=== PATIENT | male | born 1965 | race Caucasian/White ===

== ENCOUNTER 2021-01-27 09:39 | Inpatient (IN) | payer MEDICARE, MEDICAID, SELFPAY ==
[2021-01-27] VITALS (13 sets, daily range): BP systolic 103–152; BP diastolic 65–87; PULSE 92–145; RESP 15–28; TEMP 36.3–37.1; O2SAT 87–97; BMI 24.9
--- NOTE | ~2021-01-27 | CT_ITS ---
EXAMINATION: CT ABDOMEN AND PELVIS WITH CONTRAST CLINICAL INFORMATION: Rule out abdominal malignancy. History of left leg DVT and PE COMPARISON: None TECHNIQUE: Multidetector volumetric images were obtained from the superior aspect of the liver through the pubic symphysis following administration 85 mL of Omnipaque 350 intravenous contrast. Sagittal and coronal reformatted images were obtained on the technologist's workstation. Oral contrast: Yes This CT examination was performed using dose optimization techniques as appropriate, variously including the following: *Automated exposure control *Adjustment of mA and/or kV according to patient size (this includes techniques or standardized protocols for targeted exams where dose is matched to indication/reason for exam; i.e. extremities or head) *Use of iterative reconstruction technique DLP: 305 mGy-cm FINDINGS: LUNG BASES: There is severe bronchiectasis and some bronchial wall thickening and mucus plugging seen at the lung bases.. LIVER, GALLBLADDER, AND BILIARY TREE: The liver is enlarged, right lobe measuring 23 cm in length. The liver is normal in shape and attenuation. No focal hepatic lesion or biliary ductal dilatation is present. There is a gallstone in the gallbladder. PANCREAS: Unremarkable. SPLEEN: Unremarkable. ADRENAL GLANDS: Unremarkable. KIDNEYS AND URETERS: There is a small 2 mm stone in the lower pole of the left kidney. Kidneys are otherwise unremarkable. BLADDER: Unremarkable. GASTROINTESTINAL TRACT: There is stool throughout the colon suggestive of constipation. Small and large bowel is otherwise unremarkable. The small and large bowel are unremarkable. The appendix is is not seen. ABDOMINAL WALL: There is a right inguinal hernia containing fat. LYMPH NODES: Normal. VASCULAR: Unremarkable. PELVIC VISCERA: Unremarkable. OSSEOUS STRUCTURES: Unremarkable. CT/CT abdomen pelvis w con IMPRESSION: Constipation. Enlarged liver. Small left renal stone. Gallstone.
--- NOTE | ~2021-01-27 | XR_ITS ---
EXAMINATION: XR CHEST CLINICAL INFORMATION: Shortness of breath. COMPARISON: None TECHNIQUE: Frontal view of the chest was obtained. FINDINGS: The lungs are expanded there diffuse patchy airspace opacities seen scattered throughout both mid and lower lungs and minimal in both upper lobes suggestive of infiltrates likely related to Covid disease. Heart size and pulmonary vascularity is normal. No gross bony abnormality seen. XR/XR chest 1V IMPRESSION: Diffuse bilateral airspace opacities suspicious of interstitial infiltrates likely Covid disease.
--- NOTE | ~2021-01-27 | CT_ITS ---
EXAMINATION: CT ANGIOGRAM OF THE CHEST WITH AND WITHOUT CONTRAST (CT PULMONARY ANGIOGRAM FOR PE) CLINICAL INFORMATION: Reason for Exam hypoxia, elevated d-dimer COMPARISON: Previous chest x-ray from earlier the same day TECHNIQUE: Prior to contrast administration, noncontrast localization images were obtained. Subsequently, multidetector volumetric imaging was performed from the thoracic inlet to below the diaphragms following the administration of 66 mL Omnipaque 350 intravenous contrast. No contrast reaction reported Sagittal, coronal, and MIP oblique sagittal reformatted images were obtained on the CT workstation, uploaded to PACS, and reviewed. This CT examination was performed using dose optimization techniques as appropriate, variously including the following: *Automated exposure control *Adjustment of mA and/or kV according to patient size (this includes techniques or standardized protocols for targeted exams where dose is matched to indication/reason for exam; i.e. extremities or head) *Use of iterative reconstruction technique Total exam dose-length product 277 mGy-cm FINDINGS: QUALITY OF STUDY/CONTRAST BOLUS: Satisfactory. PULMONARY ARTERIES: There are large segmental and subsegmental right upper, right middle and right lower lobe pulmonary emboli. No left-sided pulmonary emboli are seen. THORACIC AORTA: No aneurysm or dissection. LUNG: There is extensive cylindrical bronchiectasis. This is seen throughout the lungs. There are areas of bronchial wall thickening and bronchial soft tissue opacification or mucus plugging. There is a 4 mm peripheral or subpleural right lower lobe nodule axial image 51 series 5. It is uncertain whether this is related to airways disease given peripheral location. There are other scattered small pulmonary nodules probably related to airways disease. There are emphysematous changes. PLEURA: No pleural effusion or pneumothorax. MEDIASTINUM: Normal heart size. No pericardial effusion. There is shotty mediastinal and bilateral hilar lymphadenopathy. Largest lymph node is a 1 cm left hilar lymph node.. No evidence of septal bowing or right heart strain. CHEST WALL/AXILLA: No axillary or internal mammary lymphadenopathy. OSSEOUS STRUCTURES: No acute or suspicious osseous abnormality. UPPER ABDOMEN: There is a gallstone in the gallbladder. The liver may be enlarged.. No reflux of contrast into the hepatic veins to suggest elevated right heart pressures. CT/CT angio chest PE protocol IMPRESSION: Segmental and subsegmental right upper, right middle and right lower lobe pulmonary emboli. Severe bronchiectasis and areas of bronchial wall thickening and mucus plugging. VTE: positive Findings were communicated to Dr. Michele by telephone on 01/28/2020 1:40 PM.
--- NOTE | ~2021-01-27 | US_ITS ---
EXAMINATION: US VENOUS ULTRASOUND WITH DOPPLER LOWER EXTREMITY, BILATERAL CLINICAL INFORMATION: Pulmonary embolism. COMPARISON: None TECHNIQUE: Ultrasound of the deep veins is performed from the hip to the calf with compression sonography and color and pulse Doppler assessment. Spectral analysis with color-flow imaging is performed. FINDINGS: RIGHT: There is normal venous compression and respiratory variation and augmented flow. The visualized common femoral vein, superficial femoral vein, profunda femoral vein, popliteal vein, and the trifurcation region shows no evidence of deep venous thrombosis. There is no significant popliteal fossa cyst. LEFT: There is deep vein thrombosis of the left leg. There is occlusive thrombus in the superficial femoral vein from the proximal through the distal thigh and into the popliteal vein. Vascular flow demonstrated in the posterior tibial vein of the calf. Peroneal vein not well seen. No popliteal cysts US/US venous duplex LE BI IMPRESSION: 1. Right leg: No deep vein thrombosis. 2. Left leg: Occlusive thrombus involving the femoral vein in the thigh through the popliteal vein. This critical result was discussed with Dr. Israel Plasencia on 01/28/2021, 10:10 PM and it was ascertained that the content and urgency of the report was understood at the time of direct communication.
--- NOTE | 2021-01-27 09:51 | ED.SOB ---
HPI - SOB/Dyspnea General Chief Complaint: Dyspnea Stated Complaint: DIFF BREATHING Time Seen by Provider: 01/27/21 09:51 Source: patient Mode of arrival: EMS Limitations: no limitations History of Present Illness HPI Narrative: Patient with pulmonary fibrosis and COPD with increasing shortness of breath. Recent admission to [facility] for similar, patient on 3L at home with O2 sats at 91%.. Today needs NRB 02 to keep him in low 90s MD elicited complaint: shortness of breath and cough Pertinent past history: COPD and HIV Onset (ago): day(s) Timing: constant Severity: severe Known history of: COPD Related Data Home Medications Medication Instructions Recorded Confirmed abacavir 2 tab PO DAILY 01/27/21 01/27/21 albuterol sulfate [Ventolin HFA] 2 puff PO Q4H PRN 01/27/21 01/27/21 dapsone 1 tab PO DAILY 01/27/21 01/27/21 darunavir ethanolate [Prezista] 1 tab PO BID 01/27/21 01/27/21 dolutegravir [Tivicay] 1 tab PO BID 01/27/21 01/27/21 emtricitabine-tenofovir alafen 1 tab PO DAILY 01/27/21 [Descovy] furosemide 20 mg PO DAILY 01/27/21 01/27/21 insulin aspart (niacinamide) 8 - 12 unit SUBCUT TIDAC 01/27/21 01/27/21 [Fiasp FlexTouch U-100 Insulin] insulin glargine [Lantus U-100 14 unit SUBCUT BID 01/27/21 01/27/21 Insulin] ipratropium-albuterol 3 ml INHALATION QID 01/27/21 01/27/21 omeprazole 20 mg PO DAILY 01/27/21 01/27/21 prednisone 10 tab PO DAILY 01/27/21 01/27/21 ritonavir 1 tab PO BID 01/27/21 01/27/21 trazodone 50 mg PO BEDTIME 01/27/21 01/27/21 umeclidinium-vilanterol [Anoro 1 puff INHALATION DAILY 01/27/21 01/27/21 Ellipta] Allergies Allergy/AdvReac Type Severity Reaction Status Date / Time Penicillins Allergy Severe HIves Verified 01/27/21 09:55 swelling SOB Review of Systems Constitutional: Constitutional: Reports no additional constitutional complaints Eyes: Eyes: Reports no additional eye complaints ENT: Denies dizziness Cardiovascular: Cardiovascular: Reports no additional cardiovascular complaints Respiratory: Respiratory: Reports as per HPI Gastrointestinal: Gastrointestinal: Reports no additional gastrointestinal complaints Musculoskeletal: Musculoskeletal: Reports no additional musculoskeletal complaints Integumentary/Breasts: Skin/Breast: Denies rash Neurologic: Reports system reviewed and no additional complaints, except as documented, Denies dizziness and Denies Sensory deficit (Neuro) Psychiatric: Psychiatric: Denies anxiety [facility] Past Medical History Medical History AIDS COPD (chronic obstructive pulmonary disease) Diabetes mellitus type 1 HIV disease HTN (hypertension) Pulmonary fibrosis Social History Social History Alcohol intake: never Smoking Status: Former smoker Use of substances other than those prescribed or required for medical reasons: No Advance Directives: No Advance Directives Information Provided: No Physical Exam Vital Signs: Vital Signs: Last Vital Signs Temp 98.2 F 01/27/21 11:16 Pulse 109 H 01/27/21 14:39 Resp 15 01/27/21 14:39 BP 123/81 01/27/21 14:39 Pulse Ox 96 01/27/21 14:39 Oxygen Flow Rate 7 01/27/21 09:45 Body Mass Index 24.9 Const: Other: chronically ill appearing, short of breath Orientation/consciousness: oriented to person and patient oriented x3 Limitations: no limitations HENMT: Head: Yes normal to inspection Ears: external ears normal General nose exam: Normal external nose present Mouth: Normal oral and palatal mucosa present and oropharynx normal Throat: Yes posterior oropharynx normal Eyes: General: appearance normal, both eyes and all related structures Neck: Other: supple Neck: Yes normal visual inspection Chest: Chest palpation & inspection: normal inspection of the chest Resp: Other: diffuse wheezing Cardio: Jugular venous distension: no JVD Rate: regular rate Rhythm: regular rhythm Heart sounds: S1 normal heart sound present and S2 normal heart sound present GI: Inspection: Yes normal to inspection Palpation (GI): Soft to palpation, nontender and No hepatosplenomegaly present Auscultation: normal bowel sounds : General: Yes no CVA tenderness Back/Spine/Pelvis: Back: no CVA tenderness Skin: General skin exam: no rashes or lesions noted Neuro: General: oriented to person and patient oriented x3 Cranial nerves: Yes CN's II-XII intact bilaterally Motor exam (neuro): 5/5 motor strength present throughout Sensory Exam: No Sensory deficit (Neuro) Extrem: Other: 3+ edema Psych: Appearance: grossly normal Course Course Course Narrative: Patient resting more comfortably, still requiring increased 02, will admit Reevaluation(s) Reevaluation #1: This patient is not septic, he is in COPD exacerbation secondary to pulmonary fibrosis Time: 12:56 MDM - SOB/Dyspnea Lab Data Result diagrams: 01/27/21 10:24 01/27/21 10:24 Labs: Lab Results 01/27/21 01/27/21 01/27/21 Range/Units 10:24 10:24 10:24 WBC 12.6 H (4.8-10.8) X10*3/uL RBC 4.17 L (4.60-5.80) X10*6/uL Hgb 11.3 L (14.0-18.0) g/dl Hct 36.5 L (42-52) % MCV 87.5 (80-98) fL MCH 27.1 (27.0-33.0) pg MCHC 31.0 (31.0-36.0) g/dl RDW 16.0 (11.0-16.0) % Plt Count 175 (160-400) X10*3/uL MPV 8.5 L (9.4-12.4) fL Immature Gran % (Auto) Cancelled Neut % (Auto) Cancelled Lymph % (Auto) Cancelled [place] % (Auto) Cancelled Eos % (Auto) Cancelled Baso % (Auto) Cancelled Lymph # (Auto) Cancelled [place] # (Auto) Cancelled Eos # (Auto) Cancelled Baso # (Auto) Cancelled Abs Immat Gran (auto) Cancelled Absolute Neuts (auto) Cancelled Absolute Nucleated RBC 0.000 (0.0-0.012) X10*3/uL Nucleated RBC % (auto) 0.0 (0.0-0.2) /100WBC Neutrophils % (Manual) 82 H (45-73) % Band Neutrophils % 1 L (3-5) % Lymphocytes % (Manual) 7 L (20-40) % Atypical Lymphs % (Man) 4 (0-6) % Monocytes % (Manual) 6 (2-11) % Abs Neuts (Manual) 10.5 H (2.2-7.9) X10*3/uL Lymphocytes # (Manual) 0.9 (0.6-4.8) X10*3/uL Atyp Lymphs # (Manual) 0.5 x10*3/uL Monocytes # (Manual) 0.8 (0.0-1.2) X10*3/uL Platelet Estimate NORMAL (NORMAL) Plt Morphology Comment NORMAL RBC Morphology NORMAL D-Dimer NG/ML O2 Saturation % ABG pH at Pt Temp (7.35-7.45) ABG pH (Temp Correct) (7.35-7.45) ABG pCO2 at Pt Temp (32-45) mmHg ABG pCO2 (Temp Corrct (32-45) mmHg ABG pO2 at Pt Temp (83-108) mmHg ABG pO2 (Temp Correct (83-108) ABG HCO3 (22-26) mmol/L ABG Base Excess (Actual) mmol/L Sodium 136 (135-145) mmol/L Potassium 3.9 (3.3-5.1) mmol/L Chloride 95 L (96-108) mmol/L Carbon Dioxide 31 H (22-29) mmol/L Anion Gap 14 (12-20) BUN 13 (9-16) mg/dL Creatinine 0.91 (0.5-1.4) mg/dL Estim Creat Clear Calc 97.6 Estimated GFR > 60 POC Glucose (60-115) mg/dL Random Glucose 353 H* (60-115) mg/dL Calcium 8.8 (8.4-10.2) mg/dL B-Natriuretic Peptide (<100) pg/mL Procalcitonin 0.12 ng/mL Coronavirus (PCR) (Negative) Influenza Type A (PCR) (Negative) Influenza Type B (PCR) (Negative) RSV RNA Qual (PCR) (Negative) 01/27/21 01/27/21 01/27/21 Range/Units 10:27 11:30 13:02 WBC (4.8-10.8) X10*3/uL RBC (4.60-5.80) X10*6/uL Hgb (14.0-18.0) g/dl Hct (42-52) % MCV (80-98) fL MCH (27.0-33.0) pg MCHC (31.0-36.0) g/dl RDW (11.0-16.0) % Plt Count (160-400) X10*3/uL MPV (9.4-12.4) fL Immature Gran % (Auto) Neut % (Auto) Lymph % (Auto) [place] % (Auto) Eos % (Auto) Baso % (Auto) Lymph # (Auto) [place] # (Auto) Eos # (Auto) Baso # (Auto) Abs Immat Gran (auto) Absolute Neuts (auto) Absolute Nucleated RBC (0.0-0.012) X10*3/uL Nucleated RBC % (auto) (0.0-0.2) /100WBC Neutrophils % (Manual) (45-73) % Band Neutrophils % (3-5) % Lymphocytes % (Manual) (20-40) % Atypical Lymphs % (Man) (0-6) % Monocytes % (Manual) (2-11) % Abs Neuts (Manual) (2.2-7.9) X10*3/uL Lymphocytes # (Manual) (0.6-4.8) X10*3/uL Atyp Lymphs # (Manual) x10*3/uL Monocytes # (Manual) (0.0-1.2) X10*3/uL Platelet Estimate (NORMAL) Plt Morphology Comment RBC Morphology D-Dimer NG/ML O2 Saturation 85.0 % ABG pH at Pt Temp 7.51 H (7.35-7.45) ABG pH (Temp Correct) 7.52 H (7.35-7.45) ABG pCO2 at Pt Temp 42 (32-45) mmHg ABG pCO2 (Temp Corrct 41 (32-45) mmHg ABG pO2 at Pt Temp 56 L (83-108) mmHg ABG pO2 (Temp Correct 55 L (83-108) ABG HCO3 34 H (22-26) mmol/L ABG Base Excess (Actual) 10.3 mmol/L Sodium (135-145) mmol/L Potassium (3.3-5.1) mmol/L Chloride (96-108) mmol/L Carbon Dioxide (22-29) mmol/L Anion Gap (12-20) BUN (9-16) mg/dL Creatinine (0.5-1.4) mg/dL Estim Creat Clear Calc Estimated GFR POC Glucose 279 H (60-115) mg/dL Random Glucose (60-115) mg/dL Calcium (8.4-10.2) mg/dL B-Natriuretic Peptide < 10 (<100) pg/mL Procalcitonin ng/mL Coronavirus (PCR) (Negative) Influenza Type A (PCR) (Negative) Influenza Type B (PCR) (Negative) RSV RNA Qual (PCR) (Negative) 01/27/21 01/27/21 Range/Units 13:25 13:54 WBC (4.8-10.8) X10*3/uL RBC (4.60-5.80) X10*6/uL Hgb (14.0-18.0) g/dl Hct (42-52) % MCV (80-98) fL MCH (27.0-33.0) pg MCHC (31.0-36.0) g/dl RDW (11.0-16.0) % Plt Count (160-400) X10*3/uL MPV (9.4-12.4) fL Immature Gran % (Auto) Neut % (Auto) Lymph % (Auto) [place] % (Auto) Eos % (Auto) Baso % (Auto) Lymph # (Auto) [place] # (Auto) Eos # (Auto) Baso # (Auto) Abs Immat Gran (auto) Absolute Neuts (auto) Absolute Nucleated RBC (0.0-0.012) X10*3/uL Nucleated RBC % (auto) (0.0-0.2) /100WBC Neutrophils % (Manual) (45-73) % Band Neutrophils % (3-5) % Lymphocytes % (Manual) (20-40) % Atypical Lymphs % (Man) (0-6) % Monocytes % (Manual) (2-11) % Abs Neuts (Manual) (2.2-7.9) X10*3/uL Lymphocytes # (Manual) (0.6-4.8) X10*3/uL Atyp Lymphs # (Manual) x10*3/uL Monocytes # (Manual) (0.0-1.2) X10*3/uL Platelet Estimate (NORMAL) Plt Morphology Comment RBC Morphology D-Dimer 7860 NG/ML O2 Saturation % ABG pH at Pt Temp (7.35-7.45) ABG pH (Temp Correct) (7.35-7.45) ABG pCO2 at Pt Temp (32-45) mmHg ABG pCO2 (Temp Corrct (32-45) mmHg ABG pO2 at Pt Temp (83-108) mmHg ABG pO2 (Temp Correct (83-108) ABG HCO3 (22-26) mmol/L ABG Base Excess (Actual) mmol/L Sodium (135-145) mmol/L Potassium (3.3-5.1) mmol/L Chloride (96-108) mmol/L Carbon Dioxide (22-29) mmol/L Anion Gap (12-20) BUN (9-16) mg/dL Creatinine (0.5-1.4) mg/dL Estim Creat Clear Calc Estimated GFR POC Glucose (60-115) mg/dL Random Glucose (60-115) mg/dL Calcium (8.4-10.2) mg/dL B-Natriuretic Peptide (<100) pg/mL Procalcitonin ng/mL Coronavirus (PCR) NEGATIVE (Negative) Influenza Type A (PCR) NEGATIVE (Negative) Influenza Type B (PCR) NEGATIVE (Negative) RSV RNA Qual (PCR) NEGATIVE (Negative) Imaging Data Chest x-ray: Radiologist's impression: chronic interstitial changes vs COVID Discharge Plan Discharge Clinical Impression: Acute exacerbation of chronic obstructive airways disease Patient Disposition: Admitted As Inpatient
[2021-01-27] MEDS: Furosemide 40 MG/4 ML VIAL IVPUSH (10:03)
[2021-01-27] MEDS: methylPREDNISolone Sod Succ 125 MG/2 ML VIAL IVPUSH (10:03)
[2021-01-27] MEDS: Albuterol Sulfate (0.083%) 2.5 MG/3 ML VIAL.NEB 10 MG INHALE (10:06)
[2021-01-27] MEDS: Ipratropium Bromide 0.5 MG/2.5 ML SOLUTION INHALE ×2 (10:06→19:46)
[2021-01-27 10:34] LABS: Hematocrit 36.5 % (42-52); Hemoglobin 11.3 g/dl (14.0-18.0); Mean Corpuscular Hemoglobin 27.1 pg (27.0-33.0); Mean Corpuscular Volume 87.5 fL (80-98); Mean Platelet Volume 8.5 fL (9.4-12.4); Platelet Count 175 X10*3/uL (160-400); Red Blood Count 4.17 X10*6/uL (4.60-5.80); White Blood Count 12.6 X10*3/uL (4.8-10.8)
[2021-01-27 11:05] LABS: Atypical Lymph Absolute Manual 0.5 x10*3/uL; Atypical Lymphs Percent Manual 4 % (0-6); Band Neutrophils Percent 1 % (3-5); Lymphocytes Absolute Manual 0.9 X10*3/uL (0.6-4.8); Lymphocytes Percent Manual 7 % (20-40); Monocytes Absolute Manual 0.8 X10*3/uL (0.0-1.2); Monocytes Percent Manual 6 % (2-11); Neutrophils Absolute Manual 10.5 X10*3/uL (2.2-7.9); Neutrophils Percent Manual 82 % (45-73)
[2021-01-27 11:06] LABS: Platelet Estimate NORMAL (NORMAL); Platelet Morphology Comment NORMAL; RBC Morphology NORMAL
[2021-01-27 11:14] LABS: Anion Gap 14 (12-20); Blood Urea Nitrogen 13 mg/dL (9-16); Calcium 8.8 mg/dL (8.4-10.2); Carbon Dioxide 31 mmol/L (22-29); Chloride 95 mmol/L (96-108); Creatinine Clr Calc Pharmacy 97.6; Estimated Glomerular Filt Rate > 60; Glucose Random 353 mg/dL (60-115); Potassium 3.9 mmol/L (3.3-5.1); Sodium 136 mmol/L (135-145)
[2021-01-27] MEDS: Insulin Regular, Human 100 UNIT/ML 3 ML VIAL SUBCUT (11:30)
[2021-01-27] MEDS: 0.9 % Sodium Chloride 1,000 ML 999 ML IVCONT (11:31)
[2021-01-27 11:37] LABS: ABG Refer to POC result
[2021-01-27 11:38] LABS: ABG Base Excess 10.3 mmol/L; ABG HCO3 34 mmol/L (22-26); ABG pCO2 42 mmHg (32-45); ABG pCO2 TC 41 mmHg (32-45); ABG pH 7.51 (7.35-7.45); ABG pH TC 7.52 (7.35-7.45); ABG pO2 56 mmHg (83-108); ABG pO2 TC 55 (83-108)
[2021-01-27 13:06] LABS: Glucose, Whole Blood 279 mg/dL (60-115)
[2021-01-27 13:40] LABS: B Type Natriuretic Peptide < 10 pg/mL (<100)
--- NOTE | 2021-01-27 13:47 | P.HPHOSP_ITS ---
History of Present Illness Date of Service: 01/27/21 Chief Complaint: shortness of breath, non-productive cough This is a 55-year-old male with a past medical history of diabetes, chronic respiratory failure with hypoxia on 3 L, COPD/pulmonary fibrosis, HIV - reports last CD4 count greater than 200 and viral load undetectable in September 2020 who presents to the hospital with complaints of progressive shortness of breath over the last 5 days. He reports that he was admitted at [facility] and was discharged from there on 01/20/2021 after being treated for respiratory symptoms. He reports that initially he was treated with IV antibiotics as well and once infection was ruled out this was discontinued. He reports that he was discharged on a prednisone taper over 1 month. He reports that for the initial several days after discharge he felt improved but not at baseline, however his symptoms restarted 2-3 days after discharge. He reports progressive shortness of breath initially with exertion but at this point even with minimal movement in his bed. He reports a nonproductive cough. He denies any fevers or chills. He denies any sick contacts. He reports getting his [employer] COVID-19 vaccine with a 2nd dose at the end of November. He also reports that he was treated for COVID-19 back in August 2020. He reports that his symptoms became so severe that he had to call EMS today. Reportedly when paramedics presented to the patient's home, his saturations were in the mid 80s on his usual 3 L. On ED arrival, he was non-rebreather with saturations at about 90%. He was treated with multiple rounds of bronchodilators, systemic steroids, the dose of IV Lasix, fluid bolus with 2 L. an ABG was performed which showed saturation of 85%, with PO2 @ 56%. Review of Systems Review of Systems: General - denies fevers or chills, denies weakness or fatigue HEENT -denies blurred vision, denies headache, denies sore throat Cardiovascular - denies chest pain or palpitations, bilateral LE edema, improved Respiratory - +sob, initially with exertion, now at rest; +cough, non-productive Gastrointestinal - denies abdominal pain, nausea, vomiting, diarrhea - denies flank pain, denies dysuria, denies frequency or urgency Musculoskeletal - denies back pain, denies hip pain, denies knee pain, denies shoulder pain Neurological - denies any focal weakness or numbness Skin, denies any bruising or redness Psychiatric - denies any suicidal ideation, hallucinations, homicidal ideation Endocrinology - denies intolerance to hot / cold temperatures [facility] Medical History AIDS COPD (chronic obstructive pulmonary disease) Diabetes mellitus type 1 HIV disease HTN (hypertension) Pulmonary fibrosis Social History Alcohol intake: never Smoking Status: Former smoker Use of substances other than those prescribed or required for medical reasons: No Advance Directives: No Advance Directives Information Provided: No Meds Allergies Allergy/AdvReac Type Severity Reaction Status Date / Time Penicillins Allergy Severe HIves Verified 01/27/21 09:55 swelling SOB Active Medications: Current Medications Generic Name Dose Route Start Last Admin Trade Name Freq PRN Reason Stop Dose Admin Pharmacy Consult 1 each 01/27/21 12:55 Consult Rx Perform Med Rec MISCELLANE ONCE PRN Consult order Home Medications Medication Instructions Recorded Confirmed Last Taken Type abacavir 2 tab PO DAILY 01/27/21 Unknown History albuterol sulfate [Ventolin HFA] 2 puff PO Q4H PRN 01/27/21 01/27/21 01/27/21 History dapsone 1 tab PO DAILY 01/27/21 Unknown History darunavir ethanolate [Prezista] 1 tab PO BID 01/27/21 Unknown History dolutegravir [Tivicay] 1 tab PO BID 01/27/21 Unknown History emtricitabine-tenofovir alafen 1 tab PO DAILY 01/27/21 Unknown History [Descovy] furosemide 20 mg PO DAILY 01/27/21 01/27/21 01/27/21 History insulin aspart (niacinamide) 8 - 12 unit SUBCUT TIDAC 01/27/21 01/27/21 Unknown History [Fiasp FlexTouch U-100 Insulin] insulin glargine [Lantus U-100 14 unit SUBCUT BID 01/27/21 01/27/21 01/27/21 History Insulin] ipratropium-albuterol 3 ml INHALATION QID 01/27/21 01/27/21 01/27/21 History omeprazole 20 mg PO DAILY 01/27/21 01/27/21 01/27/21 History prednisone 10 tab PO DAILY 01/27/21 01/27/21 01/26/21 History ritonavir 1 tab PO BID 01/27/21 Unknown History trazodone 50 mg PO BEDTIME 01/27/21 01/27/21 01/26/21 History umeclidinium-vilanterol [Anoro 1 puff INHALATION DAILY 01/27/21 01/27/21 01/27/21 History Ellipta] Physical Exam Vital Signs and Narrative: Vital Signs: Last Vital Signs Temp 98.2 F 01/27/21 11:16 Pulse 110 H 01/27/21 13:29 Resp 16 01/27/21 13:29 BP 119/68 01/27/21 13:29 Pulse Ox 96 01/27/21 13:29 Oxygen Flow Rate 7 01/27/21 09:45 Body Mass Index 24.9 Const: Other: Constitutional - Awake and Alert HEENT - PERRLA, EOMI Cardiovascular - S1S2, RRR, minimal pedal edema Respiratory - Diminished sounds, tachypnea and accessory muscle use with minimal exertion, comfortable Gastrointestinal - NT / ND; +BS; No rebound or guarding - No CVA tenderness Extremities - no calf tenderness bilaterally, no swelling Musculoskeletal - Normal inspection, normal ROM Skin - Warm/Dry Neurological - Alert & oriented x3, No focal deficit Psychological - Appropriate affect Results Labs CBC and Chem 7: 01/27/21 10:24 01/27/21 10:24 Labs: Laboratory Results - last 24 hr 01/27/21 01/27/21 01/27/21 10:24 10:24 10:27 MCV 87.5 MCH 27.1 MCHC 31.0 RDW 16.0 Plt Count 175 MPV 8.5 L Immature Gran % (Auto) Cancelled Neut % (Auto) Cancelled Lymph % (Auto) Cancelled [place] % (Auto) Cancelled Eos % (Auto) Cancelled Baso % (Auto) Cancelled Lymph # (Auto) Cancelled [place] # (Auto) Cancelled Eos # (Auto) Cancelled Baso # (Auto) Cancelled Abs Immat Gran (auto) Cancelled Absolute Neuts (auto) Cancelled Absolute Nucleated RBC 0.000 Nucleated RBC % (auto) 0.0 Neutrophils % (Manual) 82 H Band Neutrophils % 1 L Lymphocytes % (Manual) 7 L Atypical Lymphs % (Man) 4 Monocytes % (Manual) 6 Abs Neuts (Manual) 10.5 H Lymphocytes # (Manual) 0.9 Atyp Lymphs # (Manual) 0.5 Monocytes # (Manual) 0.8 Platelet Estimate NORMAL Plt Morphology Comment NORMAL RBC Morphology NORMAL O2 Saturation ABG pH at Pt Temp ABG pH (Temp Correct) ABG pCO2 at Pt Temp ABG pCO2 (Temp Corrct ABG pO2 at Pt Temp ABG pO2 (Temp Correct ABG HCO3 ABG Base Excess (Actual) Anion Gap 14 Estim Creat Clear Calc 97.6 Estimated GFR > 60 POC Glucose Random Glucose 353 H* Calcium 8.8 B-Natriuretic Peptide < 10 01/27/21 01/27/21 11:30 13:02 MCV MCH MCHC RDW Plt Count MPV Immature Gran % (Auto) Neut % (Auto) Lymph % (Auto) [place] % (Auto) Eos % (Auto) Baso % (Auto) Lymph # (Auto) [place] # (Auto) Eos # (Auto) Baso # (Auto) Abs Immat Gran (auto) Absolute Neuts (auto) Absolute Nucleated RBC Nucleated RBC % (auto) Neutrophils % (Manual) Band Neutrophils % Lymphocytes % (Manual) Atypical Lymphs % (Man) Monocytes % (Manual) Abs Neuts (Manual) Lymphocytes # (Manual) Atyp Lymphs # (Manual) Monocytes # (Manual) Platelet Estimate Plt Morphology Comment RBC Morphology O2 Saturation 85.0 ABG pH at Pt Temp 7.51 H ABG pH (Temp Correct) 7.52 H ABG pCO2 at Pt Temp 42 ABG pCO2 (Temp Corrct 41 ABG pO2 at Pt Temp 56 L ABG pO2 (Temp Correct 55 L ABG HCO3 34 H ABG Base Excess (Actual) 10.3 Anion Gap Estim Creat Clear Calc Estimated GFR POC Glucose 279 H Random Glucose Calcium B-Natriuretic Peptide Imaging Radiologist's Impressions: Impressions Chest X-Ray 01/27/21 09:55 IMPRESSION: Diffuse bilateral airspace opacities suspicious of interstitial infiltrates likely Covid disease. Assessment and Plan (1) Acute exacerbation of chronic obstructive airways disease: Status: Acute (2) Chronic respiratory failure with hypoxia: Status: Acute This is a 55-year-old male with a past medical history of chronic respiratory failure on home oxygen at 3 L, COPD and pulmonary fibrosis, bronchiectasis, HIV on HAART with last CD4 count greater than 200 who presents to the hospital with a 5 day history of progressive shortness of breath and a nonproductive cough. He reports being recently treated at [facility] for a COPD flare up. He was discharged from there 1 week ago with a prednisone taper and initially improved but now returns with recurrence of his symptoms. 1. Acute on chronic respiratory failure with hypoxia Blood gas done on 4 L shows O2 saturation of 85, subsequently placed on Ventimask with saturations in the 90s. Multifactorial BNP wnl; check d-dimer -- if elevated, will get CTA; check procalcitonin See details below 2. COPD/pulmonary fibrosis exacerbation IV solu-medrol 60mg q8h scheduled and prn bronchodilators -- will use xopenex over albuterol in light of his tachycardia if not improved, will involve pulmonary 3. HIV continue his HAART once meds reconciled 4. DM uncontrolled, presented with glucose > 350 diabetic diet sliding scale (continue baseline meds once med rec completed) continue baseline meds once med rec completed Full Code DVT pptx, Lovenox Reports his would be HCP
[2021-01-27 14:10] LABS: Influenza A PCR NEGATIVE (Negative); Influenza B PCR NEGATIVE (Negative); Resp Syncy Virus RNA Qual PCR NEGATIVE (Negative); SARS COV2 PCR INHOUSE NEGATIVE (Negative)
[2021-01-27 14:38] LABS: D Dimer 7860 NG/ML
[2021-01-27 14:47] LABS: Procalcitonin 0.12 ng/mL
[2021-01-27] MEDS: iohexoL 350 MG/ML 100 ML INFUS..BTL IV (16:04)
[2021-01-27] MEDS: Doxycycline Hyclate 100 MG in 0.9 % Sodium Chloride 250 ML 166.67 MG IV (16:08)
[2021-01-27 17:40] LABS: Partial Thromboplastin Time 29.8 SEC (24.1-38.0)
[2021-01-27 18:19] LABS: Glucose, Whole Blood 322 mg/dL (60-115)
[2021-01-27] MEDS: Insulin Lispro 100 UNIT/ML 3 ML VIAL SUBCUT ×2 (18:19→22:01)
--- NOTE | 2021-01-27 18:34 | PC.NURSE ---
pt to floor from ER. He states he had sudden shortness of breath today. He was given snack and then meal, became short of breath while eating, speaking in on e word sentences. Pt denies chest pain. He has some swelling to left lower leg, no redness and states he is prone to lower extremity edema. He denies leg pain. Pt on monitor, sinus tachycardia rate 122-130. Will continue to monitor
[2021-01-27] MEDS: ondansetron HCL 4 MG/2 ML VIAL IVPUSH (19:43)
[2021-01-27 20:13] LABS: Glucose, Whole Blood 275 mg/dL (60-115)
[2021-01-27] MEDS: 0.9 % Sodium Chloride Flush 3 ML SYRINGE IVFLUSH ×2 (20:16→21:50)
[2021-01-27] MEDS: cefEPime HCl 2 GM in 0.9 % Sodium Chloride 50 ML IV (20:17)
[2021-01-27] MEDS: Enoxaparin Sodium 80 MG/0.8 ML SYRINGE SUBCUT (20:19)
[2021-01-27] MEDS: methylPREDNISolone Sod Succ 125 MG/2 ML VIAL 60 MG IVPUSH (20:19)
[2021-01-27] MEDS: Dolutegravir Sodium 50 MG TABLET PO (21:48)
[2021-01-27] MEDS: DARUNAVIR ETHANOLATE 600 MG PO (21:48)
[2021-01-27] MEDS: traZODone HCL 50 MG TABLET PO (21:48)
[2021-01-27] MEDS: guaiFENesin LA 600 MG TAB.ER.12H 1200 MG PO (21:48)
[2021-01-27] MEDS: RITONAVIR 100 MG PO (21:49)
[2021-01-27] MEDS: Insulin Glargine,Hum.rec.anlog 100 UNIT/ML 10 ML VIAL 14 UNIT SUBCUT (22:01)
[2021-01-28] VITALS (10 sets, daily range): BP systolic 104–131; BP diastolic 60–78; PULSE 88–106; RESP 18–21; TEMP 36.1–37.1; O2SAT 90–96
[2021-01-28] MEDS: methylPREDNISolone Sod Succ 125 MG/2 ML VIAL 60 MG IVPUSH ×2 (02:14→11:26)
[2021-01-28] MEDS: cefEPime HCl 2 GM in 0.9 % Sodium Chloride 50 ML IV ×2 (02:15→11:26)
[2021-01-28] MEDS: Doxycycline Hyclate 100 MG in 0.9 % Sodium Chloride 250 ML 166.67 MG IV ×2 (04:56→15:48)
[2021-01-28] MEDS: Omeprazole 20 MG CAPSULE.DR PO (04:57)
[2021-01-28 06:48] LABS: Basophils Percent Auto 0.1 % (0-2); Hemoglobin 10.9 g/dl (14.0-18.0); Imm Gran Abs Auto 0.07 X10*3/uL (0.00-0.03); Imm Gran Pct Auto 0.6 % (0.0-0.4)
[2021-01-28 06:50] LABS: Lymphocytes Absolute Auto 0.7 X10*3/uL (1.2-4.9); Lymphocytes Percent Auto 6.6 % (20-40); Mean Corpuscular HGB Conc 31.1 g/dl (31.0-36.0); Mean Corpuscular Hemoglobin 26.9 pg (27.0-33.0); Mean Corpuscular Volume 86.4 fL (80-98); Mean Platelet Volume 8.7 fL (9.4-12.4); Monocytes Absolute Auto 0.3 X10*3/uL (0.1-1.2); Monocytes Percent Auto 2.7 % (2-11); Neutrophils Absolute Auto 10.2 X10*3/uL (2.0-8.3); Platelet Count 205 X10*3/uL (160-400); Red Blood Count 4.05 X10*6/uL (4.60-5.80); Red Cell Distribution Width 16.2 % (11.0-16.0); White Blood Count 11.3 X10*3/uL (4.8-10.8)
[2021-01-28 07:03] LABS: Anion Gap 12 (12-20); Blood Urea Nitrogen 18 mg/dL (9-16); Calcium 9.3 mg/dL (8.4-10.2); Carbon Dioxide 35 mmol/L (22-29); Chloride 95 mmol/L (96-108); Creatinine Clr Calc Pharmacy 112.5; Estimated Glomerular Filt Rate > 60; Glucose Random 264 mg/dL (60-115); Potassium 4.3 mmol/L (3.3-5.1); Sodium 138 mmol/L (135-145)
[2021-01-28] MEDS: Ipratropium Bromide 0.5 MG/2.5 ML SOLUTION INHALE ×4 (07:39→20:04)
[2021-01-28 07:43] LABS: Glucose, Whole Blood 272 mg/dL (60-115)
--- NOTE | 2021-01-28 08:59 | PM.CNPUL ---
History of Present Illness History of Present Illness Consult date: 01/28/21 Requesting physician: Zackery Michele Reason for consult: dyspnea, pulmonary embolism and abnormal CXR/CT Chief complaint: Shortness of breath Narrative: This gentleman is 55 years old male, recently treated at [facility] for acute exacerbation of COPD, discharged home on 01/20 on prednisone taper and usual meds. Was doing fairly well except that since 2 days ago he is having increasing shortness of breath. His O2 sats were going down on his usual O2 of 2-3 L/minute. Denies chest pain, fever or chills. He has been relatively sedentary and inactive for the last several weeks. His D-dimer was high a so CTA scan performed. Which shows multiple segmental and subsegmental pulmonary emboli. In addition he has changes of emphysema, bronchiectasis, and chronic bronchial thickening, with question of mucus plugs. Past medical history is significant as follows: COPD for many years . As noted above recently treated for an acute exacerbation. He is on oxygen, DuoNeb updrafts, Anoro Ellipta , a and intermittent courses of prednisone and antibiotics. HIV, treated for the last 12 years with antiviral regimen, has been under control, he reports that his last CD4 was above 200, and viral load not detectable. He had COVID to infection in August 2020 , from him which he recovered well and got his to shorts of COVID vaccine in . He denies the history of pulmonary embolism or DVT before. Review of Systems Review of Systems: Yes all other systems are reviewed and are negative ENT: Reports system reviewed and no additional complaints, except as documented Cardiovascular: Cardiovascular: Denies chest pain, Denies irregular heart rhythm and Reports dyspnea on exertion Respiratory: Respiratory: Reports as per HPI and Reports dyspnea on exertion Gastrointestinal: Gastrointestinal: Reports no additional gastrointestinal complaints Musculoskeletal: Musculoskeletal: Reports no additional musculoskeletal complaints Neurologic: Reports system reviewed and no additional complaints, except as documented Psychiatric: Psychiatric: Reports no additional psychiatric complaints [facility] Past Medical History Medical History (Updated 01/28/21 @ 09:20 by Dre Cruz MD) AIDS COPD (chronic obstructive pulmonary disease) Diabetes mellitus type 1 HIV disease HTN (hypertension) Pulmonary embolism Pulmonary fibrosis Social History Social History Household Members: Spouse and Children Housing: House Do you presently have visiting nurse or other home services: No Alcohol intake: never Smoking Status: Former smoker Smoked in Last 30 Days: No Use of substances other than those prescribed or required for medical reasons: No Currently Displaying Signs/Symptoms of Drug Intoxication Withdrawal: No Have you been hit, kicked, punched, or otherwise hurt by someone within the past year? If so, by whom?: No Do you feel safe in your current relationship?: Yes Is there a partner from a previous relationship who is making you feel unsafe now?: No Are you made to feel afraid or neglected: No Advance Directives: No Advance Directives Information Provided: No Do you have thoughts of harming others: None Do you have a plan to hurt others: No Plan Recently lost weight without trying: No Nutrition Risks: No Nutritional Risk Poor oral hygiene: No service: Yes Current occupational status: disabled Meds Allergies Allergy/AdvReac Type Severity Reaction Status Date / Time Penicillins Allergy Severe HIves Verified 01/27/21 09:55 swelling SOB Sulfa (Sulfonamide Allergy Severe Hives Verified 01/27/21 17:34 Antibiotics) Active Medications: Current Medications Generic Name Dose Route Start Last Admin Trade Name Freq PRN Reason Stop Dose Admin Abacavir Sulfate 600 mg 01/28/21 09:00 Abacavir Sulfate 300 Mg Tablet PO DAILY NELI Acetaminophen 650 mg 01/27/21 17:31 Acetaminophen 325 Mg Tablet PO Q6H PRN Pain, Mild (Pain Scale 1-3) Darunavir 600 mg 01/27/21 21:00 01/27/21 21:48 Darunavir Ethanolate 600 Mg Tablet PO 600 mg BID NELI Administration Dolutegravir Sodium 50 mg 01/27/21 21:00 01/27/21 21:48 Dolutegravir Sodium 50 Mg Tablet PO 50 mg BID NELI Administration Enoxaparin Sodium 80 mg 01/27/21 20:00 01/27/21 20:19 Enoxaparin Sodium 80 Mg/0.8 Ml Syringe SUBCUT 80 mg Q12H NELI Administration Furosemide 20 mg 01/28/21 09:00 Furosemide 20 Mg Tablet PO DAILY NELI Protocol Guaifenesin 1,200 mg 01/27/21 21:00 01/27/21 21:48 Guaifenesin [place] 600 Mg Tab.Er.12h PO 1,200 mg BID NELI Administration Doxycycline Hyclate 100 mg/ 250 mls @ 166.67 mls/hr 01/27/21 16:00 01/28/21 06:48 Sodium Chloride IV Infused Q12H NELI Infusion Cefepime HCl 2 gm/ Sodium 50 mls @ 100 mls/hr 01/27/21 18:00 01/28/21 02:52 Chloride IV Infused Q8H NELI Infusion Insulin Glargine 14 unit 01/27/21 21:00 01/27/21 22:01 Insulin Glargine,Hum.Rec.Anlog 100 Unit/Ml 10 Ml Vial SUBCUT 14 unit BID NELI Administration Insulin Human Lispro 0 unit 01/27/21 16:30 01/27/21 22:01 Insulin Lispro 100 Unit/Ml 3 Ml Vial SUBCUT 6 unit QIDACHS [facility] Administration Protocol Ipratropium [place] 0.5 mg 01/27/21 17:31 01/28/21 07:46 Ipratropium [place] 0.5 Mg/2.5 Ml Solution INHALE Not Given RQ4H WHILE AWAKE [facility] Levalbuterol HCl 1.25 mg 01/27/21 17:31 01/28/21 07:46 Levalbuterol Hcl 1.25 Mg/0.5 Ml Vial.Neb INHALE Not Given RQ4H WHILE AWAKE [facility] Levalbuterol HCl 1.25 mg 01/27/21 17:31 Levalbuterol Hcl 1.25 Mg/0.5 Ml Vial.Neb INHALE Q3H PRN Shortness of Breath Methylprednisolone Sodium Succinate 60 mg 01/27/21 18:00 01/28/21 02:14 Methylprednisolone Sod Succ 125 Mg/2 Ml Vial IVPUSH 60 mg Q8H NELI Administration Non-Formulary Medication 1 tab 01/28/21 09:00 Dapsone PO DAILY NELI Omeprazole 20 mg 01/28/21 06:30 01/28/21 04:57 Omeprazole 20 Mg Capsule.Dr PO 20 mg DAILY@0630 [facility] Administration Ondansetron HCl 4 mg 01/27/21 17:31 01/27/21 19:43 Ondansetron Hcl 4 Mg/2 Ml Vial IVPUSH 4 mg Q8H PRN Administration Nausea and Vomiting Pharmacy Consult 1 each 01/27/21 12:55 Consult Rx Perform Med Rec MISCELLANE ONCE PRN Consult order Ritonavir 100 mg 01/27/21 21:00 01/27/21 21:49 Ritonavir 100 Mg Tablet PO 100 mg BID NELI Administration Sodium Chloride 3 ml 01/27/21 17:31 01/27/21 21:50 0.9 % Sodium Chloride Flush 3 Ml Syringe IVFLUSH 3 ml QSHIFT NELI Administration Trazodone HCl 50 mg 01/27/21 21:00 01/27/21 21:48 Trazodone Hcl 50 Mg Tablet PO 50 mg BEDTIME NELI Administration Home Medications Medication Instructions Recorded Confirmed Last Taken Type abacavir 2 tab PO DAILY 01/27/21 01/27/21 01/26/21 History albuterol sulfate [Ventolin HFA] 2 puff PO Q4H PRN 01/27/21 01/27/21 01/27/21 History dapsone 1 tab PO DAILY 01/27/21 01/27/21 01/26/21 History darunavir ethanolate [Prezista] 1 tab PO BID 01/27/21 01/27/21 01/26/21 History dolutegravir [Tivicay] 1 tab PO BID 01/27/21 01/27/21 01/26/21 History emtricitabine-tenofovir alafen 1 tab PO DAILY 01/27/21 Unknown History [Descovy] furosemide 20 mg PO DAILY 01/27/21 01/27/21 01/27/21 History insulin aspart (niacinamide) 8 - 12 unit SUBCUT TIDAC 01/27/21 01/27/21 Unknown History [Fiasp FlexTouch U-100 Insulin] insulin glargine [Lantus U-100 14 unit SUBCUT BID 01/27/21 01/27/21 01/27/21 History Insulin] ipratropium-albuterol 3 ml INHALATION QID 01/27/21 01/27/21 01/27/21 History omeprazole 20 mg PO DAILY 01/27/21 01/27/21 01/27/21 History prednisone 10 tab PO DAILY 01/27/21 01/27/21 01/26/21 History ritonavir 1 tab PO BID 01/27/21 01/27/21 01/26/21 History trazodone 50 mg PO BEDTIME 01/27/21 01/27/21 01/26/21 History umeclidinium-vilanterol [Anoro 1 puff INHALATION DAILY 01/27/21 01/27/21 01/27/21 History Ellipta] Physical Exam Vital Signs: Vital Signs: Last Vital Signs Temp 97.8 F 01/28/21 03:41 Pulse 93 01/28/21 07:40 Resp 18 01/28/21 03:41 BP 104/65 01/28/21 03:41 Pulse Ox 94 01/28/21 03:41 Oxygen Flow Rate 7 01/27/21 09:45 Body Mass Index 24.9 Const: Other: Short of breath but only mild and claims that this is at his baseline. General: comfortable, no acute distress, alert and awake Orientation/consciousness: patient oriented x3 HENMT: Head: Yes normal to inspection General nose exam: No nasal polyps present and No nasal discharge present Face and sinus: Yes sinuses nontender Mouth: oropharynx normal Throat: Yes posterior oropharynx normal Eyes: General: appearance normal, both eyes and all related structures Neck: Neck: Yes normal visual inspection, Yes no lymphadenopathy, Yes trachea midline and Yes no JVD Thyroid: Thyroid normal Chest: Chest palpation & inspection: normal inspection of the chest, normal palpation of entire chest wall and no tenderness Resp: Effort & Inspection: prolonged expiratory phase Auscultation: crackles (a few fine creps over bases ), no wheezes and diminished lung sounds Cardio: Palpation: normal PMI Rate: regular rate Rhythm: regular rhythm Heart sounds: no gallops and no murmurs Peripheral pulses: Peripheral pulses 2+ throughout GI: Palpation (GI): Soft to palpation, Tenderness to palpation present (GI), No hepatosplenomegaly present and Palpable mass present Auscultation: normal bowel sounds Back/Spine/Pelvis: Thoracic/Lumbar Spine: thoracic and lumbar spine normal to inspection Skin: General skin exam: no rashes or lesions noted Neuro: General: patient oriented x3 and no focal motor deficits Cranial nerves: Yes CN's II-XII intact bilaterally Extrem: General: Yes normal to inspection, Yes no clubbing, cyanosis or edema, Yes no calf tenderness and No venous stasis dermatitis Psych: Speech and movement: Normal speech and movement present Results Laboratory Findings CBC and BMP: 01/28/21 05:47 01/28/21 05:47 ABG, PT/INR, D-dimer: PT/INR, D-dimer PT 12.0 SEC (10.8-13.0) 01/27/21 13:54 INR 1.0 (0.9-1.1) 01/27/21 13:54 D-Dimer 7860 NG/ML 01/27/21 13:54 Abnormal lab findings: Abnormal Labs 01/27/21 01/27/21 01/27/21 10:24 10:24 11:30 WBC 12.6 H RBC 4.17 L Hgb 11.3 L Hct 36.5 L MCH RDW MPV 8.5 L Immature Gran % (Auto) Neut % (Auto) Lymph % (Auto) Lymph # (Auto) Abs Immat Gran (auto) Absolute Neuts (auto) Neutrophils % (Manual) 82 H Band Neutrophils % 1 L Lymphocytes % (Manual) 7 L Abs Neuts (Manual) 10.5 H ABG pH at Pt Temp 7.51 H ABG pH (Temp Correct) 7.52 H ABG pO2 at Pt Temp 56 L ABG pO2 (Temp Correct 55 L ABG HCO3 34 H Chloride 95 L Carbon Dioxide 31 H BUN POC Glucose Random Glucose 353 H* 01/27/21 01/27/21 01/27/21 13:02 18:16 20:10 WBC RBC Hgb Hct MCH RDW MPV Immature Gran % (Auto) Neut % (Auto) Lymph % (Auto) Lymph # (Auto) Abs Immat Gran (auto) Absolute Neuts (auto) Neutrophils % (Manual) Band Neutrophils % Lymphocytes % (Manual) Abs Neuts (Manual) ABG pH at Pt Temp ABG pH (Temp Correct) ABG pO2 at Pt Temp ABG pO2 (Temp Correct ABG HCO3 Chloride Carbon Dioxide BUN POC Glucose 279 H 322 H 275 H Random Glucose 01/28/21 01/28/21 01/28/21 05:47 05:47 07:17 WBC 11.3 H RBC 4.05 L Hgb 10.9 L Hct 35.0 L MCH 26.9 L RDW 16.2 H MPV 8.7 L Immature Gran % (Auto) 0.6 H Neut % (Auto) 90.0 H Lymph % (Auto) 6.6 L Lymph # (Auto) 0.7 L Abs Immat Gran (auto) 0.07 H Absolute Neuts (auto) 10.2 H Neutrophils % (Manual) Band Neutrophils % Lymphocytes % (Manual) Abs Neuts (Manual) ABG pH at Pt Temp ABG pH (Temp Correct) ABG pO2 at Pt Temp ABG pO2 (Temp Correct ABG HCO3 Chloride 95 L Carbon Dioxide 35 H BUN 18 H POC Glucose 272 H Random Glucose 264 H Assessment and Plan (1) Pulmonary embolism: Problem details: I think his the acute on chronic respiratory failure with increased hypoxemia is secondary to pulmonary embolism. Recommend: Anticoagulation with the Lovenox and also may be started on direct anticoagulants are warfarin. Venous Doppler ultrasound of lower extremities, to rule out DVT. Status: Acute (2) Chronic respiratory failure with hypoxia: Problem details: Continue O2 2-3 L/minute to maintain O2 sat above 90%. As noted above, increased hypoxemia is probably due to pulmonary embolism, and not due to acute respiratory infection. Status: Acute (3) Acute exacerbation of chronic obstructive airways disease: Problem details: I think he has been treated for acute exacerbation of COPD. At this point he seems to be at baseline. A blood cultures are negative I would recommend to DC antibiotics. He does have changes of chronic bronchiectases on the CT scan, but this is chronic. He should be treated with the prednisone taper over the next few weeks. DuoNeb updrafts Q 6 hours while awake. May resume his long-acting bronchodilators at the time of his discharge. There is no need of 0 bronchoscopic examination or bronchial toileting at this time. For outpatient to follow-up this gentleman is being followed very closely by grocery checker at [facility]. Status: Acute Procedures Date of Service Date of Service: 01/28/21
[2021-01-28] MEDS: RITONAVIR 100 MG PO (09:02)
[2021-01-28] MEDS: guaiFENesin LA 600 MG TAB.ER.12H 1200 MG PO (09:02)
[2021-01-28] MEDS: Insulin Lispro 100 UNIT/ML 3 ML VIAL SUBCUT ×4 (09:02→22:20)
[2021-01-28] MEDS: Furosemide 20 MG TABLET PO (09:02)
[2021-01-28] MEDS: Dolutegravir Sodium 50 MG TABLET PO (09:02)
[2021-01-28] MEDS: DARUNAVIR ETHANOLATE 600 MG PO (09:02)
[2021-01-28] MEDS: Enoxaparin Sodium 80 MG/0.8 ML SYRINGE SUBCUT ×2 (09:03→20:06)
[2021-01-28] MEDS: Insulin Glargine,Hum.rec.anlog 100 UNIT/ML 10 ML VIAL 14 UNIT SUBCUT (09:03)
[2021-01-28] MEDS: 0.9 % Sodium Chloride Flush 3 ML SYRINGE IVFLUSH ×2 (09:04→22:25)
--- NOTE | 2021-01-28 09:20 | P.EN_ITS ---
Event Note Date of Service: 01/28/21 Event Note: I saw and examined this patient for pulmonary consultation this mo rning. Recent course of events, lab, imaging is reviewed. A: Acute pulmonary embolism, this is the main cause of his increased respiratory failure/hypoxemia. COPD/Chronic Bronchiectasis with recent acute state exacerbation, is improved and are relatively at baseline. Past history of HIV, in active, under control. P: Maybe do venous Doppler ultrasound if not already done. Continue anticoagulation and may be converted to oral regimen. Prednisone taper 40 mg a day and reduce by 10 mg every week. DuoNeb updrafts Q 6 hours while awake, and p.r.n.. On his discharge home he may resume his long-acting bronchodilators. O2 2-3 L/minute to keep O2 sat above 90%. This is the no need of bronchoscopic exam or bronchial toileting at this time.
--- NOTE | 2021-01-28 09:42 | MHC.CM.PN ---
CM met with patient at the bedside who reports he amb with a walker, has home O2 with [facility] and lives with and 2 grown sons. Patient states his Jayne is his HCP [phone], requested copy. Discussed discharge plan, home with new referral to [facility]. Referral made via [employer]. Son will provide transportation home. IMM addressed. CM will continue to follow patient for discharge needs.
[2021-01-28 10:00] LABS: Estimated Average Glucose 235 mg/dL; Hemoglobin A1c % 9.8 %
[2021-01-28 11:20] LABS: Glucose, Whole Blood 220 mg/dL (60-115)
[2021-01-28] MEDS: Emtricitabine/Tenofov Alafenam TABLET 1 TAB PO (11:27)
--- NOTE | 2021-01-28 16:29 | HO.PM.IMPN ---
Subjective Subjective Date of Service: 01/28/21 Interval History: c/o ongoing shortness of breath. also coughing up green sputum. no personal or FHx of VTE no fever Physical Exam Vital Signs: Vital Signs: Last Vital Signs Temp 97 F 01/28/21 15:39 Pulse 105 H 01/28/21 15:39 Resp 18 01/28/21 15:39 BP 131/76 01/28/21 15:39 Pulse Ox 95 01/28/21 15:39 Oxygen Flow Rate 7 01/27/21 09:45 Body Mass Index 24.9 Gen: in no acute distress HEENT: sclera anicteric, moist mucus membranes Neck: supple Lungs: diminished breath sounds throughout Heart: regular rate and rhythm, no murmurs Abd: soft, non-tender, non-distended Ext: no edema Skin: warm/well-perfused Neuro: alert and oriented x3, no focal findings Psych: appropriate affect Objective Data Current Medications Generic Name Dose Route Start Last Admin Trade Name Freq PRN Reason Stop Dose Admin Abacavir Sulfate 600 mg 01/28/21 09:00 01/28/21 09:02 Abacavir Sulfate 300 Mg Tablet PO 600 mg DAILY NELI Administration Acetaminophen 650 mg 01/27/21 17:31 Acetaminophen 325 Mg Tablet PO Q6H PRN Pain, Mild (Pain Scale 1-3) Darunavir 600 mg 01/27/21 21:00 01/28/21 09:02 Darunavir Ethanolate 600 Mg Tablet PO 600 mg BID NELI Administration Dolutegravir Sodium 50 mg 01/27/21 21:00 01/28/21 09:02 Dolutegravir Sodium 50 Mg Tablet PO 50 mg BID NELI Administration Enoxaparin Sodium 80 mg 01/27/21 20:00 01/28/21 09:03 Enoxaparin Sodium 80 Mg/0.8 Ml Syringe SUBCUT 80 mg Q12H NELI Administration Furosemide 20 mg 01/28/21 09:00 01/28/21 09:02 Furosemide 20 Mg Tablet PO 20 mg DAILY NELI Administration Protocol Guaifenesin 1,200 mg 01/27/21 21:00 01/28/21 09:02 Guaifenesin [place] 600 Mg Tab.Er.12h PO 1,200 mg BID NELI Administration Doxycycline Hyclate 100 mg/ 250 mls @ 166.67 mls/hr 01/27/21 16:00 01/28/21 15:48 Sodium Chloride IV 166.67 mls/hr Q12H NELI Administration Cefepime HCl 2 gm/ Sodium 50 mls @ 100 mls/hr 01/27/21 18:00 01/28/21 11:57 Chloride IV Infused Q8H NELI Infusion Insulin Glargine 18 unit 01/28/21 21:00 Insulin Glargine,Hum.Rec.Anlog 100 Unit/Ml 10 Ml Vial SUBCUT BID NELI Insulin Human Lispro 0 unit 01/27/21 16:30 01/28/21 12:05 Insulin Lispro 100 Unit/Ml 3 Ml Vial SUBCUT 4 unit QIDACHS [facility] Administration Protocol Ipratropium [place] 0.5 mg 01/27/21 17:31 01/28/21 15:26 Ipratropium [place] 0.5 Mg/2.5 Ml Solution INHALE 0.5 mg RQ4H WHILE AWAKE NELI Administration Levalbuterol HCl 1.25 mg 01/27/21 17:31 01/28/21 15:26 Levalbuterol Hcl 1.25 Mg/0.5 Ml Vial.Neb INHALE 1.25 mg RQ4H WHILE AWAKE NELI Administration Levalbuterol HCl 1.25 mg 01/27/21 17:31 Levalbuterol Hcl 1.25 Mg/0.5 Ml Vial.Neb INHALE Q3H PRN Shortness of Breath Methadone HCl 60 mg 01/28/21 12:30 01/28/21 13:04 Methadone Hcl 1 Mg/0.1 Ml Oral.Conc PO 60 mg DAILY NELI Administration Methylprednisolone Sodium Succinate 60 mg 01/27/21 18:00 01/28/21 11:26 Methylprednisolone Sod Succ 125 Mg/2 Ml Vial IVPUSH 60 mg Q8H NELI Administration Non-Formulary Medication 1 tab 01/28/21 09:00 01/28/21 09:10 Dapsone PO 1 tab DAILY NELI Administration Omeprazole 20 mg 01/28/21 06:30 01/28/21 04:57 Omeprazole 20 Mg Capsule.Dr PO 20 mg DAILY@0630 NELI Administration Ondansetron HCl 4 mg 01/27/21 17:31 01/27/21 19:43 Ondansetron Hcl 4 Mg/2 Ml Vial IVPUSH 4 mg Q8H PRN Administration Nausea and Vomiting Pharmacy Consult 1 each 01/27/21 12:55 Consult Rx Perform Med Rec MISCELLANE ONCE PRN Consult order Ritonavir 100 mg 01/27/21 21:00 01/28/21 09:02 Ritonavir 100 Mg Tablet PO 100 mg BID NELI Administration Sodium Chloride 3 ml 01/27/21 17:31 01/28/21 15:49 0.9 % Sodium Chloride Flush 3 Ml Syringe IVFLUSH Not Given QSHIFT NELI Tiotropium [place] 1 puff 01/29/21 08:00 Tiotropium [place] 18 Mcg Cap.W.Dev INHALE RDAILY NELI Trazodone HCl 50 mg 01/27/21 21:00 01/27/21 21:48 Trazodone Hcl 50 Mg Tablet PO 50 mg BEDTIME NELI Administration Labs CBC & Chem 7: 01/28/21 05:47 01/28/21 05:47 Labs: Laboratory Results - last 24 hr 01/27/21 01/27/21 01/27/21 13:54 18:16 20:10 WBC RBC Hgb Hct MCV MCH MCHC RDW Plt Count MPV Immature Gran % (Auto) Neut % (Auto) Lymph % (Auto) [place] % (Auto) Eos % (Auto) Baso % (Auto) Lymph # (Auto) [place] # (Auto) Eos # (Auto) Baso # (Auto) Abs Immat Gran (auto) Absolute Neuts (auto) Absolute Nucleated RBC Nucleated RBC % (auto) PT 12.0 INR 1.0 APTT 29.8 Sodium Potassium Chloride Carbon Dioxide Anion Gap BUN Creatinine Estim Creat Clear Calc Estimated GFR POC Glucose 322 H 275 H Random Glucose Estimat Average Glucose Hemoglobin A1c % Calcium 01/28/21 01/28/21 01/28/21 05:47 05:47 05:47 WBC 11.3 H RBC 4.05 L Hgb 10.9 L Hct 35.0 L MCV 86.4 MCH 26.9 L MCHC 31.1 RDW 16.2 H Plt Count 205 MPV 8.7 L Immature Gran % (Auto) 0.6 H Neut % (Auto) 90.0 H Lymph % (Auto) 6.6 L [place] % (Auto) 2.7 Eos % (Auto) 0.0 Baso % (Auto) 0.1 Lymph # (Auto) 0.7 L [place] # (Auto) 0.3 Eos # (Auto) 0.0 Baso # (Auto) 0.0 Abs Immat Gran (auto) 0.07 H Absolute Neuts (auto) 10.2 H Absolute Nucleated RBC 0.000 Nucleated RBC % (auto) 0.0 PT INR APTT Sodium 138 Potassium 4.3 Chloride 95 L Carbon Dioxide 35 H Anion Gap 12 BUN 18 H Creatinine 0.79 Estim Creat Clear Calc 112.5 Estimated GFR > 60 POC Glucose Random Glucose 264 H Estimat Average Glucose 235 Hemoglobin A1c % 9.8 Calcium 9.3 01/28/21 01/28/21 07:17 11:02 WBC RBC Hgb Hct MCV MCH MCHC RDW Plt Count MPV Immature Gran % (Auto) Neut % (Auto) Lymph % (Auto) [place] % (Auto) Eos % (Auto) Baso % (Auto) Lymph # (Auto) [place] # (Auto) Eos # (Auto) Baso # (Auto) Abs Immat Gran (auto) Absolute Neuts (auto) Absolute Nucleated RBC Nucleated RBC % (auto) PT INR APTT Sodium Potassium Chloride Carbon Dioxide Anion Gap BUN Creatinine Estim Creat Clear Calc Estimated GFR POC Glucose 272 H 220 H Random Glucose Estimat Average Glucose Hemoglobin A1c % Calcium Microbiology Microbiology Results: Microbiology 01/27/21 10:30 Blood - Venous Blood Culture - Preliminary No growth after 24 hours. 01/27/21 10:24 Blood - Venous Blood Culture - Preliminary No growth after 24 hours. Assessment and Plan (1) Pulmonary embolism: Status: Acute (2) Acute exacerbation of chronic obstructive airways disease: Status: Acute (3) Chronic respiratory failure with hypoxia: Status: Acute Assessment and Plan: hospital d#2 55yo M with chronic hypoxic respiratory failure on home O2 3L, COPD, pulmonary fibrosis, bronchiectasis, HIV on fully suppressive ARV, recent admission to [facility] for COPD exacerbation 1 wk ago, currently on prednisone taper presenting with progressive dyspnea and found to have multiple segmental and subsegmental right upper, right middle and right lower lobe pulmonary emboli. # acute PE - therapeutic LMWH. check limited TTE for R-sided heart strain # acute/chronic hypoxic respiratory failure - on 5L via NC currently # COPD exacerbation - already treated at [facility], taper methylprednisolone [watch for boosting by ritonavir in ARV regimen] - will d/c cefepime and continue doxycyline for now. send sputum culture, recheck PCT though doubt new infection - bronchodilators scheduled/prn # HIV - pt states last CD4 >200 [though was well below <200 prior to that] and viral load has been <20 for years. pt's current ARV regimen [pharmacist confirmed with pt's ID clinic] is a second-line regimen of DTG + DRV/r + ABC due to hx resistant virus [but he is no longer on FTC/TAF]. he remains on dapsone for PCP prophylaxis [due to SMX/TMP allergy] and can discuss discontinuation with his ID doctor # DM2, A1c 9.8 - increase Lantus/Humalog, check A1c # opioid use disorder - continue methadone, dose confirmed by pharmacist
[2021-01-28 16:57] LABS: Glucose, Whole Blood 338 mg/dL (60-115)
[2021-01-28] MEDS: methylPREDNISolone Sod Succ 40 MG/ML VIAL IVPUSH (17:27)
[2021-01-28 20:04] LABS: Glucose, Whole Blood 303 mg/dL (60-115)
[2021-01-28] MEDS: ondansetron HCL 4 MG/2 ML VIAL IVPUSH (20:06)
[2021-01-28] MEDS: Insulin Glargine,Hum.rec.anlog 100 UNIT/ML 10 ML VIAL 18 UNIT SUBCUT (22:19)
[2021-01-28] MEDS: Prochlorperazine Edisylate 10 MG/2 ML VIAL 5 MG IVPUSH (22:19)
[2021-01-29] VITALS (10 sets, daily range): BP systolic 114–137; BP diastolic 65–87; PULSE 78–100; RESP 17–20; TEMP 36.2–37; O2SAT 91–110
[2021-01-29] MEDS: Omeprazole 20 MG CAPSULE.DR PO (06:00)
[2021-01-29 06:47] LABS: Hematocrit 33.2 % (42-52); Hemoglobin 10.3 g/dl (14.0-18.0); Mean Corpuscular Hemoglobin 26.8 pg (27.0-33.0); Mean Corpuscular Volume 86.5 fL (80-98); Mean Platelet Volume 8.8 fL (9.4-12.4); Platelet Count 212 X10*3/uL (160-400); Red Blood Count 3.84 X10*6/uL (4.60-5.80); White Blood Count 13.4 X10*3/uL (4.8-10.8)
--- NOTE | 2021-01-29 07:00 | CA_ITS ---
Transthoracic Echocardiogram Patient (Last, First, Middle): Norm Santana, Gender: Male Date of : 1965 Age: 55 Procedure Date: 01/29/2021 Procedure Type: Transthoracic Echocardiogram [place] [facility] [place] Height: 180.34 cm Weight: 80.74 kg BSA: 2.01 m2 Heart Rate: bpm BP: 133 / 87 mmHg New Grad Rn: PHAN Otoole MD: Arlene Baeza MD Aerodynamics Engineer: Kayode Moreno MD Symptoms: check for R-sided heart strain Study Quality: Technically Difficult ECG Rhythm: Sinus Conclusions: - 1. Normal LV systolic function 2. Limited evaluation right ventricle but appears to be of normal size and systolic function Findings Left Ventricle Normal left ventricular size, thickness, and systolic function. The visually estimated ejection fraction is between 55-60%. Diastolic function is indeterminate on the basis of available data. Right Ventricle Right ventricle is not well visualized on apical views. On limited parasternal and subcostal view, right ventricular appears to be of normal size. Right ventricular systolic function appears to be normal by TAPSE. Tricuspid Valve Normal right atrial pressure. Venous The inferior vena cava is normal in size and collapses greater than 50% with inspiration. Pericardium/Pleural There is no evidence of pericardial effusion. Prior Study Comparison No prior study available for comparison. Measurements Tricuspid Valve TR Pk Caleb: 1.59 TR Pk Grad: 10.00 RA Press: 3.00 RVSP: 13.00 Updated in Other Vendor System with Status of Final Kayode Moreno MD electronically signed on 01/29/2021 12:14:02 PM with status of Final
[2021-01-29 07:12] LABS: Procalcitonin 0.45 ng/mL
[2021-01-29] MEDS: Ipratropium Bromide 0.5 MG/2.5 ML SOLUTION INHALE ×4 (07:30→19:59)
[2021-01-29 07:32] LABS: Glucose, Whole Blood 284 mg/dL (60-115)
[2021-01-29] MEDS: 0.9 % Sodium Chloride Flush 3 ML SYRINGE IVFLUSH ×3 (07:48→20:29)
[2021-01-29] MEDS: Insulin Lispro 100 UNIT/ML 3 ML VIAL SUBCUT ×4 (07:48→20:27)
[2021-01-29] MEDS: Enoxaparin Sodium 80 MG/0.8 ML SYRINGE SUBCUT ×2 (07:49→20:26)
[2021-01-29] MEDS: guaiFENesin LA 600 MG TAB.ER.12H 1200 MG PO ×2 (07:50→20:24)
[2021-01-29] MEDS: Dolutegravir Sodium 50 MG TABLET PO ×2 (07:50→20:25)
[2021-01-29] MEDS: Furosemide 20 MG TABLET PO (07:50)
[2021-01-29] MEDS: DARUNAVIR ETHANOLATE 600 MG PO ×2 (07:51→20:24)
[2021-01-29] MEDS: RITONAVIR 100 MG PO ×2 (07:51→20:24)
[2021-01-29] MEDS: Insulin Glargine,Hum.rec.anlog 100 UNIT/ML 10 ML VIAL 18 UNIT SUBCUT (08:00)
--- NOTE | 2021-01-29 09:51 | P.PNPL_ITS ---
Subjective Subjective Date of Service: 01/29/21 Principal diagnosis: PULM . EMBOLISM /COPD Interval history: THIS GENTLEMAN IS FEELING BETTER, HE IS AFEBRILE, DENIES ANY CHEST PAIN, DENIES RESPIRATORY DISTRESS. STILL REQUIRING FIO2 5 L/MINUTE. Objective Data Labs CBC & Chem 7: 01/29/21 05:28 01/28/21 05:47 Labs: Laboratory Results - last 24 hr 01/28/21 01/28/21 01/28/21 05:47 11:02 16:54 WBC RBC Hgb Hct MCV MCH MCHC RDW Plt Count MPV Absolute Nucleated RBC Nucleated RBC % (auto) POC Glucose 220 H 338 H Estimat Average Glucose 235 Hemoglobin A1c % 9.8 Procalcitonin 01/28/21 01/29/21 01/29/21 19:57 05:28 05:28 WBC 13.4 H RBC 3.84 L Hgb 10.3 L Hct 33.2 L MCV 86.5 MCH 26.8 L MCHC 31.0 RDW 16.0 Plt Count 212 MPV 8.8 L Absolute Nucleated RBC 0.000 Nucleated RBC % (auto) 0.0 POC Glucose 303 H Estimat Average Glucose Hemoglobin A1c % Procalcitonin 0.45 01/29/21 07:10 WBC RBC Hgb Hct MCV MCH MCHC RDW Plt Count MPV Absolute Nucleated RBC Nucleated RBC % (auto) POC Glucose 284 H Estimat Average Glucose Hemoglobin A1c % Procalcitonin Microbiology Microbiology Results: Microbiology 01/28/21 20:03 Sputum - Expectorated Gram Stain - Final 01/27/21 10:30 Blood - Venous Blood Culture - Preliminary No growth after 24 hours. 01/27/21 10:24 Blood - Venous Blood Culture - Preliminary No growth after 24 hours. Review of Systems Review of Systems Yes all other systems are reviewed and are negative Reports system reviewed and no additional complaints, except as documented Cardiovascular: Denies chest pain and Reports dyspnea (MODERATE USUAL ) Respiratory: Reports dyspnea (MODERATE USUAL ) Reports Abnormal speech present Physical Exam Vital Signs: Vital Signs: Last Vital Signs Temp 97.5 F 01/29/21 08:00 Pulse 93 01/29/21 08:00 Resp 17 01/29/21 08:00 BP 114/76 01/29/21 08:00 Pulse Ox 91 L 01/29/21 08:00 Oxygen Flow Rate 7 01/27/21 09:45 Body Mass Index 24.9 Const: General: comfortable (SLIGHTLY SOB . USUAL ), no acute distress, a lert and awake Orientation/consciousness: patient oriented x3 HENMT: Head: Yes normal to inspection General nose exam: No nasal polyps present and No nasal discharge present Face and sinus: Yes sinuses nontender Mouth: oropharynx normal Throat: Yes posterior oropharynx normal Eyes: General: appearance normal, both eyes and all related structures Neck: Neck: Yes normal visual inspection, Yes no lymphadenopathy, Yes trachea midline and Yes no JVD Thyroid: Thyroid normal Chest: Chest palpation & inspection: normal inspection of the chest, normal palpation of entire chest wall and no tenderness Resp: Auscultation: crackles (A FEW BASILAR ), wheezes (BILATERAL EXPIRATORY ) and diminished lung sounds Cardio: Palpation: normal PMI Rate: regular rate Rhythm: regular rhythm Heart sounds: no gallops and no murmurs GI: Palpation (GI): Soft to palpation, nontender, No hepatosplenomegaly present and no masses Auscultation: normal bowel sounds Back/Spine/Pelvis: Thoracic/Lumbar Spine: thoracic and lumbar spine normal to inspection Skin: General skin exam: no rashes or lesions noted Neuro: General: patient oriented x3 and no focal motor deficits Cranial nerves: Yes CN's II-XII intact bilaterally Speech: Abnormal speech present Extrem: General: Yes normal to inspection, Yes no clubbing, cyanosis or edema, Yes no calf tenderness and Yes venous stasis dermatitis Psych: Appearance: grossly normal Mental Status: mental status grossly normal Speech and movement: Normal speech and movement present Procedures Date of Service Date of Service: 01/29/21 Assessment and Plan Assessment and plan (1) Pulmonary embolism: Problem details: BILATERAL, SEGMENTAL AND SUBSEGMENTAL. PATIENT ON ANTICOAGULATION, CLINICALLY STABLE. OXYGEN REQUIREMENT IS STILL LITTLE HIGH. CONTINUE ACTIVE ANTICOAGULATION, CONSIDER STARTING HIM ON ORAL ANTICOAGULATION. Status: Acute (2) DVT (deep venous thrombosis): Problem details: DO DEEP VENOUS THROMBOSIS IN LEFT FEMORAL VEIN WAS DETECTED WHICH IS PROBABLY THE SOURCE FOR PULMONARY EMBOLISM. Status: Acute (3) Acute exacerbation of chronic obstructive airways disease: Problem details: PATIENT HAS ALREADY BEEN TREATED FOR ACUTE EXACERBATION OF COPD. MAY SWITCH IV SOLU-MEDROL TO PREDNISONE 40 MG A DAY P.O., AND WEAN SLOWLY OVER THE NEXT FEW WEEKS. Status: Acute (4) Chronic respiratory failure with hypoxia: Problem details: PATIENT HAS CHRONIC HYPOXEMIC RESPIRATORY FAILURE, SECONDARY TO ADVANCED COPD. HE IS ON HOME OXYGEN USUALLY ABOUT 3 L/MINUTE. CURRENTLY REQUIRING 5 L/MINUTE. THIS MAY BE WEANED DOWN SLOWLY, BUT HE MAY REQUIRE 3-4 L/MINUTE FOR NEXT FEW WEEKS. Status: Acute Time Spent With Patient Time: Total time spent is greater than 50% in coordination of care (as documented) at patient's floor/unit and/or counseling patient: Time with patient: 15 - 24 minutes
[2021-01-29 11:41] LABS: Glucose, Whole Blood 212 mg/dL (60-115)
--- NOTE | 2021-01-29 14:30 | HO.PM.IMPN ---
Subjective Subjective Date of Service: 01/29/21 Interval History: dyspnea improved LLE swollen sputum improved no fever Physical Exam Vital Signs: Vital Signs: Last Vital Signs Temp 98.6 F 01/29/21 12:00 Pulse 98 01/29/21 12:29 Resp 20 01/29/21 12:00 BP 128/67 01/29/21 12:00 Pulse Ox 92 01/29/21 12:00 Oxygen Flow Rate 7 01/27/21 09:45 Body Mass Index 24.9 Gen: in no acute distress HEENT: sclera anicteric, moist mucus membranes Neck: supple Lungs: diminished breath sounds throughout Heart: regular rate and rhythm, no murmurs Abd: soft, non-tender, non-distended Ext: no edema Skin: warm/well-perfused Neuro: alert and oriented x3, no focal findings Psych: appropriate affect Objective Data Current Medications Generic Name Dose Route Start Last Admin Trade Name Freq PRN Reason Stop Dose Admin Abacavir Sulfate 600 mg 01/28/21 09:00 01/29/21 07:51 Abacavir Sulfate 300 Mg Tablet PO 600 mg DAILY NELI Administration Acetaminophen 650 mg 01/27/21 17:31 Acetaminophen 325 Mg Tablet PO Q6H PRN Pain, Mild (Pain Scale 1-3) Darunavir 600 mg 01/27/21 21:00 01/29/21 07:51 Darunavir Ethanolate 600 Mg Tablet PO 600 mg BID NELI Administration Dolutegravir Sodium 50 mg 01/27/21 21:00 01/29/21 07:50 Dolutegravir Sodium 50 Mg Tablet PO 50 mg BID NELI Administration Doxycycline Hyclate 100 mg 01/28/21 18:00 01/29/21 06:00 Doxycycline Hyclate 100 Mg Tablet PO 100 mg Q12H NELI Administration Enoxaparin Sodium 80 mg 01/27/21 20:00 01/29/21 07:49 Enoxaparin Sodium 80 Mg/0.8 Ml Syringe SUBCUT 80 mg Q12H NELI Administration Furosemide 20 mg 01/28/21 09:00 01/29/21 07:50 Furosemide 20 Mg Tablet PO 20 mg DAILY NELI Administration Protocol Guaifenesin 1,200 mg 01/27/21 21:00 01/29/21 07:50 Guaifenesin [place] 600 Mg Tab.Er.12h PO 1,200 mg BID NELI Administration Insulin Glargine 20 unit 01/29/21 09:00 01/29/21 09:20 Insulin Glargine,Hum.Rec.Anlog 100 Unit/Ml 10 Ml Vial SUBCUT Not Given BID [facility] Insulin Human Lispro 0 unit 01/27/21 16:30 01/29/21 11:56 Insulin Lispro 100 Unit/Ml 3 Ml Vial SUBCUT 6 unit QIDACHS NELI Administration Protocol Ipratropium [place] 0.5 mg 01/27/21 17:31 01/29/21 12:29 Ipratropium [place] 0.5 Mg/2.5 Ml Solution INHALE 0.5 mg RQ4H WHILE AWAKE NELI Administration Levalbuterol HCl 1.25 mg 01/27/21 17:31 01/29/21 12:29 Levalbuterol Hcl 1.25 Mg/0.5 Ml Vial.Neb INHALE 1.25 mg RQ4H WHILE AWAKE NELI Administration Levalbuterol HCl 1.25 mg 01/27/21 17:31 Levalbuterol Hcl 1.25 Mg/0.5 Ml Vial.Neb INHALE Q3H PRN Shortness of Breath Methadone HCl 60 mg 01/28/21 12:30 01/29/21 07:50 Methadone Hcl 1 Mg/0.1 Ml Oral.Conc PO 60 mg DAILY NELI Administration Methylprednisolone Sodium Succinate 40 mg 01/28/21 16:45 01/28/21 17:27 Methylprednisolone Sod Succ 40 Mg/Ml Vial IVPUSH 40 mg Q24H NELI Administration Non-Formulary Medication 1 tab 01/28/21 09:00 01/29/21 07:56 Dapsone PO 1 tab DAILY NELI Administration Omeprazole 20 mg 01/28/21 06:30 01/29/21 06:00 Omeprazole 20 Mg Capsule. PO 20 mg DAILY@0630 [facility] Administration Ondansetron HCl 4 mg 01/27/21 17:31 01/28/21 20:06 Ondansetron Hcl 4 Mg/2 Ml Vial IVPUSH 4 mg Q8H PRN Administration Nausea and Vomiting Pharmacy Consult 1 each 01/27/21 12:55 Consult Rx Perform Med Rec MISCELLANE ONCE PRN Consult order Ritonavir 100 mg 01/27/21 21:00 01/29/21 07:51 Ritonavir 100 Mg Tablet PO 100 mg BID NELI Administration Sodium Chloride 3 ml 01/27/21 17:31 01/29/21 07:48 0.9 % Sodium Chloride Flush 3 Ml Syringe IVFLUSH 3 ml QSHIFT NELI Administration Tiotropium [place] 1 puff 01/29/21 08:00 01/29/21 07:31 Tiotropium [place] 18 Mcg Cap.W.Dev INHALE 1 puff RDAILY NELI Administration Trazodone HCl 50 mg 01/27/21 21:00 01/28/21 22:23 Trazodone Hcl 50 Mg Tablet PO Not Given BEDTIME [facility] Labs CBC & Chem 7: 01/29/21 05:28 01/28/21 05:47 Labs: Laboratory Results - last 24 hr 01/28/21 01/28/21 01/29/21 16:54 19:57 05:28 WBC 13.4 H RBC 3.84 L Hgb 10.3 L Hct 33.2 L MCV 86.5 MCH 26.8 L MCHC 31.0 RDW 16.0 Plt Count 212 MPV 8.8 L Absolute Nucleated RBC 0.000 Nucleated RBC % (auto) 0.0 POC Glucose 338 H 303 H Procalcitonin 01/29/21 01/29/21 01/29/21 05:28 07:10 11:16 WBC RBC Hgb Hct MCV MCH MCHC RDW Plt Count MPV Absolute Nucleated RBC Nucleated RBC % (auto) POC Glucose 284 H 212 H Procalcitonin 0.45 TTE 01/29/21 1. Normal LV systolic function 2. Limited evaluation right ventricle but appears to be of normal size and systolic function Microbiology Microbiology Results: Microbiology 01/27/21 10:30 Blood - Venous Blood Culture - Preliminary No growth after 48 hours. 01/27/21 10:24 Blood - Venous Blood Culture - Preliminary No growth after 48 hours. 01/28/21 20:03 Sputum - Expectorated Gram Stain - Final Assessment and Plan (1) Pulmonary embolism: Problem details: B Status: Acute (2) Acute exacerbation of chronic obstructive airways disease: Status: Acute (3) Chronic respiratory failure with hypoxia: Status: Acute Assessment and Plan: hospital d#3 55yo M with chronic hypoxic respiratory failure on home O2 3L, COPD, pulmonary fibrosis, bronchiectasis, HIV on fully suppressive ARV, recent admission to [facility] for COPD exacerbation 1 wk ago, currently on prednisone taper presenting with progressive dyspnea and found to have multiple segmental and subsegmental right upper, right middle and right lower lobe pulmonary emboli. # acute PE/LLE DVT - therapeutic LMWH, will consider changing to DOAC # acute/chronic hypoxic respiratory failure - on 5L via [place] currently, wean as tolerated # COPD exacerbation - already treated at [facility], change steroid to prednisone and taper [watch for boosting by ritonavir in ARV regimen] - will d/c cefepime and continue doxycyline for now. sent sputum culture, recheck PCT though doubt new infection - bronchodilators scheduled/prn # HIV - pt states last CD4 >200 [though was well below <200 prior to that] and viral load has been <20 for years. pt's current ARV regimen [pharmacist confirmed with pt's ID clinic] is a second-line regimen of DTG + DRV/r + ABC due to hx resistant virus [but he is no longer on FTC/TAF]. he remains on dapsone for PCP prophylaxis [due to SMX/TMP allergy] and can discuss discontinuation with his ID doctor # DM2, A1c 9.8 - increased Lantus/Humalog, check A1c # opioid use disorder - continue methadone, dose confirmed by pharmacist
[2021-01-29 16:14] LABS: Glucose, Whole Blood 254 mg/dL (60-115)
[2021-01-29] MEDS: methylPREDNISolone Sod Succ 40 MG/ML VIAL IVPUSH (16:33)
[2021-01-29 20:21] LABS: Glucose, Whole Blood 271 mg/dL (60-115)
[2021-01-29] MEDS: traZODone HCL 50 MG TABLET PO (20:25)
[2021-01-29] MEDS: Insulin Glargine,Hum.rec.anlog 100 UNIT/ML 10 ML VIAL 20 UNIT SUBCUT (20:26)
[2021-01-30] VITALS (8 sets, daily range): BP systolic 99–133; BP diastolic 65–77; PULSE 84–103; RESP 16–20; TEMP 36.2–37.1; O2SAT 93–99
[2021-01-30] MEDS: Omeprazole 20 MG CAPSULE.DR PO (05:37)
[2021-01-30 06:18] LABS: Hematocrit 32.9 % (42-52); Hemoglobin 10.3 g/dl (14.0-18.0); Mean Corpuscular HGB Conc 31.3 g/dl (31.0-36.0); Mean Corpuscular Hemoglobin 27.1 pg (27.0-33.0); Mean Corpuscular Volume 86.6 fL (80-98); Mean Platelet Volume 8.5 fL (9.4-12.4); Platelet Count 166 X10*3/uL (160-400); Red Cell Distribution Width 15.8 % (11.0-16.0); White Blood Count 10.2 X10*3/uL (4.8-10.8)
[2021-01-30 06:59] LABS: Procalcitonin 0.21 ng/mL
[2021-01-30] MEDS: Ipratropium Bromide 0.5 MG/2.5 ML SOLUTION INHALE ×3 (07:23→20:34)
[2021-01-30 07:40] LABS: Glucose, Whole Blood 192 mg/dL (60-115)
[2021-01-30] MEDS: Insulin Glargine,Hum.rec.anlog 100 UNIT/ML 10 ML VIAL 20 UNIT SUBCUT ×2 (07:56→21:32)
[2021-01-30] MEDS: Insulin Lispro 100 UNIT/ML 3 ML VIAL SUBCUT ×3 (07:56→21:32)
[2021-01-30] MEDS: Dolutegravir Sodium 50 MG TABLET PO ×2 (07:59→21:32)
[2021-01-30] MEDS: RITONAVIR 100 MG PO ×2 (07:59→21:32)
[2021-01-30] MEDS: guaiFENesin LA 600 MG TAB.ER.12H 1200 MG PO ×2 (07:59→21:32)
[2021-01-30] MEDS: Furosemide 20 MG TABLET PO (07:59)
[2021-01-30] MEDS: Enoxaparin Sodium 80 MG/0.8 ML SYRINGE SUBCUT (08:42)
[2021-01-30] MEDS: 0.9 % Sodium Chloride Flush 3 ML SYRINGE IVFLUSH ×2 (08:44→16:45)
[2021-01-30 11:41] LABS: Glucose, Whole Blood 194 mg/dL (60-115)
[2021-01-30] MEDS: DARUNAVIR ETHANOLATE 600 MG PO ×2 (12:02→21:32)
--- NOTE | 2021-01-30 15:17 | HO.PM.IMPN ---
Subjective Subjective Date of Service: 01/30/21 Interval History: dyspnea improved no fever cough improved Physical Exam Vital Signs: Vital Signs: Last Vital Signs Temp 98.7 F 01/30/21 11:44 Pulse 103 H 01/30/21 11:44 Resp 20 01/30/21 11:44 BP 116/70 01/30/21 11:44 Pulse Ox 93 01/30/21 11:44 Oxygen Flow Rate 7 01/27/21 09:45 Body Mass Index 24.9 Gen: in no acute distress HEENT: sclera anicteric, moist mucus membranes Neck: supple Lungs: diminished breath sounds throughout, crackles + rhonchi at bases Heart: regular rate and rhythm, no murmurs Abd: soft, non-tender, non-distended Ext: no edema Skin: warm/well-perfused Neuro: alert and oriented x3, no focal findings Psych: appropriate affect Objective Data Current Medications Generic Name Dose Route Start Last Admin Trade Name Freq PRN Reason Stop Dose Admin Abacavir Sulfate 600 mg 01/28/21 09:00 01/30/21 07:58 Abacavir Sulfate 300 Mg Tablet PO 600 mg DAILY NELI Administration Acetaminophen 650 mg 01/27/21 17:31 Acetaminophen 325 Mg Tablet PO Q6H PRN Pain, Mild (Pain Scale 1-3) Apixaban 5 mg 01/30/21 21:00 Apixaban 5 Mg Tablet PO BID NELI Darunavir 600 mg 01/27/21 21:00 01/30/21 12:02 Darunavir Ethanolate 600 Mg Tablet PO 600 mg BID NELI Administration Dolutegravir Sodium 50 mg 01/27/21 21:00 01/30/21 07:59 Dolutegravir Sodium 50 Mg Tablet PO 50 mg BID NELI Administration Doxycycline Hyclate 100 mg 01/28/21 18:00 01/30/21 05:37 Doxycycline Hyclate 100 Mg Tablet PO 100 mg Q12H NELI Administration Furosemide 20 mg 01/28/21 09:00 01/30/21 07:59 Furosemide 20 Mg Tablet PO 20 mg DAILY NELI Administration Protocol Guaifenesin 1,200 mg 01/27/21 21:00 01/30/21 07:59 Guaifenesin [place] 600 Mg Tab.Er.12h PO 1,200 mg BID NELI Administration Insulin Glargine 20 unit 01/29/21 09:00 01/30/21 07:56 Insulin Glargine,Hum.Rec.Anlog 100 Unit/Ml 10 Ml Vial SUBCUT 20 unit BID NELI Administration Insulin Human Lispro 0 unit 01/27/21 16:30 01/30/21 12:02 Insulin Lispro 100 Unit/Ml 3 Ml Vial SUBCUT 4 unit QIDACHS NELI Administration Protocol Ipratropium [place] 0.5 mg 01/27/21 17:31 01/30/21 11:00 Ipratropium [place] 0.5 Mg/2.5 Ml Solution INHALE 0.5 mg RQ4H WHILE AWAKE NELI Administration Levalbuterol HCl 1.25 mg 01/27/21 17:31 01/30/21 11:01 Levalbuterol Hcl 1.25 Mg/0.5 Ml Vial.Neb INHALE 1.25 mg RQ4H WHILE AWAKE NELI Administration Levalbuterol HCl 1.25 mg 01/27/21 17:31 Levalbuterol Hcl 1.25 Mg/0.5 Ml Vial.Neb INHALE Q3H PRN Shortness of Breath Methadone HCl 60 mg 01/28/21 12:30 01/30/21 07:58 Methadone Hcl 1 Mg/0.1 Ml Oral.Conc PO 60 mg DAILY NELI Administration Non-Formulary Medication 1 tab 01/28/21 09:00 01/30/21 08:44 Dapsone PO 1 tab DAILY NELI Administration Omeprazole 20 mg 01/28/21 06:30 01/30/21 05:37 Omeprazole 20 Mg Capsule.Dr PO 20 mg DAILY@0630 NELI Administration Ondansetron HCl 4 mg 01/27/21 17:31 01/28/21 20:06 Ondansetron Hcl 4 Mg/2 Ml Vial IVPUSH 4 mg Q8H PRN Administration Nausea and Vomiting Pharmacy Consult 1 each 01/27/21 12:55 Consult Rx Perform Med Rec MISCELLANE ONCE PRN Consult order Prednisone 40 mg 01/31/21 09:00 Prednisone 20 Mg Tablet PO DAILY [facility] Ritonavir 100 mg 01/27/21 21:00 01/30/21 07:59 Ritonavir 100 Mg Tablet PO 100 mg BID NELI Administration Sodium Chloride 3 ml 01/27/21 17:31 01/30/21 08:44 0.9 % Sodium Chloride Flush 3 Ml Syringe IVFLUSH 3 ml QSHIFT NELI Administration Tiotropium [place] 1 puff 01/29/21 08:00 01/30/21 07:32 Tiotropium [place] 18 Mcg Cap.W.Dev INHALE 1 puff RDAILY NELI Administration Trazodone HCl 50 mg 01/27/21 21:00 01/29/21 20:25 Trazodone Hcl 50 Mg Tablet PO 50 mg BEDTIME NELI Administration Labs CBC & Chem 7: 01/30/21 05:35 01/28/21 05:47 Labs: Laboratory Results - last 24 hr 01/29/21 01/29/21 01/30/21 16:10 20:17 05:35 WBC 10.2 RBC 3.80 L Hgb 10.3 L Hct 32.9 L MCV 86.6 MCH 27.1 MCHC 31.3 RDW 15.8 Plt Count 166 MPV 8.5 L Absolute Nucleated RBC 0.000 Nucleated RBC % (auto) 0.0 POC Glucose 254 H 271 H Procalcitonin 01/30/21 01/30/21 01/30/21 05:35 07:26 11:26 WBC RBC Hgb Hct MCV MCH MCHC RDW Plt Count MPV Absolute Nucleated RBC Nucleated RBC % (auto) POC Glucose 192 H 194 H Procalcitonin 0.21 Microbiology Microbiology Results: Microbiology 01/28/21 20:03 Sputum - Expectorated Gram Stain - Final 01/28/21 20:03 Sputum - Expectorated Sputum Culture - Preliminary Gram negative tierney 01/27/21 10:30 Blood - Venous Blood Culture - Preliminary No growth after 48 hours. 01/27/21 10:24 Blood - Venous Blood Culture - Preliminary No growth after 48 hours. Assessment and Plan (1) Pulmonary embolism: Status: Acute (2) Acute exacerbation of chronic obstructive airways disease: Status: Acute (3) Chronic respiratory failure with hypoxia: Status: Acute Assessment and Plan: hospital d#4 55yo M with chronic hypoxic respiratory failure on home O2 3L, COPD, pulmonary fibrosis, bronchiectasis, HIV on fully suppressive ARV, recent admission to [facility] for COPD exacerbation 1 wk ago, currently on prednisone taper presenting with progressive dyspnea and found to have multiple segmental and subsegmental right upper, right middle and right lower lobe pulmonary emboli. # acute PE/LLE DVT - therapeutic LMWH -> apixaban. will give half the usual dosing due to boosting by ritonavir, so 5 mg bid x7d then 2.5 mg bid # acute/chronic hypoxic respiratory failure - continue supplemental O2, wean as tolerated # COPD exacerbation - already treated at [facility], change steroid to prednisone and taper [watch for boosting by ritonavir in ARV regimen] - d/c'ed cefepime and continue doxycyline for now. Sputum growing GNRs though likely colonization rather than true infection; will consult ID - bronchodilators scheduled/prn # HIV - pt states last CD4 >200 [though was well below <200 prior to that] and viral load has been <20 for years. pt's current ARV regimen [pharmacist confirmed with pt's ID clinic] is a second-line regimen of DTG + DRV/r + ABC due to hx resistant virus [but he is no longer on FTC/TAF]. he remains on dapsone for PCP prophylaxis [due to SMX/TMP allergy] and can discuss discontinuation with his ID doctor # DM2, A1c 9.8 - Lantus/Humalog, check A1c # opioid use disorder - continue methadone, dose confirmed by pharmacist
--- NOTE | 2021-01-30 15:32 | W.PM.IDCN ---
History of Present Illness Data of Consult Service Date: 01/30/21 Requesting physician: Arlene Baeza Primary Care Provider: Jeremy Romano MD HPI Reason for consult: shortness of breath He presents here with shortness of breath and no significant cough. He has h/o pulmonary fibrosis and Pseudomonas in sputum sample in past He takes 3 liter oxygen chronically at home. He also has chronic bronchiectasis He was treated for COPD at [facility] last week and discharged on Prednisone taper. He has negative culture sputum at that time. Here CTA shows RUL,RML and RLL PE He has had HIV diagnosed in [address] Jenniffer Chao at [facility] ID division. He reports resistant virus and changed to regimen he is on 7 years ago He reports last CD4 count this spring at 212 and undetectable He previously had CD4 counts in 900s before pulmonary fibrosis diagnosis. He also reports grandfather's of colon cancer and hereditary polyps seen in siblings He had two colonoscopies for screening,last one however 12 years ago,negative He denies PJP or OIs Review of Systems Review of Systems: Yes all other systems are reviewed and are negative [facility] Past Medical History Medical History (Updated 01/30/21 @ 15:48 by Dinah Wolff MD) AIDS COPD (chronic obstructive pulmonary disease) Diabetes mellitus type 1 DVT (deep venous thrombosis) HIV (human immunodeficiency virus infection) HIV disease HTN (hypertension) Pseudomonas aeruginosa colonization Pulmonary embolism Pulmonary fibrosis Thrush Family History Pertinent family history: colon ca,hereditary Social History Social History Household Members: Spouse and Children Housing: House Do you presently have visiting nurse or other home services: No Alcohol intake: never Smoking Status: Former smoker service: Yes Current occupational status: disabled Meds Allergies Allergy/AdvReac Type Severity Reaction Status Date / Time Penicillins Allergy Severe HIves Verified 01/27/21 09:55 swelling SOB Sulfa (Sulfonamide Allergy Severe Hives Verified 01/27/21 17:34 Antibiotics) Active Medications: Current Medications Generic Name Dose Route Start Last Admin Trade Name Freq PRN Reason Stop Dose Admin Abacavir Sulfate 600 mg 01/28/21 09:00 01/30/21 07:58 Abacavir Sulfate 300 Mg Tablet PO 600 mg DAILY NELI Administration Acetaminophen 650 mg 01/27/21 17:31 Acetaminophen 325 Mg Tablet PO Q6H PRN Pain, Mild (Pain Scale 1-3) Apixaban 5 mg 01/30/21 21:00 Apixaban 5 Mg Tablet PO BID NELI Darunavir 600 mg 01/27/21 21:00 01/30/21 12:02 Darunavir Ethanolate 600 Mg Tablet PO 600 mg BID NELI Administration Dolutegravir Sodium 50 mg 01/27/21 21:00 01/30/21 07:59 Dolutegravir Sodium 50 Mg Tablet PO 50 mg BID NELI Administration Doxycycline Hyclate 100 mg 01/28/21 18:00 01/30/21 05:37 Doxycycline Hyclate 100 Mg Tablet PO 100 mg Q12H NELI Administration Furosemide 20 mg 01/28/21 09:00 01/30/21 07:59 Furosemide 20 Mg Tablet PO 20 mg DAILY NELI Administration Protocol Guaifenesin 1,200 mg 01/27/21 21:00 01/30/21 07:59 Guaifenesin [place] 600 Mg Tab.Er.12h PO 1,200 mg BID NELI Administration Insulin Glargine 20 unit 01/29/21 09:00 01/30/21 07:56 Insulin Glargine,Hum.Rec.Anlog 100 Unit/Ml 10 Ml Vial SUBCUT 20 unit BID NELI Administration Insulin Human Lispro 0 unit 01/27/21 16:30 01/30/21 12:02 Insulin Lispro 100 Unit/Ml 3 Ml Vial SUBCUT 4 unit QIDACHS [facility] Administration Protocol Ipratropium [place] 0.5 mg 01/27/21 17:31 01/30/21 15:27 Ipratropium [place] 0.5 Mg/2.5 Ml Solution INHALE Not Given RQ4H WHILE AWAKE [facility] Levalbuterol HCl 1.25 mg 01/27/21 17:31 01/30/21 15:27 Levalbuterol Hcl 1.25 Mg/0.5 Ml Vial.Neb INHALE Not Given RQ4H WHILE AWAKE [facility] Levalbuterol HCl 1.25 mg 01/27/21 17:31 Levalbuterol Hcl 1.25 Mg/0.5 Ml Vial.Neb INHALE Q3H PRN Shortness of Breath Methadone HCl 60 mg 01/28/21 12:30 01/30/21 07:58 Methadone Hcl 1 Mg/0.1 Ml Oral.Conc PO 60 mg DAILY NELI Administration Non-Formulary Medication 1 tab 01/28/21 09:00 01/30/21 08:44 Dapsone PO 1 tab DAILY NELI Administration Omeprazole 20 mg 01/28/21 06:30 01/30/21 05:37 Omeprazole 20 Mg Capsule.Dr PO 20 mg DAILY@0630 NELI Administration Ondansetron HCl 4 mg 01/27/21 17:31 01/28/21 20:06 Ondansetron Hcl 4 Mg/2 Ml Vial IVPUSH 4 mg Q8H PRN Administration Nausea and Vomiting Pharmacy Consult 1 each 01/27/21 12:55 Consult Rx Perform Med Rec MISCELLANE ONCE PRN Consult order Prednisone 40 mg 01/31/21 09:00 Prednisone 20 Mg Tablet PO DAILY [facility] Ritonavir 100 mg 01/27/21 21:00 01/30/21 07:59 Ritonavir 100 Mg Tablet PO 100 mg BID NELI Administration Sodium Chloride 3 ml 01/27/21 17:31 01/30/21 08:44 0.9 % Sodium Chloride Flush 3 Ml Syringe IVFLUSH 3 ml QSHIFT [facility] Administration Tiotropium [place] 1 puff 01/29/21 08:00 01/30/21 07:32 Tiotropium [place] 18 Mcg Cap.W.Dev INHALE 1 puff RDAILY [facility] Administration Trazodone HCl 50 mg 01/27/21 21:00 01/29/21 20:25 Trazodone Hcl 50 Mg Tablet PO 50 mg BEDTIME NELI Administration Home Medications Medication Instructions Recorded Confirmed Last Taken Type abacavir 2 tab PO DAILY 01/27/21 01/27/21 01/26/21 History albuterol sulfate [Ventolin HFA] 2 puff PO Q4H PRN 01/27/21 01/27/21 01/27/21 History dapsone 1 tab PO DAILY 01/27/21 01/27/21 01/26/21 History darunavir ethanolate [Prezista] 1 tab PO BID 01/27/21 01/27/21 01/26/21 History dolutegravir [Tivicay] 1 tab PO BID 01/27/21 01/27/21 01/26/21 History emtricitabine-tenofovir alafen 1 tab PO DAILY 01/27/21 Unknown History [Descovy] furosemide 20 mg PO DAILY 01/27/21 01/27/21 01/27/21 History insulin aspart (niacinamide) 8 - 12 unit SUBCUT TIDAC 01/27/21 01/27/21 Unknown History [Fiasp FlexTouch U-100 Insulin] insulin glargine [Lantus U-100 14 unit SUBCUT BID 01/27/21 01/27/21 01/27/21 History Insulin] ipratropium-albuterol 3 ml INHALATION QID 01/27/21 01/27/21 01/27/21 History omeprazole 20 mg PO DAILY 01/27/21 01/27/21 01/27/21 History prednisone 10 tab PO DAILY 01/27/21 01/27/21 01/26/21 History ritonavir 1 tab PO BID 01/27/21 01/27/21 01/26/21 History trazodone 50 mg PO BEDTIME 01/27/21 01/27/21 01/26/21 History umeclidinium-vilanterol [Anoro 1 puff INHALATION DAILY 01/27/21 01/27/21 01/27/21 History Ellipta] methadone [Methadone Intensol] 60 mg PO DAILY 01/28/21 01/28/21 01/27/21 History Physical Exam Vital Signs: Vital Signs: Last Vital Signs Temp 98.7 F 01/30/21 11:44 Pulse 103 H 01/30/21 11:44 Resp 20 01/30/21 11:44 BP 116/70 01/30/21 11:44 Pulse Ox 93 01/30/21 11:44 Oxygen Flow Rate 7 01/27/21 09:45 Body Mass Index 24.9 Const: General: cooperative Orientation/consciousness: patient oriented x3 HENMT: Head: Yes normal to inspection Teeth and gingiva: other (thrush) Eyes: General: appearance normal, both eyes and all related structures Resp: Effort & Inspection: normal respiratory effort Cardio: Rate: regular rate Rhythm: regular rhythm GI: Palpation (GI): Soft to palpation and nontender : General: Yes no CVA tenderness Back/Spine/Pelvis: Back: no CVA tenderness Skin: General skin exam: no rashes or lesions noted Neuro: General: patient oriented x3 Extrem: General: Yes normal to inspection Results Labs CBC & Chem 7: 01/30/21 05:35 01/28/21 05:47 Labs: Short CBC 01/30/21 Range/Units 05:35 WBC 10.2 (4.8-10.8) X10*3/uL Hgb 10.3 L (14.0-18.0) g/dl Hct 32.9 L (42-52) % Plt Count 166 (160-400) X10*3/uL Microbiology Microbiology Results: Microbiology 01/28/21 20:03 Sputum - Expectorated Gram Stain - Final 01/28/21 20:03 Sputum - Expectorated Sputum Culture - Preliminary Gram negative [place]ney 01/27/21 10:30 Blood - Venous Blood Culture - Preliminary No growth after 48 hours. 01/27/21 10:24 Blood - Venous Blood Culture - Preliminary No growth after 48 hours. Assessment and Plan (1) HIV (human immunodeficiency virus infection): Status: Acute Stable on HAART regimen Continue current regimen (2) Pseudomonas aeruginosa colonization: Status: Acute There appears to be no active pseudomonal infection,colonized Would not treat with antibiotics (3) Pulmonary embolism: Status: Acute I would be concerned about pulmonary embolism as indicator for malignancy especially with family history of colon cancer Would check abdominal and pelvic CT evaluate for malignancy abdomen (4) Thrush: Status: Acute This is possibly due to antibiotic reaction Would give po Diflucan 100 mg daily for 10 days
[2021-01-30 16:22] LABS: Glucose, Whole Blood 106 mg/dL (60-115)
[2021-01-30 21:15] LABS: Glucose, Whole Blood 200 mg/dL (60-115)
[2021-01-30] MEDS: traZODone HCL 50 MG TABLET PO (21:32)
[2021-01-30] MEDS: Apixaban 5 MG TABLET PO (21:32)
[2021-01-31] VITALS (11 sets, daily range): BP systolic 98–133; BP diastolic 54–77; PULSE 91–135; RESP 16–20; TEMP 36.6–37.2; O2SAT 91–98
[2021-01-31] MEDS: 0.9 % Sodium Chloride Flush 3 ML SYRINGE IVFLUSH ×4 (02:50→21:17)
[2021-01-31] MEDS: Omeprazole 20 MG CAPSULE.DR PO (06:02)
[2021-01-31] MEDS: Ipratropium Bromide 0.5 MG/2.5 ML SOLUTION INHALE ×4 (07:21→20:11)
[2021-01-31 07:32] LABS: Glucose, Whole Blood 57 mg/dL (60-115)
[2021-01-31 07:56] LABS: Glucose, Whole Blood 68 mg/dL (60-115)
[2021-01-31] MEDS: Apixaban 5 MG TABLET PO ×2 (11:00→21:16)
[2021-01-31] MEDS: Fluconazole 100 MG TABLET PO (11:00)
[2021-01-31] MEDS: predniSONE 20 MG TABLET PO (11:00)
[2021-01-31] MEDS: Furosemide 20 MG TABLET PO (11:00)
[2021-01-31] MEDS: DARUNAVIR ETHANOLATE 600 MG PO ×2 (11:01→21:16)
[2021-01-31] MEDS: RITONAVIR 100 MG PO ×2 (11:01→21:16)
[2021-01-31] MEDS: Dolutegravir Sodium 50 MG TABLET PO ×2 (11:01→21:16)
[2021-01-31] MEDS: guaiFENesin LA 600 MG TAB.ER.12H 1200 MG PO ×2 (11:01→21:16)
[2021-01-31] MEDS: Insulin Glargine,Hum.rec.anlog 100 UNIT/ML 10 ML VIAL 14 UNIT SUBCUT ×2 (11:09→21:17)
[2021-01-31] MEDS: Acetaminophen 325 MG TABLET 650 MG PO (11:12)
[2021-01-31 11:18] LABS: Glucose, Whole Blood 121 mg/dL (60-115)
--- NOTE | 2021-01-31 14:24 | P.PNIM_ITS ---
Subjective Subjective Date of Service: 01/31/21 Interval History: Symptomatic hypoglycemia this morning; still feels tired Breathing is about the same Physical Exam Vital Signs: Vital Signs: Last Vital Signs Temp 99.0 F 01/31/21 11:39 Pulse 107 H 01/31/21 13:14 Resp 20 01/31/21 11:39 BP 130/77 01/31/21 11:39 Pulse Ox 91 L 01/31/21 11:39 Oxygen Flow Rate 7 01/27/21 09:45 Body Mass Index 24.9 Gen: in no acute distress at rest on 5L via NC HEENT: sclera anicteric, moist mucus membranes Neck: supple Lungs: diminished breath sounds throughout Heart: regular rate and rhythm, no murmurs Abd: soft, non-tender, non-distended Ext: no edema Skin: warm/well-perfused Neuro: alert and oriented x3, no focal findings Psych: appropriate affect Objective Data Current Medications Generic Name Dose Route Start Last Admin Trade Name Freq PRN Reason Stop Dose Admin Abacavir Sulfate 600 mg 01/28/21 09:00 01/31/21 11:00 Abacavir Sulfate 300 Mg Tablet PO 600 mg DAILY NELI Administration Acetaminophen 650 mg 01/27/21 17:31 01/31/21 11:12 Acetaminophen 325 Mg Tablet PO 650 mg Q6H PRN Administration Pain, Mild (Pain Scale 1-3) Apixaban 5 mg 01/30/21 21:00 01/31/21 11:00 Apixaban 5 Mg Tablet PO 5 mg BID NELI Administration Darunavir 600 mg 01/27/21 21:00 01/31/21 11:01 Darunavir Ethanolate 600 Mg Tablet PO 600 mg BID NELI Administration Dolutegravir Sodium 50 mg 01/27/21 21:00 01/31/21 11:01 Dolutegravir Sodium 50 Mg Tablet PO 50 mg BID NELI Administration Doxycycline Hyclate 100 mg 01/28/21 18:00 01/31/21 06:02 Doxycycline Hyclate 100 Mg Tablet PO 100 mg Q12H NELI Administration Fluconazole 100 mg 01/31/21 09:00 01/31/21 11:00 Fluconazole 100 Mg Tablet PO 100 mg DAILY NELI Administration Furosemide 20 mg 01/28/21 09:00 01/31/21 11:00 Furosemide 20 Mg Tablet PO 20 mg DAILY NELI Administration Protocol Guaifenesin 1,200 mg 01/27/21 21:00 01/31/21 11:01 Guaifenesin [place] 600 Mg Tab.Er.12h PO 1,200 mg BID NELI Administration Insulin Glargine 14 unit 01/31/21 09:00 01/31/21 11:09 Insulin Glargine,Hum.Rec.Anlog 100 Unit/Ml 10 Ml Vial SUBCUT 14 unit BID NELI Administration Insulin Human Lispro 0 unit 01/27/21 16:30 01/31/21 12:20 Insulin Lispro 100 Unit/Ml 3 Ml Vial SUBCUT Not Given QIDACHS [facility] Protocol Ipratropium [place] 0.5 mg 01/27/21 17:31 01/31/21 11:12 Ipratropium [place] 0.5 Mg/2.5 Ml Solution INHALE 0.5 mg RQ4H WHILE AWAKE NELI Administration Levalbuterol HCl 1.25 mg 01/27/21 17:31 01/31/21 11:12 Levalbuterol Hcl 1.25 Mg/0.5 Ml Vial.Neb INHALE 1.25 mg RQ4H WHILE AWAKE NELI Administration Levalbuterol HCl 1.25 mg 01/27/21 17:31 Levalbuterol Hcl 1.25 Mg/0.5 Ml Vial.Neb INHALE Q3H PRN Shortness of Breath Methadone HCl 60 mg 01/28/21 12:30 01/31/21 11:02 Methadone Hcl 1 Mg/0.1 Ml Oral.Conc PO 60 mg DAILY NELI Administration Non-Formulary Medication 1 tab 01/28/21 09:00 01/31/21 11:11 Dapsone PO 1 tab DAILY NELI Administration Omeprazole 20 mg 01/28/21 06:30 01/31/21 06:02 Omeprazole 20 Mg Capsule. PO 20 mg DAILY@0630 NELI Administration Ondansetron HCl 4 mg 01/27/21 17:31 01/28/21 20:06 Ondansetron Hcl 4 Mg/2 Ml Vial IVPUSH 4 mg Q8H PRN Administration Nausea and Vomiting Pharmacy Consult 1 each 01/27/21 12:55 Consult Rx Perform Med Rec MISCELLANE ONCE PRN Consult order Polyethylene Glycol 17 gm 01/30/21 18:36 Polyethylene Glycol 3350 17 Gm Powd.Pack PO DAILY PRN constipation Prednisone 20 mg 01/31/21 09:00 01/31/21 11:00 Prednisone 20 Mg Tablet PO 20 mg DAILY NELI Administration Ritonavir 100 mg 01/27/21 21:00 01/31/21 11:01 Ritonavir 100 Mg Tablet PO 100 mg BID NELI Administration Sodium Chloride 3 ml 01/27/21 17:31 01/31/21 11:01 0.9 % Sodium Chloride Flush 3 Ml Syringe IVFLUSH 3 ml QSHIFT NELI Administration Tiotropium [place] 1 puff 01/29/21 08:00 01/31/21 07:21 Tiotropium [place] 18 Mcg Cap.W.Dev INHALE 1 puff RDAILY NELI Administration Trazodone HCl 50 mg 01/27/21 21:00 01/30/21 21:32 Trazodone Hcl 50 Mg Tablet PO 50 mg BEDTIME NELI Administration Labs CBC & Chem 7: 01/30/21 05:35 01/28/21 05:47 Labs: Laboratory Results - last 24 hr 01/30/21 01/30/21 01/31/21 16:16 21:08 07:20 POC Glucose 106 200 H 57 L* 01/31/21 01/31/21 07:52 11:05 POC Glucose 68 121 H Microbiology Microbiology Results: Microbiology 01/28/21 20:03 Sputum - Expectorated Gram Stain - Final 01/28/21 20:03 Sputum - Expectorated Sputum Culture - Preliminary Pseudomonas aeruginosa 01/27/21 10:30 Blood - Venous Blood Culture - Preliminary No growth after 48 hours. 01/27/21 10:24 Blood - Venous Blood Culture - Preliminary No growth after 48 hours. Assessment and Plan (1) Pulmonary embolism: Status: Acute (2) Acute exacerbation of chronic obstructive airways disease: Status: Acute (3) Chronic respiratory failure with hypoxia: Status: Acute Assessment and Plan: hospital d#5 55yo M with chronic hypoxic respiratory failure on home O2 3L, COPD, pulmonary fibrosis, bronchiectasis, HIV on fully suppressive ARV, recent admission to [facility] for COPD exacerbation 1 wk ago, currently on prednisone taper presenting with progressive dyspnea and found to have multiple segmental and subsegmental right upper, right middle and right lower lobe pulmonary emboli. # acute PE/LLE DVT - changed from therapeutic LMWH to apixaban on 01/30. Due to boosting by return of year, giving half the usual dose, thus 5 mg bid x7d then 2.5 mg bid # acute/chronic hypoxic respiratory failure - continue supplemental O2, wean as tolerated- usually on 3L at home # COPD exacerbation - already treated at [facility], change steroid to prednisone and taper [watch for boosting by ritonavir in ARV regimen] - d/c'ed cefepime and continue doxycyline for now. Sputum growing Pseudomonas surgeon also though likely colonization rather than true infection per ID - bronchodilators scheduled/prn # HIV - pt states last CD4 >200 [though was well below <200 prior to that] and viral load has been <20 for years. pt's current ARV regimen [pharmacist confirmed with pt's ID clinic] is a second-line regimen of DTG + DRV/r + ABC due to hx resistant virus [but he is no longer on FTC/TAF]. he remains on dapsone for PCP prophylaxis [due to SMX/TMP allergy] and can discuss discontinuation with his ID doctor # thrush - suspect due to steroid use. Fluconazole day 2 of 10 # DM2, A1c 9.8, with hypoglycemia - decrease Lantus/Humalog # opioid use disorder - continue methadone, dose confirmed by pharmacist
[2021-01-31 16:24] LABS: Glucose, Whole Blood 271 mg/dL (60-115)
[2021-01-31] MEDS: Insulin Lispro 100 UNIT/ML 3 ML VIAL SUBCUT ×2 (16:55→21:16)
[2021-01-31 20:26] LABS: Glucose, Whole Blood 293 mg/dL (60-115)
[2021-01-31] MEDS: traZODone HCL 50 MG TABLET PO (21:16)
[2021-02-01] VITALS (9 sets, daily range): BP systolic 108–121; BP diastolic 68–84; PULSE 93–112; RESP 18; TEMP 36.4–37.2; O2SAT 90–95
[2021-02-01] MEDS: Omeprazole 20 MG CAPSULE.DR PO (06:07)
[2021-02-01 07:16] LABS: Glucose, Whole Blood 188 mg/dL (60-115)
[2021-02-01] MEDS: Ipratropium Bromide 0.5 MG/2.5 ML SOLUTION INHALE ×3 (07:58→20:06)
[2021-02-01] MEDS: predniSONE 20 MG TABLET PO (08:13)
[2021-02-01] MEDS: RITONAVIR 100 MG PO ×2 (08:13→20:55)
[2021-02-01] MEDS: Insulin Lispro 100 UNIT/ML 3 ML VIAL SUBCUT ×4 (08:16→20:55)
[2021-02-01] MEDS: Apixaban 5 MG TABLET PO ×2 (08:16→20:55)
[2021-02-01] MEDS: 0.9 % Sodium Chloride Flush 3 ML SYRINGE IVFLUSH ×3 (08:16→20:56)
[2021-02-01] MEDS: Dolutegravir Sodium 50 MG TABLET PO ×2 (08:17→20:56)
[2021-02-01] MEDS: DARUNAVIR ETHANOLATE 600 MG PO ×2 (08:17→20:55)
[2021-02-01] MEDS: Fluconazole 100 MG TABLET PO (08:18)
[2021-02-01] MEDS: guaiFENesin LA 600 MG TAB.ER.12H 1200 MG PO ×2 (08:18→20:56)
[2021-02-01] MEDS: Insulin Glargine,Hum.rec.anlog 100 UNIT/ML 10 ML VIAL 14 UNIT SUBCUT ×2 (08:18→20:54)
[2021-02-01] MEDS: Furosemide 20 MG TABLET PO (08:18)
[2021-02-01] MEDS: polyethylene glycoL 3350 17 GM POWD.PACK PO (08:23)
[2021-02-01 11:05] LABS: Glucose, Whole Blood 222 mg/dL (60-115)
--- NOTE | 2021-02-01 14:10 | HO.PM.IMPN ---
Subjective Subjective Date of Service: 02/01/21 Interval History: still dyspneic, not moving around much no furhter hypoglycemia Physical Exam Vital Signs: Vital Signs: Last Vital Signs Temp 98.0 F 02/01/21 11:17 Pulse 111 H 02/01/21 11:50 Resp 18 02/01/21 11:17 BP 121/68 02/01/21 11:17 Pulse Ox 93 02/01/21 11:17 Oxygen Flow Rate 7 01/27/21 09:45 Body Mass Index 24.9 Gen: mild dyspnea at rest on 4L via NC HEENT: sclera anicteric, moist mucus membranes Neck: supple Lungs: diminished breath sounds throughout Heart: regular rate and rhythm, no murmurs Abd: soft, non-tender, non-distended Ext: no edema Skin: warm/well-perfused Neuro: alert and oriented x3, no focal findings Psych: appropriate affect Objective Data Current Medications Generic Name Dose Route Start Last Admin Trade Name Freq PRN Reason Stop Dose Admin Abacavir Sulfate 600 mg 01/28/21 09:00 02/01/21 08:16 Abacavir Sulfate 300 Mg Tablet PO 600 mg DAILY NELI Administration Acetaminophen 650 mg 01/27/21 17:31 01/31/21 11:12 Acetaminophen 325 Mg Tablet PO 650 mg Q6H PRN Administration Pain, Mild (Pain Scale 1-3) Apixaban 5 mg 01/30/21 21:00 02/01/21 08:16 Apixaban 5 Mg Tablet PO 5 mg BID NELI Administration Darunavir 600 mg 01/27/21 21:00 02/01/21 08:17 Darunavir Ethanolate 600 Mg Tablet PO 600 mg BID NELI Administration Dolutegravir Sodium 50 mg 01/27/21 21:00 02/01/21 08:17 Dolutegravir Sodium 50 Mg Tablet PO 50 mg BID NLEI Administration Doxycycline Hyclate 100 mg 01/28/21 18:00 02/01/21 06:07 Doxycycline Hyclate 100 Mg Tablet PO 100 mg Q12H NELI Administration Fluconazole 100 mg 01/31/21 09:00 02/01/21 08:18 Fluconazole 100 Mg Tablet PO 100 mg DAILY NELI Administration Furosemide 20 mg 01/28/21 09:00 02/01/21 08:18 Furosemide 20 Mg Tablet PO 20 mg DAILY NELI Administration Protocol Guaifenesin 1,200 mg 01/27/21 21:00 02/01/21 08:18 Guaifenesin La 600 Mg Tab.Er.12h PO 1,200 mg BID NELI Administration Insulin Glargine 14 unit 01/31/21 09:00 02/01/21 08:18 Insulin Glargine,Hum.Rec.Anlog 100 Unit/Ml 10 Ml Vial SUBCUT 14 unit BID NELI Administration Insulin Human Lispro 0 unit 01/27/21 16:30 02/01/21 11:15 Insulin Lispro 100 Unit/Ml 3 Ml Vial SUBCUT 4 unit QIDACHS NELI Administration Protocol Ipratropium [place] 0.5 mg 01/27/21 17:31 02/01/21 11:49 Ipratropium [place] 0.5 Mg/2.5 Ml Solution INHALE 0.5 mg RQ4H WHILE AWAKE NELI Administration Levalbuterol HCl 1.25 mg 01/27/21 17:31 02/01/21 11:49 Levalbuterol Hcl 1.25 Mg/0.5 Ml Vial.Neb INHALE 1.25 mg RQ4H WHILE AWAKE NELI Administration Levalbuterol HCl 1.25 mg 01/27/21 17:31 Levalbuterol Hcl 1.25 Mg/0.5 Ml Vial.Neb INHALE Q3H PRN Shortness of Breath Methadone HCl 60 mg 01/28/21 12:30 02/01/21 08:19 Methadone Hcl 1 Mg/0.1 Ml Oral.Conc PO 60 mg DAILY NELI Administration Non-Formulary Medication 1 tab 01/28/21 09:00 02/01/21 08:17 Dapsone PO 1 tab DAILY NELI Administration Omeprazole 20 mg 01/28/21 06:30 02/01/21 06:07 Omeprazole 20 Mg Capsule. PO 20 mg DAILY@0630 NELI Administration Ondansetron HCl 4 mg 01/27/21 17:31 01/28/21 20:06 Ondansetron Hcl 4 Mg/2 Ml Vial IVPUSH 4 mg Q8H PRN Administration Nausea and Vomiting Pharmacy Consult 1 each 01/27/21 12:55 Consult Rx Perform Med Rec MISCELLANE ONCE PRN Consult order Polyethylene Glycol 17 gm 01/30/21 18:36 02/01/21 08:23 Polyethylene Glycol 3350 17 Gm Powd.Pack PO 17 gm DAILY PRN Administration constipation Prednisone 20 mg 01/31/21 09:00 02/01/21 08:13 Prednisone 20 Mg Tablet PO 20 mg DAILY NELI Administration Ritonavir 100 mg 01/27/21 21:00 02/01/21 08:13 Ritonavir 100 Mg Tablet PO 100 mg BID NELI Administration Sodium Chloride 3 ml 01/27/21 17:31 02/01/21 08:16 0.9 % Sodium Chloride Flush 3 Ml Syringe IVFLUSH 3 ml QSHIFT NELI Administration Tiotropium [place] 1 puff 01/29/21 08:00 02/01/21 07:58 Tiotropium [place] 18 Mcg Cap.W.Dev INHALE 1 puff RDAILY NELI Administration Trazodone HCl 50 mg 01/27/21 21:00 01/31/21 21:16 Trazodone Hcl 50 Mg Tablet PO 50 mg BEDTIME NELI Administration Labs CBC & Chem 7: 01/30/21 05:35 01/28/21 05:47 Labs: Laboratory Results - last 24 hr 01/31/21 01/31/21 02/01/21 16:21 20:22 07:12 POC Glucose 271 H 293 H 188 H 02/01/21 11:02 POC Glucose 222 H Microbiology Microbiology Results: Microbiology 01/27/21 10:30 Blood - Venous Blood Culture - Final No growth after 5 days. 01/27/21 10:24 Blood - Venous Blood Culture - Final No growth after 5 days. 01/28/21 20:03 Sputum - Expectorated Gram Stain - Final 01/28/21 20:03 Sputum - Expectorated Sputum Culture - Preliminary Pseudomonas aeruginosa Assessment and Plan (1) Pulmonary embolism: Status: Acute (2) Acute exacerbation of chronic obstructive airways disease: Status: Acute (3) Chronic respiratory failure with hypoxia: Status: Acute Assessment and Plan: hospital d#6 55yo M with chronic hypoxic respiratory failure on home O2 3L, COPD, pulmonary fibrosis, bronchiectasis, HIV on fully suppressive ARV, recent admission to [facility] for COPD exacerbation 1 wk ago and discharged on prednisone taper presenting with progressive dyspnea and found to have multiple segmental and subsegmental right upper, right middle and right lower lobe pulmonary emboli associated with LLE DVT # acute PE/LLE DVT - changed from therapeutic LMWH to apixaban on 01/30. Due to boosting by Norvir [ritonavir], we are giving half the usual dose of apixaban; thus 5 mg bid x7d and then 2.5 mg bid starting on 02/06 # acute/chronic hypoxic respiratory failure - continue supplemental O2, wean as tolerated- usually on 3L at home. # COPD exacerbation - already treated at [facility], taper prednisone over the next few days [watch for boosting by ritonavir in ARV regimen] - d/c'ed cefepime and continue doxycyline for now. Sputum growing Pseudomonas aeruginosa, though likely colonization rather than true infection per ID - bronchodilators scheduled/prn # HIV - pt states last CD4 >200 [though was well below <200 prior to that] and viral load has been <20 for years. pt's current ARV regimen [pharmacist confirmed with pt's ID clinic] is a second-line regimen of Tivicay [dolutegravir] plus Ziagen [abacavir] plus Prezista [darunavir] boosted by Norvir [ritonavir] due to hx resistant virus [but he is no longer on Descovy per his ID clinic]. he remains on dapsone for PCP prophylaxis [due to SMX/TMP allergy] and can discuss discontinuation of this with his ID doctor, Jenniffer Chao at [facility] # thrush - suspect due to steroid use. Fluconazole day 11/19 # DM2, A1c 9.8 - Lantus/Humalog; hypoglycemia resolved with reduced dose of insulins # opioid use disorder - continue methadone, dose confirmed by pharmacist # dispo - anticipate home with [facility]NA once O2 requirement decreases- baseline 3L
[2021-02-01 16:17] LABS: Glucose, Whole Blood 298 mg/dL (60-115)
[2021-02-01 20:02] LABS: Glucose, Whole Blood 212 mg/dL (60-115)
[2021-02-01] MEDS: Docusate Sodium 100 MG CAPSULE PO (20:55)
[2021-02-01] MEDS: traZODone HCL 50 MG TABLET PO (20:55)
[2021-02-01] MEDS: Sennosides 8.6 MG TABLET 17.2 MG PO (20:56)
[2021-02-02] VITALS: BP 110/59; PULSE 90; RESP 18; TEMP 36.8; O2SAT 98
[2021-02-02 04:00] VITALS: BP 115/66; PULSE 88; RESP 16; TEMP 36.6; O2SAT 97
[2021-02-02] MEDS: Omeprazole 20 MG CAPSULE.DR PO (05:44)
[2021-02-02 07:20] VITALS: BP 134/81; PULSE 92; RESP 20; TEMP 36.4; O2SAT 96
[2021-02-02 07:37] LABS: Glucose, Whole Blood 173 mg/dL (60-115)
[2021-02-02] MEDS: guaiFENesin LA 600 MG TAB.ER.12H 1200 MG PO (08:04)
[2021-02-02] MEDS: Dolutegravir Sodium 50 MG TABLET PO (08:04)
[2021-02-02] MEDS: Apixaban 5 MG TABLET PO (08:04)
[2021-02-02] MEDS: RITONAVIR 100 MG PO (08:04)
[2021-02-02] MEDS: Furosemide 20 MG TABLET PO (08:04)
[2021-02-02] MEDS: Docusate Sodium 100 MG CAPSULE PO (08:04)
[2021-02-02] MEDS: Insulin Lispro 100 UNIT/ML 3 ML VIAL SUBCUT ×2 (08:05→11:51)
[2021-02-02] MEDS: predniSONE 20 MG TABLET PO (08:05)
[2021-02-02] MEDS: Insulin Glargine,Hum.rec.anlog 100 UNIT/ML 10 ML VIAL 14 UNIT SUBCUT (08:05)
[2021-02-02] MEDS: 0.9 % Sodium Chloride Flush 3 ML SYRINGE IVFLUSH (08:05)
[2021-02-02] MEDS: DARUNAVIR ETHANOLATE 600 MG PO (08:09)
[2021-02-02] MEDS: Fluconazole 100 MG TABLET PO (08:10)
[2021-02-02] MEDS: Ipratropium Bromide 0.5 MG/2.5 ML SOLUTION INHALE (08:11)
[2021-02-02 08:14] VITALS: PULSE 114; O2SAT 89
[2021-02-02 09:58] VITALS: O2SAT 93
--- NOTE | 2021-02-02 11:17 | PM.DS ---
DS: Providers Provider Date of Service: 02/02/21 Date of admission: 01/27/21 15:11 Primary care physician: Jeremy Romano MD Consults: 01/27/21 17:31 Consult to Pulmonology Routine Consulting Provider: Dre Cruz Reason for consultation: bronchiatasis with mucous plugging, ? need for bronch 01/30/21 09:13 Consult to Infectious Diseases Routine Consulting Provider: Dinah Wolff Reason for consultation: GNR in sputum, bronchiectasis ?treat or colonizer DS: Diagnosis Discharge Diagnosis (1) Pulmonary embolism: Status: Acute Problem details: B (2) Acute exacerbation of chronic obstructive airways disease: Status: Acute (3) Chronic respiratory failure with hypoxia: Status: Acute DS: Medications Discharge Medications Home Medications: Home Medications Medication Instructions Recorded Confirmed Anoro Ellipta 1 puff INHALATION DAILY 01/27/21 01/27/21 Descovy 1 tab PO DAILY 01/27/21 Fiasp FlexTouch U-100 Insulin 8 - 12 unit SUBCUT TIDAC 01/27/21 01/27/21 Lantus U-100 Insulin 14 unit SUBCUT BID 01/27/21 01/27/21 Prezista 1 tab PO BID 01/27/21 01/27/21 Tivicay 1 tab PO BID 01/27/21 01/27/21 abacavir 2 tab PO DAILY 01/27/21 01/27/21 albuterol sulfate [Ventolin HFA] 2 puff PO Q4H PRN 01/27/21 01/27/21 dapsone 1 tab PO DAILY 01/27/21 01/27/21 furosemide 20 mg PO DAILY 01/27/21 01/27/21 ipratropium-albuterol 3 ml INHALATION QID 01/27/21 01/27/21 omeprazole 20 mg PO DAILY 01/27/21 01/27/21 prednisone 10 tab PO DAILY 01/27/21 01/27/21 ritonavir 1 tab PO BID 01/27/21 01/27/21 trazodone 50 mg PO BEDTIME 01/27/21 01/27/21 methadone [Methadone Intensol] 60 mg PO DAILY 01/28/21 01/28/21 Previous Rx's Medication Instructions Recorded apixaban [Eliquis] 5 mg PO BID #60 tab 02/02/21 fluconazole 100 mg PO DAILY #7 tab 02/02/21 prednisone 20 mg PO DAILY #5 tab 02/02/21 DS: Summary Hospital Course Hospital Course: Patient was admitted for acute on chronic hypoxic respiratory failure secondary to COPD exacerbation and pulmonary embolism. He was treated with steroids, antibiotics, bronchodilators, low molecular weight heparin eventually transition to low-dose apixaban due to interaction with ritonavir. Patient was able to be weaned to his chronic 3 L O2. He will continue with apixaban 5 mg b.i.d. until 02/06/2021 and then decrease to 2.5 b.i.d., he will get 5 more days of 20 mg of p.o. prednisone. Patient was also noted to have thrush, he will get 7 more days of Diflucan. He is now feeling much better will be discharged home. Time Spent with Patient Time attestation: Total time spent providing and/or coordinating discharge services: Discharge coordination time: Greater than 30 minutes Quality: Stroke Does the patient have a stroke diagnosis?: No Physical Exam Vital Signs: Vital Signs: Last Vital Signs Temp 97.5 F 02/02/21 07:20 Pulse 114 H 02/02/21 08:14 Resp 20 02/02/21 07:20 BP 134/81 02/02/21 07:20 Pulse Ox 93 02/02/21 09:58 Oxygen Flow Rate 7 01/27/21 09:45 Body Mass Index 24.9 General: AO X 3, no acute distress Resp: CTA bilateral CVS: S1,S2,RRR GI: soft, non tender, non distended Neuro: motor grossly intact Psych: appropriate affect DS: Data Data Completed and Pending Labs on day of discharge: Laboratory Results - last 24 hr 02/01/21 02/01/21 02/02/21 16:07 19:57 07:22 POC Glucose 298 H 212 H 173 H Preliminary micro results at discharge 01/28/21 20:03 Sputum Culture - Preliminary Sputum - Expectorated Pseudomonas aeruginosa Discharge Plan Discharge Patient Disposition: Home Health Service Discharge Diagnosis: DVT/PE/copd Referrals: Jeremy Romano MD [Primary Care Provider] - 1 Week Discharge Medications: New fluconazole 100 mg Tablet 100 mg PO DAILY Qty: 7 RF: 0 Eliquis 5 mg Tablet 5 mg PO BID Qty: 60 RF: 0 prednisone 20 mg tablet 20 mg PO DAILY Qty: 5 RF: 0 Continued ipratropium-albuterol 0.5 mg-3 mg(2.5 mg base)/3 mL solution for nebulization 3 ml inhalation QID RF: 0 Lantus U-100 Insulin 100 unit/mL solution 14 unit subcut BID RF: 0 trazodone 50 mg tablet 50 mg PO BEDTIME RF: 0 dapsone 100 mg tablet 1 tab PO DAILY RF: 0 omeprazole 20 mg capsule,delayed release(DR/EC) 20 mg PO DAILY RF: 0 furosemide 20 mg tablet 20 mg PO DAILY RF: 0 albuterol sulfate [Ventolin HFA] 90 mcg/actuation HFA aerosol inhaler 2 puff PO Q4H PRN (Reason: wheezing) RF: 0 Prezista 600 mg tablet 1 tab PO BID RF: 0 Tivicay 50 mg tablet 1 tab PO BID RF: 0 Anoro Ellipta 62.5-25 mcg/actuation blister with device 1 puff inhalation DAILY RF: 0 Descovy 200-25 mg tablet 1 tab PO DAILY RF: 0 Fiasp FlexTouch U-100 Insulin 100 unit/mL (3 mL) insulin pen 8 - 12 unit subcut TIDAC RF: 0 abacavir 300 mg tablet 2 tab PO DAILY RF: 0 ritonavir 100 mg tablet 1 tab PO BID RF: 0 prednisone 10 mg tablet 10 tab PO DAILY RF: 0 methadone [Methadone Intensol] 10 mg/mL Concentrate 60 mg PO DAILY RF: 0 Discharge Orders: Discharge Order (Routine); Ordered 02/02/21 Ordered By: Bob Canales Activity on Discharge: As tolerated Stand Alone Forms: Patient Portal Discharge page Care Plan Goals: treat pe Health Concerns: pe Plan of Treatment: eliquis as prescribed Assessment: see above
[2021-02-02 11:35] LABS: Glucose, Whole Blood 171 mg/dL (60-115)
[2021-02-02 11:47] VITALS: BP 129/70; PULSE 78; RESP 20; TEMP 37.1; O2SAT 98
--- NOTE | 2021-02-02 14:50 | MHC.CM.PN ---
Male 55 DX SOB Discharged to home today [facility], family transport.
--- NOTE | 2021-02-10 10:43 | HE.PHANOTE ---
Medication found after discharge returned via [employer] / open bottle of Dapsone 100 mg tablets
== END 2021-02-02 14:11 | disposition home health service (06) | DRG 175 ==
LOC: HO.ED 12:45 → HO.IMC 16:08
PROVIDERS: Family Medicine; Admitting Provider Family Medicine; Emergency Provider Emergency Medicine; PCP Internal Medicine; Visit Provider Internal Medicine
DX: I26.99 Other pulmonary embolism without acute cor pulmonale (principal); J96.21 Acute and chronic respiratory failure with hypoxia; J44.1 Chronic obstructive pulmonary disease with (acute) exacerbation; F11.20 Opioid dependence, uncomplicated; I82.4Z2 Acute embolism and thrombosis of unspecified deep veins of left distal lower extremity; B37.0 Candidal stomatitis; J84.10 Pulmonary fibrosis, unspecified; Z21 Asymptomatic human immunodeficiency virus [HIV] infection status; T36.95XA Adverse effect of unspecified systemic antibiotic, initial encounter; Y92.239 Unspecified place in hospital as the place of occurrence of the external cause; E11.65 Type 2 diabetes mellitus with hyperglycemia; Z99.81 Dependence on supplemental oxygen; Z87.891 Personal history of nicotine dependence; Z20.822 Contact with and (suspected) exposure to COVID-19; Z79.4 Long term (current) use of insulin; Z79.01 Long term (current) use of anticoagulants; Z79.52 Long term (current) use of systemic steroids; Z79.899 Other long term (current) drug therapy
CPT/HCPCS: 0241U; 36415; 71045; 71275; 74177; 80048; 82947; 83036; 83880; 84145; 85007; 85025; 85027; 85379; 85610; 85730; 87040; 87070; 87077; 87205; 93308; 93970; 94640; 94644; 96372; 96374; 96375; 99285; J0692; J1650; J1940; J2405; J2920; J2930; Q9967

== ENCOUNTER 2021-02-13 16:37 | Emergency (ER) | payer MEDICARE, MEDICAID, SELFPAY ==
--- NOTE | ~2021-02-13 | US_ITS ---
EXAMINATION: US VENOUS ULTRASOUND WITH DOPPLER LOWER EXTREMITY, LEFT CLINICAL INFORMATION: Swelling COMPARISON: Venous Doppler ultrasound left lower extremity 01/28/2021 TECHNIQUE: Ultrasound of the deep veins is performed from the hip to the calf with compression sonography and color and pulse Doppler assessment. Spectral analysis with color-flow imaging is performed. FINDINGS: There is deep vein thrombosis of the left lower extremity. There is partial thrombus present in the femoral vein from proximal femoral vein through the popliteal vein. Small volume of flow is seen through this segment with color Doppler. In the calf vascular flow demonstrated in a normal-appearing posterior tibial vein. The peroneal vein is not visualized. On the prior ultrasound exam of 01/28/2021 the thrombus in the left lower extremity was occlusive. US/US venous duplex LE LT IMPRESSION: Redemonstration of the deep vein thrombosis of the left lower extremity from groin to popliteal vein. The thrombus was entirely occlusive on the prior ultrasound study of 01/28/2021. Thrombus now is partial occlusive with a small volume of vascular flow demonstrated on today's study via color Doppler.
[2021-02-13 16:55] VITALS: BP 93/70; PULSE 98; RESP 16; TEMP 36.9; O2SAT 96; BMI 25.2
[2021-02-13 17:26] LABS: Basophils Percent Auto 0.1 % (0-2); Eosinophils Percent Auto 0.3 % (0-4); Hematocrit 33.1 % (42-52); Hemoglobin 10.2 g/dl (14.0-18.0); Imm Gran Abs Auto 0.04 X10*3/uL (0.00-0.03); Imm Gran Pct Auto 0.6 % (0.0-0.4); Lymphocytes Absolute Auto 0.6 X10*3/uL (1.2-4.9); Lymphocytes Percent Auto 8.2 % (20-40); MANUAL DIFF FLAG SCAN; Mean Corpuscular HGB Conc 30.8 g/dl (31.0-36.0); Mean Corpuscular Hemoglobin 27.4 pg (27.0-33.0); Mean Platelet Volume 8.1 fL (9.4-12.4); Monocytes Absolute Auto 0.6 X10*3/uL (0.1-1.2); Monocytes Percent Auto 8.3 % (2-11); Neutrophils Absolute Auto 5.6 X10*3/uL (2.0-8.3); Neutrophils Percent Auto 82.5 % (45-73); Platelet Count 209 X10*3/uL (160-400); Red Blood Count 3.72 X10*6/uL (4.60-5.80); Red Cell Distribution Width 14.7 % (11.0-16.0); SCAN SMEAR FLAG 1; White Blood Count 6.7 X10*3/uL (4.8-10.8)
[2021-02-13 17:38] LABS: Prothrombin Time 12.1 SEC (10.8-13.0)
[2021-02-13 17:45] LABS: Anion Gap 16 (12-20); Carbon Dioxide 32 mmol/L (22-29); Chloride 91 mmol/L (96-108); Potassium 3.9 mmol/L (3.3-5.1); Sodium 135 mmol/L (135-145)
[2021-02-13 17:55] LABS: SLIDE REVIEW VERIFIED
[2021-02-13 19:27] VITALS: BP 120/71; PULSE 85; RESP 18; TEMP 36.8; O2SAT 97
--- NOTE | 2021-02-13 19:34 | ED.LOWEXIN ---
HPI - Extremity Injury (Lower) General Chief Complaint: Extremity Injury, Lower Stated Complaint: Rule out dvt Time Seen by Provider: 02/13/21 19:34 Source: patient, family and RN notes reviewed Mode of arrival: ambulatory Limitations: no limitations History of Present Illness HPI Narrative: 55-year-old male with past medical history of diabetes, chronic respiratory failure with hypoxia on 3 L of home O2, COPD-pulmonary fibrosis, HIV who presents to the ER with left lower extremity swelling. Patient was admitted 01/27/21 for PE and left lower extremity DVT. Patient was sent home on Eliquis. Today he reports that his left lower extremity edema increased. Patient is on home O2. Denies any other symptoms. It denies any SOB, CP, PND, palpitation, presyncope, syncope. Related Data Home Medications Medication Instructions Recorded Confirmed Anoro Ellipta 1 puff INHALATION DAILY 01/27/21 01/27/21 Descovy 1 tab PO DAILY 01/27/21 Fiasp FlexTouch U-100 Insulin 8 - 12 unit SUBCUT TIDAC 01/27/21 01/27/21 Lantus U-100 Insulin 14 unit SUBCUT BID 01/27/21 01/27/21 Prezista 1 tab PO BID 01/27/21 01/27/21 Tivicay 1 tab PO BID 01/27/21 01/27/21 abacavir 2 tab PO DAILY 01/27/21 01/27/21 albuterol sulfate [Ventolin HFA] 2 puff PO Q4H PRN 01/27/21 01/27/21 dapsone 1 tab PO DAILY 01/27/21 01/27/21 furosemide 20 mg PO DAILY 01/27/21 01/27/21 ipratropium-albuterol 3 ml INHALATION QID 01/27/21 01/27/21 omeprazole 20 mg PO DAILY 01/27/21 01/27/21 prednisone 10 tab PO DAILY 01/27/21 01/27/21 ritonavir 1 tab PO BID 01/27/21 01/27/21 trazodone 50 mg PO BEDTIME 01/27/21 01/27/21 methadone [Methadone Intensol] 60 mg PO DAILY 01/28/21 01/28/21 Previous Rx's Medication Instructions Recorded apixaban [Eliquis] 5 mg PO BID #60 tab 02/02/21 fluconazole 100 mg PO DAILY #7 tab 02/02/21 prednisone 20 mg PO DAILY #5 tab 02/02/21 Allergies Allergy/AdvReac Type Severity Reaction Status Date / Time Penicillins Allergy Severe HIves Verified 02/13/21 17:02 swelling SOB Sulfa (Sulfonamide Allergy Severe Hives Verified 02/13/21 17:02 Antibiotics) Review of Systems Review of Systems: Constitutional : No Weight loss, No Fever, No Chills, No Night Sweats, No Fatigue, No Malaise ENT/Mouth : No Hearing loss, No Ear Pain, No Nasal Congestion, No Sinus Pain, No Hoarseness, No sore throat, No Rhinorrhea, No Swallowing Difficulty Eyes: No Eye Pain, No Swelling, No Redness, No Foreign Body, No Discharge, No Vision Changes Cardiovascular : No Chest Pain, No SOB, No Dyspnea on Exertion, No Orthopnea, No Edema, No Palpitations Respiratory : No Cough, No Sputum, No Wheezing, No Smoke Exposure, No Dyspnea Gastrointestinal : No Nausea, No Vomiting, No Diarrhea, No Constipation, No abdominal Pain, No Hematochezia, No Melena Genitourinary : no irregular bleeding, No Dysuria, No Urinary Frequency, No Hematuria, No Urinary Incontinence, No Urgency, No Flank Pain, No Urinary Flow Changes, No Hesitancy Musculoskeletal : No joint pain, No Myalgias, Lower extremity swelling Joint Swelling Skin : No Skin Lesions, No rash Neuro : No Weakness, No Numbness, No Paresthesias, No Loss of Consciousness, No Dizziness, No Headache Psych : No Anxiety/Panic, No Depression, No SI/HI/AH/VH, No Social Issues, Heme/Lymph: No Bruising, No Bleeding,No Lymphadenopathy Endocrine : No Polyuria, No Polydipsia, No Temperature Intolerance Yes all other systems are reviewed and are negative [facility] Past Medical History Medical History (Updated 02/13/21 @ 22:42 [facility] AIDS COPD (chronic obstructive pulmonary disease) Diabetes mellitus type 1 DVT (deep venous thrombosis) HIV (human immunodeficiency virus infection) HIV disease HTN (hypertension) Pseudomonas aeruginosa colonization Pulmonary embolism Pulmonary fibrosis Thrush Social History Social History Household Members: Spouse and Children Housing: House Do you presently have visiting nurse or other home services: No Alcohol intake: never Advance Directives: No Advance Directives Information Provided: No service: Yes Current occupational status: disabled Physical Exam Vital Signs: Vital Signs: Last Vital Signs Temp 98.0 F 02/13/21 21:45 Pulse 94 02/13/21 21:45 Resp 18 02/13/21 21:45 BP 109/65 02/13/21 21:45 Pulse Ox 98 02/13/21 21:45 Oxygen Flow Rate 3 02/13/21 16:55 Body Mass Index 25.2 Const: General: healthy appearing, no acute distress and well developed Nutritional Appearance: well nourished Orientation/consciousness: patient oriented x3 Neck: Neck: Yes normal visual inspection, Yes full ROM and Yes trachea midline Thyroid: Thyroid normal Resp: Auscultation: clear to auscultation bilaterally Cardio: Rate: regular rate Rhythm: regular rhythm GI: Inspection: Yes normal to inspection and No distended Palpation (GI): No hepatosplenomegaly present Auscultation: normal bowel sounds Skin: General skin exam: elasticity normal, turgor normal and dry skin Neuro: General: patient oriented x3 Extrem: Other: Lower extremity swelling positive for pedal pulses Course Course Course Narrative: 55-year-old male with past medical history of diabetes, CRF with hypoxia on 3 L of O2, COPD-pulmonary fibrosis, HIV. Today he is common with left lower extremity edema. Patient was previously diagnosed with DVT and PE hospitalized on a and sent home on Eliquis. Today he reports that his left lower extremity increased in swelling. Denies any discomfort. Denies any SOB, CP, PND. I will check ultrasound Doppler of his left lower extremity. Patient is comfortable at this time. at the bedside. Patient is diabetic he can have dinner. Reevaluation(s) Reevaluation #1: Venous Doppler results: IMPRESSION: Redemonstration of the deep vein thrombosis of the left lower extremity from groin to popliteal vein. The thrombus was entirely occlusive on the prior ultrasound study of 01/28/2021. Thrombus now is partial occlusive with a small volume of vascular flow demonstrated on today's study via color Doppler. Will send patient home, he can continue Eliquis. Patient was instructed to elevate his legs to promote better venous return MDM - Extremity Injury (Lower) Lab Data Result diagrams: 02/13/21 17:20 02/13/21 17:20 Labs: Lab Results 02/13/21 02/13/21 02/13/21 Range/Units 17:20 17:20 17:20 WBC 6.7 (4.8-10.8) X10*3/uL RBC 3.72 L (4.60-5.80) X10*6/uL Hgb 10.2 L (14.0-18.0) g/dl Hct 33.1 L (42-52) % MCV 89.0 (80-98) fL MCH 27.4 (27.0-33.0) pg MCHC 30.8 L (31.0-36.0) g/dl RDW 14.7 (11.0-16.0) % Plt Count 209 D (160-400) X10*3/uL MPV 8.1 L (9.4-12.4) fL Immature Gran % (Auto) 0.6 H (0.0-0.4) % Neut % (Auto) 82.5 H (45-73) % Lymph % (Auto) 8.2 L (20-40) % Isabella % (Auto) 8.3 (2-11) % Eos % (Auto) 0.3 (0-4) % Baso % (Auto) 0.1 (0-2) % Lymph # (Auto) 0.6 L (1.2-4.9) X10*3/uL Isabella # (Auto) 0.6 (0.1-1.2) X10*3/uL Eos # (Auto) 0.0 (0.0-0.4) X10*3/uL Baso # (Auto) 0.0 (0.0-0.2) X10*3/uL Abs Immat Gran (auto) 0.04 H (0.00-0.03) X10*3/uL Absolute Neuts (auto) 5.6 (2.0-8.3) X10*3/uL Absolute Nucleated RBC 0.000 (0.0-0.012) X10*3/uL Nucleated RBC % (auto) 0.0 (0.0-0.2) /100WBC Smear Tech's Comments VERIFIED PT 12.1 (10.8-13.0) SEC INR 1.0 (0.9-1.1) Sodium 135 (135-145) mmol/L Potassium 3.9 (3.3-5.1) mmol/L Chloride 91 L (96-108) mmol/L Carbon Dioxide 32 H (22-29) mmol/L Anion Gap 16 (12-20) Imaging Data Venous US: Radiologist's impression: FINDINGS: There is deep vein thrombosis of the left lower extremity. There is partial thrombus present in the femoral vein from proximal femoral vein through the popliteal vein. Small volume of flow is seen through this segment with color Doppler. In the calf vascular flow demonstrated in a normal-appearing posterior tibial vein. The peroneal vein is not visualized. On the prior ultrasound exam of 01/28/2021 the thrombus in the left lower extremity was occlusive. US/US venous duplex LE IMPRESSION: Redemonstration of the deep vein thrombosis of the left lower extremity from groin to popliteal vein. The thrombus was entirely occlusive on the prior ultrasound study of 01/28/2021. Thrombus now is partial occlusive with a small volume of vascular flow demonstrated on today's study via color Doppler. Discharge Plan Discharge Clinical Impression: DVT (deep venous thrombosis) Qualifiers: DVT location: lower extremity Affected thrombotic vein of extremity: popliteal Chronicity: unspecified Laterality: left Qualified Code(s): I82.432 - Acute embolism and thrombosis of left popliteal vein Patient Disposition: Home, Self-Care Instructions: Deep Vein Thrombosis (ED) Additional Instructions: You were seen here today for increased left lower extremity edema. You were diagnosed few weeks ago with DVT. Your ultrasound today showed that your DVT has improved. Please continue taking your Eliquis as well as keeping your foot up. Take your Lasix as prescribed. Follow-up with your PCP in 2-3 days. He may return to emergency department if your symptoms will get worse or if you experience any additional concerning symptoms. Prescriptions: No Action ipratropium-albuterol 0.5 mg-3 mg(2.5 mg base)/3 mL solution for nebulization 3 ml inhalation QID RF: 0 Lantus U-100 Insulin 100 unit/mL solution 14 unit subcut BID RF: 0 trazodone 50 mg tablet 50 mg PO BEDTIME RF: 0 dapsone 100 mg tablet 1 tab PO DAILY RF: 0 omeprazole 20 mg capsule,delayed release(DR/EC) 20 mg PO DAILY RF: 0 furosemide 20 mg tablet 20 mg PO DAILY RF: 0 albuterol sulfate [Ventolin HFA] 90 mcg/actuation HFA aerosol inhaler 2 puff PO Q4H PRN (Reason: wheezing) RF: 0 Prezista 600 mg tablet 1 tab PO BID RF: 0 Tivicay 50 mg tablet 1 tab PO BID RF: 0 Anoro Ellipta 62.5-25 mcg/actuation blister with device 1 puff inhalation DAILY RF: 0 Descovy 200-25 mg tablet 1 tab PO DAILY RF: 0 Fiasp FlexTouch U-100 Insulin 100 unit/mL (3 mL) insulin pen 8 - 12 unit subcut TIDAC RF: 0 abacavir 300 mg tablet 2 tab PO DAILY RF: 0 ritonavir 100 mg tablet 1 tab PO BID RF: 0 prednisone 10 mg tablet 10 tab PO DAILY RF: 0 methadone [Methadone Intensol] 10 mg/mL Concentrate 60 mg PO DAILY RF: 0 fluconazole 100 mg Tablet 100 mg PO DAILY Qty: 7 RF: 0 Eliquis 5 mg Tablet 5 mg PO BID Qty: 60 RF: 0 prednisone 20 mg tablet 20 mg PO DAILY Qty: 5 RF: 0 Interventions: ED Discharge Assessment Last Done: 02/13/21 22:50 Discharge Date/Time: 02/13/21 22:52
[2021-02-13 20:58] VITALS: BP 110/68; PULSE 97; RESP 18; O2SAT 96
--- NOTE | 2021-02-13 20:59 | PC.NURSE ---
LS cta. unlabored resp. LLE pitting edema to mid magana. right is not swollen. denies pain. palpable pedal pulse left foot.
[2021-02-13 21:45] VITALS: BP 109/65; PULSE 94; RESP 18; TEMP 36.7; O2SAT 98
== END 2021-02-13 22:52 | disposition home or self-care (01) ==
PROVIDERS: Emergency Provider Student in an Organized Health Care Education/Training Program; PCP Internal Medicine
DX: I82.432 Acute embolism and thrombosis of left popliteal vein (principal); M79.662 Pain in left lower leg; R22.42 Localized swelling, mass and lump, left lower limb; B20 Human immunodeficiency virus [HIV] disease; E11.9 Type 2 diabetes mellitus without complications; J44.9 Chronic obstructive pulmonary disease, unspecified; J96.11 Chronic respiratory failure with hypoxia; Z99.81 Dependence on supplemental oxygen; Z86.711 Personal history of pulmonary embolism; Z86.718 Personal history of other venous thrombosis and embolism; Z79.01 Long term (current) use of anticoagulants; Z79.4 Long term (current) use of insulin; Z79.899 Other long term (current) drug therapy
CPT/HCPCS: 36415; 80051; 85025; 85610; 93971; 99284

== ENCOUNTER 2021-05-22 14:43 | Emergency (ER) | payer MEDICARE, MEDICAID, SELFPAY ==
--- NOTE | ~2021-05-22 | XR_ITS ---
EXAMINATION: XR CHEST CLINICAL INFORMATION: Shortness of breath COMPARISON: Previous chest x-ray and chest CTA January 2021 TECHNIQUE: Frontal view of the chest was obtained. FINDINGS: The cardiac and mediastinal contours are stable. There are scattered perihilar and left lower lobe areas of bronchial wall thickening, bronchiectasis and airspace disease suggestive of bronchopneumonia. There is no pleural effusion or pneumothorax. Bony structures are unremarkable. XR/XR chest 1V IMPRESSION: Bilateral bronchopneumonia.
[2021-05-22 15:09] VITALS: BP 113/63; PULSE 90; RESP 16; TEMP 36.9; O2SAT 98; BMI 26.0
--- NOTE | 2021-05-22 15:12 | ECG_ITS ---
Test Reason : SHORTNESS OF BREATH Blood Pressure : / mmHG Vent. Rate : 072 BPM Atrial Rate : 072 BPM P-R Int : 194 ms QRS Dur : 092 ms QT Int : 426 ms P-R-T Axes : 072 055 057 degrees QTc Int : 466 ms Normal sinus rhythm Possible Left atrial enlargement Borderline ECG No previous ECGs available Referred By: Generic ED Physician Electronically Signed By:LUIS LAURENT
[2021-05-22 17:07] LABS: MANUAL DIFF FLAG NO
[2021-05-22 17:10] LABS: Basophils Percent Auto 0.2 % (0-2); Eosinophils Absolute Auto 0.1 X10*3/uL (0.0-0.4); Eosinophils Percent Auto 1.1 % (0-4); Hematocrit 34.6 % (42-52); Hemoglobin 10.5 g/dl (14.0-18.0); Imm Gran Abs Auto 0.05 X10*3/uL (0.00-0.03); Imm Gran Pct Auto 0.9 % (0.0-0.4); Lymphocytes Absolute Auto 0.8 X10*3/uL (1.2-4.9); Lymphocytes Percent Auto 15.3 % (20-40); Mean Corpuscular HGB Conc 30.3 g/dl (31.0-36.0); Mean Corpuscular Hemoglobin 23.5 pg (27.0-33.0); Mean Corpuscular Volume 77.6 fL (80-98); Mean Platelet Volume 8.4 fL (9.4-12.4); Monocytes Absolute Auto 0.6 X10*3/uL (0.1-1.2); Monocytes Percent Auto 10.8 % (2-11); Neutrophils Absolute Auto 3.8 X10*3/uL (2.0-8.3); Neutrophils Percent Auto 71.7 % (45-73); Platelet Count 176 X10*3/uL (160-400); Red Blood Count 4.46 X10*6/uL (4.60-5.80); Red Cell Distribution Width 14.8 % (11.0-16.0); White Blood Count 5.3 X10*3/uL (4.8-10.8)
[2021-05-22 17:34] LABS: Anion Gap 10 (12-20); Blood Urea Nitrogen 10 mg/dL (9-16); Calcium 9.1 mg/dL (8.4-10.2); Carbon Dioxide 33 mmol/L (22-29); Chloride 96 mmol/L (96-108); Creatinine Clr Calc Pharmacy 113.9; Estimated Glomerular Filt Rate > 60; Glucose Random 211 mg/dL (60-115); Potassium 4.4 mmol/L (3.3-5.1); Sodium 135 mmol/L (135-145)
[2021-05-22 17:36] LABS: COVID-19 Test Negative (Negative)
[2021-05-22 17:38] LABS: B Type Natriuretic Peptide < 10 pg/mL (<100); Troponin-I High Sensitivity < 3.5 ng/L (<3.5-35.0)
--- NOTE | 2021-05-22 19:18 | ED_ITS ---
HPI - SOB/Dyspnea General Chief Complaint: Dyspnea Stated Complaint: SOB, fever Time Seen by Provider: 05/22/21 19:17 Source: patient Mode of arrival: wheelchair Limitations: no limitations History of Present Illness HPI Narrative: 55-year-old male with a past medical history of pulmonary fibrosis, asthma, COPD, pulmonary embolism, and bronchiectasis who is on 3 L of oxygen aT HOME presents for fever, cough, and shortness of breath FOR THE LAST 2 DAYS. PATIENT HAS BEEN VACCINATED FOR COVID. PATIENT IS ON ELIQUIS FOR PE. PATIENT HAD A FEVER 2 DAYS AGO OF 101.2. PATIENT FEELS SHORT OF BREATH WITH WALKING. Related Data Home Medications Medication Instructions Recorded Confirmed abacavir 300 mg tablet 2 tab PO DAILY 01/27/21 01/27/21 albuterol sulfate 90 mcg/actuation 2 puff PO Q4H PRN 01/27/21 01/27/21 aerosol inhaler (Ventolin HFA) dapsone 100 mg tablet 1 tab PO DAILY 01/27/21 01/27/21 darunavir ethanolate 600 mg tablet 1 tab PO BID 01/27/21 01/27/21 (Prezista) dolutegravir 50 mg tablet (Tivicay) 1 tab PO BID 01/27/21 01/27/21 emtricitabine 200 mg-tenofovir 1 tab PO DAILY 01/27/21 alafenamide fumarate 25 mg tablet (Descovy) furosemide 20 mg tablet 20 mg PO DAILY 01/27/21 01/27/21 insulin aspart 8 - 12 unit SUBCUT TIDAC 01/27/21 01/27/21 (niacinamide)(U-100) 100 unit/mL(3 mL) subcutaneous pen (Fiasp FlexTouch U-100 Insulin) insulin glargine 100 unit/mL 14 unit SUBCUT BID 01/27/21 01/27/21 subcutaneous solution (Lantus U-100 Insulin) ipratropium 0.5 mg-albuterol 3 mg 3 ml INHALATION QID 01/27/21 01/27/21 (2.5 mg base)/3 mL nebulization soln omeprazole 20 mg capsule,delayed 20 mg PO DAILY 01/27/21 01/27/21 release prednisone 10 mg tablet 10 tab PO DAILY 01/27/21 01/27/21 ritonavir 100 mg tablet 1 tab PO BID 01/27/21 01/27/21 trazodone 50 mg tablet 50 mg PO BEDTIME 01/27/21 01/27/21 umeclidinium 62.5 mcg-vilanterol 1 puff INHALATION DAILY 01/27/21 01/27/21 25 mcg/actuation powdr for inhalation (Anoro Ellipta) methadone 10 mg/mL oral 60 mg PO DAILY 01/28/21 01/28/21 concentrate (Methadone Intensol) Previous Rx's Medication Instructions Recorded apixaban 5 mg tablet (Eliquis) 5 mg PO BID #60 tab 02/02/21 fluconazole 100 mg tablet 100 mg PO DAILY #7 tab 02/02/21 prednisone 20 mg tablet 20 mg PO DAILY #5 tab 02/02/21 doxycycline hyclate 100 mg capsule 100 mg PO BID 10 Days #20 cap 05/22/21 prednisone 50 mg tablet 50 mg PO DAILY 5 Days #5 tab 05/22/21 Allergies Allergy/AdvReac Type Severity Reaction Status Date / Time Penicillins Allergy Severe HIves Verified 02/13/21 17:02 swelling SOB Sulfa (Sulfonamide Allergy Severe Hives Verified 02/13/21 17:02 Antibiotics) Review of Systems Constitutional: Constitutional: Reports body ache(s), Reports chills, Reports fatigue, Reports fever(s), Denies headache(s), Reports malaise and Denies weakness Eyes: Eyes: Denies diplopia ENT: Denies vertigo, Denies dizziness, Denies otalgia, Denies headache(s), Denies mouth pain, Denies post nasal drip, Denies sinus pain, Denies sinus pressure, Denies sore throat and Denies throat swelling Cardiovascular: Cardiovascular: Denies chest pain, Denies syncope, Denies leg edema, Denies lightheadedness, Denies Loss of Consciousness, Denies palpitations, Reports dyspnea and Reports dyspnea on exertion Respiratory: Respiratory: Reports chest congestion, Reports cough, Denies hemoptysis, Denies pain on inspiration, Denies pain with cough, Reports dyspnea and Reports dyspnea on exertion Gastrointestinal: Gastrointestinal: Reports abdominal pain, Denies hematochezia, Denies constipation, Denies diarrhea and Denies vomiting Musculoskeletal: Musculoskeletal: Reports no additional musculoskeletal complaints Neurologic: Denies confusion, Denies vertigo, Denies dizziness, Denies syncope, Denies headache(s) and Denies weakness Psychiatric: Psychiatric: Denies anxiety, Denies confusion and Denies depression Endocrine: Endocrine: Reports fatigue and Denies palpitations Allergic/Immunologic: Allergic/Immunologic: Denies throat swelling PMFSH Past Medical History Medical History AIDS COPD (chronic obstructive pulmonary disease) Diabetes mellitus type 1 DVT (deep venous thrombosis) HIV (human immunodeficiency virus infection) HIV disease HTN (hypertension) Pseudomonas aeruginosa colonization Pulmonary embolism Pulmonary fibrosis Thrush Social History Social History Household Members: Spouse and Children Housing: House Do you presently have visiting nurse or other home services: No Alcohol intake: never Advance Directives: No Advance Directives Information Provided: No service: Yes Current occupational status: disabled Physical Exam Vital Signs: Vital Signs: Last Vital Signs Temp 98.4 F 05/22/21 15:09 Pulse 90 05/22/21 15:09 Resp 16 05/22/21 15:09 BP 113/63 05/22/21 15:09 Pulse Ox 98 05/22/21 15:09 Body Mass Index 26.0 Const: General: no acute distress, alert, awake and ill appearing chronically; No confusion Nutritional Appearance: cachectic Orientation/consciousness: patient oriented x3 and No confusion Limitations: no limitations HENMT: Head: Yes normal to inspection, Yes normocephalic and Yes atraumatic Ears: hearing grossly normal bilaterally, external ears normal, TM's normal bilaterally and EAC's normal General nose exam: Normal external nose present Face and sinus: Yes normal facial exam and Yes sinuses nontender Mouth: Normal oral and palatal mucosa present Throat: Yes posterior oropharynx normal Eyes: Conjunctivae: conjunctivae normal Pupils: Equal, round and reactive pupils present EOM: EOMs intact bilaterally Neck: Neck: Yes full ROM, Yes no lymphadenopathy and Yes supple Resp: Effort & Inspection: normal respiratory effort, able to speak in complete sentences and not tachypneic Auscultation: no crackles, no rales, rhonchi throughout and wheezes scattered wheezes Cardio: Rate: regular rate Rhythm: regular rhythm Heart sounds: S1 normal heart sound present and S2 normal heart sound present Skin: General skin exam: no rashes or lesions noted Neuro: General: patient oriented x3 and No confusion Cranial nerves: Yes Equal, round and reactive pupils present Extrem: General: Yes normal to inspection and Yes full ROM Psych: Appearance: grossly normal Affect: normal affect Attitude: cooperative Thought process: Normal thought process present Course Course Course Narrative: 55-YEAR-OLD MALE ON 3 L OF OXYGEN AT HOME PRESENTS FOR COUGH, DYSPNEA ON EXERTION, AND FEVER. CHEST X-RAY SHOWS Bilateral bronchopneumonia. Labs compared to patient's labs in February are within his baseline. Patient's l ungs are diminished and wheezy and rhonchorous. Patient has respiratory rate of 16, is satting 98% on 3 liters of oxygen, not tachycardic.. Patient has negative troponin negative COVID. Patient does have a history of pulmonary embolism but is on Eliquis, and with a diagnosis of pneumonia, I do not feel we need to CTA patient's chest at this time. Discussed this with patient, counseled patient if he felt more short of breath, had chest pain, he must return immediately to the emergency room and we will scan his chest. Counseled patient that I want him to be seen on Tuesday by his primary care provider, patient states he will be able to get in and be seen by his primary care provider on Tuesday. Started prednisone, doxycycline. We discussed admission, patient felt he would be able to go home, felt that this pneumonia is similar to other pneumonias he has had and is not as bad as when he needs to be hospitalized. Counseled patient if he gets worse at all, to please return to the emergency room and we will admit him. MDM - SOB/Dyspnea Lab Data Result diagrams: 05/22/21 16:44 05/22/21 16:44 Labs: Lab Results 05/22/21 05/22/21 05/22/21 Range/Units 16:44 16:44 16:44 WBC 5.3 (4.8-10.8) X10*3/uL RBC 4.46 L (4.60-5.80) X10*6/uL Hgb 10.5 L (14.0-18.0) g/dl Hct 34.6 L (42-52) % MCV 77.6 L (80-98) fL MCH 23.5 L (27.0-33.0) pg MCHC 30.3 L (31.0-36.0) g/dl RDW 14.8 (11.0-16.0) % Plt Count 176 (160-400) X10*3/uL MPV 8.4 L (9.4-12.4) fL Immature Gran % (Auto) 0.9 H (0.0-0.4) % Neut % (Auto) 71.7 (45-73) % Lymph % (Auto) 15.3 L (20-40) % [facility] % (Auto) 10.8 (2-11) % Eos % (Auto) 1.1 (0-4) % Baso % (Auto) 0.2 (0-2) % Lymph # (Auto) 0.8 L (1.2-4.9) X10*3/uL [facility] # (Auto) 0.6 (0.1-1.2) X10*3/uL Eos # (Auto) 0.1 (0.0-0.4) X10*3/uL Baso # (Auto) 0.0 (0.0-0.2) X10*3/uL Abs Immat Gran (auto) 0.05 H (0.00-0.03) X10*3/uL Absolute Neuts (auto) 3.8 (2.0-8.3) X10*3/uL Absolute Nucleated RBC 0.000 (0.0-0.012) X10*3/uL Nucleated RBC % (auto) 0.0 (0.0-0.2) /100WBC Sodium 135 (135-145) mmol/L Potassium 4.4 (3.3-5.1) mmol/L Chloride 96 (96-108) mmol/L Carbon Dioxide 33 H (22-29) mmol/L Anion Gap 10 L (12-20) BUN 10 (9-16) mg/dL Creatinine 0.78 (0.5-1.4) mg/dL Estim Creat Clear Calc 113.9 Estimated GFR > 60 Random Glucose 211 H (60-115) mg/dL Calcium 9.1 (8.4-10.2) mg/dL Troponin I High Sens < 3.5 (<3.5-35.0) ng/L B-Natriuretic Peptide < 10 (<100) pg/mL COVID-19 ([facility]) (Negative) COVID-19 Clin Com 05/22/21 Range/Units 16:44 WBC (4.8-10.8) X10*3/uL RBC (4.60-5.80) X10*6/uL Hgb (14.0-18.0) g/dl Hct (42-52) % MCV (80-98) fL MCH (27.0-33.0) pg MCHC (31.0-36.0) g/dl RDW (11.0-16.0) % Plt Count (160-400) X10*3/uL MPV (9.4-12.4) fL Immature Gran % (Auto) (0.0-0.4) % Neut % (Auto) (45-73) % Lymph % (Auto) (20-40) % [facility] % (Auto) (2-11) % Eos % (Auto) (0-4) % Baso % (Auto) (0-2) % Lymph # (Auto) (1.2-4.9) X10*3/uL [facility] # (Auto) (0.1-1.2) X10*3/uL Eos # (Auto) (0.0-0.4) X10*3/uL Baso # (Auto) (0.0-0.2) X10*3/uL Abs Immat Gran (auto) (0.00-0.03) X10*3/uL Absolute Neuts (auto) (2.0-8.3) X10*3/uL Absolute Nucleated RBC (0.0-0.012) X10*3/uL Nucleated RBC % (auto) (0.0-0.2) /100WBC Sodium (135-145) mmol/L Potassium (3.3-5.1) mmol/L Chloride (96-108) mmol/L Carbon Dioxide (22-29) mmol/L Anion Gap (12-20) BUN (9-16) mg/dL Creatinine (0.5-1.4) mg/dL Estim Creat Clear Calc Estimated GFR Random Glucose (60-115) mg/dL Calcium (8.4-10.2) mg/dL Troponin I High Sens (<3.5-35.0) ng/L B-Natriuretic Peptide (<100) pg/mL COVID-19 ([facility]) Negative (Negative) COVID-19 Clin Com See Note Discharge Plan Discharge Clinical Impression: Community acquired pneumonia Qualifiers: Laterality: unspecified laterality Qualified Code(s): J18.9 - Pneumonia, unspec ified organism Patient Disposition: Home, Self-Care Instructions: Bacterial Pneumonia (ED) Additional Instructions: Call your primary care provider on Tuesday. You have a bilateral pneumonia. I want you to be seen by your primary care provider on Tuesday. We have a reason for your shortness of breath. I do not think this is a pulmonary embolism. However, if you have worsening shortness of breath, chest pain, or you are feeling worse, please return. We did discuss hospitalizing you today, you must return if you feel like you get to that level of care I have ordered doxycycline and prednisone to your pharmacy, start both as soon as you get them. Continue to take your nebulizers every 4 hours for the next 3 days Alternate Tylenol and ibuprofen Prescriptions: New doxycycline hyclate 100 mg capsule 100 mg PO BID 10 Days Qty: 20 RF: 0 prednisone 50 mg tablet 50 mg PO DAILY 5 Days Qty: 5 RF: 0 No Action ipratropium-albuterol 0.5 mg-3 mg(2.5 mg base)/3 mL solution for nebulization 3 ml inhalation QID RF: 0 Lantus U-100 Insulin 100 unit/mL solution 14 unit subcut BID RF: 0 trazodone 50 mg tablet 50 mg PO BEDTIME RF: 0 dapsone 100 mg tablet 1 tab PO DAILY RF: 0 omeprazole 20 mg capsule,delayed release(DR/EC) 20 mg PO DAILY RF: 0 furosemide 20 mg tablet 20 mg PO DAILY RF: 0 albuterol sulfate [Ventolin HFA] 90 mcg/actuation HFA aerosol inhaler 2 puff PO Q4H PRN (Reason: wheezing) RF: 0 Prezista 600 mg tablet 1 tab PO BID RF: 0 Tivicay 50 mg tablet 1 tab PO BID RF: 0 Anoro Ellipta 62.5-25 mcg/actuation blister with device 1 puff inhalation DAILY RF: 0 Descovy 200-25 mg tablet 1 tab PO DAILY RF: 0 Fiasp FlexTouch U-100 Insulin 100 unit/mL (3 mL) insulin pen 8 - 12 unit subcut TIDAC RF: 0 abacavir 300 mg tablet 2 tab PO DAILY RF: 0 ritonavir 100 mg tablet 1 tab PO BID RF: 0 prednisone 10 mg tablet 10 tab PO DAILY RF: 0 methadone [Methadone Intensol] 10 mg/mL Concentrate 60 mg PO DAILY RF: 0 fluconazole 100 mg Tablet 100 mg PO DAILY Qty: 7 RF: 0 Eliquis 5 mg Tablet 5 mg PO BID Qty: 60 RF: 0 prednisone 20 mg tablet 20 mg PO DAILY Qty: 5 RF: 0 Interventions: ED Discharge Assessment Last Done: 05/22/21 19:43 Discharge Date/Time: 05/22/21 19:44
== END 2021-05-22 19:44 | disposition home or self-care (01) ==
PROVIDERS: Emergency Provider Emergency Medicine Emergency Medical Services; PCP Internal Medicine
DX: J18.9 Pneumonia, unspecified organism (principal); R06.02 Shortness of breath; R50.9 Fever, unspecified; Z20.822 Contact with and (suspected) exposure to COVID-19; Z79.899 Other long term (current) drug therapy
CPT/HCPCS: 36415; 71045; 80048; 83880; 84484; 85025; 87635; 93005; 99283

== ENCOUNTER 2021-10-03 20:01 | Inpatient (IN) | payer MEDICARE, MEDICAID, SELFPAY ==
--- NOTE | ~2021-10-03 | XR_ITS ---
EXAMINATION: XR CHEST CLINICAL INFORMATION: Evaluate for pneumonia. COMPARISON: Chest radiograph dated from 05/22/2021. TECHNIQUE: AP view of the chest was obtained. FINDINGS: Stable appearance of the cardiomediastinal silhouette. EKG wires overlie the chest. There is a background of chronic interstitial thickening and bronchiectasis with however increased reticular prominence and new ill-defined bilateral airspace opacities. No pleural effusions or pneumothorax. No acute osseous abnormalities. XR/XR chest 1V IMPRESSION: Increased interstitial thickening and multifocal airspace opacities concerning for a superimposed atypical infectious or inflammatory process. Recommend follow-up to ensure adequate resolution.
[2021-10-03 20:12] VITALS: BP 129/76; BP 143/62; PULSE 120; PULSE 81; RESP 16; TEMP 36.8; O2SAT 93; O2SAT 94; BMI 25.1
[2021-10-03 20:19] VITALS: PULSE 119; RESP 18; O2SAT 93
[2021-10-03] MEDS: Albuterol/Iprat 2.5/0.5MG 3 ML AMPUL.NEB INHALE (20:23)
--- NOTE | 2021-10-03 20:40 | PC.NURSE ---
pt changed into hospital attire, pt placed on bedside monitor. respiratory called pt given a respiratory treatment. Pt lined and a lab. Blood cultures collected sent. Medicated per Nov. Will continue to monitor. Notified Nurse Demi.
[2021-10-03 20:45] LABS: MANUAL DIFF FLAG NO
[2021-10-03 20:51] LABS: Basophils Percent Auto 0.2 % (0-2); Eosinophils Absolute Auto 0.1 X10*3/uL (0.0-0.4); Eosinophils Percent Auto 1.8 % (0-4); Hematocrit 31.8 % (42.0-52.0); Hemoglobin 9.8 g/dl (14.0-18.0); Imm Gran Abs Auto 0.04 X10*3/uL (0.00-0.03); Imm Gran Pct Auto 0.7 % (0.0-0.4); Lymphocytes Absolute Auto 0.7 X10*3/uL (1.2-4.9); Lymphocytes Percent Auto 11.7 % (20-40); Mean Corpuscular HGB Conc 30.8 g/dl (31.0-36.0); Mean Corpuscular Hemoglobin 24.1 pg (27.0-33.0); Mean Corpuscular Volume 78.1 fL (80.0-98.0); Mean Platelet Volume 8.2 fL (9.4-12.4); Monocytes Absolute Auto 0.5 X10*3/uL (0.1-1.2); Monocytes Percent Auto 8.8 % (2-11); Neutrophils Absolute Auto 4.3 x10*3/uL (2.0-8.3); Neutrophils Percent Auto 76.8 % (45-73); Platelet Count 175 X10*3/uL (160-400); Red Blood Count 4.07 X10*6/uL (4.60-5.80); Red Cell Distribution Width 15.5 % (11.0-16.0); White Blood Count 5.6 X10*3/uL (4.8-10.8)
[2021-10-03] MEDS: methylPREDNISolone Sod Succ 125 MG/2 ML VIAL IVPUSH (21:00)
[2021-10-03] MEDS: Magnesium Sulfate/H2O 2 GM/50 ML PIGGYBACK IV (21:00)
[2021-10-03 21:03] LABS: INTERNATIONAL NORM RATIO 1.1 (0.9-1.1); Prothrombin Time 12.5 SEC (9.9-13.0)
[2021-10-03 21:06] LABS: Partial Thromboplastin Time 35.7 SEC (24.1-38.0)
[2021-10-03 21:07] LABS: Alanine Aminotransferase 22 U/L (0-40); Albumin Level 3.4 g/dL (3.5-5.0); Alkaline Phosphatase 338 U/L (39-117); Anion Gap 13 (12-20); Aspartate Amino Transferase 21 U/L (5-37); Bilirubin Total 0.2 mg/dL (0.0-1.0); Blood Urea Nitrogen 12 mg/dL (9-16); Carbon Dioxide 31 mmol/L (22-29); Chloride 98 mmol/L (96-108); Creatinine Clr Calc Pharmacy 111.1; Estimated Glomerular Filt Rate > 60; Glucose Random 238 mg/dL (60-115); Potassium 3.9 mmol/L (3.3-5.1); Sodium 138 mmol/L (135-145); Total Protein 7.8 g/dL (6.5-8.0)
[2021-10-03 21:09] LABS: B Type Natriuretic Peptide 10 pg/mL (<100); Troponin-I High Sensitivity < 3.5 ng/L (<3.5-35.0)
[2021-10-03 21:10] LABS: Lactic Acid 2.4 mmol/L (0.5-2.0)
[2021-10-03 21:27] LABS: Influenza A PCR NEGATIVE (Negative); Influenza B PCR NEGATIVE (Negative); Resp Syncy Virus RNA Qual PCR NEGATIVE (Negative); SARS COV2 PCR INHOUSE NEGATIVE (Negative)
[2021-10-03 21:33] VITALS: BP 113/68; PULSE 117; RESP 18; O2SAT 94
--- NOTE | 2021-10-03 21:41 | ECG_ITS ---
Test Reason : Shortness of breath Blood Pressure : / mmHG Vent. Rate : 114 BPM Atrial Rate : 114 BPM P-R Int : 170 ms QRS Dur : 088 ms QT Int : 332 ms P-R-T Axes : 079 065 051 degrees QTc Int : 457 ms Sinus tachycardia Otherwise normal ECG When compared with ECG of 22-MAY-2021 16:34, Vent. rate has increased BY 42 BPM Referred By: Reggie Arellano Electronically Signed By:Mayank Pool
[2021-10-03 22:00] VITALS: BP 119/68; PULSE 94; RESP 18; O2SAT 97
--- NOTE | 2021-10-03 22:11 | ED_ITS ---
HPI - URI/Sore Throat General Chief Complaint: Upper Respiratory Symptoms Stated Complaint: SOB Time Seen by Provider: 10/03/21 20:13 Source: patient Mode of arrival: ambulatory Limitations: no limitations History of Present Illness HPI Narrative: 55-year-old male history of HIV, pulmonary fibrosis, PCP, PE, COPD, presents to ED for shortness of breath since yesterday. Patient states also having cough. Patient states no fever or chills. Patient states no swelling of lower extremity. Patient states petechiae on fingers but no rectal bleeding or petechiae other parts of the body. Patient denies any leg swelling, or coughing up blood. Related Data Home Medications Medication Instructions Recorded Confirmed abacavir 300 mg tablet 2 tab PO DAILY 01/27/21 10/03/21 albuterol sulfate 90 mcg/actuation 2 puff PO Q4H PRN 01/27/21 10/03/21 aerosol inhaler (Ventolin HFA) dapsone 100 mg tablet 1 tab PO DAILY 01/27/21 10/03/21 darunavir ethanolate 600 mg tablet 1 tab PO BID 01/27/21 10/03/21 (Prezista) dolutegravir 50 mg tablet (Tivicay) 1 tab PO BID 01/27/21 10/03/21 emtricitabine 200 mg-tenofovir 1 tab PO DAILY 01/27/21 10/03/21 alafenamide fumarate 25 mg tablet (Descovy) furosemide 20 mg tablet 20 mg PO DAILY 01/27/21 10/03/21 insulin aspart 10 - 24 unit SUBCUT TIDAC 01/27/21 10/03/21 (niacinamide)(U-100) 100 unit/mL(3 mL) subcutaneous pen (Fiasp FlexTouch U-100 Insulin) insulin glargine 100 unit/mL 40 unit SUBCUT BID 01/27/21 10/03/21 subcutaneous solution (Lantus U-100 Insulin) ipratropium 0.5 mg-albuterol 3 mg 3 ml INHALATION QID 01/27/21 10/03/21 (2.5 mg base)/3 mL nebulization soln omeprazole 20 mg capsule,delayed 20 mg PO DAILY 01/27/21 10/03/21 release ritonavir 100 mg tablet 1 tab PO BID 01/27/21 10/03/21 trazodone 50 mg tablet 50 mg PO BEDTIME 01/27/21 10/03/21 umeclidinium 62.5 mcg-vilanterol 1 puff INHALATION DAILY 01/27/21 10/03/21 25 mcg/actuation powdr for inhalation (Anoro Ellipta) methadone 10 mg/mL oral 60 mg PO DAILY 01/28/21 10/03/21 concentrate (Methadone Intensol) apixaban 5 mg tablet (Eliquis) 2.5 mg PO BID 10/03/21 10/03/21 ciprofloxacin HCl 750 mg tablet 1 tab PO BID 10/03/21 10/03/21 prednisone 5 mg tablet 10 mg PO DAILY 10/03/21 10/03/21 Allergies Allergy/AdvReac Type Severity Reaction Status Date / Time Penicillins Allergy Severe HIves Verified 02/13/21 17:02 swelling SOB Sulfa (Sulfonamide Allergy Severe Hives Verified 02/13/21 17:02 Antibiotics) Review of Systems Review of Systems: Couhing, SOB, and petechia Yes all other systems are r eviewed and are negative [facility] Past Medical History Medical History (Updated 10/04/21 @ 02:37 by MERI Black) AIDS COPD (chronic obstructive pulmonary disease) Diabetes mellitus type 1 DVT (deep venous thrombosis) HIV (human immunodeficiency virus infection) HIV disease HTN (hypertension) Pseudomonas aeruginosa colonization Pulmonary embolism Pulmonary fibrosis Thrush Social History Social History Household Members: Spouse and Children Housing: House Do you presently have visiting nurse or other home services: No Alcohol intake: never Patient Tobacco Use Status: Never used Tobacco Use of substances other than those prescribed or required for medical reasons: No Advance Directives: No service: Yes Current occupational status: disabled Physical Exam Vital Signs: Vital Signs: Last Vital Signs Temp 98.2 F 10/03/21 20:12 Pulse 94 10/04/21 01:36 Resp 18 10/04/21 01:36 BP 110/65 10/04/21 01:36 Pulse Ox 98 10/04/21 00:15 BMI result Body Mass Index 25.1 Const: General: in distress (use of abdominal muscles) mild Orientation/ consciousness: patient oriented x3 HENMT: Head: Yes normal to inspection, Yes No palpable skull fracture present, Yes normocephalic and Yes atraumatic Eyes: General: appearance normal, both eyes and all related structures Neck: Neck: Yes normal visual inspection, Yes full ROM, Yes no lymphadenopathy, Yes no meningeal signs, Yes trachea midline, Yes supple, No anterior neck swelling and No tender Chest: Chest palpation & inspection: normal inspection of the chest and normal palpation of entire chest wall Resp: Other: Use of chest and abdominal muscle Effort & Inspection: normal respiratory effort and able to speak in complete sentences Auscultation: wheezes Cardio: Jugular venous distension: no JVD Heart sounds: S1 normal heart sound present and S2 normal heart sound present GI: Inspection: Yes normal to inspection and No abdominal wall ecchymosis Palpation (GI): Soft to palpation, not firm, nontender, no guarding and not rigid : General: No CVA tenderness and Yes no CVA tenderness Back/Spine/Pelvis: Back: no CVA tenderness, No CVA tenderness and No back tenderness Skin: General skin exam: no rashes or lesions noted and elasticity normal Neuro: General: patient oriented x3, tone normal and no meningeal signs Cranial nerves: Yes CN's II-XII intact bilaterally Extrem: General: Yes normal to inspection and Yes full ROM Psych: Appearance: grossly normal, well kempt and not disheveled Course Course Course Narrative: EKG, labs, COPD cocktail including magnesium, albuterol, Solu- Medrol ordered. Labs will be ordered to check for PT P. Reevaluation(s) Reevaluation #1: X-ray shows superimposed pneumonia. COVID swab negative. Platelets are normal. Patient hemoglobin hematocrit is stable. Patient feels better. Lactic 2.4. Will order antibiotics. Presents for admission to hospitalist. Not able to give Bactrim due to allergic reaction to sulfa. EKG sinus tach. Negative STEMI Time: 21:49 Reevaluation #2: Patient accepted for admission for pneumonia. Initial rash on hands thought was petechiae, but differential is karpi sarcoma. Patient no longer in respiratory distress. Patient now speaking in full sentences and not using accessory muscles. Patient states he feels better. Time: 22:33 MDM - URI/Sore Throat MDM Narrative Medical decision making narrative: Pneumonia Lab Data Result diagrams: 10/03/21 20:35 10/03/21 20:35 Labs: Lab Results 10/03/21 10/03/21 10/03/21 Range/Units 20:35 20:35 20:35 WBC 5.6 (4.8-10.8) X10*3/uL RBC 4.07 L (4.60-5.80) X10*6/uL Hgb 9.8 L (14.0-18.0) g/dl Hct 31.8 L (42.0-52.0) % MCV 78.1 L (80.0-98.0) fL MCH 24.1 L (27.0-33.0) pg MCHC 30.8 L (31.0-36.0) g/dl RDW 15.5 (11.0-16.0) % Plt Count 175 (160-400) X10*3/uL MPV 8.2 L (9.4-12.4) fL Immature Gran % (Auto) 0.7 H (0.0-0.4) % Neut % (Auto) 76.8 H (45-73) % Lymph % (Auto) 11.7 L (20-40) % [place] % (Auto) 8.8 (2-11) % Eos % (Auto) 1.8 (0-4) % Baso % (Auto) 0.2 (0-2) % Lymph # (Auto) 0.7 L (1.2-4.9) X10*3/uL [place] # (Auto) 0.5 (0.1-1.2) X10*3/uL Eos # (Auto) 0.1 (0.0-0.4) X10*3/uL Baso # (Auto) 0.0 (0.0-0.2) X10*3/uL Abs Immat Gran (auto) 0.04 H (0.00-0.03) X10*3/uL Absolute Neuts (auto) 4.3 (2.0-8.3) x10*3/uL Absolute Nucleated RBC 0.000 (0.0-0.012) X10*3/uL Nucleated RBC % (auto) 0.0 (0.0-0.2) /100WBC PT 12.5 (9.9-13.0) SEC INR 1.1 (0.9-1.1) APTT 35.7 (24.1-38.0) SEC Sodium 138 (135-145) mmol/L Potassium 3.9 (3.3-5.1) mmol/L Chloride 98 (96-108) mmol/L Carbon Dioxide 31 H (22-29) mmol/L Anion Gap 13 (12-20) BUN 12 (9-16) mg/dL Creatinine 0.80 (0.5-1.4) mg/dL Estim Creat Clear Calc 111.1 Estimated GFR > 60 Random Glucose 238 H (60-115) mg/dL Lactic Acid (0.5-2.0) mmol/L Calcium 9.0 (8.4-10.2) mg/dL Total Bilirubin 0.2 (0.0-1.0) mg/dL AST 21 (5-37) U/L ALT 22 (0-40) U/L Alkaline Phosphatase 338 H (39-117) U/L Troponin I High Sens (<3.5-35.0) ng/L B-Natriuretic Peptide (<100) pg/mL Total Protein 7.8 (6.5-8.0) g/dL Albumin 3.4 L (3.5-5.0) g/dL Influenza Type A (PCR) (Negative) Influenza Type B (PCR) (Negative) RSV RNA Qual (PCR) (Negative) SARS-CoV-2 RNA (RT-PCR) (Negative) 10/03/21 10/03/21 10/03/21 Range/Units 20:35 20:35 20:38 WBC (4.8-10.8) X10*3/uL RBC (4.60-5.80) X10*6/uL Hgb (14.0-18.0) g/dl Hct (42.0-52.0) % MCV (80.0-98.0) fL MCH (27.0-33.0) pg MCHC (31.0-36.0) g/dl RDW (11.0-16.0) % Plt Count (160-400) X10*3/uL MPV (9.4-12.4) fL Immature Gran % (Auto) (0.0-0.4) % Neut % (Auto) (45-73) % Lymph % (Auto) (20-40) % [place] % (Auto) (2-11) % Eos % (Auto) (0-4) % Baso % (Auto) (0-2) % Lymph # (Auto) (1.2-4.9) X10*3/uL [place] # (Auto) (0.1-1.2) X10*3/uL Eos # (Auto) (0.0-0.4) X10*3/uL Baso # (Auto) (0.0-0.2) X10*3/uL Abs Immat Gran (auto) (0.00-0.03) X10*3/uL Absolute Neuts (auto) (2.0-8.3) x10*3/uL Absolute Nucleated RBC (0.0-0.012) X10*3/uL Nucleated RBC % (auto) (0.0-0.2) /100WBC PT (9.9-13.0) SEC INR (0.9-1.1) APTT (24.1-38.0) SEC Sodium (135-145) mmol/L Potassium (3.3-5.1) mmol/L Chloride (96-108) mmol/L Carbon Dioxide (22-29) mmol/L Anion Gap (12-20) BUN (9-16) mg/dL Creatinine (0.5-1.4) mg/dL Estim Creat Clear Calc Estimated GFR Random Glucose (60-115) mg/dL Lactic Acid 2.4 H* (0.5-2.0) mmol/L Calcium (8.4-10.2) mg/dL Total Bilirubin (0.0-1.0) mg/dL AST (5-37) U/L ALT (0-40) U/L Alkaline Phosphatase (39-117) U/L Troponin I High Sens < 3.5 (<3.5-35.0) ng/L B-Natriuretic Peptide 10 (<100) pg/mL Total Protein (6.5-8.0) g/dL Albumin (3.5-5.0) g/dL Influenza Type A (PCR) NEGATIVE (Negative) Influenza Type B (PCR) NEGATIVE (Negative) RSV RNA Qual (PCR) NEGATIVE (Negative) SARS-CoV-2 RNA (RT-PCR) NEGATIVE (Negative) ECG Data Interpretation: Sinus tachycardia. Ventricular rate 114. Peer interval 170. CQRS 88 QTC 457. Negative STEMI Discharge Plan Discharge Clinical Impression: PNA (pneumonia) Patient Disposition: Admitted As Inpatient
[2021-10-03] MEDS: cefTRIAXone sodium 1 GM in 0.9 % Sodium Chloride 50 ML IV (22:31)
[2021-10-03] MEDS: Azithromycin 500 MG in 0.9 % Sodium Chloride 250 ML 125 MG IV (22:37)
[2021-10-03 22:43] LABS: Reflex Lactate? Lactic Acid Added
[2021-10-03 22:45] VITALS: BP 133/84; PULSE 99; RESP 18; O2SAT 97
--- NOTE | 2021-10-03 23:26 | P.HPHOSP_ITS ---
History of Present Illness Date of Service: 10/03/21 Chief Complaint: SOB 55-year-old male with a past medical history of HIV, pulmonary fibrosis, PCP pneumonia, DVT/PE on Eliquis, history of COVID-19 infection, COPD, HIV on HAART, low CD4 count-86 on last month; Kaposi sarcoma; presented to the hospital today with a chief complaint of cough and shortness of breath. Patient reports that He has been having cough and shortness of breath for the past 1 day he had acutely worsened shortness of breath with severe cough and posttussive chest discomfort. Also complains of rash in his bilateral hands. Denies any chest pain or palpitations. Denies any numbness tingling or focal weakness. Patient reports that his CD4 count is on the lower side; denies interrupting his HIV treatment. Denies any chest pain or palpitations. Denies any nausea vomiting or diarrhea. Review of all other systems is negative except mentioned above ER course: Per ER team patient on presentation noted to be in respiratory distress, tight on examination; given nebulizations and steroids with improvement in oxygenation noted to have expiratory wheezes followed by. Also chest x-ray showed multifocal pneumonia. Patient was started on empiric antibiotics. Admitted to the hospital for further management [facility] Medical History (Updated 10/04/21 @ 02:37 by MERI Black) AIDS COPD (chronic obstructive pulmonary disease) Diabetes mellitus type 1 DVT (deep venous thrombosis) HIV (human immunodeficiency virus infection) HIV disease HTN (hypertension) Pseudomonas aeruginosa colonization Pulmonary embolism Pulmonary fibrosis Thrush Social History Household Members: Spouse and Children Housing: House Do you presently have visiting nurse or other home services: No Alcohol intake: never Patient Tobacco Use Status: Never used Tobacco Use of substances other than those prescribed or required for medical reasons: No Advance Directives: No service: Yes Current occupational status: disabled Meds Allergies Allergy/AdvReac Type Severity Reaction Status Date / Time Penicillins Allergy Severe HIves Verified 02/13/21 17:02 swelling SOB Sulfa (Sulfonamide Allergy Severe Hives Verified 02/13/21 17:02 Antibiotics) Active Medications: Current Medications Acetaminophen (Acetaminophen 325 Mg Tablet) 650 mg PO Q6H PRN PRN Reason: Pain, Mild (Pain Scale 1-3) Albuterol/Ipratropium (Albuterol/Iprat 2.5/0.5mg 3 Ml Ampul.Neb) 3 ml INHALE RQ4H WHILE AWAKE [facility] Azithromycin (Azithromycin 500 Mg Tablet) 500 mg PO Q24H NELI Azithromycin 500 mg/ Sodium (Chloride) 250 mls @ 125 mls/hr IV ONCE ONE Stop: 10/03/21 23:59 Last Admin: 10/03/21 22:37 Dose: 125 mls/hr Documented by: Sodium Chloride (Ns) 1,000 mls @ 999 mls/hr IV .Q1H1M STA Stop: 10/04/21 00:14 Ceftriaxone Sodium 1 gm/ (Sodium Chloride) 100 mls @ 200 mls/hr IV Q24H [facility] Melatonin (Melatonin 3 Mg Tablet) 6 mg PO BEDTIME PRN PRN Reason: Insomnia Methylprednisolone Sodium Succinate (Methylprednisolone Sod Succ 40 Mg/Ml Vial) 40 mg IVPUSH Q6H NELI Morphine Sulfate (Morphine Sulfate 4 Mg/Ml Cartridge) 1 mg IVPUSH Q4H PRN; Protocol PRN Reason: Pain, SOB Senna (Sennosides 8.6 Mg Tablet) 17.2 mg PO BEDTIME PRN PRN Reason: Constipation Sodium Chloride (0.9 % Sodium Chloride Flush 3 Ml Syringe) 3 ml IVFLUSH QSHIFT [facility] Home Medications Medication Instructions Recorded Confirmed Last Taken Type abacavir 300 mg 2 tab PO DAILY 01/27/21 10/03/21 01/26/21 History tablet albuterol sulfate 2 puff PO Q4H 01/27/21 10/03/21 01/27/21 History 90 mcg/actuation PRN aerosol inhaler (Ventolin HFA) dapsone 100 mg 1 tab PO DAILY 01/27/21 10/03/21 01/26/21 History tablet darunavir 1 tab PO BID 01/27/21 10/03/21 01/26/21 History ethanolate 600 mg tablet (Prezista) dolutegravir 50 1 tab PO BID 01/27/21 10/03/21 01/26/21 History mg tablet (Tivicay) emtricitabine 200 1 tab PO DAILY 01/27/21 10/03/21 Unknown History mg-tenofovir alafenamide fumarate 25 mg tablet (Descovy) furosemide 20 mg 20 mg PO DAILY 01/27/21 10/03/21 01/27/21 History tablet insulin aspart 10 - 24 unit 01/27/21 10/03/21 Unknown History SUBCUT TIDAC (niacinamide)(U-1 00) 100 unit/mL(3 mL) subcutaneous pen (Fiasp FlexTouch U-100 Insulin) insulin glargine 40 unit SUBCUT 01/27/21 10/03/21 01/27/21 History 100 unit/mL BID subcutaneous solution (Lantus U-100 Insulin) ipratropium 0.5 3 ml INHALATION 01/27/21 10/03/21 01/27/21 History mg-albuterol 3 mg QID (2.5 mg base)/3 mL nebulization soln omeprazole 20 mg 20 mg PO DAILY 01/27/21 10/03/21 01/27/21 History capsule,delayed release ritonavir 100 mg 1 tab PO BID 01/27/21 10/03/21 01/26/21 History tablet trazodone 50 mg 50 mg PO BEDTIME 01/27/21 10/03/21 01/26/21 History tablet umeclidinium 62.5 1 puff 01/27/21 10/03/21 01/27/21 History mcg-vilanterol INHALATION DAILY 25 mcg/actuation powdr for inhalation (Anoro Ellipta) methadone 10 60 mg PO DAILY 01/28/21 10/03/21 01/27/21 History mg/mL oral concentrate (Methadone Intensol) apixaban 5 mg 2.5 mg PO BID 10/03/21 10/03/21 Unknown History tablet (Eliquis) ciprofloxacin HCl 1 tab PO BID 10/03/21 10/03/21 Unknown History 750 mg tablet prednisone 5 mg 10 mg PO DAILY 10/03/21 10/03/21 Unknown History tablet Physical Exam Verdana 4l Vital Signs and Narrative: Verdana 4d Verdana 4d Vital Signs: Verdana 4d Verdana 4Bd Last Vital Signs Verdana 4d [employer] New 4d [employer] New 4d Temp 98.2 F 10/03/21 20:12 [employer] New 4d Pulse 99 10/03/21 22:45 [employer] NewNew 4d Resp 18 10/03/21 22:45 BP 133/84 10/03/21 22:45 Pulse Ox 97 10/03/21 22:45 BMI result Body Mass Index 25.1 Gen: Appears be in no acute distress . speaks in full sentences HEENT: NCAT, Moist mucosa. Pulmonary: coarse breath sounds, rales present. CVS: Normal S1-S2 Abdomen: BS+, Soft, Nontender Extremities: Warm well perfused ; papular rash noted on bilateral hands ,circumferential, tender on palpation, no scales Neuro: Alert and awake. Results Labs CBC and Chem 7: 10/03/21 20:35 10/03/21 20:35 Labs: Laboratory Results - last 24 hr 10/03/21 10/03/21 10/03/21 20:35 20:35 20:35 MCV 78.1 L MCH 24.1 L MCHC 30.8 L RDW 15.5 Plt Count 175 MPV 8.2 L Immature Gran % (Auto) 0.7 H Neut % (Auto) 76.8 H Lymph % (Auto) 11.7 L [place] % (Auto) 8.8 Eos % (Auto) 1.8 Baso % (Auto) 0.2 Lymph # (Auto) 0.7 L [place] # (Auto) 0.5 Eos # (Auto) 0.1 Baso # (Auto) 0.0 Abs Immat Gran (auto) 0.04 H Absolute Neuts (auto) 4.3 Absolute Nucleated RBC 0.000 Nucleated RBC % (auto) 0.0 PT 12.5 INR 1.1 APTT 35.7 Anion Gap 13 Estim Creat Clear Calc 111.1 Estimated GFR > 60 Random Glucose 238 H Lactic Acid Calcium 9.0 Total Bilirubin 0.2 AST 21 ALT 22 Alkaline Phosphatase 338 H Troponin I High Sens B-Natriuretic Peptide Total Protein 7.8 Albumin 3.4 L Influenza Type A (PCR) Influenza Type B (PCR) RSV RNA Qual (PCR) SARS-CoV-2 RNA (RT-PCR) 10/03/21 10/03/21 10/03/21 20:35 20:35 20:38 MCV MCH MCHC RDW Plt Count MPV Immature Gran % (Auto) Neut % (Auto) Lymph % (Auto) [place] % (Auto) Eos % (Auto) Baso % (Auto) Lymph # (Auto) [place] # (Auto) Eos # (Auto) Baso # (Auto) Abs Immat Gran (auto) Absolute Neuts (auto) Absolute Nucleated RBC Nucleated RBC % (auto) PT INR APTT Anion Gap Estim Creat Clear Calc Estimated GFR Random Glucose Lactic Acid 2.4 H* Calcium Total Bilirubin AST ALT Alkaline Phosphatase Troponin I High Sens < 3.5 B-Natriuretic Peptide 10 Total Protein Albumin Influenza Type A (PCR) NEGATIVE Influenza Type B (PCR) NEGATIVE RSV RNA Qual (PCR) NEGATIVE SARS-CoV-2 RNA (RT-PCR) NEGATIVE Imaging Radiologist's Impressions: Impressions Chest X-Ray 10/03/21 21:42 IMPRESSION: Increased interstitial thickening and multifocal airspace opacities concerning for a superimposed atypical infectious or inflammatory process. Recommend follow-up to ensure adequate resolution. Assessment and Plan (1) PNA (pneumonia): Status: Acute (2) Pulmonary embolism: Status: Acute (3) Acute exacerbation of chronic obstructive airways disease: Status: Acute (4) HIV (human immunodeficiency virus infection): Status: Acute 55-year-old male with a past medical history of HIV, pulmonary fibrosis, PCP pneumonia, DVT/PE on Eliquis, history of COVID-19 infection, COPD, HIV on HAART, low CD4 count-86 on last month; Kaposi sarcoma; presented to the hospital today with a chief complaint of cough and shortness of breath. noted to have following conditions Pneumonia: Continue ceftriaxone azithromycin. Concern for PCP. Order for PCR. Id consult. COPD exacerbation: Continue nebulizations and steroids. Supplemental oxygen P.r.n. History of HIV: Patient reports had low CD4 count of 86 in August of 2021. Continue home HIV meds. Bilateral hand rash/? Kaposi sarcoma:Tender on palpation. ID consult for further recommendations. history of DVT/ PE: Continue home Eliquis history of opiate dependence: Patient on methadone. Addiction Medicine consult. History of diabetes: Will give the patient on Lantus 20 units b.i.d. and insulin sliding scale. Monitor fingerstick glucose and adjust insulins as needed. DVT prophylaxis: Patient on Eliquis Code status: Full code Quality Stroke Does the patient have a stroke diagnosis?: No VTE Prior VTE?: No VTE Risk Level:: Medical - moderate - high VTE Device Contraindication: Treatment Not Indicated VTE Drug Contraindication: N/A - Med Ordered
[2021-10-03 23:31] VITALS: BP 119/69; PULSE 102; RESP 13; O2SAT 95
[2021-10-03 23:53] LABS: ~Lactic Acid-LAB USE ONLY 1.3 mmol/L (0.5-2.0)
[2021-10-04] VITALS (16 sets, daily range): BP systolic 90–126; BP diastolic 57–72; PULSE 77–104; RESP 13–22; TEMP 36.6–36.7; O2SAT 90–100
[2021-10-04] MEDS: Morphine Sulfate 4 MG/ML CARTRIDGE 1 MG IVPUSH
[2021-10-04] MEDS: 0.9 % Sodium Chloride 1,000 ML 999 ML IV (00:06)
[2021-10-04] MEDS: methylPREDNISolone Sod Succ 40 MG/ML VIAL IVPUSH ×4 (04:16→21:39)
--- NOTE | 2021-10-04 04:18 | PC.NURSE ---
pt sleeping vitals stable, sat 100% on 5l nc. needs at bedside. waiting for a room.
[2021-10-04 07:28] LABS: Glucose, Whole Blood 321 mg/dL (60-115)
[2021-10-04] MEDS: Insulin Lispro 100 UNIT/ML 3 ML VIAL SUBCUT ×3 (07:39→19:20)
[2021-10-04 07:45] LABS: MANUAL DIFF FLAG NO
[2021-10-04 07:54] LABS: Hematocrit 31.2 % (42.0-52.0); Hemoglobin 9.4 g/dl (14.0-18.0); Imm Gran Abs Auto 0.03 X10*3/uL (0.00-0.03); Imm Gran Pct Auto 0.7 % (0.0-0.4); Lymphocytes Absolute Auto 0.4 X10*3/uL (1.2-4.9); Lymphocytes Percent Auto 8.4 % (20-40); Mean Corpuscular HGB Conc 30.1 g/dl (31.0-36.0); Mean Corpuscular Hemoglobin 23.6 pg (27.0-33.0); Mean Corpuscular Volume 78.2 fL (80.0-98.0); Mean Platelet Volume 8.4 fL (9.4-12.4); Monocytes Absolute Auto 0.1 X10*3/uL (0.1-1.2); Monocytes Percent Auto 3.3 % (2-11); Neutrophils Absolute Auto 3.7 x10*3/uL (2.0-8.3); Neutrophils Percent Auto 87.6 % (45-73); Platelet Count 188 X10*3/uL (160-400); Red Blood Count 3.99 X10*6/uL (4.60-5.80); Red Cell Distribution Width 15.3 % (11.0-16.0); White Blood Count 4.2 X10*3/uL (4.8-10.8)
[2021-10-04 08:20] LABS: Anion Gap 12 (12-20); Blood Urea Nitrogen 12 mg/dL (9-16); Calcium 8.7 mg/dL (8.4-10.2); Carbon Dioxide 31 mmol/L (22-29); Chloride 98 mmol/L (96-108); Creatinine Clr Calc Pharmacy 112.5; Estimated Glomerular Filt Rate > 60; Glucose Random 347 mg/dL (60-115); Potassium 4.6 mmol/L (3.3-5.1); Sodium 136 mmol/L (135-145)
[2021-10-04] MEDS: DARUNAVIR ETHANOLATE 600 MG PO (08:29)
[2021-10-04] MEDS: Dapsone 25 MG TABLET 100 MG PO (08:29)
[2021-10-04] MEDS: Dolutegravir Sodium 50 MG TABLET PO (08:29)
[2021-10-04] MEDS: RITONAVIR 100 MG PO (08:29)
--- NOTE | 2021-10-04 08:29 | PHA.MEDREC ---
Pharmacy Consult ? Medication Reconciliation Pharmacy has completed the medication reconciliation. Spoke with patient in the ED. Pt has all med bottles with him, will also bring in Anoro Ellipta since this is a non- formulary med. Patient stats he is on 60 mg daily of methadone from [facility]. pt states he takes all of his 5 HIV medications BID with the exception of Descvoy only at bedtime.
[2021-10-04] MEDS: Omeprazole 20 MG CAPSULE.DR PO (08:35)
[2021-10-04] MEDS: Apixaban 2.5 MG TABLET PO ×2 (08:35→21:40)
[2021-10-04] MEDS: Insulin Glargine,Hum.rec.anlog 100 UNIT/ML 10 ML VIAL 20 UNIT SUBCUT ×2 (08:37→23:17)
[2021-10-04] MEDS: Albuterol/Iprat 2.5/0.5MG 3 ML AMPUL.NEB INHALE ×4 (08:53→20:07)
--- NOTE | 2021-10-04 09:52 | MHC.RECOVSUP ---
Recovery Support note: Methadone dose verified with [facility]. Leblanc RN confirms patient receives 60mg and that he gets home delivery through [facility]. Patient reports he was last dosed through [facility] yesterday morning. Confirmation form completed and faxed to pharmacy.
[2021-10-04] MEDS: methADONE HCl 20 MG/2 ML ORAL.CONC 60 MG PO (10:53)
[2021-10-04 13:01] LABS: Glucose, Whole Blood 273 mg/dL (60-115)
--- NOTE | 2021-10-04 13:41 | P.PNIM_ITS ---
Subjective Subjective Date of Service: 10/05/21 Review of Systems Follow up COPD/PNA, ? vasculitis pain to both hands some sob and cough Physical Exam Vital Signs: Vital Signs: Last Vital Signs Temp 97.8 F 10/04/21 03:59 Pulse 104 H 10/04/21 12:10 Resp 18 10/04/21 12:10 BP 121/67 10/04/21 09:21 Pulse Ox 96 10/04/21 09:21 BMI result Body Mass Index 25.1 Appearing in no acute distress lung sounds are clear to auscultation heart regular rate rhythm, clear S1, S2 positive bowel sounds, abdomen is soft, nontender neuro patient is alert x3, no focal deficits purpuric rash to hands bilaterally Objective Data Active Medications Abacavir Sulfate (Abacavir Sulfate 300 Mg Tablet) 600 mg PO DAILY [facility] Last Admin: 10/04/21 08:29 Dose: 600 mg Documented by: PHIL Acetaminophen (Acetaminophen 325 Mg Tablet) 650 mg PO Q6H PRN PRN Reason: Pain, Mild (Pain Scale 1-3) Albuterol/Ipratropium (Albuterol/Iprat 2.5/0.5mg 3 Ml Ampul.Neb) 3 ml INHALE RQ4H WHILE AWAKE [facility] Last Admin: 10/04/21 12:10 Dose: 3 ml Documented by: LISA Albuterol/Ipratropium (Albuterol/Iprat 2.5/0.5mg 3 Ml Ampul.Neb) 3 ml INHALE RQ4H PRN PRN Reason: Shortness of Breath/Wheezing Apixaban (Apixaban 2.5 Mg Tablet) 2.5 mg PO BID [facility] Last Admin: 10/04/21 08:35 Dose: 2.5 mg Documented by: PHIL Azithromycin (Azithromycin 500 Mg Tablet) 500 mg PO Q24H [facility] Dapsone (Dapsone 25 Mg Tablet) 100 mg PO DAILY [facility] Last Admin: 10/04/21 08:29 Dose: 100 mg Documented by: PHIL Darunavir (Darunavir Ethanolate 600 Mg Tablet) 600 mg PO BID [facility] Last Admin: 10/04/21 08:29 Dose: 600 mg Documented by: PHIL Dextrose (Dextrose 50 % 25 Gm/50 Ml Syringe) 25 gm IVPUSH Q15M PRN; Protocol PRN Reason: per Hypoglycemia Standing Ord. Dolutegravir Sodium (Dolutegravir Sodium 50 Mg Tablet) 50 mg PO BID [facility] Last Admin: 10/04/21 08:29 Dose: 50 mg Documented by: PHIL Emtricitabine/Tenofovir Alafenamide (Emtricitabine/Tenofov Alafenam Tablet) 1 tab PO BEDTIME [facility] Glucose (Glucose Gel 15 Gm Gel..Gram.) 15 gm PO Q15M PRN; Protocol PRN Reason: per Hypoglycemia Standing Ord. Ceftriaxone Sodium 1 gm/ (Sodium Chloride) 100 mls @ 200 mls/hr IV Q24H [facility] Insulin Glargine (Insulin Glargine,Hum.Rec.Anlog 100 Unit/Ml 10 Ml Vial) 20 unit SUBCUT BID [facility] Last Admin: 10/04/21 08:37 Dose: 20 unit Documented by: PHIL Insulin Human Lispro (Insulin Lispro 100 Unit/Ml 3 Ml Vial) 0 unit SUBCUT QIDACHS [facility]; Protocol Last Admin: 10/04/21 13:23 Dose: 6 unit Documented by: PHIL Melatonin (Melatonin 3 Mg Tablet) 6 mg PO BEDTIME PRN PRN Reason: Insomnia Methadone HCl (Methadone Hcl 20 Mg/2 Ml Oral.Conc) 60 mg PO DAILY [facility] Last Admin: 10/04/21 10:53 Dose: 60 mg Documented by: PHIL Methylprednisolone Sodium Succinate (Methylprednisolone Sod Succ 40 Mg/Ml Vial) 40 mg IVPUSH Q6H [facility] Last Admin: 10/04/21 08:36 Dose: 40 mg Documented by: PHIL Morphine Sulfate (Morphine Sulfate 4 Mg/Ml Cartridge) 1 mg IVPUSH Q4H PRN; Protocol PRN Reason: Pain, SOB Last Admin: 10/04/21 00:00 Dose: 1 mg Documented by: MCTA Non-Formulary Medication (Umeclidinium-Vilanterol [Anoro Ellipta]) 1 puff INHA LE DAILY [facility] Omeprazole (Omeprazole 20 Mg Capsule.) 20 mg PO DAILY [facility] Last Admin: 10/04/21 08:35 Dose: 20 mg Documented by: PHIL Pharmacy Consult (Consult Rx Perform Med Rec) 1 each MISCELLANE ONCE PRN PRN Reason: Consult order Ritonavir (Ritonavir 100 Mg Tablet) 100 mg PO BID [facility] Last Admin: 10/04/21 08:29 Dose: 100 mg Documented by: PHIL Senna (Sennosides 8.6 Mg Tablet) 17.2 mg PO BEDTIME PRN PRN Reason: Constipation Sodium Chloride (0.9 % Sodium Chloride Flush 3 Ml Syringe) 3 ml IVFLUSH QSHIFT [facility] Last Admin: 10/04/21 08:29 Dose: Not Given Documented by: PHIL Non-Admin Reason: Med Not Available Trazodone HCl (Trazodone Hcl 50 Mg Tablet) 50 mg PO BEDTIME [facility] Labs CBC & Chem 7: 10/04/21 07:14 10/04/21 07:14 Labs: Laboratory Results - last 24 hr 10/03/21 10/03/21 10/03/21 20:35 20:35 20:35 MCV 78.1 L MCH 24.1 L MCHC 30.8 L RDW 15.5 Plt Count 175 MPV 8.2 L Immature Gran % (Auto) 0.7 H Neut % (Auto) 76.8 H Lymph % (Auto) 11.7 L [place] % (Auto) 8.8 Eos % (Auto) 1.8 Baso % (Auto) 0.2 Lymph # (Auto) 0.7 L [place] # (Auto) 0.5 Eos # (Auto) 0.1 Baso # (Auto) 0.0 Abs Immat Gran (auto) 0.04 H Absolute Neuts (auto) 4.3 Absolute Nucleated RBC 0.000 Nucleated RBC % (auto) 0.0 PT 12.5 INR 1.1 APTT 35.7 Anion Gap 13 Estim Creat Clear Calc 111.1 Estimated GFR > 60 POC Glucose Random Glucose 238 H Lactic Acid Lactic Acid F/U @ 2Hr Calcium 9.0 Total Bilirubin 0.2 AST 21 ALT 22 Alkaline Phosphatase 338 H Troponin I High Sens B-Natriuretic Peptide Total Protein 7.8 Albumin 3.4 L Influenza Type A (PCR) Influenza Type B (PCR) RSV RNA Qual (PCR) SARS-CoV-2 RNA (RT-PCR) 10/03/21 10/03/21 10/03/21 20:35 20:35 20:38 MCV MCH MCHC RDW Plt Count MPV Immature Gran % (Auto) Neut % (Auto) Lymph % (Auto) [place] % (Auto) Eos % (Auto) Baso % (Auto) Lymph # (Auto) [place] # (Auto) Eos # (Auto) Baso # (Auto) Abs Immat Gran (auto) Absolute Neuts (auto) Absolute Nucleated RBC Nucleated RBC % (auto) PT INR APTT Anion Gap Estim Creat Clear Calc Estimated GFR POC Glucose Random Glucose Lactic Acid 2.4 H* Lactic Acid F/U @ 2Hr Calcium Total Bilirubin AST ALT Alkaline Phosphatase Troponin I High Sens < 3.5 B-Natriuretic Peptide 10 Total Protein Albumin Influenza Type A (PCR) NEGATIVE Influenza Type B (PCR) NEGATIVE RSV RNA Qual (PCR) NEGATIVE SARS-CoV-2 RNA (RT-PCR) NEGATIVE 10/03/21 10/04/21 10/04/21 23:31 07:14 07:14 MCV 78.2 L MCH 23.6 L MCHC 30.1 L RDW 15.3 Plt Count 188 MPV 8.4 L Immature Gran % (Auto) 0.7 H Neut % (Auto) 87.6 H Lymph % (Auto) 8.4 L [place] % (Auto) 3.3 Eos % (Auto) 0.0 Baso % (Auto) 0.0 Lymph # (Auto) 0.4 L [place] # (Auto) 0.1 Eos # (Auto) 0.0 Baso # (Auto) 0.0 Abs Immat Gran (auto) 0.03 Absolute Neuts (auto) 3.7 Absolute Nucleated RBC 0.000 Nucleated RBC % (auto) 0.0 PT INR APTT Anion Gap 12 Estim Creat Clear Calc 112.5 Estimated GFR > 60 POC Glucose Random Glucose 347 H D Lactic Acid Lactic Acid F/U @ 2Hr 1.3 Calcium 8.7 Total Bilirubin AST ALT Alkaline Phosphatase Troponin I High Sens B-Natriuretic Peptide Total Protein Albumin Influenza Type A (PCR) Influenza Type B (PCR) RSV RNA Qual (PCR) SARS-CoV-2 RNA (RT-PCR) 10/04/21 10/04/21 07:18 12:42 MCV MCH MCHC RDW Plt Count MPV Immature Gran % (Auto) Neut % (Auto) Lymph % (Auto) [place] % (Auto) Eos % (Auto) Baso % (Auto) Lymph # (Auto) [place] # (Auto) Eos # (Auto) Baso # (Auto) Abs Immat Gran (auto) Absolute Neuts (auto) Absolute Nucleated RBC Nucleated RBC % (auto) PT INR APTT Anion Gap Estim Creat Clear Calc Estimated GFR POC Glucose 321 H 273 H Random Glucose Lactic Acid Lactic Acid F/U @ 2Hr Calcium Total Bilirubin AST ALT Alkaline Phosphatase Troponin I High Sens B-Natriuretic Peptide Total Protein Albumin Influenza Type A (PCR) Influenza Type B (PCR) RSV RNA Qual (PCR) SARS-CoV-2 RNA (RT-PCR) Assessment and Plan (1) COPD (chronic obstructive pulmonary disease): Status: Acute Assessment and Plan: 55-year-old male with a past medical history of HIV, pulmonary fibrosis, PCP pneumonia, DVT/PE on Eliquis, history of COVID-19 infection, COPD, HIV on HAART,? low CD4 count-86 on last month;? Kaposi sarcoma; [facility] today with a chief complaint of cough and shortness of breath. noted to have following conditions Vasculitis vs karposi sarcoma hx HIV/AIDS painful, purpura, seems more likely vasculitis general surgery to obtain punch biopsy ID and hem/onc consults Hep C, ANCA, cryoglobulin,syphillis pending Echo Already on steroids for COPD Possible PCP Pneumonia Continue ceftriaxone, azithromycin.? ID consult COPD exacerbation Continue nebulizations and steroids.? Supplemental oxygen? P.r.n. History of HIV Patient reports had low CD4 count of 86 in August of 2021.? Continue home ?HIV meds.? History of DVT/ PE Continue home Eliquis History of opiate dependence Patient on methadone 60gm daily Addiction Medicine consult. History of diabetes Lantus 20 units b.i.d. sliding scale.? DVT prophylaxis:? Patient on Eliquis Code status: Full code Attending Dr. Canales Quality Stroke Does the patient have a stroke diagnosis?: No VTE Prior VTE?: No VTE Risk Level:: Medical - moderate - high VTE Device Contraindication: Treatment Not Indicated VTE Drug Contraindication: N/A - Med Ordered
--- NOTE | 2021-10-04 15:17 | MHC.CM.PN ---
IMM 10/04, EMR REVIEWED, PT ADMITTED W/COPD EXAC/PNA, PT IS A&OX4, REPORTS HE LIVES W/ AND 2 ADULT SONS, PT USES A WALKER AT BASELINE, A W/C FOR OUTINGS AND HAS GRAB BARS IN BR & SHOWER CHAIR, PT REPORTS HE IS INDEPENDENT W/CARE AND ASSISTS NEEDED, PT REPORTS HE HAS ALLIED HEALTH FOR METHADONE AND THEY DIRECTOR OF RESERVATIONS HIS METHADONE AT [facility], PT CURRENTLY ON 60MG DAILY AND WAS DOSED THIS AM, PT VERIFIES PCP IS CHAVEZ DENSON W/[facility] AND HCP IS ROBI JALLOH [phone], COPY HAS BEEN REQUESTED. D/C PLAN: HOME W/RESUMP OF ALLIED [facility] AND FAMILY FOR TRANSPORT. MODERNA VACCINE: 3 SHOTS, BOOSTER GIVEN 07/09/22 AND PT REPORTS HE IS SCHEDULED FOR A 4TH ON December D/T A COMPROMISED IMMUNE SYSTEM.
[2021-10-04 15:30] LABS: C Reactive Protein 6.02 mg/dL (< or = 0.50)
[2021-10-04 15:49] LABS: Erythrocyte Sedimentation Rate 79 MM/HR (0-15)
[2021-10-04] MEDS: Lidocaine HCl 1%/Epi 1:100,000 20 ML VIAL SUBCUT (16:16)
[2021-10-04 17:23] LABS: Glucose, Whole Blood 317 mg/dL (60-115)
--- NOTE | 2021-10-04 19:41 | PM.PROC ---
Brief Operative Note Date of procedure: 10/04/21 Pre-op diagnosis: vasculitis Procedure: left hand area cleaned with betadine and 10 blade scalpel used to cut skinx2 pieces sent to path in formalin Anesthesia: local Surgeon: Nora Rosa Pathology: other Condition: stable
[2021-10-04] MEDS: traZODone HCL 50 MG TABLET PO (21:58)
[2021-10-04] MEDS: cefTRIAXone sodium 1 GM in 0.9 % Sodium Chloride 100 ML IV (23:17)
[2021-10-04] MEDS: Azithromycin 500 MG TABLET PO (23:17)
[2021-10-05] MEDS: 0.9 % Sodium Chloride Flush 3 ML SYRINGE IVFLUSH ×4 (00:05→22:15)
--- NOTE | 2021-10-05 01:45 | PC.NURSE ---
I assumed care of this pt at 1900. Since that time he has remained alert and oriented x 3, resting in his room without complaints.He ambulates throughout his room independently and with steady gait, intermittently. He denies chest pain. Respirations have been non-labored, he speaks in full sentences, no cyanosis, O2 via nasal cannula at 4Lpm with sat's remaining WNL. He takes PO meds and food without dificulty. He has no complaints and is awaiting an inpatient bed assignment and verbalizes an understanding of this. Will continue to monitor.Pt was assisted into a hospital bed that was placed in his room.
[2021-10-05] MEDS: methylPREDNISolone Sod Succ 40 MG/ML VIAL IVPUSH ×4 (04:56→22:17)
[2021-10-05 05:38] VITALS: BP 124/78; PULSE 85; RESP 15; TEMP 36.8; O2SAT 94
[2021-10-05 07:53] LABS: Glucose, Whole Blood 280 mg/dL (60-115)
[2021-10-05 08:06] LABS: ~HepC Num1 1.52 S/CO (0.00-0.79); ~Hepatitis C Antibody Reactive (Nonreactive)
--- NOTE | 2021-10-05 08:20 | P.CNHO_ITS ---
Subjective - Subjective Chief complaint: Consult for: Question of Kaposi's sarcoma. Patient: new to practice Consult date: 10/05/21 Requesting Physician: Jasmeet. Primary Care Provider: Unknown Physician Medical Summary: DIAGNOSIS: Lesions on the hands. Question of KS. HPI - Consult Narrative Reason for consult: Consult for: ?K.S. Narrative: Norm Santana is a pleasant 55 year old genteleman, with history of HIV, and Kaposi sarcoma; presented to the hospital OTW, with a chief complaint of cough and shortness of breath. Patient reported that he had been having cough and shortness of breath for the past day. His SOB acutely worsened. This was accompanied by severe cough and post-tussive chest discomfort. He also complains of rash in his bilateral hands. Denies any chest pain or palpitations. Denies any numbness tingling or focal weakness. Patient reports that his CD4 count is on the lower side; denies interrupting his HIV treatment. Denies any chest pain or palpitations. Denies any nausea vomiting or diarrhea. Review of all other systems is negative except mentioned above ER course: Patient on presentation noted to be in respiratory distress, tight on examination; given nebulizations and steroids with improvement in oxygenation noted to have expiratory wheezes followed by. Also chest x-ray showed multifocal pneumonia. Patient was started on empiric antibiotics. Admitted for further management [facility] Medical History; 1. AIDS: Pulmonary fibrosis, PCP pneumonia, DVT/PE on Eliquis, history of COVID- 19 infection, COPD, HIV on HAART, low CD4 count-86 on last month; COPD (chronic obstructive pulmonary disease) Diabetes mellitus type 1 DVT (deep venous thrombosis) HIV (human immunodeficiency virus infection) HIV disease HTN (hypertension) Pseudomonas aeruginosa colonization Pulmonary embolism Pulmonary fibrosis Thrush Review of Systems - Constitutional Reports system reviewed and no additional complaints, except as documented - Eyes Reports system reviewed and no additional complaints, except as documented - ENT Reports system reviewed and no additional complaints, except as documented - Cardiovascular Reports system reviewed and no additional complaints, except as documented - Respiratory Reports no additional respiratory complaints - Gastrointestinal Reports system reviewed and no additional complaints, except as documented - Genitourinary Genitourinary: Reports no additional male genitourinary complaints - Musculoskeletal Reports system reviewed and no additional complaints, except as documented - Integumentary/Breasts Skin/Breast: Reports no additional skin complaints - Neurologic Reports system reviewed and no additional complaints, except as documented - Psychiatric Reports system reviewed and no additional complaints, except as documented - Endocrine Reports no additional endocrine complaints - Hematologic/Lymphatic Reports system reviewed and no additional complaints, except as documented - Allergic/Immunologic Reports system reviewed and no additional complaints, except as documented Oncology Screenings - ECOG Performance Status ECOG Performance Status: 0 [facility] Medical History: Medical History (Last Reviewed 10/05/21 @ 21:03 by Adam Navarro RN) AIDS COPD (chronic obstructive pulmonary disease) Diabetes mellitus type 1 DVT (deep venous thrombosis) HIV (human immunodeficiency virus infection) HIV disease HTN (hypertension) Pseudomonas aeruginosa colonization Pulmonary embolism Pulmonary fibrosis Thrush Functional capacity: uses cane/walker Patient : No Social History: Social History (Last Reviewed 10/05/21 @ 15:15 by Dinah Wolff MD) Living Situation History: Household Members: Spouse Household Members: Children Housing: House Do you presently have visiting nurse or other home services: Yes Tobacco History: Patient Tobacco Use Status: Never used Tobacco 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 Current occupational status: disabled Home Medications and Allergies Current Medications: Current Medications Abacavir Sulfate (Abacavir Sulfate 300 Mg Tablet) 600 mg PO DAILY [facility] Last Admin: 10/04/21 08:29 Dose: 600 mg Documented by: Acetaminophen (Acetaminophen 325 Mg Tablet) 650 mg PO Q6H PRN PRN Reason: Pain, Mild (Pain Scale 1-3) Albuterol/Ipratropium (Albuterol/Iprat 2.5/0.5mg 3 Ml Ampul.Neb) 3 ml INHALE RQ4H WHILE AWAKE [facility] Last Admin: 10/04/21 20:07 Dose: 3 ml Documented by: Albuterol/Ipratropium (Albuterol/Iprat 2.5/0.5mg 3 Ml Ampul.Neb) 3 ml INHALE R Q4H PRN PRN Reason: Shortness of Breath/Wheezing Apixaban (Apixaban 2.5 Mg Tablet) 2.5 mg PO BID [facility] Last Admin: 10/04/21 21:40 Dose: 2.5 mg Documented by: Azithromycin (Azithromycin 500 Mg Tablet) 500 mg PO Q24H [facility] Last Admin: 10/04/21 23:17 Dose: 500 mg Documented by: Dapsone (Dapsone 25 Mg Tablet) 100 mg PO DAILY [facility] Last Admin: 10/04/21 08:29 Dose: 100 mg Documented by: Darunavir (Darunavir Ethanolate 600 Mg Tablet) 600 mg PO BID [facility] Last Admin: 10/04/21 21:40 Dose: Not Given Documented by: Dextrose (Dextrose 50 % 25 Gm/50 Ml Syringe) 25 gm IVPUSH Q15M PRN; Protocol PRN Reason: per Hypoglycemia Standing Ord. Dolutegravir Sodium (Dolutegravir Sodium 50 Mg Tablet) 50 mg PO BID [facility] Last Admin: 10/04/21 21:42 Dose: Not Given Documented by: Emtricitabine/Tenofovir Alafenamide (Emtricitabine/Tenofov Alafenam Tablet) 1 tab PO BEDTIME [facility] Last Admin: 10/04/21 21:59 Dose: Not Given Documented by: Glucose (Glucose Gel 15 Gm Gel..Gram.) 15 gm PO Q15M PRN; Protocol PRN Reason: per Hypoglycemia Standing Ord. Ceftriaxone Sodium 1 gm/ (Sodium Chloride) 100 mls @ 200 mls/hr IV Q24H [facility] Last Infusion: 10/05/21 01:11 Dose: Infused Documented by: Insulin Glargine (Insulin Glargine,Hum.Rec.Anlog 100 Unit/Ml 10 Ml Vial) 20 unit SUBCUT BID [facility] Last Admin: 10/04/21 23:17 Dose: 20 unit Documented by: Insulin Human Lispro (Insulin Lispro 100 Unit/Ml 3 Ml Vial) 0 unit SUBCUT QIDACHS [facility]; Protocol Last Admin: 10/04/21 21:39 Dose: Not Given Documented by: Melatonin (Melatonin 3 Mg Tablet) 6 mg PO BEDTIME PRN PRN Reason: Insomnia Methadone HCl (Methadone Hcl 20 Mg/2 Ml Oral.Conc) 60 mg PO DAILY [facility] Last Admin: 10/04/21 10:53 Dose: 60 mg Documented by: Methylprednisolone Sodium Succinate (Methylprednisolone Sod Succ 40 Mg/Ml Vial) 40 mg IVPUSH Q6H [facility] Last Admin: 10/05/21 04:56 Dose: 40 mg Documented by: Morphine Sulfate (Morphine Sulfate 4 Mg/Ml Cartridge) 1 mg IVPUSH Q4H PRN; Protocol PRN Reason: Pain, SOB Last Admin: 10/04/21 00:00 Dose: 1 mg Documented by: Non-Formulary Medication (Umeclidinium-Vilanterol [Anoro Ellipta]) 1 puff INHALE DAILY [facility] Omeprazole (Omeprazole 20 Mg Capsule.Dr) 20 mg PO DAILY [facility] Last Admin: 10/04/21 08:35 Dose: 20 mg Documented by: Pharmacy Consult (Consult Rx Perform Med Rec) 1 each MISCELLANE ONCE PRN PRN Reason: Consult order Ritonavir (Ritonavir 100 Mg Tablet) 100 mg PO BID [facility] Last Admin: 10/04/21 21:43 Dose: Not Given Documented by: Senna (Sennosides 8.6 Mg Tablet) 17.2 mg PO BEDTIME PRN PRN Reason: Constipation Sodium Chloride (0.9 % Sodium Chloride Flush 3 Ml Syringe) 3 ml IVFLUSH QSHIFT [facility] Last Admin: 10/05/21 00:05 Dose: 3 ml Documented by: Trazodone HCl (Trazodone Hcl 50 Mg Tablet) 50 mg PO BEDTIME [facility] Last Admin: 10/04/21 21:58 Dose: 50 mg Documented by: Trimethoprim/Sulfamethoxazole (Sulfamethox/Trimeth 800/160 Tablet) 2.5 tab PO Q8H [facility] Last Admin: 10/05/21 06:31 Dose: Not Given Documented by: Home Medications Medication Instructions Recorded Confirmed Type abacavir 300 mg tablet 1 tab PO BID 01/27/21 10/04/21 History albuterol sulfate 90 2 puff PO Q4H PRN 01/27/21 10/03/21 History mcg/actuation aerosol inhaler (Ventolin HFA) dapsone 100 mg tablet 1 tab PO DAILY 01/27/21 10/03/21 History darunavir ethanolate 1 tab PO BID 01/27/21 10/03/21 History 600 mg tablet (Prezista) dolutegravir 50 mg 1 tab PO BID 01/27/21 10/03/21 History tablet (Tivicay) emtricitabine 200 1 tab PO BEDTIME 01/27/21 10/04/21 History mg-tenofovir alafenamide fumarate 25 mg tablet (Descovy) furosemide 20 mg tablet 20 mg PO DAILY 01/27/21 10/03/21 History insulin aspart See Protocol SUBCUT 01/27/21 10/04/21 History TIDAC (niacinamide)(U-100) 100 unit/mL(3 mL) subcutaneous pen (Fiasp FlexTouch U-100 Insulin) insulin glargine 100 35 unit SUBCUT BID 01/27/21 10/04/21 History unit/mL subcutaneous solution (Lantus U-100 Insulin) ipratropium 0.5 3 ml INHALATION QID 01/27/21 10/03/21 History mg-albuterol 3 mg (2.5 mg base)/3 mL nebulization soln omeprazole 20 mg 20 mg PO DAILY@0630 01/27/21 10/04/21 History capsule,delayed release ritonavir 100 mg tablet 1 tab PO BID 01/27/21 10/03/21 History trazodone 50 mg tablet 50 mg PO BEDTIME 01/27/21 10/03/21 History umeclidinium 62.5 1 puff INHALATION DAILY 01/27/21 10/03/21 History mcg-vilanterol 25 mcg/actuation powdr for inhalation (Anoro Ellipta) methadone 10 mg/mL oral 60 mg PO DAILY 01/28/21 10/03/21 History concentrate (Methadone Intensol) prednisone 5 mg tablet 10 mg PO DAILY 10/03/21 10/03/21 History apixaban 2.5 mg tablet 1 tab PO BID 10/04/21 10/04/21 History (Eliquis) Allergies Allergy/AdvReac Type Severity Reaction Status Date / Time Penicillins Allergy Severe HIves Verified 02/13/21 17:02 swelling SOB Sulfa (Sulfonamide Allergy Severe Hives Verified 02/13/21 17:02 Antibiotics) sulfamethoxazole Allergy Hives Verified 10/05/21 08:33 [From Bactrim] trimethoprim [From Allergy Hives Verified 10/05/21 08:33 Bactrim] Physical Exam Vital signs: Vital Signs Temp 98.2 F 10/05/21 05:38 Pulse 85 10/05/21 05:38 Resp 15 10/05/21 05:38 BP 124/78 10/05/21 05:38 Pulse Ox 94 10/05/21 05:38 Intake & Output 10/04/21 10/05/21 10/05/21 18:59 06:59 18:59 Intake Total 100 / 100 Output Total 800 / 800 Balance -800 / -700 100 / -700 Urine Output (Average ml/kg/hr) 0.82 0.82 Intake: Intake, IV Amount 100 / 100 cefTRIAXone sodium 1 gm In 0.9 100 / 100 % Sodium Chloride 100 ml @ 200 mls/hr IV Q24H [facility] Rx#: [id number] Output: Output, Urine Amount 800 / 800 Weight 81.647 kg - Constitutional Present: moderate distress - Routine HEENT Exam Head: Present: normal inspection ENT: Present: mucous membranes moist - Routine Neck Exam Present: supple Hem/Onc Consult Result - Labs CBC & Chem 7: 10/04/21 07:14 10/04/21 07:14 Labs: BMP 10/04/21 07:14 Sodium 136 Potassium 4.6 Chloride 98 Carbon Dioxide 31 H BUN 12 Creatinine 0.79 Calcium 8.7 Assessment and Plan Patient Active problem list reviewed?: Yes (1) HIV (human immunodeficiency virus infection) Status: Inactive Assessment and plan: 55-year-old gentleman with history of HIV with CD4 count of 86 recently. He presents with multi focal pneumonia. He has been noted to have a rash on his hands. Concern is KS. PLAN: He had the biopsy taken yesterday. Will wait for the results. If it gets confirmed, choices of treatment include: Doxil based chemotherapy versus local radiation. Would continue retroviral therapy in the interim. Thank you for the consult, Will follow with you, Cc: Ana Alamo. Addendum: Pathology: Sample is superficial in nature. Deeper sample is necessary to diagnose small vessel vasculitis. No overt features of malignancy. Immunostain for H HGB 8 is nonreactive. Less likely to be KS. - Time Spent With Patient Time Spent with Patient (in minutes): 30
[2021-10-05] MEDS: Omeprazole 20 MG CAPSULE.DR PO (08:21)
[2021-10-05] MEDS: Apixaban 2.5 MG TABLET PO ×2 (08:21→22:14)
[2021-10-05] MEDS: DARUNAVIR ETHANOLATE 600 MG PO ×2 (08:21→22:15)
[2021-10-05] MEDS: RITONAVIR 100 MG PO ×2 (08:21→22:15)
[2021-10-05] MEDS: Dolutegravir Sodium 50 MG TABLET PO ×2 (08:21→22:14)
[2021-10-05] MEDS: Insulin Glargine,Hum.rec.anlog 100 UNIT/ML 10 ML VIAL 20 UNIT SUBCUT ×2 (08:22→22:13)
[2021-10-05] MEDS: Dapsone 25 MG TABLET 100 MG PO (08:22)
[2021-10-05] MEDS: Insulin Lispro 100 UNIT/ML 3 ML VIAL SUBCUT ×3 (08:22→22:13)
[2021-10-05] MEDS: methADONE HCl 20 MG/2 ML ORAL.CONC 60 MG PO (08:22)
[2021-10-05] MEDS: Albuterol/Iprat 2.5/0.5MG 3 ML AMPUL.NEB INHALE ×3 (08:26→16:09)
[2021-10-05 08:30] VITALS: PULSE 91; RESP 17; O2SAT 97
[2021-10-05 08:37] LABS: Syphilis Screen Nonreactive (Nonreactive)
--- NOTE | 2021-10-05 11:14 | P.PNIM_ITS ---
Subjective Subjective Date of Service: 10/05/21 Review of Systems Follow up COPD, pna, vasculitis Feels better today, pain is better to hands Physical Exam Vital Signs: Vital Signs: Last Vital Signs Temp 98.2 F 10/05/21 05:38 Pulse 91 10/05/21 08:30 Resp 17 10/05/21 08:30 BP 124/78 10/05/21 05:38 Pulse Ox 94 10/05/21 05:38 BMI result Body Mass Index 25.1 Appearing in no acute distress lung sounds are clear to auscultation heart regular rate rhythm, clear S1, S2 positive bowel sounds, abdomen is soft, nontender neuro patient is alert x3, no focal deficits palpable purpuric rash to both hands Objective Data Active Medications Abacavir Sulfate (Abacavir Sulfate 300 Mg Tablet) 600 mg PO DAILY [facility] Last Admin: 10/05/21 08:21 Dose: 600 mg Documented by: LANETTE Acetaminophen (Acetaminophen 325 Mg Tablet) 650 mg PO Q6H PRN PRN Reason: Pain, Mild (Pain Scale 1-3) Albuterol/Ipratropium (Albuterol/Iprat 2.5/0.5mg 3 Ml Ampul.Neb) 3 ml INHALE RQ4H WHILE AWAKE [facility] Last Admin: 10/05/21 08:26 Dose: 3 ml Documented by: LISA Albuterol/Ipratropium (Albuterol/Iprat 2.5/0.5mg 3 Ml Ampul.Neb) 3 ml INHALE RQ4H PRN PRN Reason: Shortness of Breath/Wheezing Apixaban (Apixaban 2.5 Mg Tablet) 2.5 mg PO BID [facility] Last Admin: 10/05/21 08:21 Dose: 2.5 mg Documented by: LANETTE Azithromycin (Azithromycin 500 Mg Tablet) 500 mg PO Q24H [facility] Last Admin: 10/04/21 23:17 Dose: 500 mg Documented by: ANGEL Dapsone (Dapsone 25 Mg Tablet) 100 mg PO DAILY [facility] Last Admin: 10/05/21 08:22 Dose: 100 mg Documented by: LANETTE Darunavir (Darunavir Ethanolate 600 Mg Tablet) 600 mg PO BID [facility] Last Admin: 10/05/21 08:21 Dose: 600 mg Documented by: LANETTE Dextrose (Dextrose 50 % 25 Gm/50 Ml Syringe) 25 gm IVPUSH Q15M PRN; Protocol PRN Reason: per Hypoglycemia Standing Ord. Dolutegravir Sodium (Dolutegravir Sodium 50 Mg Tablet) 50 mg PO BID [facility] Last Admin: 10/05/21 08:21 Dose: 50 mg Documented by: LANETTE Emtricitabine/Tenofovir Alafenamide (Emtricitabine/Tenofov Alafenam Tablet) 1 tab PO BEDTIME [facility] Last Admin: 10/04/21 21:59 Dose: Not Given Documented by: ANGEL Non-Admin Reason: See Note Glucose (Glucose Gel 15 Gm Gel..Gram.) 15 gm PO Q15M PRN; Protocol PRN Reason: per Hypoglycemia Standing Ord. Ceftriaxone Sodium 1 gm/ (Sodium Chloride) 100 mls @ 200 mls/hr IV Q24H [facility] Last Infusion: 10/05/21 01:11 Dose: 0 mls/hr Documented by: ANGEL Insulin Glargine (Insulin Glargine,Hum.Rec.Anlog 100 Unit/Ml 10 Ml Vial) 20 unit SUBCUT BID [facility] Last Admin: 10/05/21 08:22 Dose: 20 unit Documented by: LANETTE Insulin Human Lispro (Insulin Lispro 100 Unit/Ml 3 Ml Vial) 0 unit SUBCUT QIDACHS [facility]; Protocol Last Admin: 10/05/21 08:22 Dose: 6 unit Documented by: LANETTE Melatonin (Melatonin 3 Mg Tablet) 6 mg PO BEDTIME PRN PRN Reason: Insomnia Methadone HCl (Methadone Hcl 20 Mg/2 Ml Oral.Conc) 60 mg PO DAILY [facility] Last Admin: 10/05/21 08:22 Dose: 60 mg Documented by: LANETTE Methylprednisolone Sodium Succinate (Methylprednisolone Sod Succ 40 Mg/Ml Vial) 40 mg IVPUSH Q6H [facility] Last Admin: 10/05/21 08:31 Dose: 40 mg Documented by: TIMOTHY-BRITTNEY Morphine Sulfate (Morphine Sulfate 4 Mg/Ml Cartridge) 1 mg IVPUSH Q4H PRN; Protocol PRN Reason: Pain, SOB Last Admin: 10/04/21 00:00 Dose: 1 mg Documented by: MCTA Non-Formulary Medication (Umeclidinium-Vilanterol [Anoro Ellipta]) 1 puff INHALE DAILY [facility] Omeprazole (Omeprazole 20 Mg Capsule.Dr) 20 mg PO DAILY [facility] Last Admin: 10/05/21 08:21 Dose: 20 mg Documented by: LANETTE Pharmacy Consult (Consult Rx Perform Med Rec) 1 each MISCELLANE ONCE PRN PRN Reason: Consult order Ritonavir (Ritonavir 100 Mg Tablet) 100 mg PO BID [facility] Last Admin: 10/05/21 08:21 Dose: 100 mg Documented by: LANETTE Senna (Sennosides 8.6 Mg Tablet) 17.2 mg PO BEDTIME PRN PRN Reason: Constipation Sodium Chloride (0.9 % Sodium Chloride Flush 3 Ml Syringe) 3 ml IVFLUSH QSHIFT [facility] Last Admin: 10/05/21 08:30 Dose: 3 ml Documented by: LANETTE Trazodone HCl (Trazodone Hcl 50 Mg Tablet) 50 mg PO BEDTIME [facility] Last Admin: 10/04/21 21:58 Dose: 50 mg Documented by: ANGEL Trimethoprim/Sulfamethoxazole (Sulfamethox/Trimeth 800/160 Tablet) 2.5 tab PO Q8H [facility] Last Admin: 10/05/21 08:35 Dose: Not Given Documented by: LANETTE Non-Admin Reason: Allergy Labs CBC & Chem 7: 10/04/21 07:14 10/04/21 07:14 Labs: Laboratory Results - last 24 hr 10/04/21 10/04/21 10/04/21 10:19 10:19 12:42 ESR POC Glucose 273 H C-Reactive Protein T.pallidum Ab (EIA) Nonreactive Hepatitis C Ab (EIA) Reactive H 10/04/21 10/04/21 10/04/21 15:04 15:04 17:13 ESR 79 H POC Glucose 317 H C-Reactive Protein 6.02 H T.pallidum Ab (EIA) Hepatitis C Ab (EIA) 10/05/21 07:35 ESR POC Glucose 280 H C-Reactive Protein T.pallidum Ab (EIA) Hepatitis C Ab (EIA) Microbiology Microbiology Results: Microbiology 10/03/21 20:35 Blood Culture - Preliminary Blood - Venous No growth after 24 hours. 10/03/21 20:35 Blood Culture - Preliminary Blood - Venous No growth after 24 hours. Assessment and Plan (1) Vasculitis: Status: Acute Assessment and Plan: 55 year old man admitted with COPD, PNA and vasculitis Vasculitis hx HIV/AIDS painful, purpura punch biopsy pending ID and hem/onc consults Hep C, ANCA, cryoglobulin,syphillis pending Echo pending Already on steroids for COPD Possible PCP Pneumonia Continue ceftriaxone, azithromycin.? allergy to bactrim ID consult COPD exacerbation Continue nebulizations and steroids.? Supplemental oxygen? P.r.n. History of HIV Patient reports had low CD4 count of 86 in August of 2021.? Continue home ?HIV meds.? History of DVT/ PE Continue home Eliquis History of opiate dependence Patient on methadone 60gm daily Addiction Medicine consult. History of diabetes Lantus 20 units b.i.d. sliding scale.? DVT prophylaxis:? Patient on Eliquis Code status: Full code Attending Dr. Michele Quality Stroke Does the patient have a stroke diagnosis?: No VTE Prior VTE?: No VTE Risk Level:: Medical - moderate - high VTE Device Contraindication: Treatment Not Indicated VTE Drug Contraindication: N/A - Med Ordered
--- NOTE | 2021-10-05 11:54 | PC.NURSE ---
Pt A&Ox3, no complaints of pain at this time, rash present on bilateral hands, no drainage noted. Pt sitting at bedside, able to reposition self at this time. Lungs with course crackles, cough present w/sputum. Pt aware of need for sputum culture needed, NSR on monitor. awaiting bed assignment, call ng within reach, will continue to monitor.
[2021-10-05 12:06] LABS: Anti Nuclear Antibody Screen NEGATIVE (NEGATIVE)
[2021-10-05 12:51] VITALS: PULSE 104; RESP 15; O2SAT 94
[2021-10-05 13:02] LABS: Myeloperoxidase Antibody <1.0 AI; Proteinase 3 PR3 Antibodies <1.0 AI
--- NOTE | 2021-10-05 13:30 | CA_ITS ---
Transthoracic Echocardiogram Patient (Last, First, Middle): Norm Santana, Gender: Male Date of : 1965 Age: 55 Procedure Date: 10/05/2021 Procedure Type: Transthoracic Echocardiogram Location: ER Height: 180.34 cm Weight: 81.65 kg BSA: 2.02 m2 Heart Rate: bpm BP: 124 / 78 mmHg Sewing Line Baler: JUSTYNA Referring MD: Ana Alamo NP Hardware Developer: Kayode Moreno MD Symptoms: ? endocarditis Study Quality: Fair ECG Rhythm: Sinus Conclusions: - 1. No clear vegetations seen on this study 2. Normal LV and RV systolic function 3. Normal cardiac valvular Doppler 4. Normal RV systolic pressure Findings Left Ventricle Normal left ventricular size, thickness, and systolic function. The visually estimated ejection fraction is between 60-65%. Spectral Doppler is indicative of a normal filling pattern. Right Ventricle Normal right ventricular cavity size and systolic function. Atria The left atrium is normal in size. There is a mobile atrial septum noted. Interatrial shunt cannot be excluded. The right atrium is normal in size. Aortic Valve The aortic valve structure and function is likely normal. There is no aortic valve stenosis. There is no aortic valve regurgitation. Mitral Valve Likely normal mitral valve structure and function. There is trace mitral valve regurgitation. There is no mitral valve stenosis. Pulmonic Valve The pulmonic valve was not well visualized. Tricuspid Valve Normal tricuspid valve structure. There is trace tricuspid valve regurgitation. The right ventricular systolic pressure is normal. The right ventricular systolic pressure is 18 mmHg. Normal right atrial pressure. There is no evidence of pulmonary hypertension. Great Vessels All visible segments of the aorta are normal in size. The pulmonary artery was not well visualized. Venous The inferior vena cava is normal in size and collapses greater than 50% with inspiration. Pericardium/Pleural There is no evidence of pericardial effusion. Prior Study Comparison No significant change compared to prior study dated: 01/29/2021. Recommendations, Care & Conclusions Consider a BARRY if clinically appropriate. Measurements 2D Linear Measurements IVSd: 0.92 0.6-0.9/0.6-1.0 cm LVIDd: 4.90 3.9-5.3/4.2-5.9 cm LVIDd Index: 2.43 2.4-3.2/2.2-3.1 cm/m2 LVIDs: 3.28 2.0-3.6 cm LVPWd: 1.12 0.7-1.1 cm Ao Root: 3.40 2.1-3.5 cm LA Diam: 4.20 2.7-3.8/3.0-4.0 cm LAIDs Index: 2.08 1.5-2.3 cm/m2 LV Mass: 224.97 67-162/88-224 g LV Mass Index: 111.37 43-95/49-115 g/m2 LVOT Diam: 2.10 3.0+(-)1.3 cm 2D Systolic Function EF 4C: 61.60 >55% EF 2C: 66.00 >55% EF BiP: 64.10 >55% Mitral Valve MV Pk E: 0.97 MV PK A: 1.04 MV Decel Time: 237.00 E/A: 0.90 E'Lateral: 13.40 E'Medial: 9.36 E/E' Med: 10.40 E/E' Lat: 7.30 PHT: 70.00 MVA PHT: 3.14 Decel Carver: 4.10 Aortic Valve AoV Pk Caleb: 1.35 AoV Mn Caleb: 1.00 AoV VTI: 0.32 AoV Pk Grad: 7.00 Aov Mn Grad: 4.00 ALEJANDRO Cont.VTI: 2.45 LVOT LVOT Pk Caleb: 1.03 LVOT Mn Caleb: 0.68 LVOT VTI: 0.23 LVOT Pk Grad: 4.00 LVOT Mn Grad: 2.00 LVOT Diam: 2.10 LVOT Area: 3.46 Diastolic Function MV Pk E: 0.97 MV Pk A: 1.04 E/A: 0.90 E'Medial: 9.36 E/E' Med: 10.40 E' Laterial: 13.40 E/E' Lat: 7.30 Right Ventricle TAPSE (mm): 2.19 TVS' Caleb: 14.70 Tricuspid Valve TR Pk Caleb: 1.55 TR Pk Grad: 10.00 RA Press: 8.00 RVSP: 18.00 Great Vessels Aorta Ao Root-2D: 3.40 2.0-3.7 cm Ao Asc: 3.30 2.1-3.4 cm Updated in Other Vendor System with Status of Final Kayode Moreno MD electronically signed on 10/05/2021 5:07:57 PM with status of Final
[2021-10-05 13:35] LABS: Glucose, Whole Blood 286 mg/dL (60-115)
--- NOTE | 2021-10-05 15:13 | P.CNID_ITS ---
History of Present Illness Data of Consult Service Date: 10/05/21 Requesting physician: Ana Alamo Primary Care Provider: Jeremy Romano MD HPI Reason for consult: shortness of breath,hand rash He presents to ER with shortness of breath and cough. He has had symptoms 3-4 days He also has hand rash last 3-4 days I had seen him before in January He sees Dr Jenniffer Chao at [facility] for HIV care. Review of Systems Verdana 4l Review of Systems: Yes all other systems are reviewed and Verdana 4d are negative [facility] Past Medical History Medical History AIDS COPD (chronic obstructive pulmonary disease) Diabetes mellitus type 1 DVT (deep venous thrombosis) HIV (human immunodeficiency virus infection) HIV disease HTN (hypertension) Pseudomonas aeruginosa colonization Pulmonary embolism Pulmonary fibrosis Rash of hand Thrush Functional capacity: uses cane/walker Social History Social History Household Members: Spouse and Children Housing: House Do you presently have visiting nurse or other home services: Yes Alcohol intake: never Patient Tobacco Use Status: Never used Tobacco service: Yes Current occupational status: disabled Meds Allergies Allergy/AdvReac Type Severity Reaction Status Date / Time Penicillins Allergy Severe HIves Verified 02/13/21 17:02 swelling SOB Sulfa (Sulfonamide Allergy Severe Hives Verified 02/13/21 17:02 Antibiotics) sulfamethoxazole Allergy Hives Verified 10/05/21 08:33 [From Bactrim] trimethoprim [From Allergy Hives Verified 10/05/21 08:33 Bactrim] Active Medications: Current Medications Abacavir Sulfate (Abacavir Sulfate 300 Mg Tablet) 600 mg PO DAILY [facility] Last Admin: 10/05/21 08:21 Dose: 600 mg Documented by: Acetaminophen (Acetaminophen 325 Mg Tablet) 650 mg PO Q6H PRN PRN Reason: Pain, Mild (Pain Scale 1-3) Albuterol/Ipratropium (Albuterol/Iprat 2.5/0.5mg 3 Ml Ampul.Neb) 3 ml INHALE RQ4H WHILE AWAKE [facility] Last Admin: 10/05/21 12:50 Dose: 3 ml Documented by: Albuterol/Ipratropium (Albuterol/Iprat 2.5/0.5mg 3 Ml Ampul.Neb) 3 ml INHALE RQ4H PRN PRN Reason: Shortness of Breath/Wheezing Apixaban (Apixaban 2.5 Mg Tablet) 2.5 mg PO BID [facility] Last Admin: 10/05/21 08:21 Dose: 2.5 mg Documented by: Azithromycin (Azithromycin 500 Mg Tablet) 500 mg PO Q24H [facility] Last Admin: 10/04/21 23:17 Dose: 500 mg Documented by: Dapsone (Dapsone 25 Mg Tablet) 100 mg PO DAILY [facility] Last Admin: 10/05/21 08:22 Dose: 100 mg Documented by: Darunavir (Darunavir Ethanolate 600 Mg Tablet) 600 mg PO BID [facility] Last Admin: 10/05/21 08:21 Dose: 600 mg Documented by: Dextrose (Dextrose 50 % 25 Gm/50 Ml Syringe) 25 gm IVPUSH Q15M PRN; Protocol PRN Reason: per Hypoglycemia Standing Ord. Dolutegravir Sodium (Dolutegravir Sodium 50 Mg Tablet) 50 mg PO BID [facility] Last Admin: 10/05/21 08:21 Dose: 50 mg Documented by: Emtricitabine/Tenofovir Alafenamide (Emtricitabine/Tenofov Alafenam Tablet) 1 tab PO BEDTIME [facility] Last Admin: 10/04/21 21:59 Dose: Not Given Documented by: Glucose (Glucose Gel 15 Gm Gel..Gram.) 15 gm PO Q15M PRN; Protocol PRN Reason: per Hypoglycemia Standing Ord. Ceftriaxone Sodium 1 gm/ (Sodium Chloride) 100 mls @ 200 mls/hr IV Q24H [facility] Last Infusion: 10/05/21 01:11 Dose: Infused Documented by: Insulin Glargine (Insulin Glargine,Hum.Rec.Anlog 100 Unit/Ml 10 Ml Vial) 20 unit SUBCUT BID [facility] Last Admin: 10/05/21 08:22 Dose: 20 unit Documented by: Insulin Human Lispro (Insulin Lispro 100 Unit/Ml 3 Ml Vial) 0 unit SUBCUT QIDACHS [facility]; Protocol Last Admin: 10/05/21 14:03 Dose: Not Given Documented by: Melatonin (Melatonin 3 Mg Tablet) 6 mg PO BEDTIME PRN PRN Reason: Insomnia Methadone HCl (Methadone Hcl 20 Mg/2 Ml Oral.Conc) 60 mg PO DAILY [facility] Last Admin: 10/05/21 08:22 Dose: 60 mg Documented by: Methylprednisolone Sodium Succinate (Methylprednisolone Sod Succ 40 Mg/Ml Vial) 40 mg IVPUSH Q6H [facility] Last Admin: 10/05/21 08:31 Dose: 40 mg Documented by: Morphine Sulfate (Morphine Sulfate 4 Mg/Ml Cartridge) 1 mg IVPUSH Q4H PRN; Protocol PRN Reason: Pain, SOB Last Admin: 10/04/21 00:00 Dose: 1 mg Documented by: Non-Formulary Medication (Umeclidinium-Vilanterol [Anoro Ellipta]) 1 puff INHALE DAILY [facility] Omeprazole (Omeprazole 20 Mg Capsule.Dr) 20 mg PO DAILY [facility] Last Admin: 10/05/21 08:21 Dose: 20 mg Documented by: Pharmacy Consult (Consult Rx Perform Med Rec) 1 each MISCELLANE ONCE PRN PRN Reason: Consult order Ritonavir (Ritonavir 100 Mg Tablet) 100 mg PO BID [facility] Last Admin: 10/05/21 08:21 Dose: 100 mg Documented by: Senna (Sennosides 8.6 Mg Tablet) 17.2 mg PO BEDTIME PRN PRN Reason: Constipation Sodium Chloride (0.9 % Sodium Chloride Flush 3 Ml Syringe) 3 ml IVFLUSH QSHIFT [facility] Last Admin: 10/05/21 08:30 Dose: 3 ml Documented by: Trazodone HCl (Trazodone Hcl 50 Mg Tablet) 50 mg PO BEDTIME [facility] Last Admin: 10/04/21 21:58 Dose: 50 mg Documented by: Trimethoprim/Sulfamethoxazole (Sulfamethox/Trimeth 800/160 Tablet) 2.5 tab PO Q8H [facility] Last Admin: 10/05/21 08:35 Dose: Not Given Documented by: Home Medications Medication Instructions Recorded Confirmed Last Taken Type abacavir 300 mg 1 tab PO BID 01/27/21 10/04/21 10/03/21 History tablet albuterol sulfate 2 puff PO Q4H 01/27/21 10/03/21 10/03/21 History 90 mcg/actuation PRN aerosol inhaler (Ventolin HFA) dapsone 100 mg 1 tab PO DAILY 01/27/21 10/03/21 10/03/21 History tablet darunavir 1 tab PO BID 01/27/21 10/03/21 10/03/21 History ethanolate 600 mg tablet (Prezista) dolutegravir 50 1 tab PO BID 01/27/21 10/03/21 10/03/21 History mg tablet (Tivicay) emtricitabine 200 1 tab PO BEDTIME 01/27/21 10/04/21 10/03/21 History mg-tenofovir alafenamide fumarate 25 mg tablet (Descovy) furosemide 20 mg 20 mg PO DAILY 01/27/21 10/03/21 10/03/21 History tablet insulin aspart See Protocol 01/27/21 10/04/21 10/03/21 History SUBCUT TIDAC (niacinamide)(U-1 00) 100 unit/mL(3 mL) subcutaneous pen (Fiasp FlexTouch U-100 Insulin) insulin glargine 35 unit SUBCUT 01/27/21 10/04/21 10/03/21 History 100 unit/mL BID subcutaneous solution (Lantus U-100 Insulin) ipratropium 0.5 3 ml INHALATION 01/27/21 10/03/21 10/03/21 History mg-albuterol 3 mg QID (2.5 mg base)/3 mL nebulization soln omeprazole 20 mg 20 mg PO 01/27/21 10/04/21 10/03/21 History capsule,delayed DAILY@0630 release ritonavir 100 mg 1 tab PO BID 01/27/21 10/03/21 10/03/21 History tablet trazodone 50 mg 50 mg PO BEDTIME 01/27/21 10/03/21 10/03/21 History tablet umeclidinium 62.5 1 puff 01/27/21 10/03/21 10/03/21 History mcg-vilanterol INHALATION DAILY 25 mcg/actuation powdr for inhalation (Anoro Ellipta) methadone 10 60 mg PO DAILY 01/28/21 10/03/21 10/03/21 History mg/mL oral concentrate (Methadone Intensol) prednisone 5 mg 10 mg PO DAILY 10/03/21 10/03/21 10/03/21 History tablet apixaban 2.5 mg 1 tab PO BID 10/04/21 10/04/21 10/03/21 History tablet (Eliquis) Physical Exam Verdana 4l Vital Signs: Verdana 4d Verdana 4d Vital Signs: Verdana 4d Verdana 4Bd Last Vital Signs Verdana 4d Chronic Condition Nurse New 4d Chronic Condition Nurse New 4d Temp 98.2 F 10/05/21 05:38 Chronic Condition Nurse New 4d Pulse 104 H 10/05/21 12:51 Chronic Condition Nurse New 4d Resp 15 10/05/21 12:51 BP 124/78 10/05/21 05:38 Pulse Ox 94 10/05/21 05:38 BMI result Body Mass Index 25.1 Const: General: cooperative Eyes: General: appearance normal, both eyes and all related structures Pupils: Equal, round and reactive pupils present Resp: Effort & Inspection: normal respiratory effort Cardio: Rate: regular rate Rhythm: regular rhythm GI: Palpation (GI): Soft to palpation and nontender Skin: Other: hands papular purple areas Neuro: Cranial nerves: Yes Equal, round and reactive pupils present Results Labs CBC & Chem 7: 10/04/21 07:14 10/04/21 07:14 Microbiology Microbiology Results: Microbiology 10/03/21 20:35 Blood - Venous Blood Culture - Preliminary No growth after 24 hours. 10/03/21 20:35 Blood - Venous Blood Culture - Preliminary No growth after 24 hours. Assessment and Plan (1) COPD (chronic obstructive pulmonary disease): Status: Acute Can switch to po Ceftin outpatient for 7 days (2) Pseudomonas aeruginosa colonization: Status: Acute (3) HIV (human immunodeficiency virus infection): Status: Acute Continue HAART (4) Rash of hand: Status: Acute He has had preserved immune system so dont think Kaposis sarcoma He could have bacterial infection or viral (parvovirus)doesnt look like COVID Plan Would continue Ceftriaxone while in hospital Check RPR if not lately
--- NOTE | 2021-10-05 15:13 | W.PM.IDCN ---
History of Present Illness Data of Consult Service Date: 10/05/21 Requesting physician: Ana Alamo Primary Care Provider: Jeremy Romano MD HPI Reason for consult: shortness of breath,hand rash He presents to ER with shortness of breath and cough. He has had symptoms 3-4 days He also has hand rash last 3-4 days I had seen him before in January He sees Dr Jenniffer Chao at [facility] for HIV care. Review of Systems Review of Systems: Yes all other systems are reviewed and are negative [facility] Past Medical History Medical History AIDS COPD (chronic obstructive pulmonary disease) Diabetes mellitus type 1 DVT (deep venous thrombosis) HIV (human immunodeficiency virus infection) HIV disease HTN (hypertension) Pseudomonas aeruginosa colonization Pulmonary embolism Pulmonary fibrosis Rash of hand Thrush Functional capacity: uses cane/walker Social History Social History Household Members: Spouse and Children Housing: House Do you presently have visiting nurse or other home services: Yes Alcohol intake: never Patient Tobacco Use Status: Never used Tobacco service: Yes Current occupational status: disabled Meds Allergies Allergy/AdvReac Type Severity Reaction Status Date / Time Penicillins Allergy Severe HIves Verified 02/13/21 17:02 swelling SOB Sulfa (Sulfonamide Allergy Severe Hives Verified 02/13/21 17:02 Antibiotics) sulfamethoxazole Allergy Hives Verified 10/05/21 08:33 [From Bactrim] trimethoprim [From Bactrim] Allergy Hives Verified 10/05/21 08:33 Active Medications: Current Medications Abacavir Sulfate (Abacavir Sulfate 300 Mg Tablet) 600 mg PO DAILY [facility] Last Admin: 10/05/21 08:21 Dose: 600 mg Documented by: Acetaminophen (Acetaminophen 325 Mg Tablet) 650 mg PO Q6H PRN PRN Reason: Pain, Mild (Pain Scale 1-3) Albuterol/Ipratropium (Albuterol/Iprat 2.5/0.5mg 3 Ml Ampul.Neb) 3 ml INHALE RQ4H WHILE AWAKE [facility] Last Admin: 10/05/21 12:50 Dose: 3 ml Documented by: Albuterol/Ipratropium (Albuterol/Iprat 2.5/0.5mg 3 Ml Ampul.Neb) 3 ml INHALE RQ4H PRN PRN Reason: Shortness of Breath/Wheezing Apixaban (Apixaban 2.5 Mg Tablet) 2.5 mg PO BID [facility] Last Admin: 10/05/21 08:21 Dose: 2.5 mg Documented by: Azithromycin (Azithromycin 500 Mg Tablet) 500 mg PO Q24H [facility] Last Admin: 10/04/21 23:17 Dose: 500 mg Documented by: Dapsone (Dapsone 25 Mg Tablet) 100 mg PO DAILY [facility] Last Admin: 10/05/21 08:22 Dose: 100 mg Documented by: Darunavir (Darunavir Ethanolate 600 Mg Tablet) 600 mg PO BID [facility] Last Admin: 10/05/21 08:21 Dose: 600 mg Documented by: Dextrose (Dextrose 50 % 25 Gm/50 Ml Syringe) 25 gm IVPUSH Q15M PRN; Protocol PRN Reason: per Hypoglycemia Standing Ord. Dolutegravir Sodium (Dolutegravir Sodium 50 Mg Tablet) 50 mg PO BID [facility] Last Admin: 10/05/21 08:21 Dose: 50 mg Documented by: Emtricitabine/Tenofovir Alafenamide (Emtricitabine/Tenofov Alafenam Tablet) 1 tab PO BEDTIME [facility] Last Admin: 10/04/21 21:59 Dose: Not Given Documented by: Glucose (Glucose Gel 15 Gm Gel..Gram.) 15 gm PO Q15M PRN; Protocol PRN Reason: per Hypoglycemia Standing Ord. Ceftriaxone Sodium 1 gm/ (Sodium Chloride) 100 mls @ 200 mls/hr IV Q24H [facility] Last Infusion: 10/05/21 01:11 Dose: Infused Documented by: Insulin Glargine (Insulin Glargine,Hum.Rec.Anlog 100 Unit/Ml 10 Ml Vial) 20 unit SUBCUT BID [facility] Last Admin: 10/05/21 08:22 Dose: 20 unit Documented by: Insulin Human Lispro (Insulin Lispro 100 Unit/Ml 3 Ml Vial) 0 unit SUBCUT QIDACHS [facility]; Protocol Last Admin: 10/05/21 14:03 Dose: Not Given Documented by: Melatonin (Melatonin 3 Mg Tablet) 6 mg PO BEDTIME PRN PRN Reason: Insomnia Methadone HCl (Methadone Hcl 20 Mg/2 Ml Oral.Conc) 60 mg PO DAILY [facility] Last Admin: 10/05/21 08:22 Dose: 60 mg Documented by: Methylprednisolone Sodium Succinate (Methylprednisolone Sod Succ 40 Mg/Ml Vial) 40 mg IVPUSH Q6H [facility] Last Admin: 10/05/21 08:31 Dose: 40 mg Documented by: Morphine Sulfate (Morphine Sulfate 4 Mg/Ml Cartridge) 1 mg IVPUSH Q4H PRN; Protocol PRN Reason: Pain, SOB Last Admin: 10/04/21 00:00 Dose: 1 mg Documented by: Non-Formulary Medication (Umeclidinium-Vilanterol [Anoro Ellipta]) 1 puff INHALE DAILY [facility] Omeprazole (Omeprazole 20 Mg Capsule.Dr) 20 mg PO DAILY [facility] Last Admin: 10/05/21 08:21 Dose: 20 mg Documented by: Pharmacy Consult (Consult Rx Perform Med Rec) 1 each MISCELLANE ONCE PRN PRN Reason: Consult order Ritonavir (Ritonavir 100 Mg Tablet) 100 mg PO BID [facility] Last Admin: 10/05/21 08:21 Dose: 100 mg Documented by: Senna (Sennosides 8.6 Mg Tablet) 17.2 mg PO BEDTIME PRN PRN Reason: Constipation Sodium Chloride (0.9 % Sodium Chloride Flush 3 Ml Syringe) 3 ml IVFLUSH QSHIFT [facility] Last Admin: 10/05/21 08:30 Dose: 3 ml Documented by: Trazodone HCl (Trazodone Hcl 50 Mg Tablet) 50 mg PO BEDTIME [facility] Last Admin: 10/04/21 21:58 Dose: 50 mg Documented by: Trimethoprim/Sulfamethoxazole (Sulfamethox/Trimeth 800/160 Tablet) 2.5 tab PO Q8H [facility] Last Admin: 10/05/21 08:35 Dose: Not Given Documented by: Home Medications Medication Instructions Recorded Confirmed Last Taken Type abacavir 300 mg tablet 1 tab PO BID 01/27/21 10/04/21 10/03/21 History albuterol sulfate 90 mcg/actuation 2 puff PO Q4H PRN 01/27/21 10/03/21 10/03/21 History aerosol inhaler (Ventolin HFA) dapsone 100 mg tablet 1 tab PO DAILY 01/27/21 10/03/21 10/03/21 History darunavir ethanolate 600 mg tablet 1 tab PO BID 01/27/21 10/03/21 10/03/21 History (Prezista) dolutegravir 50 mg tablet (Tivicay) 1 tab PO BID 01/27/21 10/03/21 10/03/21 History emtricitabine 200 mg-tenofovir 1 tab PO BEDTIME 01/27/21 10/04/21 10/03/21 History alafenamide fumarate 25 mg tablet (Descovy) furosemide 20 mg tablet 20 mg PO DAILY 01/27/21 10/03/21 10/03/21 History insulin aspart See Protocol SUBCUT TIDAC 01/27/21 10/04/21 10/03/21 History (niacinamide)(U-100) 100 unit/mL(3 mL) subcutaneous pen (Fiasp FlexTouch U-100 Insulin) insulin glargine 100 unit/mL 35 unit SUBCUT BID 01/27/21 10/04/21 10/03/21 History subcutaneous solution (Lantus U-100 Insulin) ipratropium 0.5 mg-albuterol 3 mg 3 ml INHALATION QID 01/27/21 10/03/21 10/03/21 History (2.5 mg base)/3 mL nebulization soln omeprazole 20 mg capsule,delayed 20 mg PO DAILY@0630 01/27/21 10/04/21 10/03/21 History release ritonavir 100 mg tablet 1 tab PO BID 01/27/21 10/03/21 10/03/21 History trazodone 50 mg tablet 50 mg PO BEDTIME 01/27/21 10/03/21 10/03/21 History umeclidinium 62.5 mcg-vilanterol 1 puff INHALATION DAILY 01/27/21 10/03/21 10/03/21 History 25 mcg/actuation powdr for inhalation (Anoro Ellipta) methadone 10 mg/mL oral 60 mg PO DAILY 01/28/21 10/03/21 10/03/21 History concentrate (Methadone Intensol) prednisone 5 mg tablet 10 mg PO DAILY 10/03/21 10/03/21 10/03/21 History apixaban 2.5 mg tablet (Eliquis) 1 tab PO BID 10/04/21 10/04/21 10/03/21 History Physical Exam Vital Signs: Vital Signs: Last Vital Signs Temp 98.2 F 10/05/21 05:38 Pulse 104 H 10/05/21 12:51 Resp 15 10/05/21 12:51 BP 124/78 10/05/21 05:38 Pulse Ox 94 10/05/21 05:38 BMI result Body Mass Index 25.1 Const: General: cooperative Eyes: General: appearance normal, both eyes and all related structures Pupils: Equal, round and reactive pupils present Resp: Effort & Inspection: normal respiratory effort Cardio: Rate: regular rate Rhythm: regular rhythm GI: Palpation (GI): Soft to palpation and nontender Skin: Other: hands papular purple areas Neuro: Cranial nerves: Yes Equal, round and reactive pupils present Results Labs CBC & Chem 7: 10/04/21 07:14 10/04/21 07:14 Microbiology Microbiology Results: Microbiology 10/03/21 20:35 Blood - Venous Blood Culture - Preliminary No growth after 24 hours. 10/03/21 20:35 Blood - Venous Blood Culture - Preliminary No growth after 24 hours. Assessment and Plan (1) COPD (chronic obstructive pulmonary disease): Status: Acute Can switch to po Ceftin outpatient for 7 days (2) Pseudomonas aeruginosa colonization: Status: Acute (3) HIV (human immunodeficiency virus infection): Status: Acute Continue HAART (4) Rash of hand: Status: Acute He has had preserved immune system so dont think Kaposis sarcoma He could have bacterial infection or viral (parvovirus)doesnt look like COVID Plan Would continue Ceftriaxone while in hospital Check RPR if not lately
[2021-10-05 16:10] VITALS: PULSE 82; RESP 20; O2SAT 96
[2021-10-05 18:18] LABS: Syphilis Screen Nonreactive (Nonreactive)
[2021-10-05 18:29] LABS: Glucose, Whole Blood 304 mg/dL (60-115)
[2021-10-05 19:11] VITALS: BP 117/62; PULSE 71; RESP 19; TEMP 36.6; O2SAT 98
--- NOTE | 2021-10-05 20:36 | PC.NURSE ---
This RN took over patient's care at 1900. Patient alert and oriented x3, reports mild discomfort in bilateral hands due to rash. No other complaints at this time. Currently 97% on 4 liters via n/c. Patient aware of plan to transfer to [facility] [place] [place] room 444, report given to [facility] [place] [place] RN.
[2021-10-05 21:50] VITALS: BMI 24.6
[2021-10-05 21:50] LABS: Glucose, Whole Blood 325 mg/dL (60-115)
[2021-10-05 21:53] VITALS: BP 125/72; PULSE 80; RESP 18; TEMP 36.8; O2SAT 96
[2021-10-05] MEDS: cefTRIAXone sodium 1 GM in 0.9 % Sodium Chloride 100 ML IV (22:13)
[2021-10-05] MEDS: traZODone HCL 50 MG TABLET PO (22:15)
[2021-10-05] MEDS: Azithromycin 500 MG TABLET PO (22:15)
[2021-10-05] MEDS: Emtricitabine/Tenofov Alafenam TABLET 1 TAB PO (22:15)
[2021-10-06] VITALS: BP 123/74; PULSE 84; RESP 18; TEMP 36.4; O2SAT 94
[2021-10-06 04:00] VITALS: BP 111/59; PULSE 70; RESP 15; TEMP 36.4; O2SAT 99
[2021-10-06] MEDS: methylPREDNISolone Sod Succ 40 MG/ML VIAL IVPUSH ×2 (04:45→12:30)
[2021-10-06 07:15] LABS: Glucose, Whole Blood 241 mg/dL (60-115)
[2021-10-06] MEDS: Albuterol/Iprat 2.5/0.5MG 3 ML AMPUL.NEB INHALE ×2 (07:17→11:49)
[2021-10-06 07:18] VITALS: PULSE 80; RESP 18; O2SAT 91
[2021-10-06 07:27] VITALS: BP 99/70; PULSE 81; RESP 20; TEMP 36.1; O2SAT 91
[2021-10-06] MEDS: Insulin Glargine,Hum.rec.anlog 100 UNIT/ML 10 ML VIAL 20 UNIT SUBCUT (07:51)
[2021-10-06] MEDS: Insulin Lispro 100 UNIT/ML 3 ML VIAL SUBCUT ×2 (07:51→12:27)
[2021-10-06] MEDS: Dapsone 25 MG TABLET 100 MG PO (07:52)
[2021-10-06] MEDS: Apixaban 2.5 MG TABLET PO (07:52)
[2021-10-06] MEDS: Dolutegravir Sodium 50 MG TABLET PO (07:55)
[2021-10-06] MEDS: RITONAVIR 100 MG PO (07:55)
[2021-10-06] MEDS: Omeprazole 20 MG CAPSULE.DR PO (07:55)
[2021-10-06] MEDS: methADONE HCl 20 MG/2 ML ORAL.CONC 60 MG PO (07:56)
[2021-10-06] MEDS: DARUNAVIR ETHANOLATE 600 MG PO (07:56)
[2021-10-06] MEDS: 0.9 % Sodium Chloride Flush 3 ML SYRINGE IVFLUSH (07:58)
[2021-10-06 11:47] VITALS: BP 110/71; PULSE 85; RESP 20; TEMP 36.8; O2SAT 94
[2021-10-06 11:50] VITALS: PULSE 80; RESP 18; O2SAT 94
[2021-10-06 12:19] LABS: Glucose, Whole Blood 317 mg/dL (60-115)
--- NOTE | 2021-10-06 13:48 | PM.DS ---
DS: Providers Provider Date of Service: 10/06/21 Date of admission: 10/03/21 23:21 Primary care physician: Jeremy Romano MD Consults: 10/03/21 23:20 Consult to Infectious Diseases Routine Consulting Provider: Dinah Wolff Reason for consultation: multifocal pneumonia, history of HIV, low CD4 count 10/03/21 23:24 Consult to Infectious Diseases Routine Consulting Provider: Dinah Wolff Reason for consultation: PNA; HIV; low Cd4 10/03/21 23:25 Addiction Medicine Routine Consulting Provider: Lupe Goodman Reason for consultation: pt on methadone 10/04/21 09:23 Consult to Hematology / Oncology Routine Consulting Provider: Cabrera Diaz Reason for consultation: ? 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 low CD4 count-86 on last month;? Kaposi sarcoma; presented to the hospital today with a chief complaint of cough and shortness of breath.?Patient reports that ? He has been having cough and shortness of breath for the past 1 day he had acutely worsened shortness of breath with severe cough and posttussive chest discomfort.? Also complains of rash in his bilateral hands. Denies any chest pain or palpitations.? Denies any numbness tingling or focal weakness.?Patient reports that his CD4 count is on the lower side; denies interrupting his HIV treatment.?Denies any chest pain or palpitations.?Denies any nausea vomiting or diarrhea.?Review of all other systems is negative except mentioned above ER course: Per ER team patient on presentation noted to be in respiratory distress, tight on examination; given nebulizations and steroids with improvement in oxygenation noted to have expiratory wheezes followed by.?Also? chest x-ray showed multifocal pneumonia.? Patient was started on empiric antibiotics.? Admitted to the hospital for further management . Vasculitis? hx HIV/AIDS, painful, purpura. Punch biopsy pending. ID and hem/onc consults, normal echocardiogram, symptoms improved with steroids. Will continue 3 week prednisone taper. Pneumonia. Treated with rocephin and azithromycin. Will continue ceftin for 7 more days. COPD exacerbation. Treated with duonebs and steroids with good effect. On home oxygen 4 liters. Time Spent with Patient Time attestation: Total time spent providing and/or coordinating discharge services: Discharge coordination time: Greater than 30 minutes Quality: Stroke Does the patient have a stroke diagnosis?: No Physical Exam Vital Signs: Vital Signs: Last Vital Signs Temp 98.2 F 10/06/21 11:47 Pulse 80 10/06/21 11:50 Resp 18 10/06/21 11:50 BP 110/71 10/06/21 11:47 Pulse Ox 94 10/06/21 11:47 BMI result Body Mass Index 24.6 Appearing in no acute distress lung sounds are clear to auscultation heart regular rate rhythm, clear S1, S2 positive bowel sounds, abdomen is soft, nontender neuro patient is alert x3, no focal deficits Bilateral hands with palpable purpura on both sides with some dry and flakiness DS: Data Data Completed and Pending Pending studies at discharge: Pending at discharge 10/04/21 16:39 Surgical [PTH] Routine Labs on day of discharge: Laboratory Results - last 24 hr 10/04/21 10/05/21 10/05/21 10:19 17:11 18:25 POC Glucose 304 H NATHALIA Titer TNP NATHALIA Titer 2 TNP NATHALIA Titer 3 TNP NATHALIA Pattern TNP NATHALIA Pattern 2 TNP NATHALIA Pattern 3 TNP T.pallidum Ab (EIA) Nonreactive 10/05/21 10/06/21 10/06/21 21:47 07:08 11:46 POC Glucose 325 H 241 H 317 H NATHALIA Titer NATHALIA Titer 2 NATHALIA Titer 3 NATHALIA Pattern NATHALIA Pattern 2 NATHALIA Pattern 3 T.pallidum Ab (EIA) Preliminary micro results at discharge 10/03/21 20:35 Blood Culture - Preliminary Blood - Venous No growth after 48 hours. 10/03/21 20:35 Blood Culture - Preliminary Blood - Venous No growth after 48 hours. Discharge Plan Discharge Anticipated Discharge Date/Time: 10/06/21 13:28 Patient Disposition: Home, Self-Care Discharge Diagnosis: Vasculitis Pneumonia COPD Exacerbation Referrals: Jeremy Romano MD [Primary Care Provider] - 1 Week Discharge Medications: New cefuroxime axetil 500 mg tablet 500 mg PO Q12H Qty: 14 RF: 0 prednisone 10 mg tablet See Taper mg PO DAILY Qty: 70 RF: 0 Continued ipratropium-albuterol 0.5 mg-3 mg(2.5 mg base)/3 mL solution for nebulization 3 ml inhalation QID RF: 0 Lantus U-100 Insulin 100 unit/mL solution 35 unit subcut BID RF: 0 trazodone 50 mg tablet 50 mg PO BEDTIME RF: 0 dapsone 100 mg tablet 1 tab PO DAILY RF: 0 omeprazole 20 mg capsule,delayed release(DR/EC) 20 mg PO DAILY@0630 RF: 0 furosemide 20 mg tablet 20 mg PO DAILY RF: 0 albuterol sulfate [Ventolin HFA] 90 mcg/actuation HFA aerosol inhaler 2 puff PO Q4H PRN (Reason: wheezing) RF: 0 Prezista 600 mg tablet 1 tab PO BID RF: 0 Tivicay 50 mg tablet 1 tab PO BID RF: 0 Anoro Ellipta 62.5-25 mcg/actuation blister with device 1 puff inhalation DAILY RF: 0 Descovy 200-25 mg tablet 1 tab PO BEDTIME RF: 0 Fiasp FlexTouch U-100 Insulin 100 unit/mL (3 mL) insulin pen See Protocol unit subcut TIDAC RF: 0 abacavir 300 mg tablet 1 tab PO BID RF: 0 ritonavir 100 mg tablet 1 tab PO BID RF: 0 methadone [Methadone Intensol] 10 mg/mL Concentrate 60 mg PO DAILY RF: 0 prednisone 5 mg Tablet 10 mg PO DAILY RF: 0 Eliquis 2.5 mg tablet 1 tab PO BID RF: 0 Discharge Orders: Discharge Order (Routine); Ordered 10/06/21 Ordered By: Ana Alamo Diet: advance to usual diet Activity on Discharge: As tolerated Stand Alone Forms: Patient Portal Discharge page Care Plan Goals: Resolution of vasculitis Health Concerns: Vasculitis Pneumonia COPD Exacerbation Plan of Treatment: Follow up with your primary care provider as needed Continue medications as prescribed Take prednisone 40 mg for 7 days then 30 mg for 7 days then 20mg for 7 days then continue your usual dose of 10mg daily Assessment: See discharge summary
--- NOTE | 2021-10-06 14:04 | MHC.CM.PN ---
pt dcd today with resumption of [facility]
[2021-10-10 23:25] LABS: Strep Pneumo Ag urine Not Detected (Not Detected)
[2021-10-11 01:42] LABS: Legionella Ag Urine Not Detected (Not Detected)
[2021-10-12 18:07] LABS: Cryoglobulin, Qual Negative (Negative)
== END 2021-10-06 16:21 | disposition home health service (06) | DRG 545 ==
LOC: HO.ED 21:53 → HO.EDOVER 10-04 00:04 → HO.IMC 10-05 18:42
PROVIDERS: Internal Medicine; Physician Assistant; Admitting Provider Hospitalist; Emergency Provider Emergency Medicine Emergency Medical Services; PCP Internal Medicine; Visit Provider Nurse Practitioner Acute Care
DX: I77.6 Arteritis, unspecified (principal); J18.9 Pneumonia, unspecified organism; F11.20 Opioid dependence, uncomplicated; B20 Human immunodeficiency virus [HIV] disease; J44.0 Chronic obstructive pulmonary disease with (acute) lower respiratory infection; J44.1 Chronic obstructive pulmonary disease with (acute) exacerbation; E10.9 Type 1 diabetes mellitus without complications; Z86.16 Personal history of COVID-19; Z86.711 Personal history of pulmonary embolism; Z86.718 Personal history of other venous thrombosis and embolism; Z20.822 Contact with and (suspected) exposure to COVID-19; Z88.0 Allergy status to penicillin; Z88.2 Allergy status to sulfonamides; Z79.4 Long term (current) use of insulin; Z79.02 Long term (current) use of antithrombotics/antiplatelets; Z79.899 Other long term (current) drug therapy
CPT/HCPCS: 0241U; 36415; 71045; 80048; 80053; 82595; 82947; 83605; 83880; 84484; 85025; 85610; 85652; 85730; 86021; 86038; 86039; 86140; 86780; 86803; 87040; 87449; 87899; 88304; 88305; 88312; 88341; 88342; 93005; 93306; 94640; 96365; 96366; 96367; 96375; 99285; J0456; J0696; J2270; J2920; J2930; J3475

== ENCOUNTER 2022-02-12 03:17 | Inpatient (IN) | payer MEDICARE, MEDICAID, SELFPAY ==
[2022-02-12] VITALS (17 sets, daily range): BP systolic 90–129; BP diastolic 56–82; PULSE 85–160; RESP 13–37; TEMP 36.6–38.6; O2SAT 90–98; BMI 26.9
--- NOTE | 2022-02-12 | ECG_ITS ---
Test Reason : ARRYTHMIA Blood Pressure : / mmHG Vent. Rate : 059 BPM Atrial Rate : 059 BPM P-R Int : 180 ms QRS Dur : 092 ms QT Int : 462 ms P-R-T Axes : 075 063 061 degrees QTc Int : 457 ms Sinus bradycardia with sinus arrhythmia Otherwise normal ECG When compared with ECG of 13-FEB-2022 17:03, No significant change was found Referred By: Kajal Cole Electronically Signed By:MANJIT WILLETT MD
--- NOTE | ~2022-02-12 | CT_ITS ---
EXAMINATION: CT ANGIOGRAM OF THE CHEST WITH AND WITHOUT CONTRAST (CT PULMONARY ANGIOGRAM FOR PE) CLINICAL INFORMATION: Reason for Exam sob and history PE COMPARISON: 01/27/2021 TECHNIQUE: Prior to contrast administration, noncontrast localization images were obtained. Subsequently, multidetector volumetric imaging was performed from the thoracic inlet to below the diaphragms following the administration of 65 mL Omnipaque 350 intravenous contrast. No contrast reaction reported Sagittal, coronal, and MIP oblique sagittal reformatted images were obtained on the CT workstation, uploaded to PACS, and reviewed. This CT examination was performed using dose optimization techniques as appropriate, variously including the following: *Automated exposure control *Adjustment of mA and/or kV according to patient size (this includes techniques or standardized protocols for targeted exams where dose is matched to indication/reason for exam; i.e. extremities or head) *Use of iterative reconstruction technique Total exam dose-length product 379 mGy-cm FINDINGS: QUALITY OF STUDY/CONTRAST BOLUS: Satisfactory. PULMONARY ARTERIES: No central or proximal segmental pulmonary emboli. Evaluation of the more distal vasculature is significantly limited due to extensive respiratory motion artifact. THORACIC AORTA: No aneurysm or dissection. LUNG: Limited detailed evaluation due to respiratory motion artifact. There is mild to moderate upper lobe predominant emphysema. There is redemonstration of moderate to severe multifocal bronchiectasis with associated bronchial wall thickening and impacted airways which has overall worsened since 01/27/2021. PLEURA: No pleural effusion or pneumothorax. MEDIASTINUM: The visualized thyroid gland is unremarkable. There are subcentimeter mediastinal lymph nodes within the range of normal variation. Cardiac size is within normal limits; no pericardial effusion. CHEST WALL/AXILLA: No axillary or internal mammary lymphadenopathy. OSSEOUS STRUCTURES: No acute or suspicious osseous abnormality. UPPER ABDOMEN: The spleen is enlarged, measuring approximately 14.3 cm in the axial plane. No reflux of contrast into the hepatic veins to suggest elevated right heart pressures. CT/CT angio chest PE protocol IMPRESSION: 1. No central or proximal pulmonary embolus identified. However, evaluation of the distal vasculature is incomplete due to extensive respiratory motion artifact. 2. Redemonstrated moderate to severe bronchiectasis, with associated bronchial wall thickening and mucoid impaction which has worsened since 01/27/2021. 3. Splenomegaly. VTE: negative
[2022-02-12] MEDS: Magnesium Sulfate/H2O 2 GM/50 ML PIGGYBACK IV (03:25)
[2022-02-12] MEDS: methylPREDNISolone Sod Succ 125 MG/2 ML VIAL IVPUSH (03:25)
[2022-02-12] MEDS: Furosemide 20 MG/2 ML VIAL IVPUSH (03:25)
[2022-02-12 03:43] LABS: Glucose, Whole Blood 245 mg/dL (60-115)
--- NOTE | 2022-02-12 03:48 | PC.NURSE ---
Addendum entered by Verna Salmon 02/12/22 07:09: Report given AMBER Yuan Addendum entered by Verna Salmon 02/12/22 05:58: Dr. Carbajal made aware that pt temp is 101.4. verbal order for tylenol 650mg Addendum entered by Verna Salmon 02/12/22 03:58: pt denies any chest pain Original Note: pt arrived alert and oriented from home pursed lips breathing, lips appear blue, using accessory muscle breathing. per sudden onset of SOB, pt took 1mg of ativa PO. when medic arrived pt was sat 60% RA, then they put the pt in 15L of [place] oxygen nusrat increase to 90%. pt arrived in respiratory distress. hx of PE, COPD. pt take eliquis for PE. per EMS pt HR was in the high 170's. pt during triage 160's. pt started on continuos cardiac monitoring, EKG obtained, two set of IV placed . Dr. Carbajal by bedside. per Dr. Carbajal verbal order: 125mg solumedrol IV, verbal order for 2 gram of Mag wide open, 20mg of lasix all medication given at 03:25AM.
[2022-02-12 03:51] LABS: MANUAL DIFF FLAG NO
[2022-02-12 03:53] LABS: Basophils Percent Auto 0.2 % (0-2); Eosinophils Absolute Auto 0.1 X10*3/uL (0.0-0.4); Eosinophils Percent Auto 1.1 % (0-4); Hematocrit 36.9 % (42.0-52.0); Imm Gran Abs Auto 0.09 X10*3/uL (0.00-0.03); Imm Gran Pct Auto 0.8 % (0.0-0.4); Lymphocytes Absolute Auto 0.8 X10*3/uL (1.2-4.9); Lymphocytes Percent Auto 7.4 % (20-40); Mean Corpuscular HGB Conc 29.8 g/dl (31.0-36.0); Mean Corpuscular Hemoglobin 24.2 pg (27.0-33.0); Mean Corpuscular Volume 81.1 fL (80.0-98.0); Mean Platelet Volume 7.9 fL (9.4-12.4); Monocytes Absolute Auto 0.6 X10*3/uL (0.1-1.2); Monocytes Percent Auto 5.6 % (2-11); Neutrophils Percent Auto 84.9 % (45-73); Platelet Count 255 X10*3/uL (160-400); Red Blood Count 4.55 X10*6/uL (4.60-5.80); Red Cell Distribution Width 16.4 % (11.0-16.0); White Blood Count 10.6 X10*3/uL (4.8-10.8)
--- NOTE | 2022-02-12 03:56 | ED_ITS ---
HPI - SOB/Dyspnea General Chief Complaint: Dyspnea Stated Complaint: SOB Time Seen by Provider: 02/12/22 03:41 Source: patient, family () and EMS Mode of arrival: EMS Limitations: no limitations History of Present Illness HPI Narrative: 56-year-old male with past medical history of HIV on HAART, pulmonary fibrosis, PCP pneumonia, DVT/PE on Eliquis, COPD, was brought in by EMS for acute shortness of breath. Required medical control call for Versed to come down the patient. On arrival patient was diaphoretic, in acute respiratory distress, in tripod position refuse to lay back because the difficulty breathing with severe intercostal retraction and hypoxia of 66% with nasal cannula. Patient was given Lasix/magnesium/Solu-Medrol/bronchodilator and start to feel better patient now is able to provide history patient has been coughing for the last week with brown sputum. As per family patient has been vaccinated for COVID. Related Data Home Medications Medication Instructions Recorded Confirmed abacavir 300 mg tablet 1 tab PO BID 01/27/21 10/04/21 albuterol sulfate 90 mcg/actuation 2 puff PO Q4H PRN 01/27/21 10/03/21 aerosol inhaler (Ventolin HFA) dapsone 100 mg tablet 1 tab PO DAILY 01/27/21 10/03/21 darunavir ethanolate 600 mg tablet 1 tab PO BID 01/27/21 10/03/21 (Prezista) dolutegravir 50 mg tablet (Tivicay) 1 tab PO BID 01/27/21 10/03/21 emtricitabine 200 mg-tenofovir 1 tab PO BEDTIME 01/27/21 10/04/21 alafenamide fumarate 25 mg tablet (Descovy) furosemide 20 mg tablet 20 mg PO DAILY 01/27/21 10/03/21 insulin aspart See Protocol SUBCUT TIDAC 01/27/21 10/04/21 (niacinamide)(U-100) 100 unit/mL(3 mL) subcutaneous pen (Fiasp FlexTouch U-100 Insulin) insulin glargine 100 unit/mL 35 unit SUBCUT BID 01/27/21 10/04/21 subcutaneous solution (Lantus U-100 Insulin) ipratropium 0.5 mg-albuterol 3 mg 3 ml INHALATION QID 01/27/21 10/03/21 (2.5 mg base)/3 mL nebulization soln omeprazole 20 mg capsule,delayed 20 mg PO DAILY@0630 01/27/21 10/04/21 release ritonavir 100 mg tablet 1 tab PO BID 01/27/21 10/03/21 trazodone 50 mg tablet 50 mg PO BEDTIME 01/27/21 10/03/21 umeclidinium 62.5 mcg-vilanterol 1 puff INHALATION DAILY 01/27/21 10/03/21 25 mcg/actuation powdr for inhalation (Anoro Ellipta) methadone 10 mg/mL oral 60 mg PO DAILY 01/28/21 10/03/21 concentrate (Methadone Intensol) prednisone 5 mg tablet 10 mg PO DAILY 10/03/21 10/03/21 apixaban 2.5 mg tablet (Eliquis) 1 tab PO BID 10/04/21 10/04/21 Previous Rx's Medication Instructions Recorded cefuroxime axetil 500 mg tablet 500 mg PO Q12H #14 tab 10/06/21 prednisone 10 mg tablet See Taper PO DAILY #70 tab 10/06/21 Allergies Allergy/AdvReac Type Severity Reaction Status Date / Time Penicillins Allergy Severe HIves Verified 02/12/22 03:58 swelling SOB Sulfa (Sulfonamide Allergy Severe Hives Verified 02/12/22 03:58 Antibiotics) sulfamethoxazole Allergy Hives Verified 02/12/22 03:58 [From Bactrim] trimethoprim [From Bactrim] Allergy Hives Verified 02/12/22 03:58 Review of Systems Review of Systems: All other systems are reviewed and are negative Constitutional: Reports as per HPI and Reports no additional constitutional complaints Eyes: Reports as per HPI and Reports no additional eye complaints Reports system reviewed and no additional complaints, except as documented Cardiovascular: Reports as per HPI and Reports no additional cardiovascular complaints Respiratory: Reports as per HPI and Reports no additional respiratory complaints Gastrointestinal: Reports as per HPI and Reports no additional gastrointestinal complaints Genitourinary: Reports no additional female genitourinary complaints Musculoskeletal: Reports no additional musculoskeletal complaints Skin/Breast: Reports system reviewed and no additional complaints, except as docu Psychiatric: Reports no additional psychiatric complaints Endocrine: Reports no additional endocrine complaints Hematologic/Lymphatic: Reports no additional hematologic/lymphatic complaints Allergic/Immunologic: Reports no additional allergic/immunologic complaints Reports system reviewed and no additional complaints, except as documented and Reports Abnormal speech present FORMERLY [facility], [facility] Past Medical History Medical History AIDS COPD (chronic obstructive pulmonary disease) Diabetes mellitus type 1 DVT (deep venous thrombosis) HIV (human immunodeficiency virus infection) HIV disease HTN (hypertension) Pseudomonas aeruginosa colonization Pulmonary embolism Pulmonary fibrosis Thrush Social History Social History Household Members: Spouse and Children Housing: House Do you presently have visiting nurse or other home services: Yes Alcohol intake: never Patient Tobacco Use Status: Never used Tobacco Advance Directives: No service: Yes Current occupational status: disabled Physical Exam Vital Signs: Vital Signs: Last Vital Signs Temp 100 F 02/12/22 04:00 Pulse 127 H 02/12/22 04:00 Resp 30 H 02/12/22 04:00 BP 114/64 02/12/22 04:00 Pulse Ox 90 L 02/12/22 04:00 Oxygen Flow Rate 13 02/12/22 03:43 BMI result Body Mass Index 26.9 Vital signs have been reviewed as appeared to be correct. Blood pressure normal . Heart rate elevated. Respiration rate normal. Temperature elevated. Oxygen saturation normal. Appearance: Alert. Oriented X3. In acute respiratory distress. Head: Normal external exam. Normocephalic. Atraumatic. No [place] signs noted. No raccoon eyes noted Eyes: PERRLA. EOMI. Conjunctiva and sclera normal. Eyelids normal. ENT: TM's Normal. Pharynx normal. Uvula midline. Moist mucous membranes. No trismus noted. No drooling noted. No muffled voice noted. Neck: Normal inspection. Neck supple. FROM. No adenopathy. Thyroid Normal. No meningeal signs. No neck mass noted. CVS: Normal heart rate and rhythm. Heart sound normal. No murmurs noted. Pulses normal throughout. Respiratory: Acute respiratory distress. Painless inspiration. Breath sounds normal. Diffuse expiratory wheezing with prolonged expiration, increase crackles in bilateral lung bases, rales in both lung bases. Chest nontender. No accessory muscle usage noted or decreased air movement noted. Abdomen: Soft and nontender. Bowel sounds normal in all 4 quadrants. No distention noted. No organomegaly noted. No visible injury noted. Back: No CVA tenderness. Full range of motion noted. Skin: Skin warm and dry. Normal skin color. Normal skin turgor. No rashes/lesions/lacerations noted. Extremities: No lower extremity edema. Extremities exhibit normal range of motion. Extremities nontender. Neuro: Oriented X 3. Cranial nerve exam: II-XII are grossly intact No motor deficit. No sensory deficit. Reflexes normal. Course Course Course Narrative: Assessment and plan. 56 years old male with unfortunate complicated past medical history including HIV/COPD/pneumonia/PE on Eliquis came in with sudden severe respiratory distress and hypoxia and fever. Negative for new PE or pneumonia on the CT patient tested positive for COVID 19 infection. Patient improved with bronchodilator/Solu-Medrol/magnesium/Lasix. Patient received 1 dose of empirical antibiotics of Levaquin. Patient met criteria for SIRS due to viral illness in COVID. Lactic acidosis likely due to prolonged hypoxia. MDM - SOB/Dyspnea Medical Records Attestation: I reviewed the patient's medical records. Lab Data Attestation: I reviewed the patient's lab results. Result diagrams: 02/12/22 03:43 02/12/22 03:43 Labs: Lab Results 02/12/22 02/12/22 02/12/22 Range/Units 03:37 03:43 03:43 WBC 10.6 (4.8-10.8) X10*3/uL RBC 4.55 L (4.60-5.80) X10*6/uL Hgb 11.0 L (14.0-18.0) g/dl Hct 36.9 L (42.0-52.0) % MCV 81.1 (80.0-98.0) fL MCH 24.2 L (27.0-33.0) pg MCHC 29.8 L (31.0-36.0) g/dl RDW 16.4 H (11.0-16.0) % Plt Count 255 D (160-400) X10*3/uL MPV 7.9 L (9.4-12.4) fL Immature Gran % (Auto) 0.8 H (0.0-0.4) % Neut % (Auto) 84.9 H (45-73) % Lymph % (Auto) 7.4 L (20-40) % [place] % (Auto) 5.6 (2-11) % Eos % (Auto) 1.1 (0-4) % Baso % (Auto) 0.2 (0-2) % Lymph # (Auto) 0.8 L (1.2-4.9) X10*3/uL [place] # (Auto) 0.6 (0.1-1.2) X10*3/uL Eos # (Auto) 0.1 (0.0-0.4) X10*3/uL Baso # (Auto) 0.0 (0.0-0.2) X10*3/uL Abs Immat Gran (auto) 0.09 H (0.00-0.03) X10*3/uL Absolute Neuts (auto) 9.0 H (2.0-8.3) x10*3/uL Absolute Nucleated RBC 0.000 (0.0-0.012) X10*3/uL Nucleated RBC % (auto) 0.0 (0.0-0.2) /100WBC PT (9.9-13.0) SEC INR (0.9-1.1) D-Dimer High Sensitivty NG/ML O2 Saturation % ABG pH at Pt Temp (7.35-7.45) ABG pCO2 at Pt Temp (32-45) mmHg ABG pO2 at Pt Temp (83-108) mmHg ABG HCO3 (22-26) mmol/L ABG Base Excess (Actual) mmol/L Sodium 136 (135-145) mmol/L Potassium 4.5 (3.3-5.1) mmol/L Chloride 98 (96-108) mmol/L Carbon Dioxide 25 (22-29) mmol/L Anion Gap 18 (12-20) BUN 13 (9-16) mg/dL Creatinine 0.86 (0.5-1.4) mg/dL Estim Creat Clear Calc 105.2 Estimated GFR > 60 POC Glucose 245 H (60-115) mg/dL Fasting Glucose 238 H (60-99) mg/dL Lactic Acid (0.5-2.0) mmol/L Calcium 9.1 (8.4-10.2) mg/dL Total Bilirubin 0.6 (0.0-1.0) mg/dL AST 50 H D (5-37) U/L ALT 32 (0-40) U/L Alkaline Phosphatase 304 H (39-117) U/L Troponin I High Sens (<3.5-35.0) ng/L Total Protein 8.9 H (6.5-8.0) g/dL Albumin 3.7 (3.5-5.0) g/dL Ethyl Alcohol mg/dL COVID-19 (HILLARY) (Negative) COVID-19 Clin Com Influenza Type A (TYRON) (Negative) Influenza Type B (TYRON) (Negative) Influenza A & B Note 02/12/22 02/12/22 02/12/22 Range/Units 03:43 03:43 03:43 WBC (4.8-10.8) X10*3/uL RBC (4.60-5.80) X10*6/uL Hgb (14.0-18.0) g/dl Hct (42.0-52.0) % MCV (80.0-98.0) fL MCH (27.0-33.0) pg MCHC (31.0-36.0) g/dl RDW (11.0-16.0) % Plt Count (160-400) X10*3/uL MPV (9.4-12.4) fL Immature Gran % (Auto) (0.0-0.4) % Neut % (Auto) (45-73) % Lymph % (Auto) (20-40) % [place] % (Auto) (2-11) % Eos % (Auto) (0-4) % Baso % (Auto) (0-2) % Lymph # (Auto) (1.2-4.9) X10*3/uL [place] # (Auto) (0.1-1.2) X10*3/uL Eos # (Auto) (0.0-0.4) X10*3/uL Baso # (Auto) (0.0-0.2) X10*3/uL Abs Immat Gran (auto) (0.00-0.03) X10*3/uL Absolute Neuts (auto) (2.0-8.3) x10*3/uL Absolute Nucleated RBC (0.0-0.012) X10*3/uL Nucleated RBC % (auto) (0.0-0.2) /100WBC PT (9.9-13.0) SEC INR (0.9-1.1) D-Dimer High Sensitivty NG/ML O2 Saturation % ABG pH at Pt Temp (7.35-7.45) ABG pCO2 at Pt Temp (32-45) mmHg ABG pO2 at Pt Temp (83-108) mmHg ABG HCO3 (22-26) mmol/L ABG Base Excess (Actual) mmol/L Sodium (135-145) mmol/L Potassium (3.3-5.1) mmol/L Chloride (96-108) mmol/L Carbon Dioxide (22-29) mmol/L Anion Gap (12-20) BUN (9-16) mg/dL Creatinine (0.5-1.4) mg/dL Estim Creat Clear Calc Estimated GFR POC Glucose (60-115) mg/dL Fasting Glucose (60-99) mg/dL Lactic Acid (0.5-2.0) mmol/L Calcium (8.4-10.2) mg/dL Total Bilirubin (0.0-1.0) mg/dL AST (5-37) U/L ALT (0-40) U/L Alkaline Phosphatase (39-117) U/L Troponin I High Sens 13.6 D (<3.5-35.0) ng/L Total Protein (6.5-8.0) g/dL Albumin (3.5-5.0) g/dL Ethyl Alcohol mg/dL COVID-19 (HILLARY) Positive A (Negative) COVID-19 Clin Com See Note Influenza Type A (TYRON) Negative (Negative) Influenza Type B (TYRON) Negative (Negative) Influenza A & B Note See Note 02/12/22 02/12/22 02/12/22 Range/Units 03:43 03:43 03:48 WBC (4.8-10.8) X10*3/uL RBC (4.60-5.80) X10*6/uL Hgb (14.0-18.0) g/dl Hct (42.0-52.0) % MCV (80.0-98.0) fL MCH (27.0-33.0) pg MCHC (31.0-36.0) g/dl RDW (11.0-16.0) % Plt Count (160-400) X10*3/uL MPV (9.4-12.4) fL Immature Gran % (Auto) (0.0-0.4) % Neut % (Auto) (45-73) % Lymph % (Auto) (20-40) % [place] % (Auto) (2-11) % Eos % (Auto) (0-4) % Baso % (Auto) (0-2) % Lymph # (Auto) (1.2-4.9) X10*3/uL [place] # (Auto) (0.1-1.2) X10*3/uL Eos # (Auto) (0.0-0.4) X10*3/uL Baso # (Auto) (0.0-0.2) X10*3/uL Abs Immat Gran (auto) (0.00-0.03) X10*3/uL Absolute Neuts (auto) (2.0-8.3) x10*3/uL Absolute Nucleated RBC (0.0-0.012) X10*3/uL Nucleated RBC % (auto) (0.0-0.2) /100WBC PT 13.2 H (9.9-13.0) SEC INR 1.2 H (0.9-1.1) D-Dimer High Sensitivty 651 NG/ML O2 Saturation 95.0 % ABG pH at Pt Temp 7.42 (7.35-7.45) ABG pCO2 at Pt Temp 42 (32-45) mmHg ABG pO2 at Pt Temp 84 (83-108) mmHg ABG HCO3 28 H (22-26) mmol/L ABG Base Excess (Actual) 3.6 mmol/L Sodium (135-145) mmol/L Potassium (3.3-5.1) mmol/L Chloride (96-108) mmol/L Carbon Dioxide (22-29) mmol/L Anion Gap (12-20) BUN (9-16) mg/dL Creatinine (0.5-1.4) mg/dL Estim Creat Clear Calc Estimated GFR POC Glucose (60-115) mg/dL Fasting Glucose (60-99) mg/dL Lactic Acid (0.5-2.0) mmol/L Calcium (8.4-10.2) mg/dL Total Bilirubin (0.0-1.0) mg/dL AST (5-37) U/L ALT (0-40) U/L Alkaline Phosphatase (39-117) U/L Troponin I High Sens (<3.5-35.0) ng/L Total Protein (6.5-8.0) g/dL Albumin (3.5-5.0) g/dL Ethyl Alcohol < 10 mg/dL COVID-19 ([facility]ARY) (Negative) COVID-19 Clin Com Influenza Type A (TYRON) (Negative) Influenza Type B (TYRON) (Negative) Influenza A & B Note 02/12/22 Range/Units 04:27 WBC (4.8-10.8) X10*3/uL RBC (4.60-5.80) X10*6/uL Hgb (14.0-18.0) g/dl Hct (42.0-52.0) % MCV (80.0-98.0) fL MCH (27.0-33.0) pg MCHC (31.0-36.0) g/dl RDW (11.0-16.0) % Plt Count (160-400) X10*3/uL MPV (9.4-12.4) fL Immature Gran % (Auto) (0.0-0.4) % Neut % (Auto) (45-73) % Lymph % (Auto) (20-40) % [place] % (Auto) (2-11) % Eos % (Auto) (0-4) % Baso % (Auto) (0-2) % Lymph # (Auto) (1.2-4.9) X10*3/uL [place] # (Auto) (0.1-1.2) X10*3/uL Eos # (Auto) (0.0-0.4) X10*3/uL Baso # (Auto) (0.0-0.2) X10*3/uL Abs Immat Gran (auto) (0.00-0.03) X10*3/uL Absolute Neuts (auto) (2.0-8.3) x10*3/uL Absolute Nucleated RBC (0.0-0.012) X10*3/uL Nucleated RBC % (auto) (0.0-0.2) /100WBC PT (9.9-13.0) SEC INR (0.9-1.1) D-Dimer High Sensitivty NG/ML O2 Saturation % ABG pH at Pt Temp (7.35-7.45) ABG pCO2 at Pt Temp (32-45) mmHg ABG pO2 at Pt Temp (83-108) mmHg ABG HCO3 (22-26) mmol/L ABG Base Excess (Actual) mmol/L Sodium (135-145) mmol/L Potassium (3.3-5.1) mmol/L Chloride (96-108) mmol/L Carbon Dioxide (22-29) mmol/L Anion Gap (12-20) BUN (9-16) mg/dL Creatinine (0.5-1.4) mg/dL Estim Creat Clear Calc Estimated GFR POC Glucose (60-115) mg/dL Fasting Glucose (60-99) mg/dL Lactic Acid 2.5 H* (0.5-2.0) mmol/L Calcium (8.4-10.2) mg/dL Total Bilirubin (0.0-1.0) mg/dL AST (5-37) U/L ALT (0-40) U/L Alkaline Phosphatase (39-117) U/L Troponin I High Sens (<3.5-35.0) ng/L Total Protein (6.5-8.0) g/dL Albumin (3.5-5.0) g/dL Ethyl Alcohol mg/dL COVID-19 ([facility]) (Negative) COVID-19 Clin Com Influenza Type A (TYRON) (Negative) Influenza Type B (TYRON) (Negative) Influenza A & B Note Imaging Data CTA chest: Attestation: I personally reviewed and interpreted this imaging study as follows: Radiologist's impression: 1.? No central or proximal pulmonary embolus identified. However, evaluation of the distal vasculature is incomplete due to extensive respiratory motion artifact. 2.? Redemonstrated moderate to severe bronchiectasis, with associated bronchial wall thickening and mucoid impaction which has worsened since 01/27/2021. 3.? Splenomegaly. Critical Care Time Critical Care Time Critical Care Time: Yes Total Critical Care Time: 60 Attestation: I spent 60 minutes providing critical care service to the patient, this including time spent at the bedside to evaluate the patient, reassess the patient, monitoring vital signs, review labs, and radiographic studies, counseling the patient/family, discussing the case with consultants, disposition the patient. Discharge Plan Discharge Clinical Impression: Acute exacerbation of chronic obstructive airways disease, COVID-19 virus infection, Acidosis, lactic, Hypoxia, SIRS (systemic inflammatory response syndrome) Patient Disposition: Admitted As Inpatient
[2022-02-12 03:58] LABS: ABG Refer to POC result; ABG Base Excess 3.6 mmol/L; ABG HCO3 28 mmol/L (22-26); ABG pCO2 42 mmHg (32-45); ABG pH 7.42 (7.35-7.45); ABG pO2 84 mmHg (83-108)
[2022-02-12 04:00] LABS: INTERNATIONAL NORM RATIO 1.2 (0.9-1.1); Prothrombin Time 13.2 SEC (9.9-13.0)
[2022-02-12 04:02] LABS: D Dimer High Sensitivity 651 NG/ML
[2022-02-12 04:04] LABS: COVID-19 Test Positive (Negative)
[2022-02-12 04:05] LABS: Ethanol < 10 mg/dL
[2022-02-12 04:07] LABS: Alanine Aminotransferase 32 U/L (0-40); Albumin Level 3.7 g/dL (3.5-5.0); Alkaline Phosphatase 304 U/L (39-117); Anion Gap 18 (12-20); Aspartate Amino Transferase 50 U/L (5-37); Bilirubin Total 0.6 mg/dL (0.0-1.0); Blood Urea Nitrogen 13 mg/dL (9-16); Calcium 9.1 mg/dL (8.4-10.2); Carbon Dioxide 25 mmol/L (22-29); Chloride 98 mmol/L (96-108); Creatinine Clr Calc Pharmacy 105.2; Estimated Glomerular Filt Rate > 60; Glucose Fasting 238 mg/dL (60-99); Potassium 4.5 mmol/L (3.3-5.1); Sodium 136 mmol/L (135-145); Total Protein 8.9 g/dL (6.5-8.0)
[2022-02-12 04:09] LABS: IDNOW Serial# 16C4AD1C; Influenza A Negative (Negative); Influenza B2 Negative (Negative)
[2022-02-12 04:14] LABS: Troponin-I High Sensitivity 13.6 ng/L (<3.5-35.0)
[2022-02-12] MEDS: iohexoL 350 MG/ML 100 ML INFUS..BTL 65 ML IV (04:25)
[2022-02-12] MEDS: levoFLOXacin/D5W 750 MG/150 ML PIGGYBACK 100 MG IV (04:30)
[2022-02-12 04:49] LABS: Lactic Acid 2.5 mmol/L (0.5-2.0)
[2022-02-12] MEDS: Albuterol Sulfate (0.083%) 2.5 MG/3 ML VIAL.NEB 7.5 MG INHALE (05:33)
[2022-02-12] MEDS: Acetaminophen Oral Liquid 650 MG/20.3 ML SOLUTION PO (06:02)
[2022-02-12 06:34] LABS: Reflex Lactate? Lactic Acid Added
--- NOTE | 2022-02-12 07:18 | PC.NURSE ---
pt is sleeping resp even and unlabored. end-tidal co2 is 38, on 5L/m via n/c - 94%
[2022-02-12 07:50] LABS: ~Lactic Acid-LAB USE ONLY 2.7 mmol/L (0.5-2.0)
[2022-02-12 09:34] LABS: Reflex Lactate? 2 Y
[2022-02-12 10:07] LABS: ~Lactic Acid-LAB USE ONLY 2.4 mmol/L (0.5-2.0)
--- NOTE | 2022-02-12 10:36 | PHA.MEDREC ---
Pharmacy Consult ? Medication Reconciliation Pharmacy has completed the medication reconciliation. Patient refused to wake up even after trying to shake the patient. Eye open for a second then never spoke. Med rec done by claim history. Patient will have to report his methadone clinic at a later time if he still uses methadone. Daylin Coyle, PharmD
--- NOTE | 2022-02-12 10:41 | PC.NURSE ---
pt's ricky de la cruz ([phone]) [place] [facility] [place] status.
--- NOTE | 2022-02-12 10:53 | PC.NURSE ---
pt is sleeping resp even and unlabored.
--- NOTE | 2022-02-12 11:09 | P.HPHOSP_ITS ---
History of Present Illness Date of Service: 02/12/22 Attending physician on admission: Rosalind Rodriguez Chief Complaint: Shortness of breath 56-year-old gentleman with past medical history significant for HIV/AIDS, COPD, diabetes mellitus, history of DVT, hypertension, Pseudomonas: Eyes a magana, history of pulmonary fibrosis was brought into [facility] by EMS due to acute onset of shortness of breath, on arrival to ED patient was noted to be in respiratory distress diaphoretic, in tripod position with severe intercostal retraction was noted to be hypoxic with finger oximetry of 66% by nasal cannula patient was treated aggressively with IV Solu-Medrol, IV magnesium, bronchodilator patient responded well to above treatment and was able to provide more history, as per patient she has been having cough with green sputum for last 1 week associated with fever chills he lives at home with he denies any sick contacts he denies any recent travels he denies associated lightheadedn ess dizziness, no nausea no, no vomiting or diarrhea he is compliant with his HIV medication, labs showed normal WBC, normal platelets and stable hematocrit, renal function and electrolytes are within normal range, CTA chest showed no PE distal arteries were not well visualized but patient was noted to have mucus plugging and bronchiectasis, elevated lactic acidosis likely related to use of albuterol, patient treated aggressively in the emergency room as above currently feeling better and being admitted to [facility] with a diagnosis of acute hypoxic respiratory failure with COPD exacerbation Review of Systems Review of Systems: General no headache, no dizziness no fever chills. CVS no chest pain, no palpitation. Respiratory shortness of breath, productive cough of greenish brown sputum Gastrointestinal no nausea, no vomiting, no abdominal pain no urgency, no frequency Yes all other systems are reviewed and are negative [facility] Medical History (Updated 02/12/22 @ 15:33 by Dinah Wolff MD) AIDS COPD (chronic obstructive pulmonary disease) Diabetes mellitus type 1 DVT (deep venous thrombosis) HIV (human immunodeficiency virus infection) HIV disease HTN (hypertension) Pseudomonas aeruginosa colonization Pulmonary embolism Pulmonary fibrosis Thrush Pertinent family history: Father has diabetes and prostate cancer Mother has epilepsy and diabetes Social History Household Members: Spouse and Children Housing: House Do you presently have visiting nurse or other home services: Yes Alcohol intake: never Patient Tobacco Use Status: Never used Tobacco Advance Directives: No service: No Current occupational status: disabled Meds Allergies Allergy/AdvReac Type Severity Reaction Status Date / Time Penicillins Allergy Severe HIves Verified 02/12/22 03:58 swelling SOB Sulfa (Sulfonamide Allergy Severe Hives Verified 02/12/22 03:58 Antibiotics) sulfamethoxazole Allergy Hives Verified 02/12/22 03:58 [From Bactrim] trimethoprim [From Bactrim] Allergy Hives Verified 02/12/22 03:58 Active Medications: Current Medications Acetaminophen (Acetaminophen 325 Mg Tablet) 650 mg PO Q6H PRN PRN Reason: Pain, Mild (Pain Scale 1-3) Albuterol/Ipratropium (Albuterol/Iprat 2.5/0.5mg 3 Ml Ampul.Neb) 3 ml INHALE RQ4H WHILE AWAKE [facility] Apixaban (Apixaban 2.5 Mg Tablet) 2.5 mg PO BID [facility] Dapsone (Dapsone 25 Mg Tablet) 100 mg PO DAILY [facility] Darunavir (Darunavir Ethanolate 600 Mg Tablet) 600 mg PO BID [facility] Dolutegravir Sodium (Dolutegravir Sodium 50 Mg Tablet) 50 mg PO BID [facility] Emtricitabine/Tenofovir Alafenamide (Emtricitabine/Tenofov Alafenam Tablet) 1 tab PO DAILY [facility] Guaifenesin (Guaifenesin La 600 Mg Tab.Er.12h) 600 mg PO BID [facility] Levofloxacin (Levaquin) 750 mg in 150 mls @ 100 mls/hr IV Q24H [facility] Methylprednisolone Sodium Succinate (Methylprednisolone Sod Succ 125 Mg/2 Ml Vial) 60 mg IVPUSH Q12H [facility] Non-Formulary Medication (Umeclidinium-Vilanterol [Anoro Ellipta]) 1 puff INHALE DAILY [facility] Ondansetron HCl (Ondansetron Hcl 4 Mg/2 Ml Vial) 4 mg IVPUSH Q8H PRN PRN Reason: Nausea and Vomiting Ritonavir (Ritonavir 100 Mg Tablet) 100 mg PO BID [facility] Sodium Chloride (0.9 % Sodium Chloride Flush 3 Ml Syringe) 3 ml IVFLUSH QSHIFT [facility] Home Medications Medication Instructions Recorded Confirmed Last Taken Type albuterol sulfate 90 mcg/actuation 2 puff PO Q4H PRN 0502/12/22 10/03/21 History aerosol inhaler (Ventolin HFA) dapsone 100 mg tablet 1 tab PO DAILY 01/27/21 02/12/22 10/03/21 History ipratropium 0.5 mg-albuterol 3 mg 3 ml INHALATION QID 01/27/21 02/12/22 10/03/21 History (2.5 mg base)/3 mL nebulization soln ritonavir 100 mg tablet 1 tab PO BID 01/27/21 02/12/22 10/03/21 History methadone 10 mg/mL oral 60 mg PO DAILY 01/28/21 10/03/21 10/03/21 History concentrate (Methadone Intensol) prednisone 5 mg tablet 10 mg PO DAILY 10/03/21 02/12/22 10/03/21 History apixaban 2.5 mg tablet (Eliquis) 1 tab PO BID 02/12/22 02/12/22 Unknown History azelastine 137 mcg (0.1 %) nasal 1 spray INTRANASAL BID 02/12/22 02/12/22 Unknown History spray aerosol darunavir ethanolate 600 mg tablet 1 tab PO BID 02/12/22 02/12/22 Unknown History (Prezista) dolutegravir 50 mg tablet (Tivicay) 1 tab PO BID 02/12/22 02/12/22 Unknown History emtricitabine 200 mg-tenofovir 1 tab PO DAILY 02/12/22 02/12/22 Unknown History alafenamide fumarate 25 mg tablet (Descovy) insulin aspart 10 - 24 unit SUBCUT TID 02/12/22 02/12/22 Unknown History (niacinamide)(U-100) 100 unit/mL(3 mL) subcutaneous pen (Fiasp FlexTouch U-100 Insulin) insulin glargine 100 unit/mL 40 unit SUBCUT BID 02/12/22 02/12/22 Unknown History subcutaneous solution (Lantus U-100 Insulin) umeclidinium 62.5 mcg-vilanterol 1 puff INHALATION DAILY 02/12/22 02/12/22 Unknown History 25 mcg/actuation powdr for inhalation (Anoro Ellipta) Physical Exam Vital Signs and Narrative: Vital Signs: Last Vital Signs Temp 98.7 F 02/12/22 09:36 Pulse 86 02/12/22 10:40 Resp 15 02/12/22 10:40 BP 96/60 02/12/22 10:40 Pulse Ox 95 02/12/22 10:40 Oxygen Flow Rate 13 02/12/22 03:43 BMI result Body Mass Index 26.9 Const: Other: General awake alert x3, no acute distress. HEENT pupils equal round reactive to light and accommodation Neck supple no JVD. CVS regular rate rhythm, Respiratory lungs bilateral rhonchi, no respiratory distress Gastrointestinal abdomen soft, obese, nontender, bowel sounds audible, no guarding , no rigidity. Extremities no edema. Neuro nonfocal Skin no rash. Psych appropriate affect Results Labs CBC and Chem 7: 02/12/22 03:43 02/12/22 03:43 Labs: Laboratory Results - last 24 hr 02/12/22 02/12/22 02/12/22 03:37 03:43 03:43 MCV 81.1 MCH 24.2 L MCHC 29.8 L RDW 16.4 H Plt Count 255 D MPV 7.9 L Immature Gran % (Auto) 0.8 H Neut % (Auto) 84.9 H Lymph % (Auto) 7.4 L [place] % (Auto) 5.6 Eos % (Auto) 1.1 Baso % (Auto) 0.2 Lymph # (Auto) 0.8 L [place] # (Auto) 0.6 Eos # (Auto) 0.1 Baso # (Auto) 0.0 Abs Immat Gran (auto) 0.09 H Absolute Neuts (auto) 9.0 H Absolute Nucleated RBC 0.000 Nucleated RBC % (auto) 0.0 PT INR D-Dimer High Sensitivty O2 Saturation ABG pH at Pt Temp ABG pCO2 at Pt Temp ABG pO2 at Pt Temp ABG HCO3 ABG Base Excess (Actual) Anion Gap 18 Estim Creat Clear Calc 105.2 Estimated GFR > 60 POC Glucose 245 H Fasting Glucose 238 H Lactic Acid Lactic Acid F/U @ 2Hr Lactic Acid F/U @ 4Hr Calcium 9.1 Total Bilirubin 0.6 AST 50 H D ALT 32 Alkaline Phosphatase 304 H Troponin I High Sens Total Protein 8.9 H Albumin 3.7 Ethyl Alcohol COVID-19 ([facility]) COVID-19 Clin Com Influenza Type A ([facility]ON) Influenza Type B (T[facility]ON) Influenza A & B Note 02/12/22 02/12/2222 03:43 03:43 03:43 MCV MCH MCHC RDW Plt Count MPV Immature Gran % (Auto) Neut % (Auto) Lymph % (Auto) [place] % (Auto) Eos % (Auto) Baso % (Auto) Lymph # (Auto) [place] # (Auto) Eos # (Auto) Baso # (Auto) Abs Immat Gran (auto) Absolute Neuts (auto) Absolute Nucleated RBC Nucleated RBC % (auto) PT INR D-Dimer High Sensitivty O2 Saturation ABG pH at Pt Temp ABG pCO2 at Pt Temp ABG pO2 at Pt Temp ABG HCO3 ABG Base Excess (Actual) Anion Gap Estim Creat Clear Calc Estimated GFR POC Glucose Fasting Glucose Lactic Acid Lactic Acid F/U @ 2Hr Lactic Acid F/U @ 4Hr Calcium Total Bilirubin AST ALT Alkaline Phosphatase Troponin I High Sens 13.6 D Total Protein Albumin Ethyl Alcohol COVID-19 ([facility]) Positive A COVID-19 Clin Com See Note Influenza Type A (TYRON) Negative Influenza Type B ([facility]ON) Negative Influenza A & B Note See Note 02/12/22 02/12/22 02/12/22 03:43 03:43 03:48 MCV MCH MCHC RDW Plt Count MPV Immature Gran % (Auto) Neut % (Auto) Lymph % (Auto) [place] % (Auto) Eos % (Auto) Baso % (Auto) Lymph # (Auto) [place] # (Auto) Eos # (Auto) Baso # (Auto) Abs Immat Gran (auto) Absolute Neuts (auto) Absolute Nucleated RBC Nucleated RBC % (auto) PT 13.2 H INR 1.2 H D-Dimer High Sensitivty 651 O2 Saturation 95.0 ABG pH at Pt Temp 7.42 ABG pCO2 at Pt Temp 42 ABG pO2 at Pt Temp 84 ABG HCO3 28 H ABG Base Excess (Actual) 3.6 Anion Gap Estim Creat Clear Calc Estimated GFR POC Glucose Fasting Glucose Lactic Acid Lactic Acid F/U @ 2Hr Lactic Acid F/U @ 4Hr Calcium Total Bilirubin AST ALT Alkaline Phosphatase Troponin I High Sens Total Protein Albumin Ethyl Alcohol < 10 COVID-19 ([facility]) COVID-19 Clin Com Influenza Type A ([facility]ON) Influenza Type B (TYRON) Influenza A & B Note 02/12/22 02/12/22 02/12/22 04:27 07:29 09:46 MCV MCH MCHC RDW Plt Count MPV Immature Gran % (Auto) Neut % (Auto) Lymph % (Auto) [place] % (Auto) Eos % (Auto) Baso % (Auto) Lymph # (Auto) [place] # (Auto) Eos # (Auto) Baso # (Auto) Abs Immat Gran (auto) Absolute Neuts (auto) Absolute Nucleated RBC Nucleated RBC % (auto) PT INR D-Dimer High Sensitivty O2 Saturation ABG pH at Pt Temp ABG pCO2 at Pt Temp ABG pO2 at Pt Temp ABG HCO3 ABG Base Excess (Actual) Anion Gap Estim Creat Clear Calc Estimated GFR POC Glucose Fasting Glucose Lactic Acid 2.5 H* Lactic Acid F/U @ 2Hr 2.7 H* Lactic Acid F/U @ 4Hr 2.4 H* Calcium Total Bilirubin AST ALT Alkaline Phosphatase Troponin I High Sens Total Protein Albumin Ethyl Alcohol COVID-19 ([facility]) COVID-19 Clin Com Influenza Type A ([facility]ON) Influenza Type B (TYRON) Influenza A & B Note Imaging Radiologist's Impressions: Impressions Chest CTA 02/12/22 04:20 IMPRESSION: 1. No central or proximal pulmonary embolus identified. However, evaluation of the distal vasculature is incomplete due to extensive respiratory motion artifact. 2. Redemonstrated moderate to severe bronchiectasis, with associated bronchial wall thickening and mucoid impaction which has worsened since 01/27/2021. 3. Splenomegaly. VTE: negative Assessment and Plan (1) Acute exacerbation of chronic obstructive airways disease: Status: Acute (2) COVID-19 virus infection: Status: Acute (3) Acidosis, lactic: Status: Acute (4) Hypoxia: Status: Acute Plan 56-year-old gentleman with past medical history significant for chronic hypoxic respiratory failure on home oxygen, COPD, pulmonary fibrosis, bronchiectasis, HIV on Koenig therapy, presented to [facility] with symptoms of shortness of breath gradually progressing over course of 1 week, CTA chest showed no PE but suggestive of bronchiectasis and mucous plugging, COVID 19 test positive. Acute on chronic hypoxic respiratory failure due to COPD exacerbation and COVID- 19 infection Admitted to isolation/place on IV steroid/IV Levaquin/scheduled and as needed updraft treatment Continue O2 support and gradually wean to home dose Schedule cough expectorant Obtain pulmonary consultation with CT chest showing moderate to severe bronchie ctasis with associated bronchial wall thickening and mucoid impaction Case discussed with ID patient started on remdesivir/ patient status post COVID vaccine and 2 boosters, receive last booster in December HIV continue HAART treatment Diabetes mellitus type 2 on insulin patient on Lantus twice daily and pre meal Humalog will place patient on diabetic diet insulin sliding scale and Lantus takes 40 units b.i.d. at home adjust dosage Opioid use disorder continue methadone, pharmacy to verify dosage care History of PE/DVT on Eliquis DVT prophylaxis on Eliquis Code status full code Patient will need 2 night inpatient hospitalization due to acute hypoxic respiratory failure with bronchiectasis and COVID-19 infection, will require IV antibiotics IV steroid and close clinical monitoring. Quality Stroke Does the patient have a stroke diagnosis?: No VTE Prior VTE?: No VTE Risk Level:: Medical - moderate - high VTE Device Contraindication: Treatment Not Indicated VTE Drug Contraindication: N/A - Med Ordered
[2022-02-12] MEDS: guaiFENesin LA 600 MG TAB.ER.12H PO ×2 (12:24→21:56)
--- NOTE | 2022-02-12 15:28 | W.PM.IDCN ---
History of Present Illness Data of Consult Service Date: 02/12/22 Requesting physician: Rosalind Rodriguez Primary Care Provider: Jeremy Romano MD HPI Reason for consult: COVID,shortness of breath He presents with one day shortness of breath and cough. He has received four doses of COVID vaccine with last booster January 17. He sees Dr Ben Brush at [facility] for HIV care. CT chest shows bronchiectasis. Review of Systems Review of Systems: Yes all other systems are reviewed and are negative [facility] Past Medical History Medical History (Updated 02/12/22 @ 15:33 by Dinah Wolff MD) AIDS COPD (chronic obstructive pulmonary disease) Diabetes mellitus type 1 DVT (deep venous thrombosis) HIV (human immunodeficiency virus infection) HIV disease HTN (hypertension) Pseudomonas aeruginosa colonization Pulmonary embolism Pulmonary fibrosis Thrush Family History Family history: reviewed and not pertinent Social History Social History Household Members: Spouse and Children Housing: House Do you presently have visiting nurse or other home services: Yes Alcohol intake: never Patient Tobacco Use Status: Never used Tobacco Advance Directives: No service: Yes Current occupational status: disabled Meds Allergies Allergy/AdvReac Type Severity Reaction Status Date / Time Penicillins Allergy Severe HIves Verified 02/12/22 03:58 swelling SOB Sulfa (Sulfonamide Allergy Severe Hives Verified 02/12/22 03:58 Antibiotics) sulfamethoxazole Allergy Hives Verified 02/12/22 03:58 [From Bactrim] trimethoprim [From Bactrim] Allergy Hives Verified 02/12/22 03:58 Active Medications: Current Medications Acetaminophen (Acetaminophen 325 Mg Tablet) 650 mg PO Q6H PRN PRN Reason: Pain, Mild (Pain Scale 1-3) Albuterol/Ipratropium (Albuterol/Iprat 2.5/0.5mg 3 Ml Ampul.Neb) 3 ml INHALE RQ4H WHILE AWAKE [facility] Last Admin: 02/12/22 12:36 Dose: Not Given Documented by: Apixaban (Apixaban 2.5 Mg Tablet) 2.5 mg PO BID [facility] Dapsone (Dapsone 25 Mg Tablet) 100 mg PO DAILY [facility] Darunavir (Darunavir Ethanolate 600 Mg Tablet) 600 mg PO BID [facility] Dolutegravir Sodium (Dolutegravir Sodium 50 Mg Tablet) 50 mg PO BID [facility] Emtricitabine/Tenofovir Alafenamide (Emtricitabine/Tenofov Alafenam Tablet) 1 tab PO DAILY [facility] Guaifenesin (Guaifenesin La 600 Mg Tab.Er.12h) 600 mg PO BID [facility] Last Admin: 02/12/22 12:24 Dose: 600 mg Documented by: Levofloxacin (Levaquin) 750 mg in 150 mls @ 100 mls/hr IV Q24H [facility] Remdesivir 200 mg/ Sodium (Chloride) 210 mls @ 105 mls/hr IV ONCE ONE Stop: 02/12/22 18:59 Remdesivir 100 mg/ Sodium (Chloride) 230 mls @ 115 mls/hr IV Q24H [facility] Stop: 02/16/22 18:59 Methylprednisolone Sodium Succinate (Methylprednisolone Sod Succ 125 Mg/2 Ml Vial) 60 mg IVPUSH Q12H [facility] Non-Formulary Medication (Umeclidinium-Vilanterol [Anoro Ellipta]) 1 puff INHALE DAILY [facility] Ondansetron HCl (Ondansetron Hcl 4 Mg/2 Ml Vial) 4 mg IVPUSH Q8H PRN PRN Reason: Nausea and Vomiting Ritonavir (Ritonavir 100 Mg Tablet) 100 mg PO BID [facility] Sodium Chloride (0.9 % Sodium Chloride Flush 3 Ml Syringe) 3 ml IVFLUSH QSHIFT [facility] Home Medications Medication Instructions Recorded Confirmed Last Taken Type albuterol sulfate 90 mcg/actuation 2 puff PO Q4H PRN 01/27/21 02/12/22 10/03/21 History aerosol inhaler (Ventolin HFA) dapsone 100 mg tablet 1 tab PO DAILY 01/27/21 02/12/22 10/03/21 History ipratropium 0.5 mg-albuterol 3 mg 3 ml INHALATION QID 01/27/21 02/12/22 10/03/21 History (2.5 mg base)/3 mL nebulization soln ritonavir 100 mg tablet 1 tab PO BID 01/27/21 02/12/22 10/03/21 History methadone 10 mg/mL oral 60 mg PO DAILY 01/28/21 10/03/21 10/03/21 History concentrate (Methadone Intensol) prednisone 5 mg tablet 10 mg PO DAILY 10/03/21 02/12/2210/03/22 History apixaban 2.5 mg tablet (Eliquis) 1 tab PO BID 02/12/22 02/12/22 Unknown History azelastine 137 mcg (0.1 %) nasal 1 spray INTRANASAL BID 02/12/22 02/12/22 Unknown History spray aerosol darunavir ethanolate 600 mg tablet 1 tab PO BID 02/12/22 02/12/22 Unknown History (Prezista) dolutegravir 50 mg tablet (Tivicay) 1 tab PO BID 02/12/22 02/12/22 Unknown History emtricitabine 200 mg-tenofovir 1 tab PO DAILY 02/12/22 02/12/22 Unknown History alafenamide fumarate 25 mg tablet (Descovy) insulin aspart 10 - 24 unit SUBCUT TID 02/12/22 02/12/22 Unknown History (niacinamide)(U-100) 100 unit/mL(3 mL) subcutaneous pen (Fiasp FlexTouch U-100 Insulin) insulin glargine 100 unit/mL 40 unit SUBCUT BID 02/12/22 02/12/22 Unknown History subcutaneous solution (Lantus U-100 Insulin) umeclidinium 62.5 mcg-vilanterol 1 puff INHALATION DAILY 02/12/22 02/12/22 Unknown History 25 mcg/actuation powdr for inhalation (Anoro Ellipta) Physical Exam Vital Signs: Vital Signs: Last Vital Signs Temp 98.0 F 02/12/22 15:12 Pulse 112 H 02/12/22 15:12 Resp 21 H 02/12/22 15:12 BP 120/78 02/12/22 15:12 Pulse Ox 95 02/12/22 15:12 Oxygen Flow Rate 13 02/12/22 03:43 BMI result Body Mass Index 26.9 Const: General: cooperative Eyes: General: appearance normal, both eyes and all related structures Resp: Effort & Inspection: normal respiratory effort Cardio: Rate: regular rate Rhythm: regular rhythm GI: Palpation (GI): Soft to palpation and nontender Results Labs CBC & Chem 7: 02/12/22 03:43 02/12/22 03:43 Labs: Short CBC 02/12/22 Range/Units 03:43 WBC 10.6 (4.8-10.8) X10*3/uL Hgb 11.0 L (14.0-18.0) g/dl Hct 36.9 L (42.0-52.0) % Plt Count 255 D (160-400) X10*3/uL BMP 02/12/22 03:43 Sodium 136 Potassium 4.5 Chloride 98 Carbon Dioxide 25 BUN 13 Creatinine 0.86 Calcium 9.1 Liver Function 02/12/22 Range/Units 03:43 Total Bilirubin 0.6 (0.0-1.0) mg/dL AST 50 H D (5-37) U/L ALT 32 (0-40) U/L Alkaline Phosphatase 304 H (39-117) U/L Albumin 3.7 (3.5-5.0) g/dL Assessment and Plan (1) Acute exacerbation of chronic obstructive airways disease: Status: Acute Levaquin appropriate for mucoid bronciectasis for 7 days,can go to po (2) COVID-19 virus infection: Status: Acute Dexamethasone 6 mg daily fo r10 da Remdesivir for now (3) HIV (human immunodeficiency virus infection): Status: Acute Plan Continue HIV meds
--- NOTE | 2022-02-12 15:43 | MHC.CM.PN ---
PT REPORTS HE IS ACTIVE WITH THE [facility] T/W AND RN RAFAEL MADE MULTIPLE ATTEMPTS TO CALL [facility] TO CONFIRM PTS DOSE HOWEVER ALL NUMBERS LEAD TO VM. MESSAGE LEFT REQUESTING A RETURN CALL
[2022-02-12] MEDS: Albuterol/Iprat 2.5/0.5MG 3 ML AMPUL.NEB INHALE ×2 (16:24→19:36)
[2022-02-12] MEDS: methylPREDNISolone Sod Succ 125 MG/2 ML VIAL 60 MG IVPUSH (16:48)
[2022-02-12] MEDS: 0.9 % Sodium Chloride Flush 3 ML SYRINGE IVFLUSH (16:48)
[2022-02-12] MEDS: Remdesivir 200 MG in 0.9 % Sodium Chloride 210 ML 105 MG IV (17:28)
[2022-02-12] MEDS: methADONE HCl 20 MG/2 ML ORAL.CONC 30 MG PO (17:32)
--- NOTE | 2022-02-12 18:49 | MHC.CM.PN ---
IMM 02/12. HCP on file. HCP/ Jayne Santana ([phone]). A&Ox4. Very pleasant man with multiple medical issues, including HIV, methadone, DM, PE. DVT Pulmonary fibrosis and Covid 19. Home Oxygen continuous at 4L. Uses a walker, w/c, nebulizer, and DM testing supplies. Has daily nurse from [facility] for medications. CM and recovery services unable to verify Methadone dose at [facility]. Messages left. Lives with . Pt states his has tested negative for Covid 19, but his 18 year old son has tested positive today. Vax/Boosted x4/Pfizer. Last booster 01/17/22. D/C plan is home ?[facility] at d/c if needed. to provide transport. CM to follow for d/c needs.
[2022-02-12 19:08] LABS: Glucose, Whole Blood 327 mg/dL (60-115)
--- NOTE | 2022-02-12 19:20 | PC.NURSE ---
Patient reports taking sliding scale insulin at home, not ordered. Informed hospitalist.
[2022-02-12] MEDS: Insulin Lispro 100 UNIT/ML 3 ML VIAL SUBCUT (19:32)
--- NOTE | 2022-02-12 21:50 | PC.NURSE ---
PATIENT CAME OVER FROM MAIN ED TO OVERFLOW ,PATIENT HAD TURKEY SANDWICH AND KAYLA CHEYANNE FOR SNACK .
[2022-02-12] MEDS: Apixaban 2.5 MG TABLET PO (21:56)
[2022-02-12] MEDS: DARUNAVIR ETHANOLATE 600 MG PO (21:57)
[2022-02-12] MEDS: RITONAVIR 100 MG PO (21:58)
[2022-02-12] MEDS: Dolutegravir Sodium 50 MG TABLET PO (21:58)
[2022-02-13] VITALS (9 sets, daily range): BP systolic 99–121; BP diastolic 59–79; PULSE 79–93; RESP 14–22; TEMP 36.3–36.8; O2SAT 93–97
--- NOTE | 2022-02-13 | ECG_ITS ---
Test Reason : GENERAL MEDICAL Blood Pressure : / mmHG Vent. Rate : 074 BPM Atrial Rate : 074 BPM P-R Int : 188 ms QRS Dur : 094 ms QT Int : 434 ms P-R-T Axes : 079 063 064 degrees QTc Int : 481 ms Normal sinus rhythm Prolonged QT Abnormal ECG When compared with ECG of 03-OCT-2021 20:16, Vent. rate has decreased BY 40 BPM Nonspecific T wave abnormality no longer evident in Inferior leads T wave amplitude has increased in Lateral leads Referred By: Kajal Cole Electronically Signed By:MANJIT WILLETT MD
--- NOTE | 2022-02-13 00:31 | PC.NURSE ---
patient voided 400 ml yellow color urine at 0030 .
--- NOTE | 2022-02-13 02:30 | PC.NURSE ---
check on patient ,patient is sleeping at this time .
[2022-02-13] MEDS: levoFLOXacin/D5W 750 MG/150 ML PIGGYBACK 100 MG IV (05:11)
[2022-02-13] MEDS: methylPREDNISolone Sod Succ 125 MG/2 ML VIAL 60 MG IVPUSH (05:11)
[2022-02-13 07:40] LABS: Glucose, Whole Blood 313 mg/dL (60-115)
[2022-02-13] MEDS: Insulin Lispro 100 UNIT/ML 3 ML VIAL SUBCUT ×4 (07:57→22:38)
[2022-02-13] MEDS: Dapsone 25 MG TABLET 100 MG PO (07:58)
[2022-02-13] MEDS: Dolutegravir Sodium 50 MG TABLET PO ×2 (07:59→22:22)
[2022-02-13] MEDS: DARUNAVIR ETHANOLATE 600 MG PO ×2 (07:59→22:22)
[2022-02-13] MEDS: Emtricitabine/Tenofov Alafenam TABLET 1 TAB PO (07:59)
[2022-02-13] MEDS: Apixaban 2.5 MG TABLET PO ×2 (07:59→22:22)
[2022-02-13] MEDS: RITONAVIR 100 MG PO ×2 (07:59→22:22)
[2022-02-13] MEDS: guaiFENesin LA 600 MG TAB.ER.12H PO ×2 (07:59→22:22)
[2022-02-13] MEDS: 0.9 % Sodium Chloride Flush 3 ML SYRINGE IVFLUSH ×2 (08:03→15:51)
[2022-02-13] MEDS: Albuterol/Iprat 2.5/0.5MG 3 ML AMPUL.NEB INHALE ×4 (08:50→19:36)
--- NOTE | 2022-02-13 09:24 | PM.EVENT ---
Event Note Date of Service: 02/13/22 Event Note: Methadone dose verified as 60mg daily, by Malgorzata Mcdonough. Ordered 60mg methadone daily, start now.
--- NOTE | 2022-02-13 10:11 | MHC.RECOVSUP ---
Recovery Support note: Patient is a 56 year old Turkmen speaking male who presented to [facility] due to respiratory distress and is currently medically admitted. This business writer met with patient on 02/12 to discuss methadone dosing. Patient reports he received 60mg on 02/11 and that he gets his methadone through [facility]. At that time, [facility] was closed and his dose could not be confirmed. Discussed case with Maryjo CONCEPCION and patient was given 30mg. On 02/13 this business writer spoke with [facility] who confirm that patient receives 60mg take home bottles that are given to him by [facility]. Jermaine at [facility] confirms that patient received 60mg on 02/11. Discussed case with Maryjo CONCEPCION, patient to resume his regular dose of 60mg.
--- NOTE | 2022-02-13 10:15 | P.PNIM_ITS ---
Subjective Subjective Date of Service: 02/13/22 Interval History: feeling better this morning still short of breath, dry cough, denies nausea vomiting no fever no chills, tolerating diet, use 4 L of oxygen at home currently oxygen stable. 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 Neck? supple no JVD. CVS? regular rate rhythm, Respiratory lungs bilateral rhonchi, no respiratory distress, no crackles Gastrointestinal abdomen soft, obese, nontender, bowel sounds audible, no guarding , no rigidity. Extremities no? edema. Neuro nonfocal Skin no rash. Psych appropriate affect Objective Data Active Medications Acetaminophen (Acetaminophen 325 Mg Tablet) 650 mg PO Q6H PRN PRN Reason: Pain, Mild (Pain Scale 1-3) Albuterol/Ipratropium (Albuterol/Iprat 2.5/0.5mg 3 Ml Ampul.Neb) 3 ml INHALE RQ4H WHILE AWAKE ON LICENSE OF [facility] Last Admin: 02/13/22 08:50 Dose: 3 ml Documented by: SUSY Apixaban (Apixaban 2.5 Mg Tablet) 2.5 mg PO BID ON LICENSE OF [facility] Last Admin: 02/13/22 07:59 Dose: 2.5 mg Documented by: GEORGE Dapsone (Dapsone 25 Mg Tablet) 100 mg PO DAILY ON LICENSE OF [facility] Last Admin: 02/13/22 07:58 Dose: 100 mg Documented by: GEORGE Darunavir (Darunavir Ethanolate 600 Mg Tablet) 600 mg PO BID ON LICENSE OF [facility] Last Admin: 02/13/22 07:59 Dose: 600 mg Documented by: GEORGE Dextrose (Dextrose 50 % 25 Gm/50 Ml Syringe) 25 gm IVPUSH Q15M PRN; Protocol PRN Reason: per Hypoglycemia Standing Ord. Dolutegravir Sodium (Dolutegravir Sodium 50 Mg Tablet) 50 mg PO BID ON LICENSE OF [facility] Last Admin: 02/13/22 07:59 Dose: 50 mg Documented by: GEORGE Emtricitabine/Tenofovir Alafenamide (Emtricitabine/Tenofov Alafenam Tablet) 1 tab PO DAILY ON LICENSE OF [facility] Last Admin: 02/13/22 07:59 Dose: 1 tab Documented by: GEORGE Glucose (Glucose Gel 15 Gm Gel..Gram.) 15 gm PO Q15M PRN; Protocol PRN Reason: per Hypoglycemia Standing Ord. Guaifenesin (Guaifenesin La 600 Mg Tab.Er.12h) 600 mg PO BID ON LICENSE OF [facility] Last Admin: 02/13/22 07:59 Dose: 600 mg Documented by: GEORGE Levofloxacin (Levaquin) 750 mg in 150 mls @ 100 mls/hr IV Q24H ON LICENSE OF [facility] Last Infusion: 02/13/22 06:42 Dose: 0 mls/hr Documented by: ANGELIA Remdesivir 100 mg/ Sodium (Chloride) 230 mls @ 115 mls/hr IV Q24H ON LICENSE OF [facility] Stop: 02/16/22 18:59 Insulin Glargine (Insulin Glargine,Hum.Rec.Anlog 100 Unit/Ml 10 Ml Vial) 20 unit SUBCUT BEDTIME ON LICENSE OF [facility] Insulin Human Lispro (Insulin Lispro 100 Unit/Ml 3 Ml Vial) 0 unit SUBCUT QIDACHS ON LICENSE OF [facility]; Protocol Last Admin: 02/13/22 07:57 Dose: 8 unit Documented by: GEORGE Methadone HCl (Methadone Hcl 20 Mg/2 Ml Oral.Conc) 60 mg PO DAILY ON LICENSE OF [facility] Methylprednisolone Sodium Succinate (Methylprednisolone Sod Succ 125 Mg/2 Ml Vi al) 40 mg IVPUSH Q12H ON LICENSE OF [facility] Non-Formulary Medication (Umeclidinium-Vilanterol [Anoro Ellipta]) 1 puff INHALE DAILY ON LICENSE OF [facility] Ondansetron HCl (Ondansetron Hcl 4 Mg/2 Ml Vial) 4 mg IVPUSH Q8H PRN PRN Reason: Nausea and Vomiting Ritonavir (Ritonavir 100 Mg Tablet) 100 mg PO BID ON LICENSE OF [facility] Last Admin: 02/13/22 07:59 Dose: 100 mg Documented by: GEORGE Sodium Chloride (0.9 % Sodium Chloride Flush 3 Ml Syringe) 3 ml IVFLUSH QSHIFT ON LICENSE OF [facility] Last Admin: 02/13/22 08:03 Dose: 3 ml Documented by: GEORGE Labs CBC & Chem 7: 02/12/22 03:43 02/12/22 03:43 Labs: Laboratory Results - last 24 hr 02/12/22 02/13/22 19:02 07:33 POC Glucose 327 H 313 H Microbiology Microbiology Results: Microbiology 02/12/22 04:29 Blood Culture - Preliminary Blood - Venous No growth after 24 hours. 02/12/22 04:28 Blood Culture - Preliminary Blood - Venous No growth after 24 hours. Assessment and Plan (1) Acute exacerbation of chronic obstructive airways disease: Status: Acute (2) COVID-19 virus infection: Status: Acute (3) HIV (human immunodeficiency virus infection): Status: Acute Plan 56-year-old gentleman with past medical history significant for chronic hypoxic respiratory failure on home oxygen, COPD, pulmonary fibrosis, bronchiectasis, HIV on Koenig therapy, presented to [facility] with symptoms of shortness of breath gradually progressing over course of 1 week, CTA chest showed no PE but suggestive of bronchiectasis and mucous plugging, COVID 19 test positive. Acute on chronic hypoxic respiratory failure due to COPD exacerbation and COVID- 19 infection continue isolation/ IV steroid/IV Levaquin/scheduled and as needed updraft treatment on 4 L of oxygen at home, oxygenation stable Schedule cough expectorant ,CT chest showed moderate to severe bronchiectasis with associated bronchial wall thickening and mucoid impaction continue remdesivir/ and supportive care, patient status post COVID vaccine and 2 boosters, receive last booster in December HIV continue HAART treatment Diabetes mellitus type 2 on insulin, blood sugar is elevated likely due to steroid, patient on Lantus twice daily and pre meal Humalog , continue diabetic diet, insulin sliding scale and Lantus? 20 units at bedtime Opioid use disorder continue methadone History of PE/DVT on Eliquis DVT prophylaxis on Eliquis Code status full code Patient will need continued? inpatient hospitalization due to acute hypoxic respiratory failure with bronchiectasis and COVID-19 infection, requiring IV antibiotics, IV steroid, and close clinical monitoring. Quality Stroke Does the patient have a stroke diagnosis?: No VTE Prior VTE?: No VTE Risk Level:: Medical - moderate - high VTE Device Contraindication: Treatment Not Indicated VTE Drug Contraindication: N/A - Med Ordered
[2022-02-13] MEDS: methADONE HCl 20 MG/2 ML ORAL.CONC 60 MG PO (11:34)
--- NOTE | 2022-02-13 11:54 | PM.CNPUL ---
History of Present Illness History of Present Illness Consult date: 02/13/22 Chief complaint: acute hypoxic respiratory failure/bronchiectases Narrative: This 56 years old gentleman is seen by me this morning for pulmonary consultation. Chief Complaint: Shortness of breath for a few days. 56-year-old gentleman with past medical history significant for HIV/AIDS, COPD, diabetes mellitus, history of DVT, hypertension, recurrent Pseudomonas infections has history of pulmonary fibrosis and bronchiectasis in the lower lobes, was brought into [facility] by EMS due to acute onset of shortness of breath, and low O2 sat. On arrival to the emergency room noted to be hypoxic with finger oximetry of 66% . He has been treated with oxygen supplements, IV Solu-Medrol, IV Levaquin, DuoNeb updrafts, and is already improving. Patient has received COVID vaccine including booster a few weeks ago, but he did have positive COVID test, in the emergency room. He has been started on remdesivir, as per ID data quality consultant., and in place of dexamethasone he is on IV Solu-Medrol. Patient is feeling better today, and on O2 4 L/minute he appears quite comfortable. He has history of having cough with green sputum for last 1 week associated with fever and chills. He lives at home with and any sick contacts he has had no recent travel. This gentleman has history of HIV infection, being treated by ID specialist at [facility]. He has history of bronchiectasis and fibrotic changes in the lower lobes, and also history of recurrent Pseudomonas infection. Patient denies history of smoking. Review of Systems Review of Systems: Yes all other systems are reviewed and are negative (See HPI for details.) [facility] Past Medical History Medical History (Updated 02/13/22 @ 12:09 by Dre Cruz MD) AIDS Bronchiectasis COPD (chronic obstructive pulmonary disease) Diabetes mellitus type 1 DVT (deep venous thrombosis) HIV (human immunodeficiency virus infection) HIV disease HTN (hypertension) Pseudomonas aeruginosa colonization Pulmonary embolism Pulmonary fibrosis Thrush Family History Family history: reviewed and not pertinent Social History Social History Household Members: Spouse and Children Housing: House Do you presently have visiting nurse or other home services: Yes Alcohol intake: never Patient Tobacco Use Status: Never used Tobacco Advance Directives: No service: No Current occupational status: disabled Meds Allergies Allergy/AdvReac Type Severity Reaction Status Date / Time Penicillins Allergy Severe HIves Verified 02/12/22 03:58 swelling SOB Sulfa (Sulfonamide Allergy Severe Hives Verified 02/12/22 03:58 Antibiotics) sulfamethoxazole Allergy Hives Verified 02/12/22 03:58 [From Bactrim] trimethoprim [From Bactrim] Allergy Hives Verified 02/12/22 03:58 Active Medications: Current Medications Acetaminophen (Acetaminophen 325 Mg Tablet) 650 mg PO Q6H PRN PRN Reason: Pain, Mild (Pain Scale 1-3) Albuterol/Ipratropium (Albuterol/Iprat 2.5/0.5mg 3 Ml Ampul.Neb) 3 ml INHALE RQ4H WHILE AWAKE [facility] Last Admin: 02/13/22 08:50 Dose: 3 ml Documented by: Apixaban (Apixaban 2.5 Mg Tablet) 2.5 mg PO BID [facility] Last Admin: 02/13/22 07:59 Dose: 2.5 mg Documented by: Dapsone (Dapsone 25 Mg Tablet) 100 mg PO DAILY [facility] Last Admin: 02/13/22 07:58 Dose: 100 mg Documented by: Darunavir (Darunavir Ethanolate 600 Mg Tablet) 600 mg PO BID [facility] Last Admin: 02/13/22 07:59 Dose: 600 mg Documented by: Dextrose (Dextrose 50 % 25 Gm/50 Ml Syringe) 25 gm IVPUSH Q15M PRN; Protocol PRN Reason: per Hypoglycemia Standing Ord. Dolutegravir Sodium (Dolutegravir Sodium 50 Mg Tablet) 50 mg PO BID [facility] Last Admin: 02/13/22 07:59 Dose: 50 mg Documented by: Emtricitabine/Tenofovir Alafenamide (Emtricitabine/Tenofov Alafenam Tablet) 1 tab PO DAILY [facility] Last Admin: 02/13/22 07:59 Dose: 1 tab Documented by: Glucose (Glucose Gel 15 Gm Gel..Gram.) 15 gm PO Q15M PRN; Protocol PRN Reason: per Hypoglycemia Standing Ord. Guaifenesin (Guaifenesin La 600 Mg Tab.Er.12h) 600 mg PO BID [facility] Last Admin: 02/13/22 07:59 Dose: 600 mg Documented by: Levofloxacin (Levaquin) 750 mg in 150 mls @ 100 mls/hr IV Q24H [facility] Last Infusion: 02/13/22 06:42 Dose: Infused Documented by: Remdesivir 100 mg/ Sodium (Chloride) 230 mls @ 115 mls/hr IV Q24H [facility] Stop: 02/16/22 18:59 Insulin Glargine (Insulin Glargine,Hum.Rec.Anlog 100 Unit/Ml 10 Ml Vial) 20 unit SUBCUT BEDTIME [facility] Insulin Human Lispro (Insulin Lispro 100 Unit/Ml 3 Ml Vial) 0 unit SUBCUT QIDACHS [facility]; Protocol Last Admin: 02/13/22 07:57 Dose: 8 unit Documented by: Methadone HCl (Methadone Hcl 20 Mg/2 Ml Oral.Conc) 60 mg PO DAILY [facility] Last Admin: 02/13/22 11:34 Dose: 60 mg Documented by: Methylprednisolone Sodium Succinate (Methylprednisolone Sod Succ 125 Mg/2 Ml Vial) 40 mg IVPUSH Q12H [facility] Non-Formulary Medication (Umeclidinium-Vilanterol [Anoro Ellipta]) 1 puff INHALE DAILY [facility] Ondansetron HCl (Ondansetron Hcl 4 Mg/2 Ml Vial) 4 mg IVPUSH Q8H PRN PRN Reason: Nausea and Vomiting Ritonavir (Ritonavir 100 Mg Tablet) 100 mg PO BID [facility] Last Admin: 02/13/22 07:59 Dose: 100 mg Documented by: Sodium Chloride (0.9 % Sodium Chloride Flush 3 Ml Syringe) 3 ml IVFLUSH QSHIFT [facility] Last Admin: 02/13/22 08:03 Dose: 3 ml Documented by: Home Medications Medication Instructions Recorded Confirmed Last Taken Type albuterol sulfate 90 mcg/actuation 2 puff PO Q4H PRN 01/27/21 02/12/22 10/03/21 History aerosol inhaler (Ventolin HFA) dapsone 100 mg tablet 1 tab PO DAILY 01/27/21 02/12/22 10/03/21 History ipratropium 0.5 mg-albuterol 3 mg 3 ml INHALATION QID 01/27/21 02/12/22 10/03/21 History (2.5 mg base)/3 mL nebulization soln ritonavir 100 mg tablet 1 tab PO BID 01/27/21 02/12/22 10/03/21 History methadone 10 mg/mL oral 60 mg PO DAILY 01/28/21 10/03/21 10/03/21 History concentrate (Methadone Intensol) prednisone 5 mg tablet 10 mg PO DAILY 10/03/21 02/12/22 10/03/21 History apixaban 2.5 mg tablet (Eliquis) 1 tab PO BID 02/12/22 02/12/22 Unknown History azelastine 137 mcg (0.1 %) nasal 1 spray INTRANASAL BID 02/12/22 02/12/22 Unknown History spray aerosol darunavir ethanolate 600 mg tablet 1 tab PO BID 02/12/22 02/12/22 Unknown History (Prezista) dolutegravir 50 mg tablet (Tivicay) 1 tab PO BID 02/12/22 02/12/22 Unknown History emtricitabine 200 mg-tenofovir 1 tab PO DAILY 02/12/22 02/12/22 Unknown History alafenamide fumarate 25 mg tablet (Descovy) insulin aspart 10 - 24 unit SUBCUT TID 02/12/22 02/12/22 Unknown History (niacinamide)(U-100) 100 unit/mL(3 mL) subcutaneous pen (Fiasp FlexTouch U-100 Insulin) insulin glargine 100 unit/mL 40 unit SUBCUT BID 02/12/22 02/12/22 Unknown History subcutaneous solution (Lantus U-100 Insulin) umeclidinium 62.5 mcg-vilanterol 1 puff INHALATION DAILY 02/12/22 02/12/22 Unknown History 25 mcg/actuation powdr for inhalation (Anoro Ellipta) Physical Exam Vital Signs: Vital Signs: Last Vital Signs Temp 98.3 F 02/13/22 07:23 Pulse 93 02/13/22 08:52 Resp 18 02/13/22 08:52 BP 111/59 L 02/13/22 07:23 Pulse Ox 96 02/13/22 07:23 Oxygen Flow Rate 13 02/12/22 03:43 BMI result Body Mass Index 26.9 Const: General: comfortable, no acute distress, alert and awake Orientation/consciousness: patient oriented x3 HEENT: Head: Yes normal to inspection General nose exam: No nasal polyps present and No nasal discharge present Face and sinus: Yes sinuses nontender Mouth: oropharynx normal Throat: Yes posterior oropharynx normal Eyes: General: appearance normal, both eyes and all related structures Neck: Neck: Yes normal visual inspection, Yes no lymphadenopathy, Yes trachea midline and Yes no JVD Thyroid: Thyroid normal Chest: Chest palpation & inspection: normal inspection of the chest, normal palpation of entire chest wall and no tenderness Resp: Other: Percussion note is resonant, breath sounds distant,. He has coarse inspiratory crepitations over both lower lobes. No wheezes are heard. Cardio: Palpation: normal PMI Rate: regular rate Rhythm: regular rhythm Heart sounds: no gallops and no murmurs GI: Palpation (GI): Soft to palpation, nontender, No hepatosplenomegaly present and no masses Auscultation: normal bowel sounds Back/Spine/Pelvis: Thoracic/Lumbar Spine: thoracic and lumbar spine normal to inspection Skin: General skin exam: no rashes or lesions noted Neuro: General: patient oriented x3 and no focal motor deficits Cranial nerves: Yes CN's II-XII intact bilaterally Extrem: General: Yes normal to inspection, Yes no clubbing, cyanosis or edema and Yes no calf tenderness Psych: Appearance: grossly normal Speech and movement: Normal speech and movement present Results Laboratory Findings CBC and BMP: 02/12/22 03:43 02/12/22 03:43 ABG, PT/INR, D-dimer: PT/INR, D-dimer PT 13.2 SEC (9.9-13.0) H 02/12/22 03:43 INR 1.2 (0.9-1.1) H 02/12/22 03:43 Abnormal lab findings: Abnormal Labs 02/12/22 02/12/22 02/12/22 03:37 03:43 03:43 RBC 4.55 L Hgb 11.0 L Hct 36.9 L MCH 24.2 L MCHC 29.8 L RDW 16.4 H MPV 7.9 L Immature Gran % (Auto) 0.8 H Neut % (Auto) 84.9 H Lymph % (Auto) 7.4 L Lymph # (Auto) 0.8 L Abs Immat Gran (auto) 0.09 H Absolute Neuts (auto) 9.0 H PT INR ABG HCO3 POC Glucose 245 H Fasting Glucose 238 H Lactic Acid Lactic Acid F/U @ 2Hr Lactic Acid F/U @ 4Hr AST 50 H D Alkaline Phosphatase 304 H Total Protein 8.9 H COVID-19 ([facility]) 02/12/22 02/12/22 02/12/22 03:43 03:43 03:48 RBC Hgb Hct MCH MCHC RDW MPV Immature Gran % (Auto) Neut % (Auto) Lymph % (Auto) Lymph # (Auto) Abs Immat Gran (auto) Absolute Neuts (auto) PT 13.2 H INR 1.2 H ABG HCO3 28 H POC Glucose Fasting Glucose Lactic Acid Lactic Acid F/U @ 2Hr Lactic Acid F/U @ 4Hr AST Alkaline Phosphatase Total Protein COVID-19 ([facility]) Positive A 02/12/22 02/12/22 02/12/22 04:27 07:29 09:46 RBC Hgb Hct MCH MCHC RDW MPV Immature Gran % (Auto) Neut % (Auto) Lymph % (Auto) Lymph # (Auto) Abs Immat Gran (auto) Absolute Neuts (auto) PT INR ABG HCO3 POC Glucose Fasting Glucose Lactic Acid 2.5 H* Lactic Acid F/U @ 2Hr 2.7 H* Lactic Acid F/U @ 4Hr 2.4 H* AST Alkaline Phosphatase Total Protein COVID-19 ([facility]) 02/12/22 02/13/22 19:02 07:33 RBC Hgb Hct MCH MCHC RDW MPV Immature Gran % (Auto) Neut % (Auto) Lymph % (Auto) Lymph # (Auto) Abs Immat Gran (auto) Absolute Neuts (auto) PT INR ABG HCO3 POC Glucose 327 H 313 H Fasting Glucose Lactic Acid Lactic Acid F/U @ 2Hr Lactic Acid F/U @ 4Hr AST Alkaline Phosphatase Total Protein COVID-19 ([facility]) Microbiology: Microbiology 02/12/22 04:29 Blood - Venous Blood Culture - Preliminary No growth after 24 hours. 02/12/22 04:28 Blood - Venous Blood Culture - Preliminary No growth after 24 hours. Diagnostic Findings Chest x-ray: report reviewed and image reviewed CT scan - chest: report reviewed and image reviewed Assessment and Plan (1) COVID-19 virus infection: Status: Acute (2) Acute exacerbation of chronic obstructive airways disease: Status: Acute (3) Chronic respiratory failure with hypoxia: Status: Acute (4) Bronchiectasis: Status: Acute (5) HIV (human immunodeficiency virus infection): Status: Acute Plan This 56 years old gentleman, chronically sick, a case of chronic HIV infection, controlled with multiple meds. Also a case of COPD and Chronic Bronchiectases with Pseudomonas colonization. Currently has acute COVID-19 infection, And also has acute exacerbation of COPD. Recc. O2 by nasal cannula 3-4 L/minute to keep O2 sat above 90%. DuoNeb updrafts q.4 hours while awake. A course of Levaquin for possibility of acute bacterial respiratory infection. Treatment of acute COVID-19 infection as recommended by Dr. Santoro, including Remdesivir plus IV steroids. Has patient is on IV Solu-Medrol, this will take place of IV dexamethasone ) As soon as he is more stable IV Solu-Medrol can be changed to prednisone p.o. 40 mg/day. Thank you for asking me to see this patient. Procedures Date of Service Date of Service: 02/13/22
[2022-02-13 12:02] LABS: Glucose, Whole Blood 291 mg/dL (60-115)
--- NOTE | 2022-02-13 12:02 | PC.NURSE ---
some morning meds were not loaded in overflow pyxis. this va underwriter spoke with Gulshan in pharmacy. meds loaded past scheduled administration time. meds given late.
--- NOTE | 2022-02-13 13:02 | PC.NURSE ---
pt alert and oriented, vss, denies pain. no sob/headache/n/v. last methadone dose confirmed by Jonathan from Care Team. methadone given as documented. covid precautions maintained.
[2022-02-13] MEDS: methylPREDNISolone Sod Succ 125 MG/2 ML VIAL 40 MG IVPUSH (15:51)
--- NOTE | 2022-02-13 16:36 | PC.NURSE ---
patient a&ox3, no c/o pain or discomfort, it operations manager intact, nsr 80s, all ng within reah, will continue to monitor.
--- NOTE | 2022-02-13 17:56 | PC.NURSE ---
meals are late to unit, insulin will be held until meals arrive
[2022-02-13 18:45] LABS: Glucose, Whole Blood 452 mg/dL (60-115)
--- NOTE | 2022-02-13 18:52 | PC.NURSE ---
patients poc [id number], notified provider, will be ordering additional insulin, will administer when it is put in.
[2022-02-13] MEDS: Remdesivir 100 MG in 0.9 % Sodium Chloride 230 ML 115 MG IV (19:37)
[2022-02-13] MEDS: Insulin Glargine,Hum.rec.anlog 100 UNIT/ML 10 ML VIAL 20 UNIT SUBCUT (22:21)
[2022-02-13 22:43] LABS: Glucose, Whole Blood 365 mg/dL (60-115)
[2022-02-14] VITALS (11 sets, daily range): BP systolic 98–122; BP diastolic 57–71; PULSE 65–100; RESP 13–21; TEMP 36.4–36.7; O2SAT 94–99; BMI 26.9
[2022-02-14] MEDS: 0.9 % Sodium Chloride Flush 3 ML SYRINGE IVFLUSH ×4 (00:40→20:47)
[2022-02-14 01:55] LABS: MANUAL DIFF FLAG NO
[2022-02-14 01:57] LABS: Basophils Percent Auto 0.1 % (0-2); Hematocrit 33.7 % (42.0-52.0); Hemoglobin 10.3 g/dl (14.0-18.0); Imm Gran Abs Auto 0.12 X10*3/uL (0.00-0.03); Imm Gran Pct Auto 0.8 % (0.0-0.4); Lymphocytes Absolute Auto 0.5 X10*3/uL (1.2-4.9); Lymphocytes Percent Auto 3.3 % (20-40); Mean Corpuscular HGB Conc 30.6 g/dl (31.0-36.0); Mean Corpuscular Hemoglobin 24.1 pg (27.0-33.0); Mean Corpuscular Volume 78.7 fL (80.0-98.0); Mean Platelet Volume 8.2 fL (9.4-12.4); Monocytes Absolute Auto 0.9 X10*3/uL (0.1-1.2); Monocytes Percent Auto 5.9 % (2-11); Neutrophils Absolute Auto 13.5 x10*3/uL (2.0-8.3); Neutrophils Percent Auto 89.9 % (45-73); Platelet Count 235 X10*3/uL (160-400); Red Blood Count 4.28 X10*6/uL (4.60-5.80); Red Cell Distribution Width 16.5 % (11.0-16.0)
--- NOTE | 2022-02-14 02:07 | PC.NURSE ---
Moran over patient care at 2300. VSS. Telemetry SR. Pt A&OX3, pleasant and cooperative. Speech is clear and appropriate. Pt is in isolation room and precautions are maintained. LS-Dim/CTA. +SOB and non-productive cough. Pt given turkey sandwich and diet gingerale per his request. Petechiae noted on patients arms (R>L). Patient states this happens when his prednisone levels are low. Dr Plasencia notified and came to see patient. Labs ordered. Pt voiding dark yellow urine in urinal at bedside. No c/o pain. Call ng within reach. Will continue to monitor.
[2022-02-14] MEDS: methylPREDNISolone Sod Succ 125 MG/2 ML VIAL 40 MG IVPUSH ×2 (04:06→17:10)
[2022-02-14] MEDS: levoFLOXacin/D5W 750 MG/150 ML PIGGYBACK 100 MG IV (04:06)
[2022-02-14 07:43] LABS: Glucose, Whole Blood 347 mg/dL (60-115)
[2022-02-14] MEDS: methADONE HCl 20 MG/2 ML ORAL.CONC 60 MG PO (08:08)
[2022-02-14] MEDS: Insulin Lispro 100 UNIT/ML 3 ML VIAL SUBCUT ×4 (08:09→20:46)
[2022-02-14] MEDS: Dapsone 25 MG TABLET 100 MG PO (08:10)
[2022-02-14] MEDS: RITONAVIR 100 MG PO ×2 (08:11→20:46)
[2022-02-14] MEDS: guaiFENesin LA 600 MG TAB.ER.12H PO ×2 (08:11→20:46)
[2022-02-14] MEDS: Dolutegravir Sodium 50 MG TABLET PO ×2 (08:11→20:47)
[2022-02-14] MEDS: Emtricitabine/Tenofov Alafenam TABLET 1 TAB PO (08:11)
[2022-02-14] MEDS: Apixaban 2.5 MG TABLET PO ×2 (08:11→20:47)
[2022-02-14] MEDS: DARUNAVIR ETHANOLATE 600 MG PO ×2 (08:12→20:46)
[2022-02-14] MEDS: Albuterol/Iprat 2.5/0.5MG 3 ML AMPUL.NEB INHALE ×4 (08:20→20:52)
--- NOTE | 2022-02-14 08:20 | PC.NURSE ---
pt alert and oriented, denies pain, vss. pt resting quietly, no apparent distress, meds given as documented, RT at bedside. no complaints.
[2022-02-14 12:31] LABS: Glucose, Whole Blood 246 mg/dL (60-115)
--- NOTE | 2022-02-14 12:46 | HO.PM.IMPN ---
Subjective Subjective Date of Service: 02/14/22 Interval History: feeling better this morning, still short of breath, denies chest pain, no palpitation, no fevers, no chills , no nausea, no vomiting, no diarrhea, no other acute issues, EKG from last night reviewed patient noted to have increased T-wave amplitude in lateral leads. Review of Systems [employer] no headache no dizziness ?CVS no chest pain, no palpitation ? no urinary urgency, no frequency ?skin no rash Review of Systems: Yes all other systems are reviewed and are negative Physical Exam Vital Signs: Vital Signs: Last Vital Signs Temp 97.8 F 02/14/22 03:39 Pulse 77 02/14/22 10:49 Resp 18 02/14/22 10:49 BP 116/71 02/14/22 09:07 Pulse Ox 95 02/14/22 09:07 Oxygen Flow Rate 13 02/12/22 03:43 BMI result Body Mass Index 26.9 Const: Other: General awake alert x3, no acute distress. Neck? supple no JVD. CVS? regular rate rhythm, Respiratory lungs bilateral rhonchi, no respiratory distress, no crackles Gastrointestinal abdomen soft, obese, nontender, bowel sounds audible, no guarding , no rigidity. Extremities no? edema. Neuro nonfocal Skin no rash. Psych appropriate affect Objective Data Active Medications Acetaminophen (Acetaminophen 325 Mg Tablet) 650 mg PO Q6H PRN PRN Reason: Pain, Mild (Pain Scale 1-3) Albuterol/Ipratropium (Albuterol/Iprat 2.5/0.5mg 3 Ml Ampul.Neb) 3 ml INHALE RQ4H WHILE AWAKE [facility] Last Admin: 02/14/22 10:46 Dose: 3 ml Documented by: SUSY Apixaban (Apixaban 2.5 Mg Tablet) 2.5 mg PO BID [facility] Last Admin: 02/14/22 08:11 Dose: 2.5 mg Documented by: GEORGE Dapsone (Dapsone 25 Mg Tablet) 100 mg PO DAILY [facility] Last Admin: 02/14/22 08:10 Dose: 100 mg Documented by: GEORGE Darunavir (Darunavir Ethanolate 600 Mg Tablet) 600 mg PO BID [facility] Last Admin: 02/14/22 08:12 Dose: 600 mg Documented by: GEORGE Dextrose (Dextrose 50 % 25 Gm/50 Ml Syringe) 25 gm IVPUSH Q15M PRN; Protocol PRN Reason: per Hypoglycemia Standing Ord. Dolutegravir Sodium (Dolutegravir Sodium 50 Mg Tablet) 50 mg PO BID [facility] Last Admin: 02/14/22 08:11 Dose: 50 mg Documented by: GEORGE Emtricitabine/Tenofovir Alafenamide (Emtricitabine/Tenofov Alafenam Tablet) 1 tab PO DAILY [facility] Last Admin: 02/14/22 08:11 Dose: 1 tab Documented by: GEORGE Glucose (Glucose Gel 15 Gm Gel..Gram.) 15 gm PO Q15M PRN; Protocol PRN Reason: per Hypoglycemia Standing Ord. Guaifenesin (Guaifenesin La 600 Mg Tab.Er.12h) 600 mg PO BID [facility] Last Admin: 02/14/22 08:11 Dose: 600 mg Documented by: GEORGE Remdesivir 100 mg/ Sodium (Chloride) 230 mls @ 115 mls/hr IV Q24H [facility] Stop: 02/16/22 18:59 Last Infusion: 02/13/22 21:37 Dose: 0 mls/hr Documented by: AURORA Insulin Glargine (Insulin Glargine,Hum.Rec.Anlog 100 Unit/Ml 10 Ml Vial) 20 unit SUBCUT BEDTIME [facility] Last Admin: 02/13/22 22:21 Dose: 20 unit Documented by: AURORA Insulin Human Lispro (Insulin Lispro 100 Unit/Ml 3 Ml Vial) 0 unit SUBCUT QIDACHS [facility]; Protocol Last Admin: 02/14/22 08:09 Dose: 8 unit Documented by: GEORGE Methadone HCl (Methadone Hcl 20 Mg/2 Ml Oral.Conc) 60 mg PO DAILY [facility] Last Admin: 02/14/22 08:08 Dose: 60 mg Documented by: GEORGE Methylprednisolone Sodium Succinate (Methylprednisolone Sod Succ 125 Mg/2 Ml Vial) 40 mg IVPUSH Q12H [facility] Last Admin: 02/14/22 04:06 Dose: 40 mg Documented by: TANGELA Non-Formulary Medication (Umeclidinium-Vilanterol [Anoro Ellipta]) 1 puff INHALE DAILY [facility] Ondansetron HCl (Ondansetron Hcl 4 Mg/2 Ml Vial) 4 mg IVPUSH Q8H PRN PRN Reason: Nausea and Vomiting Ritonavir (Ritonavir 100 Mg Tablet) 100 mg PO BID [facility] Last Admin: 02/14/22 08:11 Dose: 100 mg Documented by: GEORGE Sodium Chloride (0.9 % Sodium Chloride Flush 3 Ml Syringe) 3 ml IVFLUSH QSHIFT [facility] Last Admin: 02/14/22 08:11 Dose: 3 ml Documented by: GEORGE Labs CBC & Chem 7: 02/14/22 01:48 02/12/22 03:43 Labs: Laboratory Results - last 24 hr 02/13/22 02/13/22 02/14/22 18:32 21:53 01:48 MCV 78.7 L MCH 24.1 L MCHC 30.6 L RDW 16.5 H Plt Count 235 MPV 8.2 L Immature Gran % (Auto) 0.8 H Neut % (Auto) 89.9 H Lymph % (Auto) 3.3 L [place] % (Auto) 5.9 Eos % (Auto) 0.0 Baso % (Auto) 0.1 Lymph # (Auto) 0.5 L [place] # (Auto) 0.9 Eos # (Auto) 0.0 Baso # (Auto) 0.0 Abs Immat Gran (auto) 0.12 H Absolute Neuts (auto) 13.5 H Absolute Nucleated RBC 0.000 Nucleated RBC % (auto) 0.0 POC Glucose 452 H* 365 H* 02/14/22 02/14/22 07:39 12:26 MCV MCH MCHC RDW Plt Count MPV Immature Gran % (Auto) Neut % (Auto) Lymph % (Auto) [place] % (Auto) Eos % (Auto) Baso % (Auto) Lymph # (Auto) [place] # (Auto) Eos # (Auto) Baso # (Auto) Abs Immat Gran (auto) Absolute Neuts (auto) Absolute Nucleated RBC Nucleated RBC % (auto) POC Glucose 347 H 246 H Microbiology Microbiology Results: Microbiology 02/12/22 04:29 Blood Culture - Preliminary Blood - Venous No growth after 48 hours. 02/12/22 04:28 Blood Culture - Preliminary Blood - Venous No growth after 48 hours. Assessment and Plan (1) Acute exacerbation of chronic obstructive airways disease: Status: Acute (2) COVID-19 virus infection: Status: Acute (3) HIV (human immunodeficiency virus infection): Status: Acute Plan 56-year-old gentleman with past medical history significant for chronic hypoxic respiratory failure on home oxygen, COPD, pulmonary fibrosis, bronchiectasis, HIV on Koenig therapy, presented to [facility] with symptoms of shortness of breath gradually progressing over course of 1 week, CTA chest showed no PE but suggestive of bronchiectasis and mucous plugging, COVID 19 test positive. Acute on chronic hypoxic respiratory failure due to COPD exacerbation and COVID-19 infection continue isolation/ IV steroid/ Replaced IV Levaquin with IV ceftriaxone due to prolonged QTC / continue scheduled and as needed updraft treatment on 4 L of oxygen at home, oxygenation stable Schedule cough expectorant ,CT chest showed moderate to severe bronchiectasis with associated bronchial wall thickening and mucoid impaction continue remdesivir/ and supportive care, patient status post COVID vaccine and 2 boosters, receive last booster in December history of Pseudomonas colonization. prolonged QTC with peaked T-waves in lateral leads patient asymptomatic with no chest pain, prolonged QTC likely due to methadone and Levaquin,will substitute Levaquin with Ceftin monitor electrolytes and clinical course. HIV continue HAART treatment Diabetes mellitus type 2 on insulin, blood sugar elevated likely due to steroid, patient on Lantus twice daily and pre meal Humalog , continue diabetic diet, insulin sliding scale and Lantus? adjust dosage. Opioid use disorder continue methadone History of PE/DVT on Eliquis DVT prophylaxis on Eliquis Code status full code Patient will need continued? inpatient hospitalization due to acute hypoxic respiratory failure with bronchiectasis and COVID-19 infection, requiring IV antibiotics, IV steroid, and close clinical monitoring. Quality Stroke Does the patient have a stroke diagnosis?: No VTE Prior VTE?: No VTE Risk Level:: Medical - moderate - high VTE Device Contraindication: Treatment Not Indicated VTE Drug Contraindication: N/A - Med Ordered
--- NOTE | 2022-02-14 12:53 | PC.NURSE ---
meal late, insulin given with snack, pt denies pain, no sob/headache/dizziness. no complaints.
--- NOTE | 2022-02-14 16:50 | PC.NURSE ---
report given to AMBER Lazo. per Violet pt's room not ready and will call this com writer when it is.
[2022-02-14 17:59] LABS: Glucose, Whole Blood 260 mg/dL (60-115)
[2022-02-14] MEDS: Remdesivir 100 MG in 0.9 % Sodium Chloride 230 ML 115 MG IV (19:09)
[2022-02-14 19:57] LABS: Glucose, Whole Blood 276 mg/dL (60-115)
[2022-02-14] MEDS: Insulin Glargine,Hum.rec.anlog 100 UNIT/ML 10 ML VIAL 30 UNIT SUBCUT (20:46)
[2022-02-15 03:23] VITALS: BP 119/73; PULSE 67; RESP 18; TEMP 36.2; O2SAT 96
[2022-02-15] MEDS: methylPREDNISolone Sod Succ 125 MG/2 ML VIAL 40 MG IVPUSH (04:10)
[2022-02-15 07:17] LABS: Glucose, Whole Blood 242 mg/dL (60-115)
[2022-02-15 07:39] VITALS: BP 107/61; PULSE 77; RESP 20; TEMP 36.7; O2SAT 98
[2022-02-15 07:47] LABS: Anion Gap 14 (12-20); Blood Urea Nitrogen 20 mg/dL (9-16); Calcium 8.8 mg/dL (8.4-10.2); Carbon Dioxide 30 mmol/L (22-29); Chloride 97 mmol/L (96-108); Creatinine Clr Calc Pharmacy 119.1; Estimated Glomerular Filt Rate > 60; Glucose Random 260 mg/dL (60-115); Magnesium 2.1 mg/dL (1.6-2.6); Potassium 4.3 mmol/L (3.3-5.1); Sodium 137 mmol/L (135-145)
[2022-02-15] MEDS: Albuterol/Iprat 2.5/0.5MG 3 ML AMPUL.NEB INHALE ×2 (07:56→11:31)
[2022-02-15 07:58] VITALS: PULSE 87; RESP 18; O2SAT 93
[2022-02-15] MEDS: Insulin Lispro 100 UNIT/ML 3 ML VIAL SUBCUT ×2 (07:58→12:09)
[2022-02-15] MEDS: methADONE HCl 20 MG/2 ML ORAL.CONC 60 MG PO (07:59)
[2022-02-15] MEDS: Dolutegravir Sodium 50 MG TABLET PO (08:00)
[2022-02-15] MEDS: RITONAVIR 100 MG PO (08:00)
[2022-02-15] MEDS: Emtricitabine/Tenofov Alafenam TABLET 1 TAB PO (08:00)
[2022-02-15] MEDS: guaiFENesin LA 600 MG TAB.ER.12H PO (08:01)
[2022-02-15] MEDS: DARUNAVIR ETHANOLATE 600 MG PO (08:01)
[2022-02-15] MEDS: Apixaban 2.5 MG TABLET PO (08:01)
[2022-02-15] MEDS: 0.9 % Sodium Chloride Flush 3 ML SYRINGE IVFLUSH (08:01)
[2022-02-15] MEDS: Dapsone 25 MG TABLET 100 MG PO (09:19)
--- NOTE | 2022-02-15 11:13 | MHC.CM.PN ---
Patient has been medically cleared for dc to home today with services. Patient is active with [facility], who has been notified of today's dc.IMM addressed with Patient over the phone at Ext. [phone].
[2022-02-15 11:19] LABS: Glucose, Whole Blood 299 mg/dL (60-115)
[2022-02-15 11:33] VITALS: PULSE 97; RESP 16; O2SAT 96
[2022-02-15 11:38] VITALS: BP 114/61; PULSE 85; RESP 20; TEMP 36.4; O2SAT 99
--- NOTE | 2022-02-15 13:31 | P.DS_ITS ---
DS: Providers Provider Date of Service: 02/15/22 Date of admission: 02/12/22 10:40 Primary care physician: Jeremy Romano MD Consults: 02/12/22 11:00 Consult to Infectious Diseases Routine Consulting Provider: Dinah Wolff Reason for consultation: hiv/bronchiectasis Has provider been notified: No DS: Diagnosis Discharge Diagnosis (1) Acute exacerbation of chronic obstructive airways disease: Status: Acute (2) COVID-19 virus infection: Status: Acute (3) HIV (human immunodeficiency virus infection): Status: Acute DS: Summary Hospital Course Hospital Course: history of presenting illness Date of Service: 02/12/22 Attending physician on admission: Rosalind Rodriguez Chief Complaint: Shortness of breath 56-year-old gentleman with past medical history significant for HIV/AIDS, COPD, diabetes mellitus, history of DVT, hypertension, Pseudomonas: Eyes a magana, history of pulmonary fibrosis was brought into [facility] by EMS due to acute onset of shortness of breath, on arrival to ED patient was noted to be in respiratory distress diaphoretic, in tripod position with severe intercostal retraction was noted to be hypoxic with finger oximetry of 66% by nasal cannula patient was treated aggressively with IV Solu-Medrol, IV magnesium, bronchodilator patient responded well to above treatment and was able to provide more history, as per patient she has been having cough with green sputum for last 1 week associated with fever chills he lives at home with he denies any sick contacts he denies any recent travels he denies associated lightheadedness dizziness, no nausea no, no vomiting or diarrhea he is compliant with his HIV medication, labs showed normal WBC, normal platelets and stable hem atocrit, renal function and electrolytes are within normal range, CTA chest showed no PE distal arteries were not well visualized but patient was noted to have mucus plugging and bronchiectasis, elevated lactic acidosis likely related to use of albuterol, patient treated aggressively in the emergency room as above currently feeling better and being admitted to [facility] with a diagnosis of acute hypoxic respiratory failure with COPD exacerbation hospital course 56-year-old gentleman with past medical history significant for chronic hypoxic respiratory failure on home oxygen, COPD, pulmonary fibrosis, bronchiectasis, HIV on Koenig therapy, presented to [facility] with symptoms of shortness of breath gradually progressing over course of 1 week, CTA chest showed no PE but suggestive of bronchiectasis and mucous plugging, COVID 19 test positive. Acute on chronic hypoxic respiratory failure due to COPD exacerbation and COVID- 19 infection patient admitted to isolation unit treated with high-dose IV steroids, IV Levaquin, cough expect and remdesivir patient responded well to above treatment currently feeling significantly better remains on 4 L of home oxygen, CT chest showed moderate to severe bronchiectasis with associated bronchial wall thickening and mucoid impaction, patient is now being discharged home on by mouth steroids and antibiotics, is recommended to continue home inhalers patient has received COVID vaccine and is status post 2 boost to dosages last post stent December, patient received 4 days of remdesivir. ?prolonged QTC with peaked T-waves in lateral leads?patient asymptomatic with no chest pain,? prolonged QTC likely due to methadone and concomitant use of Levaquin, therefore Levaquin was discontinued and patient treated with Ceftin, had stable electrolytes. HIV continue HAART treatment Diabetes mellitus type 2 on insulin, Noted to have high blood sugars likely related to steroids recommend to continue home dose of Lantus Opioid use disorder continue methadone History of PE/DVT on Eliquis Time Spent with Patient Time attestation: Total time spent providing and/or coordinating discharge services: Discharge coordination time: Greater than 30 minutes Quality: Safe Use of Opioids Does Pt have an Active Cancer Diagnosis on the Problem List?: No Quality: Stroke Does the patient have a stroke diagnosis?: No Physical Exam Vital Signs: Vital Signs: Last Vital Signs Temp 97.5 F 02/15/22 11:38 Pulse 85 02/15/22 11:38 Resp 20 02/15/22 11:38 BP 114/61 02/15/22 11:38 Pulse Ox 99 02/15/22 11:38 Oxygen Flow Rate 13 02/12/22 03:43 BMI result Body Mass Index 26.9 Const: Other: General awake alert x3, no acute distress. Neck? supple no JVD. CVS? regular rate rhythm, Respiratory lungs clear to auscultation, no rhonchi, no respiratory distress, no crackles Gastrointestinal abdomen soft, obese, nontender, bowel sounds audible, no guarding , no rigidity. Extremities no? edema. Neuro nonfocal Skin no rash. Psych appropriate affect DS: Data Data Completed and Pending Completed studies during hospitalization [Text1]: Procedures Excision of Left Hand Skin, External Approach, Diagnostic (10/03/21) Labs on day of discharge: Laboratory Results - last 24 hr 02/14/22 02/14/22 02/15/22 17:54 19:53 06:39 Sodium 137 Potassium 4.3 Chloride 97 Carbon Dioxide 30 H Anion Gap 14 BUN 20 H D Creatinine 0.76 Estim Creat Clear Calc 119.1 Estimated GFR > 60 POC Glucose 260 H 276 H Random Glucose 260 H Calcium 8.8 Magnesium 2.1 02/15/22 02/15/22 07:10 11:03 Sodium Potassium Chloride Carbon Dioxide Anion Gap BUN Creatinine Estim Creat Clear Calc Estimated GFR POC Glucose 242 H 299 H Random Glucose Calcium Magnesium Preliminary micro results at discharge 02/12/22 04:29 Blood Culture - Preliminary Blood - Venous No growth after 48 hours. 02/12/22 04:28 Blood Culture - Preliminary Blood - Venous No growth after 48 hours. Discharge Plan Discharge Patient Disposition: Home Health Service Discharge Diagnosis: acute on chronic hypoxic respiratory failure COPD exacerbation COVID-19 infection Referrals: [facility] [Outside] - 1 Week Jeremy Romano MD [Primary Care Provider] - 1 Week Discharge Medications: New guaifenesin [Mucinex] 600 mg Tablet Extended Release 12hr 600 mg PO BID Qty: 14 0RF cefuroxime axetil 500 mg Tablet 500 mg PO Q12H Qty: 6 0RF prednisone 20 mg tablet 20 mg PO DAILY Qty: 6 0RF Continued ipratropium-albuterol 0.5 mg-3 mg(2.5 mg base)/3 mL solution for nebulization 3 ml inhalation QID 0RF dapsone 100 mg tablet 1 tab PO DAILY 0RF albuterol sulfate [Ventolin HFA] 90 mcg/actuation HFA aerosol inhaler 2 puff PO Q4H PRN (Reason: wheezing) 0RF ritonavir 100 mg tablet 1 tab PO BID 0RF methadone [Methadone Intensol] 10 mg/mL Concentrate 60 mg PO DAILY 0RF Rx Instructions: [facility] Prezista 600 mg tablet 1 tab PO BID 0RF Tivicay 50 mg tablet 1 tab PO BID 0RF Descovy 200-25 mg tablet 1 tab PO DAILY 0RF insulin glargine [Lantus U-100 Insulin] 100 unit/mL solution 40 unit subcut BID 0RF azelastine 137 mcg (0.1 %) aerosol,spray 1 spray intranasal BID 0RF Eliquis 2.5 mg tablet 1 tab PO BID 0RF Anoro Ellipta 62.5-25 mcg/actuation blister with device 1 puff inhalation DAILY 0RF Fiasp FlexTouch U-100 Insulin 100 unit/mL (3 mL) insulin pen 10 - 24 unit subcut TID 0RF Discontinued prednisone 5 mg Tablet 10 mg PO DAILY 0RF Discharge Orders: Discharge Order (Routine); Ordered 02/15/22 Ordered By: Rosalind Rodriguez Diet: diabetic diet Activity on Discharge: As tolerated Stand Alone Forms: Patient Portal Discharge page Care Plan Goals: take prednisone 20 mg daily for 6 more days, as prescribed, take Ceftin twice daily for 3 more days, resume home inhalers updrafts at all other medication, continue home oxygen Health Concerns: continue all home medications as before Plan of Treatment: follow-up with PCP in 7-10 days Assessment: as per discharge note Discharge Date/Time: 02/15/22 12:45
== END 2022-02-15 12:45 | disposition home health service (06) | DRG 177 ==
LOC: HO.ED 05:33 → HO.EDOVER 11:07 → HO.IMC 02-14 15:11
PROVIDERS: Internal Medicine; Admitting Provider Hospitalist; Emergency Provider Emergency Medicine; PCP Internal Medicine; Visit Provider Hospitalist
DX: U07.1 COVID-19 (principal); J96.21 Acute and chronic respiratory failure with hypoxia; J44.1 Chronic obstructive pulmonary disease with (acute) exacerbation; F11.20 Opioid dependence, uncomplicated; E10.9 Type 1 diabetes mellitus without complications; Z99.81 Dependence on supplemental oxygen; Z21 Asymptomatic human immunodeficiency virus [HIV] infection status; Z86.711 Personal history of pulmonary embolism; Z86.718 Personal history of other venous thrombosis and embolism; Z88.0 Allergy status to penicillin; Z88.2 Allergy status to sulfonamides; Z79.4 Long term (current) use of insulin; Z79.01 Long term (current) use of anticoagulants; Z79.52 Long term (current) use of systemic steroids; Z79.899 Other long term (current) drug therapy
CPT/HCPCS: 0241U; 36415; 71250; 71275; 80048; 80053; 80076; 80202; 81003; 82077; 82565; 82803; 82947; 83605; 83690; 83735; 83880; 84484; 85025; 85027; 85379; 85610; 85730; 86140; 87040; 87449; 87502; 87635; 87640; 87641; 93005; 94640; 96365; 96366; 96367; 96375; 99285; J0248; J0692; J1940; J1956; J2930; J3370; J3475; Q9967

== ENCOUNTER 2022-02-17 15:57 | Inpatient (IN) | payer MEDICARE, MEDICAID, SELFPAY ==
--- NOTE | ~2022-02-17 | CT_ITS ---
EXAMINATION: CT CHEST WITHOUT CONTRAST CLINICAL INFORMATION: Covid with fever and shortness of breath COMPARISON: CT pulmonary angiogram 5 days ago, 02/12/[address] angiography chest 01/27/2021 TECHNIQUE: Multidetector volumetric CT imaging of the chest was done. Axial MIP volume rendering provided. Sagittal and coronal reformatted images were obtained. This CT examination was performed using dose optimization techniques as appropriate, variously including the following: *Automated exposure control *Adjustment of mA and/or kV according to patient size (this includes techniques or standardized protocols for targeted exams where dose is matched to indication/reason for exam; i.e. extremities or head) *Use of iterative reconstruction technique DLP: 298 mGy-cm FINDINGS: LUNGS: Baseline emphysematous changes are again seen. Once again seen is extensive cylindrical bronchiectasis involving all lobes of the lung with markedly thickened bronchi. Comparison with the most recent CT from 5 days ago is difficult because of marked respiratory artifact however appearances are not that significantly different. Some bronchi are plugged/occluded and filled with fluid. There are multiple new nodular areas in both lungs with tree-in-bud formation indicative of superimposed multifocal pneumonia. The best example are 3 adjacent nodular areas in the left upper lobe measuring about 8 mm each. Despite the marked artifact on the study from 5 days ago, I am confident that these findings were not present at that time. MEDIASTINUM: Multiple small/prominent mediastinal lymph nodes are present that are most likely reactive and unchanged from prior exams. PLEURA: There is no pleural effusion. No pleural mass or thickening. AXILLA: No lymphadenopathy. UPPER ABDOMEN: Cholelithiasis is present. OSSEOUS STRUCTURES: Mild degenerative changes and Schmorl's nodes. No bony destructive lesions CT/CT chest wo con IMPRESSION: 1. Underlying emphysema severe cylindrical bronchiectasis with mucus plugging. 2. New (since 5 days ago) tree-in-bud abnormalities suggesting superimposed infection/multifocal pneumonia Fleischner guidelines were followed.
[2022-02-17 16:23] VITALS: BP 109/64; PULSE 96; O2SAT 96
--- NOTE | 2022-02-17 16:23 | ED.URI ---
HPI - URI/Sore Throat General Chief Complaint: Fever Stated Complaint: Fever covid + Source: patient and EMS Mode of arrival: EMS Limitations: no limitations History of Present Illness HPI Narrative: 56 yo male presents via ems for fever of 103, cough, fatigue, pain on inspiration and is covid +. DC'd from this facility on 02/15/22 for lactic acidosis, COPD exacerbation, acute hypoxic respiratory failure with bronchiectasis and covid +. Patient states that since he has been discharged from this facility feels that his symptoms did not really improve but worsened this overnight into morning. MD elicited complaint: fever and cough Pertinent past history: HIV Onset (ago): day(s) Consistency: constant Severity: severe Pain scale (0-10): 6 Description of mucous: clear Able to tolerate fluids by mouth: Yes Exacerbating factors: exertion and deep breaths Relieving factors: nothing Context: recent hospitalization Associated symptoms: fever, chills, myalgias, cough, chest pain and shortness of breath Treatments prior to arrival: none Related Data Home Medications Medication Instructions Recorded Confirmed albuterol sulfate 90 mcg/actuation 2 puff PO Q4H PRN wheezing 01/27/21 02/17/22 aerosol inhaler (Ventolin HFA) dapsone 100 mg tablet 1 tab PO DAILY 01/27/21 02/17/22 ipratropium 0.5 mg-albuterol 3 mg 3 ml inhalation QID 01/27/21 02/17/22 (2.5 mg base)/3 mL nebulization soln ritonavir 100 mg tablet 1 tab PO BID 01/27/21 02/17/22 methadone 10 mg/mL oral 60 mg PO DAILY 01/28/21 10/03/21 concentrate (Methadone Intensol) apixaban 2.5 mg tablet (Eliquis) 1 tab PO BID 02/12/22 02/17/22 azelastine 137 mcg (0.1 %) nasal 1 spray intranasal BID 02/12/22 02/17/22 spray aerosol darunavir ethanolate 600 mg tablet 1 tab PO BID 02/12/22 02/17/22 (Prezista) dolutegravir 50 mg tablet (Tivicay) 1 tab PO BID 02/12/22 02/17/22 emtricitabine 200 mg-tenofovir 1 tab PO DAILY 02/12/22 02/17/22 alafenamide fumarate 25 mg tablet (Descovy) insulin aspart 10 - 24 unit subcut TID 02/12/22 02/17/22 (niacinamide)(U-100) 100 unit/mL(3 mL) subcutaneous pen (Fiasp FlexTouch U-100 Insulin) insulin glargine 100 unit/mL 40 unit subcut BID 02/12/22 02/17/22 subcutaneous solution (Lantus U-100 Insulin) umeclidinium 62.5 mcg-vilanterol 1 puff inhalation DAILY 02/12/22 02/17/22 25 mcg/actuation powdr for inhalation (Anoro Ellipta) Previous Rx's Medication Instructions Recorded cefuroxime axetil 500 mg tablet 500 mg PO Q12H #6 tabs 02/15/22 guaifenesin 600 mg tablet, 600 mg PO BID #14 tabs 02/15/22 extended release 12 hr (Mucinex) prednisone 20 mg tablet 20 mg PO DAILY #6 tabs 02/15/22 Allergies Allergy/AdvReac Type Severity Reaction Status Date / Time Penicillins Allergy Severe HIves Verified 02/12/22 03:58 swelling SOB Sulfa (Sulfonamide Allergy Severe Hives Verified 02/12/22 03:58 Antibiotics) sulfamethoxazole Allergy Hives Verified 02/12/22 03:58 [From Bactrim] trimethoprim [From Bactrim] Allergy Hives Verified 02/12/22 03:58 Review of Systems Review of Systems: Constitutional: Positive Fever, positive Chills ENT/Mouth: No Ear Pain, No Hoarseness, No sore throat Eyes: No Eye Pain, No Swelling, No Redness, No Foreign Body Cardiovascular: Positive Chest Pain, positive SOB Respiratory: Positive Cough, positive Dyspnea Gastrointestinal: No Nausea, No Vomiting, No Diarrhea, No abdominal Pain Genitourinary: No Dysuria, No Hematuria Musculoskeletal: No joint pain, No Myalgias, No Joint Swelling Skin: No Skin lacerations, No rash Neuro: No Weakness, No Numbness, No Paresthesias, No Loss of Consciousness, No Dizziness, No Headache Psych: No Anxiety/Panic, No Depression Heme/Lymph: no easy bruising, no Lymphadenopathy Endocrine: No Polyuria, No Polydipsia Yes all other systems are reviewed and are negative [facility] Past Medical History Attestation statement: The following information was validated with the patient. Source: old records reviewed Medical History (Updated 02/17/22 @ 22:49 by Dashawn Sosa MD) AIDS Bronchiectasis COPD (chronic obstructive pulmonary disease) Diabetes mellitus type 1 DVT (deep venous thrombosis) HIV (human immunodeficiency virus infection) HIV disease HTN (hypertension) Pseudomonas aeruginosa colonization Pulmonary embolism Pulmonary fibrosis Thrush Social History Social History Household Members: Spouse and Children Housing: House Do you presently have visiting nurse or other home services: Yes (Methadone dosing) Alcohol intake: never Patient Tobacco Use Status: Never used Tobacco Substance Use Type: Crack/Cocaine and Heroin Advance Directives: No Advance Directives Information Provided: No service: No Current occupational status: disabled Physical Exam Vital Signs: Vital Signs: Last Vital Signs Temp 98.3 F 02/17/22 19:07 Pulse 89 02/17/22 21:54 Resp 13 02/17/22 21:54 BP 128/74 02/17/22 21:54 Pulse Ox 98 02/17/22 21:54 O2 Del Method 02/17/22 21:54 O2 Flow Rate 4 02/17/22 21:54 BMI result Body Mass Index 24.4 Appearance: Alert. Oriented X3. Moderate distress. Eyes: Pupils equal, round and reactive to light. Sclera nonicteric. ENT: Pharynx normal. Moist mucous membranes. Neck: Normal inspection. Neck supple. CVS: Normal heart rate and rhythm. Pulses normal. Respiratory: No respiratory distress. Lung sounds coarse with expiratory wheezing. Abdomen: Soft and nontender. Skin: Skin warm and dry. Normal skin color. Normal skin turgor. Extremities: No lower extremity edema. Gait well-balanced well coordinated. Neuro: No motor deficit. No sensory deficit. Cranial nerves 2-12 intact. Course Course Course Narrative: 56-year-old male presents with worsening upper respiratory symptoms, fever, cough, and fatigue. Has a history of type 1 diabetes, HIV on Koenig, COPD on 4 L nasal cannula. Was admitted to this facility on 02/12 for lactic acidosis bronchiectasis hypoxia and COPD exacerbation. Discharged on 02/15. Stated that he started to feel worse last night into this morning. Will order lab values, CT of chest. Wells PE score 1.5 with low likelihood of PE. Patient is currently on Eliquis. 18:16 CBC consistent with his prior values. Lactic acid 1.5. 18:44 CT scan indicates new tree-in-bud abnormalities suggesting superimposed infection and multifocal pneumonia, new since 5 days ago. Will order Levaquin as patient is anaphylactic Emilie allergic to penicillins. QT interval 388, QTC 444. 19:30 discussion with hospitalist regarding plan to admit for pneumonia and positive COVID. Consultations Consultation #1: Sheila Time: 19:30 MDM - URI/Sore Throat Differential Diagnosis Differential diagnosis: Likely upper respiratory infection, viral infection, bronchitis, influenza and pharyngitis Medical Records Attestation: I reviewed the patient's medical records. Lab Data Attestation: I reviewed the patient's lab results. Result diagrams: 02/17/22 17:48 02/17/22 17:48 Labs: Lab Results 02/17/22 02/17/22 02/17/22 Range/Units 17:47 17:48 17:48 WBC 12.3 H (4.8-10.8) X10*3/uL RBC 4.36 L (4.60-5.80) X10*6/uL Hgb 10.6 L (14.0-18.0) g/dl Hct 34.7 L (42.0-52.0) % MCV 79.6 L (80.0-98.0) fL MCH 24.3 L (27.0-33.0) pg MCHC 30.5 L (31.0-36.0) g/dl RDW 16.0 (11.0-16.0) % Plt Count 192 (160-400) X10*3/uL MPV 8.7 L (9.4-12.4) fL Immature Gran % (Auto) 0.9 H (0.0-0.4) % Neut % (Auto) 86.3 H (45-73) % Lymph % (Auto) 5.5 L (20-40) % [place] % (Auto) 6.8 (2-11) % Eos % (Auto) 0.4 (0-4) % Baso % (Auto) 0.1 (0-2) % Lymph # (Auto) 0.7 L (1.2-4.9) X10*3/uL [place] # (Auto) 0.8 (0.1-1.2) X10*3/uL Eos # (Auto) 0.1 (0.0-0.4) X10*3/uL Baso # (Auto) 0.0 (0.0-0.2) X10*3/uL Abs Immat Gran (auto) 0.11 H (0.00-0.03) X10*3/uL Absolute Neuts (auto) 10.6 H (2.0-8.3) x10*3/uL Absolute Nucleated RBC 0.000 (0.0-0.012) X10*3/uL Nucleated RBC % (auto) 0.0 (0.0-0.2) /100WBC APTT 24.6 (24.1-38.0) SEC Sodium (135-145) mmol/L Potassium (3.3-5.1) mmol/L Chloride (96-108) mmol/L Carbon Dioxide (22-29) mmol/L Anion Gap (12-20) BUN (9-16) mg/dL Creatinine (0.5-1.4) mg/dL Estim Creat Clear Calc Estimated GFR Random Glucose (60-115) mg/dL Lactic Acid 1.5 (0.5-2.0) mmol/L Calcium (8.4-10.2) mg/dL Magnesium (1.6-2.6) mg/dL Total Bilirubin (0.0-1.0) mg/dL Direct Bilirubin (0.0-0.5) mg/dL AST (5-37) U/L ALT (0-40) U/L Alkaline Phosphatase (39-117) U/L Troponin I High Sens (<3.5-35.0) ng/L B-Natriuretic Peptide (<100) pg/mL Total Protein (6.5-8.0) g/dL Albumin (3.5-5.0) g/dL Lipase (8-78) U/L Urine Color Urine Appearance Urine pH (5.0-8.0) Ur Specific [place] (1.005-1.025) Urine Protein (NEG-TRACE) MG/DL Urine Glucose (UA) (NEG) MG/DL Urine Ketones (NEG) MG/DL Urine Blood (NEG) Urine Nitrite (NEG) Ur Leukocyte Esterase (NEG) Influenza Type A (PCR) (Negative) Influenza Type B (PCR) (Negative) RSV RNA Qual (PCR) (Negative) SARS-CoV-2 RNA (RT-PCR) (Negative) 02/17/22 02/17/22 02/17/22 Range/Units 17:48 17:48 17:48 WBC (4.8-10.8) X10*3/uL RBC (4.60-5.80) X10*6/uL Hgb (14.0-18.0) g/dl Hct (42.0-52.0) % MCV (80.0-98.0) fL MCH (27.0-33.0) pg MCHC (31.0-36.0) g/dl RDW (11.0-16.0) % Plt Count (160-400) X10*3/uL MPV (9.4-12.4) fL Immature Gran % (Auto) (0.0-0.4) % Neut % (Auto) (45-73) % Lymph % (Auto) (20-40) % [place] % (Auto) (2-11) % Eos % (Auto) (0-4) % Baso % (Auto) (0-2) % Lymph # (Auto) (1.2-4.9) X10*3/uL [place] # (Auto) (0.1-1.2) X10*3/uL Eos # (Auto) (0.0-0.4) X10*3/uL Baso # (Auto) (0.0-0.2) X10*3/uL Abs Immat Gran (auto) (0.00-0.03) X10*3/uL Absolute Neuts (auto) (2.0-8.3) x10*3/uL Absolute Nucleated RBC (0.0-0.012) X10*3/uL Nucleated RBC % (auto) (0.0-0.2) /100WBC APTT (24.1-38.0) SEC Sodium 135 (135-145) mmol/L Potassium 4.0 (3.3-5.1) mmol/L Chloride 92 L (96-108) mmol/L Carbon Dioxide 35 H (22-29) mmol/L Anion Gap 12 (12-20) BUN 14 (9-16) mg/dL Creatinine 0.75 (0.5-1.4) mg/dL Estim Creat Clear Calc 117.1 Estimated GFR > 60 Random Glucose 119 H D (60-115) mg/dL Lactic Acid (0.5-2.0) mmol/L Calcium 8.5 (8.4-10.2) mg/dL Magnesium 2.1 (1.6-2.6) mg/dL Total Bilirubin 0.4 (0.0-1.0) mg/dL Direct Bilirubin 0.3 (0.0-0.5) mg/dL AST 17 D (5-37) U/L ALT 26 (0-40) U/L Alkaline Phosphatase 173 H D (39-117) U/L Troponin I High Sens 4.9 D (<3.5-35.0) ng/L B-Natriuretic Peptide 12 (<100) pg/mL Total Protein 7.8 (6.5-8.0) g/dL Albumin 3.5 (3.5-5.0) g/dL Lipase 14 (8-78) U/L Urine Color Urine Appearance Urine pH (5.0-8.0) Ur Specific [place] (1.005-1.025) Urine Protein (NEG-TRACE) MG/DL Urine Glucose (UA) (NEG) MG/DL Urine Ketones (NEG) MG/DL Urine Blood (NEG) Urine Nitrite (NEG) Ur Leukocyte Esterase (NEG) Influenza Type A (PCR) NEGATIVE (Negative) Influenza Type B (PCR) NEGATIVE (Negative) RSV RNA Qual (PCR) NEGATIVE (Negative) SARS-CoV-2 RNA (RT-PCR) POSITIVE A (Negative) 02/17/22 Range/Units 17:48 WBC (4.8-10.8) X10*3/uL RBC (4.60-5.80) X10*6/uL Hgb (14.0-18.0) g/dl Hct (42.0-52.0) % MCV (80.0-98.0) fL MCH (27.0-33.0) pg MCHC (31.0-36.0) g/dl RDW (11.0-16.0) % Plt Count (160-400) X10*3/uL MPV (9.4-12.4) fL Immature Gran % (Auto) (0.0-0.4) % Neut % (Auto) (45-73) % Lymph % (Auto) (20-40) % [place] % (Auto) (2-11) % Eos % (Auto) (0-4) % Baso % (Auto) (0-2) % Lymph # (Auto) (1.2-4.9) X10*3/uL [place] # (Auto) (0.1-1.2) X10*3/uL Eos # (Auto) (0.0-0.4) X10*3/uL Baso # (Auto) (0.0-0.2) X10*3/uL Abs Immat Gran (auto) (0.00-0.03) X10*3/uL Absolute Neuts (auto) (2.0-8.3) x10*3/uL Absolute Nucleated RBC (0.0-0.012) X10*3/uL Nucleated RBC % (auto) (0.0-0.2) /100WBC APTT (24.1-38.0) SEC Sodium (135-145) mmol/L Potassium (3.3-5.1) mmol/L Chloride (96-108) mmol/L Carbon Dioxide (22-29) mmol/L Anion Gap (12-20) BUN (9-16) mg/dL Creatinine (0.5-1.4) mg/dL Estim Creat Clear Calc Estimated GFR Random Glucose (60-115) mg/dL Lactic Acid (0.5-2.0) mmol/L Calcium (8.4-10.2) mg/dL Magnesium (1.6-2.6) mg/dL Total Bilirubin (0.0-1.0) mg/dL Direct Bilirubin (0.0-0.5) mg/dL AST (5-37) U/L ALT (0-40) U/L Alkaline Phosphatase (39-117) U/L Troponin I High Sens (<3.5-35.0) ng/L B-Natriuretic Peptide (<100) pg/mL Total Protein (6.5-8.0) g/dL Albumin (3.5-5.0) g/dL Lipase (8-78) U/L Urine Color YELLOW Urine Appearance CLOUDY Urine pH 7.5 (5.0-8.0) Ur Specific [place] 1.020 (1.005-1.025) Urine Protein TRACE (NEG-TRACE) MG/DL Urine Glucose (UA) NEG (NEG) MG/DL Urine Ketones NEG (NEG) MG/DL Urine Blood NEG (NEG) Urine Nitrite NEG (NEG) Ur Leukocyte Esterase NEG (NEG) Influenza Type A (PCR) (Negative) Influenza Type B (PCR) (Negative) RSV RNA Qual (PCR) (Negative) SARS-CoV-2 RNA (RT-PCR) (Negative) Imaging Data CT scan - chest: Attestation: I personally reviewed and interpreted this imaging study as follows: Radiologist's impression: FINDINGS: LUNGS: ? Baseline emphysematous changes are again seen. Once again seen is extensive cylindrical bronchiectasis involving all lobes of the lung with markedly thickened bronchi. Comparison with the most recent CT from 5 days ago is difficult because of marked respiratory artifact however appearances are not that significantly different. Some bronchi are plugged/occluded and filled with fluid. There are multiple new nodular areas in both lungs with tree-in-bud formation indicative of superimposed multifocal pneumonia. The best example are 3 adjacent nodular areas in the left upper lobe measuring about 8 mm each. Despite the marked artifact on the study from 5 days ago, I am confident that these findings were not present at that time. MEDIASTINUM: Multiple small/prominent mediastinal lymph nodes are present that are most likely reactive and unchanged from prior exams.? PLEURA: There is no pleural effusion. No pleural mass or thickening.? AXILLA: No lymphadenopathy.? UPPER ABDOMEN: Cholelithiasis is present.? OSSEOUS STRUCTURES: Mild degenerative changes and Schmorl's nodes. No bony destructive lesions? CT/CT chest wo con IMPRESSION: 1.? Underlying emphysema severe cylindrical bronchiectasis with mucus plugging. 2.? New (since 5 days ago) tree-in-bud abnormalities suggesting superimposed infection/multifocal pneumonia? ? Fleischner guidelines were followed. ECG Data Attestation: I personally reviewed and interpreted this ECG as follows: ECG interpretation date: 02/17/22 ECG interpretation time: 17:19 Prior ECG tracings: available for review Interpretation: Vent. rate 79 BPM UT interval 174 ms QRS duration 92 ms QT/QTc 388/444 ms P-R-T axes 76 55 52 Normal sinus rhythm Normal ECG When compared with ECG of 13-FEB-2022 23:48, No significant change was foun Scores Wells PE Previous DVT or PE: 1.5 Score: 1.5 2-tier Risk: unlikely risk (5%) 3-tier Risk: low risk (3.4%) Discharge Plan Discharge Clinical Impression: PNA (pneumonia), COVID-19 virus infection, Bronchiectasis Patient Disposition: Admitted As Inpatient
--- NOTE | 2022-02-17 16:25 | ECG_ITS ---
Test Reason : DYSPNEA/COVID Blood Pressure : / mmHG Vent. Rate : 079 BPM Atrial Rate : 079 BPM P-R Int : 174 ms QRS Dur : 092 ms QT Int : 388 ms P-R-T Axes : 076 055 052 degrees QTc Int : 444 ms Normal sinus rhythm Normal ECG When compared with ECG of 13-FEB-2022 23:48, No significant change was found Referred By: Telma Monsalve Electronically Signed By:OSVALDO WYMAN
[2022-02-17 17:31] VITALS: BP 107/72; PULSE 78; RESP 16; TEMP 37.4; O2SAT 98
[2022-02-17 17:52] VITALS: BP 109/64; PULSE 96; O2SAT 96; BMI 24.4
[2022-02-17 17:53] LABS: MANUAL DIFF FLAG NO
[2022-02-17 17:58] LABS: Appearance Urine CLOUDY; Color Urine YELLOW; Glucose Urine UA NEG (NEG); Leukocyte Esterase Urine NEG (NEG); Nitrite Urine NEG (NEG); PH 7.5 (5.0-8.0); Urine Blood NEG (NEG); Urine Ketones NEG (NEG); Urine Protein TRACE MG/DL (NEG-TRACE)
[2022-02-17 18:03] LABS: Basophils Percent Auto 0.1 % (0-2); Eosinophils Absolute Auto 0.1 X10*3/uL (0.0-0.4); Eosinophils Percent Auto 0.4 % (0-4); Hematocrit 34.7 % (42.0-52.0); Hemoglobin 10.6 g/dl (14.0-18.0); Imm Gran Abs Auto 0.11 X10*3/uL (0.00-0.03); Imm Gran Pct Auto 0.9 % (0.0-0.4); Lymphocytes Absolute Auto 0.7 X10*3/uL (1.2-4.9); Lymphocytes Percent Auto 5.5 % (20-40); Mean Corpuscular HGB Conc 30.5 g/dl (31.0-36.0); Mean Corpuscular Hemoglobin 24.3 pg (27.0-33.0); Mean Corpuscular Volume 79.6 fL (80.0-98.0); Mean Platelet Volume 8.7 fL (9.4-12.4); Monocytes Absolute Auto 0.8 X10*3/uL (0.1-1.2); Monocytes Percent Auto 6.8 % (2-11); Neutrophils Absolute Auto 10.6 x10*3/uL (2.0-8.3); Neutrophils Percent Auto 86.3 % (45-73); Platelet Count 192 X10*3/uL (160-400); Red Blood Count 4.36 X10*6/uL (4.60-5.80); White Blood Count 12.3 X10*3/uL (4.8-10.8)
[2022-02-17 18:14] LABS: Lactic Acid 1.5 mmol/L (0.5-2.0)
[2022-02-17 18:16] LABS: Alanine Aminotransferase 26 U/L (0-40); Albumin Level 3.5 g/dL (3.5-5.0); Alkaline Phosphatase 173 U/L (39-117); Anion Gap 12 (12-20); Aspartate Amino Transferase 17 U/L (5-37); Bilirubin Direct 0.3 mg/dL (0.0-0.5); Bilirubin Total 0.4 mg/dL (0.0-1.0); Blood Urea Nitrogen 14 mg/dL (9-16); Calcium 8.5 mg/dL (8.4-10.2); Carbon Dioxide 35 mmol/L (22-29); Chloride 92 mmol/L (96-108); Creatinine Clr Calc Pharmacy 117.1; Estimated Glomerular Filt Rate > 60; Glucose Random 119 mg/dL (60-115); Lipase 14 U/L (8-78); Magnesium 2.1 mg/dL (1.6-2.6); Sodium 135 mmol/L (135-145); Total Protein 7.8 g/dL (6.5-8.0)
[2022-02-17 18:18] LABS: Partial Thromboplastin Time 24.6 SEC (24.1-38.0)
[2022-02-17 18:22] LABS: B Type Natriuretic Peptide 12 pg/mL (<100); Troponin-I High Sensitivity 4.9 ng/L (<3.5-35.0)
[2022-02-17 18:42] LABS: Influenza A PCR NEGATIVE (Negative); Influenza B PCR NEGATIVE (Negative); Resp Syncy Virus RNA Qual PCR NEGATIVE (Negative); SARS COV2 PCR INHOUSE POSITIVE (Negative)
[2022-02-17 19:07] VITALS: BP 118/84; PULSE 80; RESP 18; TEMP 36.8; O2SAT 99
--- NOTE | 2022-02-17 19:12 | PHA.MEDREC ---
Pharmacy Consult ? Medication Reconciliation Pharmacy has completed the medication reconciliation. Pt just discharged, gets methadone from [facility].
--- NOTE | 2022-02-17 19:15 | PC.NURSE ---
Addendum entered by Verna Salmon 02/18/22 06:54: report given to AMBER Waldrop Addendum entered by Verna Salmon 02/17/22 22:52: report given to AMBER Yung Addendum entered by Verna Salmon 02/17/22 21:39: per Dr. Sheila cat not to draw second set of blood culture Original Note: report receivd from AMBER Huang. pt is alert and oriented. denies any chest pain or sob. pt started on continuos cardiac monitoring.
[2022-02-17] MEDS: levoFLOXacin/D5W 750 MG/150 ML PIGGYBACK 100 MG IV (19:49)
[2022-02-17 21:54] VITALS: BP 128/74; PULSE 89; RESP 13; O2SAT 98
--- NOTE | 2022-02-17 22:48 | P.HPHOSP_ITS ---
History of Present Illness Date of Service: 02/17/22 Chief Complaint: Shortness of breath 56-year-old male with a past medical history of COPD/pulmonary fibrosis on 4 L of supplemental oxygen, HIV, opiate dependence on methadone, hypertension, history of Pseudomonas infection; recently discharged on 02/15/2022 after being treated for COVID-19/COPD exacerbation. Presented back to the hospital with a chief complaint of cough and fevers. Patient reports that since he left home for home, he initially felt okay but started developed cough and brownish sputum production. Reports he has posttussive chest discomfort. Mentions he also has mild shortness of breath. Mentions he has a on cefuroxime and prednisone which has been continued to take as per the instructions. Also mentions he has been complaint with his home medications. Denies any chest pain at the time of my interview. Denies any GI symptoms. Review of all other systems is negative except mentioned above ER course: Per ER team patient noted to be afebrile, oxygen requirements are at his baseline; CT chest showed new infiltrates consistent with multifocal pneumonia- new from prior imaging. Given Levaquin. Admitted to the hospital for further management [facility] Medical History (Updated 02/17/22 @ 22:49 by Dashawn Sosa MD) AIDS Bronchiectasis COPD (chronic obstructive pulmonary disease) Diabetes mellitus type 1 DVT (deep venous thrombosis) HIV (human immunodeficiency virus infection) HIV disease HTN (hypertension) Pseudomonas aeruginosa colonization Pulmonary embolism Pulmonary fibrosis Thrush Pertinent family history: Father has diabetes and prostate cancer Mother has epilepsy and diabetes Social History Household Members: Spouse and Children Housing: House Do you presently have visiting nurse or other home services: Yes (Methadone dosing) Alcohol intake: never Patient Tobacco Use Status: Never used Tobacco Substance Use Type: Crack/Cocaine and Heroin Advance Directives: No Advance Directives Information Provided: No service: No Current occupational status: disabled Meds Allergies Allergy/AdvReac Type Severity Reaction Status Date / Time Penicillins Allergy Severe HIves Verified 02/12/22 03:58 swelling SOB Sulfa (Sulfonamide Allergy Severe Hives Verified 02/12/22 03:58 Antibiotics) sulfamethoxazole Allergy Hives Verified 02/12/22 03:58 [From Bactrim] trimethoprim [From Bactrim] Allergy Hives Verified 02/12/22 03:58 Active Medications: Current Medications Acetaminophen (Acetaminophen 325 Mg Tablet) 650 mg PO Q6H PRN PRN Reason: Pain, Mild (Pain Scale 1-3) Apixaban (Apixaban 2.5 Mg Tablet) 2.5 mg PO BID [facility] Azelastine HCl (Azelastine Hcl Nasal 137 Mcg/[place] 30 Ml) 1 spray NOSTRIL-B BID [facility] Benzonatate (Benzonatate 100 Mg Capsule) 100 mg PO TID PRN PRN Reason: Cough Dapsone (Dapsone 25 Mg Tablet) 100 mg PO DAILY [facility] Darunavir (Darunavir Ethanolate 600 Mg Tablet) 600 mg PO BID [facility] Dextrose (Dextrose 50 % 25 Gm/50 Ml Syringe) 25 gm IVPUSH Q15M PRN; Protocol PRN Reason: per Hypoglycemia Standing Ord. Dolutegravir Sodium (Dolutegravir Sodium 50 Mg Tablet) 50 mg PO BID [facility] Emtricitabine/Tenofovir Alafenamide (Emtricitabine/Tenofov Alafenam Tablet) 1 tab PO DAILY [facility] Glucose (Glucose Gel 15 Gm Gel..Gram.) 15 gm PO Q15M PRN; Protocol PRN Reason: per Hypoglycemia Standing Ord. Vancomycin HCl 1,000 mg/ (Sodium Chloride) 270 mls @ 270 mls/hr IV Q12H [facility] Cefepime HCl 1 gm/ Sodium (Chloride) 50 mls @ 100 mls/hr IV Q8H [facility] Insulin Glargine (Insulin Glargine,Hum.Rec.Anlog 100 Unit/Ml 10 Ml Vial) 20 unit SUBCUT BID [facility] Insulin Human Lispro (Insulin Lispro 100 Unit/Ml 3 Ml Vial) 0 unit SUBCUT QIDA [facility]; Protocol Melatonin (Melatonin 3 Mg Tablet) 6 mg PO BEDTIME PRN PRN Reason: Insomnia Morphine Sulfate (Morphine Sulfate 4 Mg/Ml Cartridge) 1 mg IVPUSH Q4H PRN; Protocol PRN Reason: Pain, SOB Pharmacy Consult (Consult Rx Vancomycin Dosing) 1 each MISCELLANE DAILY PRN PRN Reason: Consult order Senna (Sennosides 8.6 Mg Tablet) 17.2 mg PO BEDTIME PRN PRN Reason: Constipation Sodium Chloride (0.9 % Sodium Chloride Flush 3 Ml Syringe) 3 ml IVFLUSH QSHIFT [facility] Home Medications Medication Instructions Recorded Confirmed Last Taken Type albuterol sulfate 90 mcg/actuation 2 puff PO Q4H PRN wheezing 01/27/21 02/17/22 10/03/21 History aerosol inhaler (Ventolin HFA) dapsone 100 mg tablet 1 tab PO DAILY 01/27/21 02/17/22 10/03/21 History ipratropium 0.5 mg-albuterol 3 mg 3 ml inhalation QID 01/27/21 02/17/22 10/03/21 History (2.5 mg base)/3 mL nebulization soln ritonavir 100 mg tablet 1 tab PO BID 01/27/21 02/17/22 10/03/21 History methadone 10 mg/mL oral 60 mg PO DAILY 01/28/21 10/03/21 10/03/21 History concentrate (Methadone Intensol) apixaban 2.5 mg tablet (Eliquis) 1 tab PO BID 02/12/22 02/17/22 Unknown History azelastine 137 mcg (0.1 %) nasal 1 spray intranasal BID 02/12/22 02/17/22 Unknown History spray aerosol darunavir ethanolate 600 mg tablet 1 tab PO BID 02/12/22 02/17/22 Unknown History (Prezista) dolutegravir 50 mg tablet (Tivicay) 1 tab PO BID 02/12/22 02/17/22 Unknown History emtricitabine 200 mg-tenofovir 1 tab PO DAILY 02/12/22 02/17/22 Unknown History alafenamide fumarate 25 mg tablet (Descovy) insulin aspart 10 - 24 unit subcut TID 02/12/22 02/17/22 Unknown History (niacinamide)(U-100) 100 unit/mL(3 mL) subcutaneous pen (Fiasp FlexTouch U-100 Insulin) insulin glargine 100 unit/mL 40 unit subcut BID 02/12/22 02/17/22 Unknown History subcutaneous solution (Lantus U-100 Insulin) umeclidinium 62.5 mcg-vilanterol 1 puff inhalation DAILY 02/12/22 02/17/22 Unknown History 25 mcg/actuation powdr for inhalation (Anoro Ellipta) Physical Exam Vital Signs and Narrative: Vital Signs: Last Vital Signs Temp 98.3 F 02/17/22 19:07 Pulse 89 02/17/22 21:54 Resp 13 02/17/22 21:54 BP 128/74 02/17/22 21:54 Pulse Ox 98 02/17/22 21:54 O2 Del Method 02/17/22 21:54 O2 Flow Rate 4 02/17/22 21:54 BMI result Body Mass Index 24.4 Gen: Appears be in no acute distress. On supplemental oxygen. Speaks in full sentences. HEENT: NCAT, Moist mucosa. Pulmonary: Coarse breath sounds CVS: Normal S1-S2 Abdomen: BS+, Soft, Nontender Extremities: Warm well perfused Neuro: Alert and awake. Grossly nonfocal Results Labs CBC and Chem 7: 02/17/22 17:48 02/17/22 17:48 Labs: Laboratory Results - last 24 hr 02/17/22 02/17/22 02/17/22 17:47 17:48 17:48 MCV 79.6 L MCH 24.3 L MCHC 30.5 L RDW 16.0 Plt Count 192 MPV 8.7 L Immature Gran % (Auto) 0.9 H Neut % (Auto) 86.3 H Lymph % (Auto) 5.5 L [place] % (Auto) 6.8 Eos % (Auto) 0.4 Baso % (Auto) 0.1 Lymph # (Auto) 0.7 L [place] # (Auto) 0.8 Eos # (Auto) 0.1 Baso # (Auto) 0.0 Abs Immat Gran (auto) 0.11 H Absolute Neuts (auto) 10.6 H Absolute Nucleated RBC 0.000 Nucleated RBC % (auto) 0.0 APTT 24.6 Anion Gap Estim Creat Clear Calc Estimated GFR Random Glucose Lactic Acid 1.5 Calcium Magnesium Total Bilirubin Direct Bilirubin AST ALT Alkaline Phosphatase Troponin I High Sens B-Natriuretic Peptide Total Protein Albumin Lipase Urine Color Urine Appearance Urine pH Ur Specific [place] Urine Protein Urine Glucose (UA) Urine Ketones Urine Blood Urine Nitrite Ur Leukocyte Esterase Influenza Type A (PCR) Influenza Type B (PCR) RSV RNA Qual (PCR) SARS-CoV-2 RNA (RT-PCR) 02/17/22 02/17/22 02/17/22 17:48 17:48 17:48 MCV MCH MCHC RDW Plt Count MPV Immature Gran % (Auto) Neut % (Auto) Lymph % (Auto) [place] % (Auto) Eos % (Auto) Baso % (Auto) Lymph # (Auto) [place] # (Auto) Eos # (Auto) Baso # (Auto) Abs Immat Gran (auto) Absolute Neuts (auto) Absolute Nucleated RBC Nucleated RBC % (auto) APTT Anion Gap 12 Estim Creat Clear Calc 117.1 Estimated GFR > 60 Random Glucose 119 H D Lactic Acid Calcium 8.5 Magnesium 2.1 Total Bilirubin 0.4 Direct Bilirubin 0.3 AST 17 D ALT 26 Alkaline Phosphatase 173 H D Troponin I High Sens 4.9 D B-Natriuretic Peptide 12 Total Protein 7.8 Albumin 3.5 Lipase 14 Urine Color Urine Appearance Urine pH Ur Specific [place] Urine Protein Urine Glucose (UA) Urine Ketones Urine Blood Urine Nitrite Ur Leukocyte Esterase Influenza Type A (PCR) NEGATIVE Influenza Type B (PCR) NEGATIVE RSV RNA Qual (PCR) NEGATIVE SARS-CoV-2 RNA (RT-PCR) POSITIVE A 02/17/22 17:48 MCV MCH MCHC RDW Plt Count MPV Immature Gran % (Auto) Neut % (Auto) Lymph % (Auto) [place] % (Auto) Eos % (Auto) Baso % (Auto) Lymph # (Auto) [place] # (Auto) Eos # (Auto) Baso # (Auto) Abs Immat Gran (auto) Absolute Neuts (auto) Absolute Nucleated RBC Nucleated RBC % (auto) APTT Anion Gap Estim Creat Clear Calc Estimated GFR Random Glucose Lactic Acid Calcium Magnesium Total Bilirubin Direct Bilirubin AST ALT Alkaline Phosphatase Troponin I High Sens B-Natriuretic Peptide Total Protein Albumin Lipase Urine Color YELLOW Urine Appearance CLOUDY Urine pH 7.5 Ur Specific [place] 1.020 Urine Protein TRACE Urine Glucose (UA) NEG Urine Ketones NEG Urine Blood NEG Urine Nitrite NEG Ur Leukocyte Esterase NEG Influenza Type A (PCR) Influenza Type B (PCR) RSV RNA Qual (PCR) SARS-CoV-2 RNA (RT-PCR) Imaging Radiologist's Impressions: Impressions Chest CT 02/17/22 17:12 IMPRESSION: 1. Underlying emphysema severe cylindrical bronchiectasis with mucus plugging. 2. New (since 5 days ago) tree-in-bud abnormalities suggesting superimposed infection/multifocal pneumonia Fleischner guidelines were followed. Assessment and Plan (1) Pneumonia due to COVID-19 virus: Status: Acute (2) Diabetes mellitus type 1: Status: Acute (3) HIV (human immunodeficiency virus infection): Status: Acute Plan 56-year-old male with a past medical history of COPD/pulmonary fibrosis on 4 L of supplemental oxygen, HIV, opiate dependence on methadone, hypertension, history of Pseudomonas infection; recently discharged on 02/15/2022 after being treated for COVID-19/COPD exacerbation. Presented back to the hospital with a chief complaint of cough and fevers. COVID-19 pneumonia: Patient recently discharged from the hospital after being treated for COVID-19 infection. Patient received remdesivir during prior admission. Patient continued to have fevers and cough-repeat CT scan showed multifocal pneumonia-new from prior imaging. Patient currently saturating well on his baseline 4 L of supplemental oxygen. Will keep the patient on IV vancomycin and cefepime Id consult for further recommendations Patient is already on prednisone. COPD: Patient was being treated for acute COPD exacerbation from the recent admission. Discharged on prednisone on 02/15/2022. Will continue. Patient on 4 L of oxygen at home. Currently at his baseline oxygen requirements. Breathing comfortably. Albuterol inhaler p.r.n. History of opiate dependence: Patient on methadone History of DVT/PE: Patient on Eliquis History of diabetes: Type 2. Patient on Lantus 40 units b.i.d. at home. Will give the patient on Lantus 20 units b.i.d. and insulin sliding scale. Monitor fingerstick glucose and adjust as needed. History of HIV: Continue home HAART therapy. DVT prophylaxis: Patient on Eliquis Code status: Full code Quality Stroke Does the patient have a stroke diagnosis?: No VTE Prior VTE?: No VTE Risk Level:: Medical - moderate - high VTE Device Contraindication: Treatment Not Indicated VTE Drug Contraindication: N/A - Med Ordered
[2022-02-18] VITALS (11 sets, daily range): BP systolic 97–121; BP diastolic 53–74; PULSE 77–102; RESP 14–18; TEMP 36.5–37.2; O2SAT 94–98
--- NOTE | 2022-02-18 00:30 | PC.NURSE ---
Patient came from main ed to overflow ,vitals sign taken ,offer patient food ,had a chicken salad sandwich and diet trey gary.
[2022-02-18] MEDS: vancomycin HCL 1,250 MG in 0.9 % Sodium Chloride 250 ML 166.67 MG IV ×2 (00:35→13:39)
[2022-02-18] MEDS: cefEPime HCl 1 GM in 0.9 % Sodium Chloride 50 ML IV ×4 (02:33→23:58)
[2022-02-18 04:52] LABS: MANUAL DIFF FLAG NO
[2022-02-18 04:54] LABS: Eosinophils Absolute Auto 0.2 X10*3/uL (0.0-0.4); Eosinophils Percent Auto 1.6 % (0-4); Hemoglobin 10.6 g/dl (14.0-18.0); Imm Gran Abs Auto 0.12 X10*3/uL (0.00-0.03); Imm Gran Pct Auto 1.2 % (0.0-0.4); Lymphocytes Absolute Auto 0.6 X10*3/uL (1.2-4.9); Lymphocytes Percent Auto 6.1 % (20-40); Mean Corpuscular HGB Conc 30.3 g/dl (31.0-36.0); Mean Corpuscular Hemoglobin 24.3 pg (27.0-33.0); Mean Corpuscular Volume 80.3 fL (80.0-98.0); Mean Platelet Volume 8.7 fL (9.4-12.4); Monocytes Absolute Auto 0.8 X10*3/uL (0.1-1.2); Monocytes Percent Auto 7.8 % (2-11); Neutrophils Absolute Auto 8.6 x10*3/uL (2.0-8.3); Neutrophils Percent Auto 83.3 % (45-73); Platelet Count 172 X10*3/uL (160-400); Red Blood Count 4.36 X10*6/uL (4.60-5.80); Red Cell Distribution Width 15.8 % (11.0-16.0); White Blood Count 10.3 X10*3/uL (4.8-10.8)
[2022-02-18 05:09] LABS: Anion Gap 12 (12-20); Blood Urea Nitrogen 14 mg/dL (9-16); Calcium 8.1 mg/dL (8.4-10.2); Carbon Dioxide 32 mmol/L (22-29); Chloride 93 mmol/L (96-108); Creatinine Clr Calc Pharmacy 120.3; Estimated Glomerular Filt Rate > 60; Glucose Random 116 mg/dL (60-115); Sodium 133 mmol/L (135-145)
[2022-02-18 07:39] LABS: Glucose, Whole Blood 133 mg/dL (60-115)
[2022-02-18] MEDS: Albuterol/Iprat 2.5/0.5MG 3 ML AMPUL.NEB INHALE ×4 (09:29→19:56)
[2022-02-18] MEDS: DARUNAVIR ETHANOLATE 600 MG PO ×2 (10:00→20:14)
[2022-02-18] MEDS: Dapsone 25 MG TABLET 100 MG PO (10:00)
[2022-02-18] MEDS: guaiFENesin LA 600 MG TAB.ER.12H PO ×2 (10:00→20:14)
[2022-02-18] MEDS: RITONAVIR 100 MG PO ×2 (10:00→20:14)
[2022-02-18] MEDS: Dolutegravir Sodium 50 MG TABLET PO ×2 (10:00→20:14)
[2022-02-18] MEDS: Apixaban 2.5 MG TABLET PO ×2 (10:00→20:14)
[2022-02-18] MEDS: Emtricitabine/Tenofov Alafenam TABLET 1 TAB PO (10:00)
[2022-02-18] MEDS: Acetaminophen 325 MG TABLET 650 MG PO (10:11)
[2022-02-18] MEDS: 0.9 % Sodium Chloride Flush 3 ML SYRINGE IVFLUSH ×2 (10:16→17:23)
[2022-02-18] MEDS: methylPREDNISolone Sod Succ 125 MG/2 ML VIAL 60 MG IVPUSH ×2 (10:51→22:30)
--- NOTE | 2022-02-18 11:38 | MHC.RECOVRN ---
Pt receives methadone from [facility] in [place], last picked up by [facility] on 02/16. Spoke with [facility], last documented methadone administration was 02/16, 60 mg. Lupe Goodman APRN, notified.
[2022-02-18] MEDS: methADONE HCl 20 MG/2 ML ORAL.CONC 60 MG PO (12:18)
--- NOTE | 2022-02-18 12:29 | HO.PM.IMPN ---
Subjective Subjective Date of Service: 02/18/22 Interval History: cc: sob, fever interval history: still feverish Gastrointestinal Gastrointestinal: Reports no additional gastrointestinal complaints Genitourinary Genitourinary: Reports no additional male genitourinary complaints Physical Exam Vital Signs: Vital Signs: Last Vital Signs Temp 98.3 F 02/18/22 12:19 Pulse 84 02/18/22 12:19 Resp 14 02/18/22 12:19 BP 107/66 02/18/22 12:19 Pulse Ox 95 02/18/22 12:19 O2 Del Method 02/18/22 12:19 O2 Flow Rate 3 02/18/22 12:19 BMI result Body Mass Index 24.4 General: AO X 3, no acute distress Resp: Crackles bilateral, no accessory muscles used CVS: S1,S2,RRR GI: soft, non tender, non distended Neuro: motor grossly intact, alert Psych: appropriate affect, appropriate insight Objective Data Active Medications Acetaminophen (Acetaminophen 325 Mg Tablet) 650 mg PO Q6H PRN PRN Reason: Pain, Mild (Pain Scale 1-3) Last Admin: 02/18/22 10:11 Dose: 650 mg Documented By: GEORGE Albuterol Sulfate (Albuterol Sulfate 90 Mcg 8 Gm Inhaler) 2 puff INHALE Q4H PRN PRN Reason: wheezing Albuterol/Ipratropium (Albuterol/Iprat 2.5/0.5mg 3 Ml Ampul.Neb) 3 ml INHALE QID [facility] Last Admin: 02/18/22 11:33 Dose: 3 ml Documented By: NORBERTO Apixaban (Apixaban 2.5 Mg Tablet) 2.5 mg PO BID [facility] Last Admin: 02/18/22 10:00 Dose: 2.5 mg Documented By: GEORGE Azelastine HCl (Azelastine Hcl Nasal 137 Mcg/[place] 30 Ml) 1 spray NOSTRIL-B BID [facility] Last Admin: 02/18/22 10:35 Dose: Not Given Documented By: GEORGE Non-Admin Reason: Med Not Available Benzonatate (Benzonatate 100 Mg Capsule) 100 mg PO TID PRN PRN Reason: Cough Dapsone (Dapsone 25 Mg Tablet) 100 mg PO DAILY [facility] Last Admin: 02/18/22 10:00 Dose: 100 mg Documented By: GEORGE Darunavir (Darunavir Ethanolate 600 Mg Tablet) 600 mg PO BID [facility] Last Admin: 02/18/22 10:00 Dose: 600 mg Documented By: GEORGE Dextrose (Dextrose 50 % 25 Gm/50 Ml Syringe) 25 gm IVPUSH Q15M PRN; Protocol PRN Reason: per Hypoglycemia Standing Ord. Dolutegravir Sodium (Dolutegravir Sodium 50 Mg Tablet) 50 mg PO BID [facility] Last Admin: 02/18/22 10:00 Dose: 50 mg Documented By: GEORGE Emtricitabine/Tenofovir Alafenamide (Emtricitabine/Tenofov Alafenam Tablet) 1 tab PO DAILY [facility] Last Admin: 02/18/22 10:00 Dose: 1 tab Documented By: GEORGE Glucose (Glucose Gel 15 Gm Gel..Gram.) 15 gm PO Q15M PRN; Protocol PRN Reason: per Hypoglycemia Standing Ord. Guaifenesin (Guaifenesin [place] 600 Mg Tab.Er.12h) 600 mg PO BID [facility] Last Admin: 02/18/22 10:00 Dose: 600 mg Documented By: GEORGE Cefepime HCl 1 gm/ Sodium (Chloride) 50 mls @ 100 mls/hr IV Q8H [facility] Last Infusion: 02/18/22 10:38 Dose: 0 mls/hr Documented By: GEORGE Insulin Glargine (Insulin Glargine,Hum.Rec.Anlog 100 Unit/Ml 10 Ml Vial) 20 unit SUBCUT BID [facility] Last Admin: 02/18/22 10:17 Dose: Not Given Documented By: GEORGE Non-Admin Reason: Physician Approved Insulin Human Lispro (Insulin Lispro 100 Unit/Ml 3 Ml Vial) 0 unit SUBCUT QIDACHS [facility]; Protocol Last Admin: 02/18/22 08:22 Dose: Not Given Documented By: GEORGE Non-Admin Reason: No Insulin Coverage Methadone HCl (Methadone Hcl 20 Mg/2 Ml Oral.Conc) 60 mg PO DAILY [facility] Last Admin: 02/18/22 12:18 Dose: 60 mg Documented By: GEORGE Methylprednisolone Sodium Succinate (Methylprednisolone Sod Succ 125 Mg/2 Ml Vial) 60 mg IVPUSH Q12H [facility] Last Admin: 02/18/22 10:51 Dose: 60 mg Documented By: GEORGE Morphine Sulfate (Morphine Sulfate 4 Mg/Ml Cartridge) 1 mg IVPUSH Q4H PRN; Protocol PRN Reason: Pain, SOB Multi-Ingred Cream/Lotion/Oil/Oint (Mineral Oil/Petrolatum,White 106 Gm Tube) 1 appl TOPICAL BID [facility]; Protocol Last Admin: 02/18/22 10:39 Dose: Not Given Documented By: GEORGE Non-Admin Reason: Med Not Available Pharmacy Consult (Consult Rx Vancomycin Dosing) 1 each MISCELLANE DAILY PRN PRN Reason: Consult order Ritonavir (Ritonavir 100 Mg Tablet) 100 mg PO BID [facility] Last Admin: 02/18/22 10:00 Dose: 100 mg Documented By: GEORGE Senna (Sennosides 8.6 Mg Tablet) 17.2 mg PO BEDTIME PRN PRN Reason: Constipation Sodium Chloride (0.9 % Sodium Chloride Flush 3 Ml Syringe) 3 ml IVFLUSH QSHIFT [facility] Last Admin: 02/18/22 10:16 Dose: 3 ml Documented By: EGORGE Labs CBC & Chem 7: 02/18/22 04:10 02/18/22 04:10 Labs: Laboratory Results - last 24 hr 02/17/22 02/17/22 02/17/22 17:47 17:48 17:48 MCV 79.6 L MCH 24.3 L MCHC 30.5 L RDW 16.0 Plt Count 192 MPV 8.7 L Immature Gran % (Auto) 0.9 H Neut % (Auto) 86.3 H Lymph % (Auto) 5.5 L [place] % (Auto) 6.8 Eos % (Auto) 0.4 Baso % (Auto) 0.1 Lymph # (Auto) 0.7 L [place] # (Auto) 0.8 Eos # (Auto) 0.1 Baso # (Auto) 0.0 Abs Immat Gran (auto) 0.11 H Absolute Neuts (auto) 10.6 H Absolute Nucleated RBC 0.000 Nucleated RBC % (auto) 0.0 APTT 24.6 Anion Gap Estim Creat Clear Calc Estimated GFR POC Glucose Random Glucose Lactic Acid 1.5 Calcium Magnesium Total Bilirubin Direct Bilirubin AST ALT Alkaline Phosphatase Troponin I High Sens B-Natriuretic Peptide Total Protein Albumin Lipase Urine Color Urine Appearance Urine pH Ur Specific [place] Urine Protein Urine Glucose (UA) Urine Ketones Urine Blood Urine Nitrite Ur Leukocyte Esterase Influenza Type A (PCR) Influenza Type B (PCR) RSV RNA Qual (PCR) SARS-CoV-2 RNA (RT-PCR) 02/17/22 02/17/22 02/17/22 17:48 17:48 17:48 MCV MCH MCHC RDW Plt Count MPV Immature Gran % (Auto) Neut % (Auto) Lymph % (Auto) [place] % (Auto) Eos % (Auto) Baso % (Auto) Lymph # (Auto) [place] # (Auto) Eos # (Auto) Baso # (Auto) Abs Immat Gran (auto) Absolute Neuts (auto) Absolute Nucleated RBC Nucleated RBC % (auto) APTT Anion Gap 12 Estim Creat Clear Calc 117.1 Estimated GFR > 60 POC Glucose Random Glucose 119 H D Lactic Acid Calcium 8.5 Magnesium 2.1 Total Bilirubin 0.4 Direct Bilirubin 0.3 AST 17 D ALT 26 Alkaline Phosphatase 173 H D Troponin I High Sens 4.9 D B-Natriuretic Peptide 12 Total Protein 7.8 Albumin 3.5 Lipase 14 Urine Color Urine Appearance Urine pH Ur Specific [place] Urine Protein Urine Glucose (UA) Urine Ketones Urine Blood Urine Nitrite Ur Leukocyte Esterase Influenza Type A (PCR) NEGATIVE Influenza Type B (PCR) NEGATIVE RSV RNA Qual (PCR) NEGATIVE SARS-CoV-2 RNA (RT-PCR) POSITIVE A 02/17/22 02/18/22 02/18/22 17:48 04:10 04:10 MCV 80.3 MCH 24.3 L MCHC 30.3 L RDW 15.8 Plt Count 172 MPV 8.7 L Immature Gran % (Auto) 1.2 H Neut % (Auto) 83.3 H Lymph % (Auto) 6.1 L [place] % (Auto) 7.8 Eos % (Auto) 1.6 Baso % (Auto) 0.0 Lymph # (Auto) 0.6 L [place] # (Auto) 0.8 Eos # (Auto) 0.2 Baso # (Auto) 0.0 Abs Immat Gran (auto) 0.12 H Absolute Neuts (auto) 8.6 H Absolute Nucleated RBC 0.000 Nucleated RBC % (auto) 0.0 APTT Anion Gap 12 Estim Creat Clear Calc 120.3 Estimated GFR > 60 POC Glucose Random Glucose 116 H Lactic Acid Calcium 8.1 L Magnesium Total Bilirubin Direct Bilirubin AST ALT Alkaline Phosphatase Troponin I High Sens B-Natriuretic Peptide Total Protein Albumin Lipase Urine Color YELLOW Urine Appearance CLOUDY Urine pH 7.5 Ur Specific [place] 1.020 Urine Protein TRACE Urine Glucose (UA) NEG Urine Ketones NEG Urine Blood NEG Urine Nitrite NEG Ur Leukocyte Esterase NEG Influenza Type A (PCR) Influenza Type B (PCR) RSV RNA Qual (PCR) SARS-CoV-2 RNA (RT-PCR) 02/18/22 07:26 MCV MCH MCHC RDW Plt Count MPV Immature Gran % (Auto) Neut % (Auto) Lymph % (Auto) [place] % (Auto) Eos % (Auto) Baso % (Auto) Lymph # (Auto) [place] # (Auto) Eos # (Auto) Baso # (Auto) Abs Immat Gran (auto) Absolute Neuts (auto) Absolute Nucleated RBC Nucleated RBC % (auto) APTT Anion Gap Estim Creat Clear Calc Estimated GFR POC Glucose 133 H Random Glucose Lactic Acid Calcium Magnesium Total Bilirubin Direct Bilirubin AST ALT Alkaline Phosphatase Troponin I High Sens B-Natriuretic Peptide Total Protein Albumin Lipase Urine Color Urine Appearance Urine pH Ur Specific [place] Urine Protein Urine Glucose (UA) Urine Ketones Urine Blood Urine Nitrite Ur Leukocyte Esterase Influenza Type A (PCR) Influenza Type B (PCR) RSV RNA Qual (PCR) SARS-CoV-2 RNA (RT-PCR) Microbiology Microbiology Results: Microbiology 02/17/22 17:30 Blood Culture - Final Blood - Venous Assessment and Plan (1) Diabetes mellitus type 1: Status: Acute Plan 56M presented with fevers, sob acute on chronic hypoxic respriatory failure due to covid pnuemonia in patient with severe COPD with acute decompensation and bronchiectasis saturating 88% on baseline 4L iv steroids cefepime for any bacterial component ID eval opiate dependence methadone history of DVT/PE eliquis DM basal bolus insulin HIV haart full code reason for continued hospitalization: hypoxia Quality Stroke Does the patient have a stroke diagnosis?: No VTE Prior VTE?: No VTE Risk Level:: Medical - moderate - high VTE Device Contraindication: Treatment Not Indicated VTE Drug Contraindication: N/A - Med Ordered
[2022-02-18] MEDS: Insulin Lispro 100 UNIT/ML 3 ML VIAL SUBCUT ×3 (12:31→20:19)
[2022-02-18 12:44] LABS: Glucose, Whole Blood 303 mg/dL (60-115)
--- NOTE | 2022-02-18 14:01 | PC.NURSE ---
some morning meds were not loaded in overflow pyxis, meds given past schedule. this investment underwriter spoke with Meghna in pharmacy regarding unavailable meds. pt requested something to help him sleep Dr. Canales aware, new order for Trazodone at [facility]. pt alert, oriented, vss.
[2022-02-18 17:16] LABS: Glucose, Whole Blood 499 mg/dL (60-115)
--- NOTE | 2022-02-18 17:30 | PC.NURSE ---
pt's poc 499, Dr. Canales aware, new order received, insulin coverage given as documented. pt asymptomatic, vss
[2022-02-18] MEDS: Insulin Glargine,Hum.rec.anlog 100 UNIT/ML 10 ML VIAL 40 UNIT SUBCUT (20:20)
--- NOTE | 2022-02-18 20:21 | PC.NURSE ---
pt BS 383
[2022-02-18 20:33] LABS: Glucose, Whole Blood 383 mg/dL (60-115)
[2022-02-18] MEDS: traZODone HCL 25 MG HALFTAB PO (22:32)
[2022-02-19] VITALS (10 sets, daily range): BP systolic 100–123; BP diastolic 51–72; PULSE 75–98; RESP 14–20; TEMP 36.1–36.7; O2SAT 91–98; BMI 26.2
[2022-02-19] MEDS: vancomycin HCL 1,250 MG in 0.9 % Sodium Chloride 250 ML 166.67 MG IV (00:35)
[2022-02-19 06:38] LABS: Hematocrit 32.5 % (42.0-52.0); Hemoglobin 10.2 g/dl (14.0-18.0); Mean Corpuscular HGB Conc 31.4 g/dl (31.0-36.0); Mean Corpuscular Hemoglobin 24.6 pg (27.0-33.0); Mean Corpuscular Volume 78.5 fL (80.0-98.0); Mean Platelet Volume 8.7 fL (9.4-12.4); Platelet Count 194 X10*3/uL (160-400); Red Blood Count 4.14 X10*6/uL (4.60-5.80); Red Cell Distribution Width 15.5 % (11.0-16.0); White Blood Count 9.7 X10*3/uL (4.8-10.8)
[2022-02-19 07:18] LABS: Anion Gap 13 (12-20); Blood Urea Nitrogen 17 mg/dL (9-16); C Reactive Protein 16.43 mg/dL (< or = 0.50); Calcium 8.7 mg/dL (8.4-10.2); Carbon Dioxide 30 mmol/L (22-29); Chloride 94 mmol/L (96-108); Creatinine Clr Calc Pharmacy 115.5; Estimated Glomerular Filt Rate > 60; Glucose Fasting 345 mg/dL (60-99); Potassium 4.6 mmol/L (3.3-5.1); Sodium 132 mmol/L (135-145)
--- NOTE | 2022-02-19 07:24 | PC.NURSE ---
received pt in bed, a/o x 4. would like to wash up use bathroom, tested (+) for covid February 12. FS 356. Lungs with rihonchi throughout, SaO2 95% on 5L.
[2022-02-19] MEDS: Albuterol/Iprat 2.5/0.5MG 3 ML AMPUL.NEB INHALE ×4 (08:15→18:54)
[2022-02-19] MEDS: Insulin Glargine,Hum.rec.anlog 100 UNIT/ML 10 ML VIAL 40 UNIT SUBCUT ×2 (08:25→19:54)
[2022-02-19] MEDS: Insulin Lispro 100 UNIT/ML 3 ML VIAL SUBCUT ×4 (08:26→19:54)
[2022-02-19] MEDS: Apixaban 2.5 MG TABLET PO ×2 (08:27→19:55)
[2022-02-19] MEDS: Emtricitabine/Tenofov Alafenam TABLET 1 TAB PO (08:27)
[2022-02-19] MEDS: DARUNAVIR ETHANOLATE 600 MG PO ×2 (08:27→19:55)
[2022-02-19] MEDS: Dolutegravir Sodium 50 MG TABLET PO ×2 (08:27→19:55)
[2022-02-19] MEDS: guaiFENesin LA 600 MG TAB.ER.12H PO ×2 (08:27→19:54)
[2022-02-19] MEDS: RITONAVIR 100 MG PO ×2 (08:27→19:54)
[2022-02-19] MEDS: methADONE HCl 20 MG/2 ML ORAL.CONC 60 MG PO (08:28)
--- NOTE | 2022-02-19 09:59 | HO.PM.IMPN ---
Subjective Subjective Date of Service: 02/19/22 Interval History: cc: sob, fever interval history: overall improved, still sob, coughing Gastrointestinal Gastrointestinal: Reports no additional gastrointestinal complaints Genitourinary Genitourinary: Reports no additional male genitourinary complaints Physical Exam Vital Signs: Vital Signs: Last Vital Signs Temp 97.9 F 02/18/22 23:44 Pulse 98 02/19/22 08:16 Resp 18 02/19/22 08:16 BP 101/51 L 02/19/22 07:21 Pulse Ox 96 02/19/22 04:05 O2 Del Method 02/19/22 07:21 O2 Flow Rate 5 02/19/22 07:21 BMI result Body Mass Index 24.4 General: AO X 3, no acute distress Resp: Crackles bilateral, no accessory muscles used CVS: S1,S2,RRR GI: soft, non tender, non distended Neuro: motor grossly intact, alert Psych: appropriate affect, appropriate insight Objective Data Active Medications Acetaminophen (Acetaminophen 325 Mg Tablet) 650 mg PO Q6H PRN PRN Reason: Pain, Mild (Pain Scale 1-3) Last Admin: 02/18/22 10:11 Dose: 650 mg Documented By: GEORGE Albuterol Sulfate (Albuterol Sulfate 90 Mcg 8 Gm Inhaler) 2 puff INHALE Q4H PRN PRN Reason: wheezing Albuterol/Ipratropium (Albuterol/Iprat 2.5/0.5mg 3 Ml Ampul.Neb) 3 ml INHALE QID [facility] Last Admin: 02/19/22 08:15 Dose: 3 ml Documented By: NUVIA Apixaban (Apixaban 2.5 Mg Tablet) 2.5 mg PO BID [facility] Last Admin: 02/19/22 08:27 Dose: 2.5 mg Documented By: ELLIE Azelastine HCl (Azelastine Hcl Nasal 137 Mcg/[place] 30 Ml) 1 spray NOSTRIL-B BID [facility] Last Admin: 02/18/22 20:24 Dose: Not Given Documented By: JONES Non-Admin Reason: Med Not Available Benzonatate (Benzonatate 100 Mg Capsule) 100 mg PO TID PRN PRN Reason: Cough Dapsone (Dapsone 25 Mg Tablet) 100 mg PO DAILY [facility] Last Admin: 02/18/22 10:00 Dose: 100 mg Documented By: GEORGE Darunavir (Darunavir Ethanolate 600 Mg Tablet) 600 mg PO BID [facility] Last Admin: 02/19/22 08:27 Dose: 600 mg Documented By: ELLIE Dextrose (Dextrose 50 % 25 Gm/50 Ml Syringe) 25 gm IVPUSH Q15M PRN; Protocol PRN Reason: per Hypoglycemia Standing Ord. Dolutegravir Sodium (Dolutegravir Sodium 50 Mg Tablet) 50 mg PO BID [facility] Last Admin: 02/19/22 08:27 Dose: 50 mg Documented By: ELLIE Emtricitabine/Tenofovir Alafenamide (Emtricitabine/Tenofov Alafenam Tablet) 1 tab PO DAILY [facility] Last Admin: 02/19/22 08:27 Dose: 1 tab Documented By: ELLIE Glucose (Glucose Gel 15 Gm Gel..Gram.) 15 gm PO Q15M PRN; Protocol PRN Reason: per Hypoglycemia Standing Ord. Guaifenesin (Guaifenesin La 600 Mg Tab.Er.12h) 600 mg PO BID [facility] Last Admin: 02/19/22 08:27 Dose: 600 mg Documented By: ELLIE Cefepime HCl 1 gm/ Sodium (Chloride) 50 mls @ 100 mls/hr IV Q8H [facility] Last Infusion: 02/19/22 00:52 Dose: 0 mls/hr Documented By: JONES Vancomycin HCl 1,250 mg/ (Sodium Chloride) 250 mls @ 166.667 mls/hr IV Q12H [facility] Last Infusion: 02/19/22 02:08 Dose: 0 mls/hr Documented By: JONES Insulin Glargine (Insulin Glargine,Hum.Rec.Anlog 100 Unit/Ml 10 Ml Vial) 40 unit SUBCUT BID [facility] Last Admin: 02/19/22 08:25 Dose: 40 unit Documented By: ELLIE Insulin Human Lispro (Insulin Lispro 100 Unit/Ml 3 Ml Vial) 0 unit SUBCUT QIDACHS [facility]; Protocol Last Admin: 02/19/22 08:26 Dose: 10 unit Documented By: ELLIE Methadone HCl (Methadone Hcl 20 Mg/2 Ml Oral.Conc) 60 mg PO DAILY [facility] Last Admin: 02/19/22 08:28 Dose: 60 mg Documented By: ELLIE Methylprednisolone Sodium Succinate (Methylprednisolone Sod Succ 125 Mg/2 Ml Vial) 60 mg IVPUSH Q12H [facility] Last Admin: 02/18/22 22:30 Dose: 60 mg Documented By: JONES Morphine Sulfate (Morphine Sulfate 4 Mg/Ml Cartridge) 1 mg IVPUSH Q4H PRN; Protocol PRN Reason: Pain, SOB Multi-Ingred Cream/Lotion/Oil/Oint (Mineral Oil/Petrolatum,White 106 Gm Tube) 1 appl TOPICAL BID [facility]; Protocol Last Admin: 02/18/22 20:24 Dose: Not Given Documented By: JONES Non-Admin Reason: Med Not Available Pharmacy Consult (Consult Rx Vancomycin Dosing) 1 each MISCELLANE DAILY PRN PRN Reason: Consult order Ritonavir (Ritonavir 100 Mg Tablet) 100 mg PO BID [facility] Last Admin: 02/19/22 08:27 Dose: 100 mg Documented By: ELLIE Senna (Sennosides 8.6 Mg Tablet) 17.2 mg PO BEDTIME PRN PRN Reason: Constipation Sodium Chloride (0.9 % Sodium Chloride Flush 3 Ml Syringe) 3 ml IVFLUSH QSHIFT [facility] Last Admin: 02/19/22 00:10 Dose: Not Given Documented By: JONES Non-Admin Reason: IV Running Trazodone HCl (Trazodone Hcl 25 Mg Halftab) 25 mg PO BEDTIME PRN PRN Reason: insomnia Last Admin: 02/18/22 22:32 Dose: 25 mg Documented By: JONES Labs CBC & Chem 7: 02/19/22 05:46 02/19/22 05:46 Labs: Laboratory Results - last 24 hr 02/18/22 02/18/22 02/18/22 12:18 16:59 20:13 MCV MCH MCHC RDW Plt Count MPV Absolute Nucleated RBC Nucleated RBC % (auto) Anion Gap Estim Creat Clear Calc Estimated GFR POC Glucose 303 H 499 H* 383 H* Fasting Glucose Calcium C-Reactive Protein 02/19/22 02/19/22 05:46 05:46 MCV 78.5 L MCH 24.6 L MCHC 31.4 RDW 15.5 Plt Count 194 MPV 8.7 L Absolute Nucleated RBC 0.000 Nucleated RBC % (auto) 0.0 Anion Gap 13 Estim Creat Clear Calc 115.5 Estimated GFR > 60 POC Glucose Fasting Glucose 345 H D Calcium 8.7 D C-Reactive Protein 16.43 H Microbiology Microbiology Results: Microbiology 02/17/22 17:48 Blood Culture - Preliminary Blood - Venous No growth after 24 hours. 02/17/22 17:30 Blood Culture - Final Blood - Venous Assessment and Plan (1) Diabetes mellitus type 1: Status: Acute Plan 56M presented with fevers, sob acute on chronic hypoxic respriatory failure due to covid pnuemonia in patient with severe COPD with acute decompensation and bronchiectasis continue iv steroids vanc/cefepime for any bacterial component/overgrowth ID eval opiate dependence methadone history of DVT/PE eliquis DM basal bolus insulin HIV haart full code reason for continued hospitalization: hypoxia worse than baseline Quality Stroke Does the patient have a stroke diagnosis?: No VTE Prior VTE?: No VTE Risk Level:: Medical - moderate - high VTE Device Contraindication: Treatment Not Indicated VTE Drug Contraindication: N/A - Med Ordered
--- NOTE | 2022-02-19 11:16 | PC.NURSE ---
took for at 11am got report from Stefania, will administer medications that have not been given from this am.
[2022-02-19] MEDS: methylPREDNISolone Sod Succ 125 MG/2 ML VIAL 60 MG IVPUSH ×2 (11:51→21:22)
[2022-02-19] MEDS: cefEPime HCl 1 GM in 0.9 % Sodium Chloride 50 ML IV ×2 (11:51→17:26)
[2022-02-19] MEDS: Dapsone 25 MG TABLET 100 MG PO (11:51)
--- NOTE | 2022-02-19 12:03 | HE.PHANOTE ---
Vancomycin Dosing Addendum Vancomycin Trough 7.0. Increasing dose to 1500 mg q12h for predicted AUC of 491. next level 02/20/22 @1100
--- NOTE | 2022-02-19 12:04 | PC.NURSE ---
patient a&ox3, vss, traffic monitor specialist nsr, pt denies pain/discomfort, speaking in full sentences, no sob noted at this time, pt medicated per orders, pt aware his call ng is broken and to knock on the door if needed, will continue to monitor.
--- NOTE | 2022-02-19 12:16 | P.CNID_ITS ---
History of Present Illness Data of Consult Service Date: 02/18/22 Requesting physician: Bob Canales Primary Care Provider: Jeremy Romano MD HPI Reason for consult: pneumonia,post discharge COVID He presents with worsening cough and shortness of breath since 02/15. He was admitted 02/11-02/15 and given Remdesivir for COVID and discharged on Prednisone and Cefuroxime. He didnt have worsening oxygen requirement. He has COPD and is on 4loxygen. Review of Systems Review of Systems: Yes all other systems are reviewed and are negative [facility] Past Medical History Medical History (Updated 02/19/22 @ 12:19 by Dinah Wolff MD) AIDS Bronchiectasis COPD (chronic obstructive pulmonary disease) Diabetes mellitus type 1 DVT (deep venous thrombosis) HIV (human immunodeficiency virus infection) HTN (hypertension) Pneumonia Pseudomonas aeruginosa colonization Pulmonary embolism Pulmonary fibrosis Vasculitis Family History Family history: reviewed and not pertinent Social History Social History Household Members: Spouse and Children Housing: House Do you presently have visiting nurse or other home services: Yes (Methadone dosing) Alcohol intake: never Patient Tobacco Use Status: Never used Tobacco Substance Use Type: Crack/Cocaine and Heroin Advance Directives: No Advance Directives Information Provided: No service: No Current occupational status: disabled Meds Allergies Allergy/AdvReac Type Severity Reaction Status Date / Time Penicillins Allergy Severe HIves Verified 02/12/22 03:58 swelling SOB Sulfa (Sulfonamide Allergy Severe Hives Verified 02/12/22 03:58 Antibiotics) sulfamethoxazole Allergy Hives Verified 02/12/22 03:58 [From Bactrim] trimethoprim [From Bactrim] Allergy Hives Verified 02/12/22 03:58 Active Medications: Current Medications Acetaminophen (Acetaminophen 325 Mg Tablet) 650 mg PO Q6H PRN PRN Reason: Pain, Mild (Pain Scale 1-3) Last Admin: 02/18/22 10:11 Dose: 650 mg Albuterol Sulfate (Albuterol Sulfate 90 Mcg 8 Gm Inhaler) 2 puff INHALE Q4H PRN PRN Reason: wheezing Albuterol/Ipratropium (Albuterol/Iprat 2.5/0.5mg 3 Ml Ampul.Neb) 3 ml INHALE QID [facility] Last Admin: 02/19/22 08:15 Dose: 3 ml Apixaban (Apixaban 2.5 Mg Tablet) 2.5 mg PO BID [facility] Last Admin: 02/19/22 08:27 Dose: 2.5 mg Azelastine HCl (Azelastine Hcl Nasal 137 Mcg/[place] 30 Ml) 1 spray NOSTRIL-B BID [facility] Last Admin: 02/19/22 11:31 Dose: Not Given Benzonatate (Benzonatate 100 Mg Capsule) 100 mg PO TID PRN PRN Reason: Cough Dapsone (Dapsone 25 Mg Tablet) 100 mg PO DAILY [facility] Last Admin: 02/19/22 11:51 Dose: 100 mg Darunavir (Darunavir Ethanolate 600 Mg Tablet) 600 mg PO BID [facility] Last Admin: 02/19/22 08:27 Dose: 600 mg Dextrose (Dextrose 50 % 25 Gm/50 Ml Syringe) 25 gm IVPUSH Q15M PRN; Protocol PRN Reason: per Hypoglycemia Standing Ord. Dolutegravir Sodium (Dolutegravir Sodium 50 Mg Tablet) 50 mg PO BID [facility] Last Admin: 02/19/22 08:27 Dose: 50 mg Emtricitabine/Tenofovir Alafenamide (Emtricitabine/Tenofov Alafenam Tablet) 1 tab PO DAILY [facility] Last Admin: 02/19/22 08:27 Dose: 1 tab Glucose (Glucose Gel 15 Gm Gel..Gram.) 15 gm PO Q15M PRN; Protocol PRN Reason: per Hypoglycemia Standing Ord. Guaifenesin (Guaifenesin [place] 600 Mg Tab.Er.12h) 600 mg PO BID [facility] Last Admin: 02/19/22 08:27 Dose: 600 mg Cefepime HCl 1 gm/ Sodium (Chloride) 50 mls @ 100 mls/hr IV Q8H [facility] Last Admin: 02/19/22 11:51 Dose: 100 mls/hr Vancomycin HCl 1,500 mg/ (Sodium Chloride) 500 mls @ 333.333 mls/hr IV Q12H [facility] Insulin Glargine (Insulin Glargine,Hum.Rec.Anlog 100 Unit/Ml 10 Ml Vial) 40 unit SUBCUT BID [facility] Last Admin: 02/19/22 08:25 Dose: 40 unit Insulin Human Lispro (Insulin Lispro 100 Unit/Ml 3 Ml Vial) 0 unit SUBCUT QIDACHS [facility]; Protocol Last Admin: 02/19/22 08:26 Dose: 10 unit Methadone HCl (Methadone Hcl 20 Mg/2 Ml Oral.Conc) 60 mg PO DAILY [facility] Last Admin: 02/19/22 08:28 Dose: 60 mg Methylprednisolone Sodium Succinate (Methylprednisolone Sod Succ 125 Mg/2 Ml Vial) 60 mg IVPUSH Q12H [facility] Last Admin: 02/19/22 11:51 Dose: 60 mg Morphine Sulfate (Morphine Sulfate 4 Mg/Ml Cartridge) 1 mg IVPUSH Q4H PRN; Protocol PRN Reason: Pain, SOB Multi-Ingred Cream/Lotion/Oil/Oint (Mineral Oil/Petrolatum,White 106 Gm Tube) 1 appl TOPICAL BID [facility]; Protocol Last Admin: 02/19/22 11:52 Dose: Not Given Pharmacy Consult (Consult Rx Vancomycin Dosing) 1 each MISCELLANE DAILY PRN PRN Reason: Consult order Ritonavir (Ritonavir 100 Mg Tablet) 100 mg PO BID [facility] Last Admin: 02/19/22 08:27 Dose: 100 mg Senna (Sennosides 8.6 Mg Tablet) 17.2 mg PO BEDTIME PRN PRN Reason: Constipation Sodium Chloride (0.9 % Sodium Chloride Flush 3 Ml Syringe) 3 ml IVFLUSH QSHIFT [facility] Last Admin: 02/19/22 11:16 Dose: Not Given Trazodone HCl (Trazodone Hcl 25 Mg Halftab) 25 mg PO BEDTIME PRN PRN Reason: insomnia Last Admin: 02/18/22 22:32 Dose: 25 mg Home Medications Medication Instructions Recorded Confirmed Last Taken Type albuterol sulfate 90 mcg/actuation 2 puff PO Q4H PRN wheezing 01/27/21 02/17/22 10/03/21 History aerosol inhaler (Ventolin HFA) dapsone 100 mg tablet 1 tab PO DAILY 01/27/21 02/17/22 10/03/21 History ipratropium 0.5 mg-albuterol 3 mg 3 ml inhalation QID 01/27/21 02/17/22 10/03/21 History (2.5 mg base)/3 mL nebulization soln ritonavir 100 mg tablet 1 tab PO BID 01/27/21 02/17/22 10/03/21 History methadone 10 mg/mL oral 60 mg PO DAILY 01/28/21 10/03/2110/03/22 History concentrate (Methadone Intensol) apixaban 2.5 mg tablet (Eliquis) 1 tab PO BID 02/12/22 02/17/22 Unknown History azelastine 137 mcg (0.1 %) nasal 1 spray intranasal BID 02/12/22 02/17/22 Unknown History spray aerosol darunavir ethanolate 600 mg tablet 1 tab PO BID 02/12/22 02/17/22 Unknown History (Prezista) dolutegravir 50 mg tablet (Tivicay) 1 tab PO BID 02/12/22 02/17/22 Unknown History emtricitabine 200 mg-tenofovir 1 tab PO DAILY 02/12/22 02/17/22 Unknown History alafenamide fumarate 25 mg tablet (Descovy) insulin aspart 10 - 24 unit subcut TID 02/12/22 02/17/22 Unknown History (niacinamide)(U-100) 100 unit/mL(3 mL) subcutaneous pen (Fiasp FlexTouch U-100 Insulin) insulin glargine 100 unit/mL 40 unit subcut BID 02/12/22 02/17/22 Unknown Histor y subcutaneous solution (Lantus U-100 Insulin) umeclidinium 62.5 mcg-vilanterol 1 puff inhalation DAILY 02/12/22 02/17/22 Unknown History 25 mcg/actuation powdr for inhalation (Anoro Ellipta) Physical Exam Vital Signs: Vital Signs: Last Vital Signs Temp 97.9 F 02/18/22 23:44 Pulse 98 02/19/22 08:16 Resp 18 02/19/22 08:16 BP 101/51 L 02/19/22 07:21 Pulse Ox 96 02/19/22 04:05 O2 Del Method 02/19/22 07:21 O2 Flow Rate 5 02/19/22 07:21 BMI result Body Mass Index 24.4 Const: General: cooperative Eyes: General: appearance normal, both eyes and all related structures Pupils: Equal, round and reactive pupils present Resp: Effort & Inspection: normal respiratory effort Cardio: Rate: regular rate Rhythm: regular rhythm GI: Palpation (GI): Soft to palpation and nontender Skin: General skin exam: no rashes or lesions noted Neuro: Cranial nerves: Yes Equal, round and reactive pupils present Extrem: General: Yes normal to inspection Results Labs CBC & Chem 7: 02/19/22 05:46 02/19/22 05:46 Labs: Short CBC 02/19/22 Range/Units 05:46 WBC 9.7 (4.8-10.8) X10*3/uL Hgb 10.2 L (14.0-18.0) g/dl Hct 32.5 L (42.0-52.0) % Plt Count 194 (160-400) X10*3/uL BMP 02/19/22 05:46 Sodium 132 L Potassium 4.6 Chloride 94 L Carbon Dioxide 30 H BUN 17 H Creatinine 0.76 Calcium 8.7 D Microbiology Microbiology Results: Microbiology 02/17/22 17:48 Blood - Venous Blood Culture - Preliminary No growth after 24 hours. 02/17/22 17:30 Blood - Venous Blood Culture - Final Assessment and Plan (1) Pneumonia: Status: Acute He is post discharge from hospital. He has worsening infiltrates on CXR and fever of 103 before admission. Would be concerned over opportunistic organisms such as MRSA or gram negative such as Pseudomonas He has had COVID but HIV is controlled so dont think still has viremia from COVID (and he has had Remdesivir.) Plan Would continue Vancomycin and Cefepime, possible five to seven days Sputum culture if able. Would check nares MRSA and stop Vancomycin if negative. Continue HIV medication.
[2022-02-19] MEDS: vancomycin HCL 1,500 MG in 0.9 % Sodium Chloride 500 ML 333.33 MG IV (13:56)
[2022-02-19 14:54] LABS: MRSA Nasal PCR NEGATIVE (Negative); SA Nasal PCR NEGATIVE (Negative)
--- NOTE | 2022-02-19 15:13 | MHC.CM.PN ---
IMM 02/19/22, EMR REVIEWED PT ADMITTED W/COVID PNA, CM MET W/PT WHO REPORTS HE LIVES W/HIS ROBI WHO IS A RN ON M5, PT REPORTSHE HAS ASSISTANCE W/ADL'S BY , USES A WALKER AND W/C, PT HAS DIABETIC SUPPLIES AND REPORTS LANTUS 40MG AND SLIDING SCALE INSULIN AT HOME, 4L O2 W/LINCARE, HAS ALLIED VNA FOR METHADONE DELIVERY VERIFIED AT 60MG DAILY, PT VERIFIES PCP CHAVEZ URIAS, [facility] X4 AND REPORTS ROBI [phone], IS HIS HCP. D/C PLAN HOMEW/RESMUP OF ALLIED HEALTH [facility], PT'S FOR TRANSPORT
--- NOTE | 2022-02-19 16:14 | PC.NURSE ---
called pharmacy again for [facility]
[2022-02-19] MEDS: 0.9 % Sodium Chloride Flush 3 ML SYRINGE IVFLUSH ×2 (17:27→19:58)
--- NOTE | 2022-02-19 17:45 | PC.NURSE ---
pt medicated with insulin, contacted dr chicas via tiger text with POC, no additional orders given at this time
[2022-02-19 19:31] LABS: Glucose, Whole Blood 360 mg/dL (60-115)
[2022-02-19] MEDS: Mineral Oil/Petrolatum,White 106 GM Tube 1 APPL TOPICAL (19:58)
[2022-02-19] MEDS: Azelastine HCl Nasal 137 MCG/Spray 30 ML 1 SPRAY NOSTRIL-B (21:21)
[2022-02-20] VITALS (10 sets, daily range): BP systolic 109–130; BP diastolic 60–70; PULSE 66–95; RESP 16–20; TEMP 35.6–36.8; O2SAT 92–99
[2022-02-20] MEDS: cefEPime HCl 1 GM in 0.9 % Sodium Chloride 50 ML IV ×3 (00:05→16:31)
[2022-02-20] MEDS: vancomycin HCL 1,500 MG in 0.9 % Sodium Chloride 500 ML 333.33 MG IV ×2 (00:47→13:05)
[2022-02-20 06:34] LABS: Hematocrit 31.3 % (42.0-52.0); Hemoglobin 9.7 g/dl (14.0-18.0); Mean Corpuscular Hemoglobin 24.6 pg (27.0-33.0); Mean Corpuscular Volume 79.4 fL (80.0-98.0); Mean Platelet Volume 8.8 fL (9.4-12.4); Platelet Count 249 X10*3/uL (160-400); Red Blood Count 3.94 X10*6/uL (4.60-5.80); Red Cell Distribution Width 15.9 % (11.0-16.0); White Blood Count 18.5 X10*3/uL (4.8-10.8)
[2022-02-20 06:53] LABS: Anion Gap 10 (12-20); Blood Urea Nitrogen 19 mg/dL (9-16); Calcium 8.6 mg/dL (8.4-10.2); Carbon Dioxide 34 mmol/L (22-29); Chloride 95 mmol/L (96-108); Creatinine Clr Calc Pharmacy 115.5; Estimated Glomerular Filt Rate > 60; Glucose Fasting 270 mg/dL (60-99); Potassium 4.3 mmol/L (3.3-5.1); Sodium 135 mmol/L (135-145)
[2022-02-20 07:24] LABS: Glucose, Whole Blood 356 mg/dL (60-115)
[2022-02-20 07:24] LABS: Glucose, Whole Blood 335 mg/dL (60-115)
[2022-02-20 07:24] LABS: Glucose, Whole Blood 364 mg/dL (60-115)
[2022-02-20 07:24] LABS: Glucose, Whole Blood 292 mg/dL (60-115)
[2022-02-20 07:28] LABS: Glucose, Whole Blood 238 mg/dL (60-115)
[2022-02-20] MEDS: Insulin Lispro 100 UNIT/ML 3 ML VIAL SUBCUT ×4 (07:46→20:26)
[2022-02-20] MEDS: methADONE HCl 20 MG/2 ML ORAL.CONC 60 MG PO (07:47)
[2022-02-20] MEDS: 0.9 % Sodium Chloride Flush 3 ML SYRINGE IVFLUSH ×3 (07:47→20:26)
[2022-02-20] MEDS: Insulin Glargine,Hum.rec.anlog 100 UNIT/ML 10 ML VIAL 40 UNIT SUBCUT ×2 (07:47→20:26)
[2022-02-20] MEDS: Apixaban 2.5 MG TABLET PO ×2 (07:48→20:25)
[2022-02-20] MEDS: RITONAVIR 100 MG PO ×2 (07:48→20:25)
[2022-02-20] MEDS: Dapsone 25 MG TABLET 100 MG PO (07:48)
[2022-02-20] MEDS: guaiFENesin LA 600 MG TAB.ER.12H PO ×2 (07:48→20:25)
[2022-02-20] MEDS: Emtricitabine/Tenofov Alafenam TABLET 1 TAB PO (07:48)
[2022-02-20] MEDS: Dolutegravir Sodium 50 MG TABLET PO ×2 (07:49→20:25)
[2022-02-20] MEDS: DARUNAVIR ETHANOLATE 600 MG PO ×2 (07:49→20:25)
[2022-02-20] MEDS: Azelastine HCl Nasal 137 MCG/Spray 30 ML 1 SPRAY NOSTRIL-B ×2 (07:50→20:26)
[2022-02-20] MEDS: Mineral Oil/Petrolatum,White 106 GM Tube 1 APPL TOPICAL ×2 (07:50→20:26)
[2022-02-20] MEDS: Albuterol/Iprat 2.5/0.5MG 3 ML AMPUL.NEB INHALE ×4 (07:52→19:50)
[2022-02-20] MEDS: methylPREDNISolone Sod Succ 125 MG/2 ML VIAL 60 MG IVPUSH ×2 (10:19→20:25)
--- NOTE | 2022-02-20 11:07 | HO.PM.IMPN ---
Subjective Subjective Date of Service: 02/20/22 Interval History: cc: sob, fever interval history: overall improved Gastrointestinal Gastrointestinal: Reports no additional gastrointestinal complaints Genitourinary Genitourinary: Reports no additional male genitourinary complaints Physical Exam Vital Signs: Vital Signs: Last Vital Signs Temp 97.7 F 02/20/22 08:00 Pulse 86 02/20/22 08:00 Resp 18 02/20/22 08:00 BP 109/68 02/20/22 08:00 Pulse Ox 97 02/20/22 08:00 O2 Del Method 02/20/22 08:00 O2 Flow Rate 5 02/20/22 08:00 BMI result Body Mass Index 26.2 General: AO X 3, no acute distress Resp: Crackles bilateral, no accessory muscles used CVS: S1,S2,RRR GI: soft, non tender, non distended Neuro: motor grossly intact, alert Psych: appropriate affect, appropriate insight Objective Data Active Medications Acetaminophen (Acetaminophen 325 Mg Tablet) 650 mg PO Q6H PRN PRN Reason: Pain, Mild (Pain Scale 1-3) Last Admin: 02/18/22 10:11 Dose: 650 mg Documented By: GEORGE Albuterol Sulfate (Albuterol Sulfate 90 Mcg 8 Gm Inhaler) 2 puff INHALE Q4H PRN PRN Reason: wheezing Albuterol/Ipratropium (Albuterol/Iprat 2.5/0.5mg 3 Ml Ampul.Neb) 3 ml INHALE QID [facility] Last Admin: 02/20/22 07:52 Dose: 3 ml Documented By: LISA Apixaban (Apixaban 2.5 Mg Tablet) 2.5 mg PO BID [facility] Last Admin: 02/20/22 07:48 Dose: 2.5 mg Documented By: ALBERT Azelastine HCl (Azelastine Hcl Nasal 137 Mcg/[place] 30 Ml) 1 spray NOSTRIL-B BID [facility] Last Admin: 02/20/22 07:50 Dose: 1 spray Documented By: ALBERT Benzonatate (Benzonatate 100 Mg Capsule) 100 mg PO TID PRN PRN Reason: Cough Dapsone (Dapsone 25 Mg Tablet) 100 mg PO DAILY [facility] Last Admin: 02/20/22 07:48 Dose: 100 mg Documented By: ALBERT Darunavir (Darunavir Ethanolate 600 Mg Tablet) 600 mg PO BID [facility] Last Admin: 02/20/22 07:49 Dose: 600 mg Documented By: ALBERT Dextrose (Dextrose 50 % 25 Gm/50 Ml Syringe) 25 gm IVPUSH Q15M PRN; Protocol PRN Reason: per Hypoglycemia Standing Ord. Dolutegravir Sodium (Dolutegravir Sodium 50 Mg Tablet) 50 mg PO BID [facility] Last Admin: 02/20/22 07:49 Dose: 50 mg Documented By: ALBERT Emtricitabine/Tenofovir Alafenamide (Emtricitabine/Tenofov Alafenam Tablet) 1 tab PO DAILY [facility] Last Admin: 02/20/22 07:48 Dose: 1 tab Documented By: ALBERT Glucose (Glucose Gel 15 Gm Gel..Gram.) 15 gm PO Q15M PRN; Protocol PRN Reason: per Hypoglycemia Standing Ord. Guaifenesin (Guaifenesin [place] 600 Mg Tab.Er.12h) 600 mg PO BID [facility] Last Admin: 02/20/22 07:48 Dose: 600 mg Documented By: ALBERT Cefepime HCl 1 gm/ Sodium (Chloride) 50 mls @ 100 mls/hr IV Q8H [facility] Last Infusion: 02/20/22 09:59 Dose: 0 mls/hr Documented By: ALBERT Vancomycin HCl 1,500 mg/ (Sodium Chloride) 500 mls @ 333.333 mls/hr IV Q12H [facility] Last Infusion: 02/20/22 02:31 Dose: 0 mls/hr Documented By: CECILIA Insulin Glargine (Insulin Glargine,Hum.Rec.Anlog 100 Unit/Ml 10 Ml Vial) 40 unit SUBCUT BID [facility] Last Admin: 02/20/22 07:47 Dose: 40 unit Documented By: ALBERT Insulin Human Lispro (Insulin Lispro 100 Unit/Ml 3 Ml Vial) 0 unit SUBCUT QIDACHS [facility]; Protocol Last Admin: 02/20/22 07:46 Dose: 4 unit Documented By: ALBERT Methadone HCl (Methadone Hcl 20 Mg/2 Ml Oral.Conc) 60 mg PO DAILY [facility] Last Admin: 02/20/22 07:47 Dose: 60 mg Documented By: ALBERT Methylprednisolone Sodium Succinate (Methylprednisolone Sod Succ 125 Mg/2 Ml Vial) 60 mg IVPUSH Q12H [facility] Last Admin: 02/20/22 10:19 Dose: 60 mg Documented By: ALBERT Morphine Sulfate (Morphine Sulfate 4 Mg/Ml Cartridge) 1 mg IVPUSH Q4H PRN; Protocol PRN Reason: Pain, SOB Multi-Ingred Cream/Lotion/Oil/Oint (Mineral Oil/Petrolatum,White 106 Gm Tube) 1 appl TOPICAL BID [facility]; Protocol Last Admin: 02/20/22 07:50 Dose: 1 appl Documented By: ALBERT Pharmacy Consult (Consult Rx Vancomycin Dosing) 1 each MISCELLANE DAILY PRN PRN Reason: Consult order Ritonavir (Ritonavir 100 Mg Tablet) 100 mg PO BID [facility] Last Admin: 02/20/22 07:48 Dose: 100 mg Documented By: ALBERT Senna (Sennosides 8.6 Mg Tablet) 17.2 mg PO BEDTIME PRN PRN Reason: Constipation Sodium Chloride (0.9 % Sodium Chloride Flush 3 Ml Syringe) 3 ml IVFLUSH QSHIFT [facility] Last Admin: 02/20/22 07:47 Dose: 3 ml Documented By: ALBERT Trazodone HCl (Trazodone Hcl 25 Mg Halftab) 25 mg PO BEDTIME PRN PRN Reason: insomnia Last Admin: 02/18/22 22:32 Dose: 25 mg Documented By: JONES Labs CBC & Chem 7: 02/20/22 06:11 02/20/22 06:11 Labs: Laboratory Results - last 24 hr 02/19/22 02/19/22 02/19/22 06:38 07:24 11:26 MCV MCH MCHC RDW Plt Count MPV Absolute Nucleated RBC Nucleated RBC % (auto) Anion Gap Estim Creat Clear Calc Estimated GFR POC Glucose 335 H 356 H* Fasting Glucose Calcium Nasal Screen MRSA (PCR) Nasal S. aureus Screen Nasal MRSA/S.aureus Interp Vancomycin Trough 7.0 L 02/19/22 02/19/22 02/19/22 13:30 13:34 16:55 MCV MCH MCHC RDW Plt Count MPV Absolute Nucleated RBC Nucleated RBC % (auto) Anion Gap Estim Creat Clear Calc Estimated GFR POC Glucose 292 H 364 H* Fasting Glucose Calcium Nasal Screen MRSA (PCR) NEGATIVE Nasal S. aureus Screen NEGATIVE Nasal MRSA/S.aureus Interp SEE NOTE Vancomycin Trough 02/19/22 02/20/22 02/20/22 19:27 06:11 06:11 MCV 79.4 L MCH 24.6 L MCHC 31.0 RDW 15.9 Plt Count 249 D MPV 8.8 L Absolute Nucleated RBC 0.000 Nucleated RBC % (auto) 0.0 Anion Gap 10 L Estim Creat Clear Calc 115.5 Estimated GFR > 60 POC Glucose 360 H* Fasting Glucose 270 H Calcium 8.6 Nasal Screen MRSA (PCR) Nasal S. aureus Screen Nasal MRSA/S.aureus Interp Vancomycin Trough 02/20/22 07:22 MCV MCH MCHC RDW Plt Count MPV Absolute Nucleated RBC Nucleated RBC % (auto) Anion Gap Estim Creat Clear Calc Estimated GFR POC Glucose 238 H Fasting Glucose Calcium Nasal Screen MRSA (PCR) Nasal S. aureus Screen Nasal MRSA/S.aureus Interp Vancomycin Trough Microbiology Microbiology Results: Microbiology 02/17/22 17:48 Blood Culture - Preliminary Blood - Venous No growth after 48 hours. Assessment and Plan (1) Diabetes mellitus type 1: Status: Acute Plan 56M presented with fevers, sob acute on chronic hypoxic respriatory failure due to recent covid pnuemonia in patient with severe COPD with acute decompensation and bronchiectasis continue iv steroids ID appreciated vanc/cefepime 5-7 for any bacterial pneumonia component/overgrowth opiate dependence methadone history of DVT/PE eliquis DM basal bolus insulin HIV haart full code reason for continued hospitalization: hypoxia worse than baseline Quality Stroke Does the patient have a stroke diagnosis?: No VTE Prior VTE?: No VTE Risk Level:: Medical - moderate - high VTE Device Contraindication: Treatment Not Indicated VTE Drug Contraindication: N/A - Med Ordered
[2022-02-20 11:23] LABS: Glucose, Whole Blood 195 mg/dL (60-115)
[2022-02-20 11:49] LABS: Vancomycin Trough 10.7 mcg/mL (10.0-20.0)
[2022-02-20 16:22] LABS: Glucose, Whole Blood 294 mg/dL (60-115)
[2022-02-20 20:21] LABS: Glucose, Whole Blood 319 mg/dL (60-115)
[2022-02-21] VITALS (10 sets, daily range): BP systolic 114–136; BP diastolic 60–72; PULSE 69–87; RESP 14–20; TEMP 35.9–37.3; O2SAT 93–98
[2022-02-21] MEDS: cefEPime HCl 1 GM in 0.9 % Sodium Chloride 50 ML IV ×3 (00:02→16:14)
[2022-02-21] MEDS: vancomycin HCL 1,500 MG in 0.9 % Sodium Chloride 500 ML 333.33 MG IV (00:03)
[2022-02-21 06:33] LABS: Creatinine Clr Calc Pharmacy 112.6; Estimated Glomerular Filt Rate > 60
[2022-02-21 07:20] LABS: Glucose, Whole Blood 200 mg/dL (60-115)
[2022-02-21] MEDS: Albuterol/Iprat 2.5/0.5MG 3 ML AMPUL.NEB INHALE ×4 (07:27→19:50)
[2022-02-21] MEDS: Insulin Glargine,Hum.rec.anlog 100 UNIT/ML 10 ML VIAL 40 UNIT SUBCUT ×2 (08:07→20:57)
[2022-02-21] MEDS: Insulin Lispro 100 UNIT/ML 3 ML VIAL SUBCUT ×4 (08:07→20:57)
[2022-02-21] MEDS: Emtricitabine/Tenofov Alafenam TABLET 1 TAB PO (08:08)
[2022-02-21] MEDS: RITONAVIR 100 MG PO ×2 (08:08→20:57)
[2022-02-21] MEDS: predniSONE 20 MG TABLET 40 MG PO (08:08)
[2022-02-21] MEDS: Dolutegravir Sodium 50 MG TABLET PO ×2 (08:08→20:57)
[2022-02-21] MEDS: methADONE HCl 20 MG/2 ML ORAL.CONC 60 MG PO (08:08)
[2022-02-21] MEDS: DARUNAVIR ETHANOLATE 600 MG PO ×2 (08:08→20:57)
[2022-02-21] MEDS: 0.9 % Sodium Chloride Flush 3 ML SYRINGE IVFLUSH ×3 (08:08→21:01)
[2022-02-21] MEDS: Dapsone 25 MG TABLET 100 MG PO (08:09)
[2022-02-21] MEDS: Mineral Oil/Petrolatum,White 106 GM Tube 1 APPL TOPICAL (08:09)
[2022-02-21] MEDS: Apixaban 2.5 MG TABLET PO ×2 (08:09→20:57)
[2022-02-21] MEDS: guaiFENesin LA 600 MG TAB.ER.12H PO ×2 (08:09→20:57)
[2022-02-21] MEDS: Azelastine HCl Nasal 137 MCG/Spray 30 ML 1 SPRAY NOSTRIL-B (08:09)
--- NOTE | 2022-02-21 10:30 | HO.PM.IMPN ---
Subjective Subjective Date of Service: 02/21/22 Interval History: cC: sob interval history: overall improving Respiratory Respiratory: Reports no additional respiratory complaints Gastrointestinal Gastrointestinal: Reports no additional gastrointestinal complaints Physical Exam Vital Signs: Vital Signs: Last Vital Signs Temp 97.5 F 02/21/22 07:25 Pulse 78 02/21/22 07:27 Resp 18 02/21/22 07:27 BP 119/72 02/21/22 07:25 Pulse Ox 95 02/21/22 07:25 O2 Del Method 02/21/22 07:25 O2 Flow Rate 4 02/21/22 07:25 BMI result Body Mass Index 26.2 General: AO X 3, no acute distress Resp: Crackles bilateral, no accessory muscles used CVS: S1,S2,RRR GI: soft, non tender, non distended Neuro: motor grossly intact, alert Psych: appropriate affect, appropriate insight Objective Data Active Medications Acetaminophen (Acetaminophen 325 Mg Tablet) 650 mg PO Q6H PRN PRN Reason: Pain, Mild (Pain Scale 1-3) Last Admin: 02/18/22 10:11 Dose: 650 mg Documented By: GEORGE Albuterol Sulfate (Albuterol Sulfate 90 Mcg 8 Gm Inhaler) 2 puff INHALE Q4H PRN PRN Reason: wheezing Albuterol/Ipratropium (Albuterol/Iprat 2.5/0.5mg 3 Ml Ampul.Neb) 3 ml INHALE QID [facility] Last Admin: 02/21/22 07:27 Dose: 3 ml Documented By: LISA Apixaban (Apixaban 2.5 Mg Tablet) 2.5 mg PO BID [facility] Last Admin: 02/21/22 08:09 Dose: 2.5 mg Documented By: ALBERT Azelastine HCl (Azelastine Hcl Nasal 137 Mcg/[place] 30 Ml) 1 spray NOSTRIL-B BID [facility] Last Admin: 02/21/22 08:09 Dose: 1 spray Documented By: ALBERT Benzonatate (Benzonatate 100 Mg Capsule) 100 mg PO TID PRN PRN Reason: Cough Dapsone (Dapsone 25 Mg Tablet) 100 mg PO DAILY [facility] Last Admin: 02/21/22 08:09 Dose: 100 mg Documented By: ALBERT Darunavir (Darunavir Ethanolate 600 Mg Tablet) 600 mg PO BID [facility] Last Admin: 02/21/22 08:08 Dose: 600 mg Documented By: ALBERT Dextrose (Dextrose 50 % 25 Gm/50 Ml Syringe) 25 gm IVPUSH Q15M PRN; Protocol PRN Reason: per Hypoglycemia Standing Ord. Dolutegravir Sodium (Dolutegravir Sodium 50 Mg Tablet) 50 mg PO BID [facility] Last Admin: 02/21/22 08:08 Dose: 50 mg Documented By: ALBERT Emtricitabine/Tenofovir Alafenamide (Emtricitabine/Tenofov Alafenam Tablet) 1 tab PO DAILY [facility] Last Admin: 02/21/22 08:08 Dose: 1 tab Documented By: ALBERT Glucose (Glucose Gel 15 Gm Gel..Gram.) 15 gm PO Q15M PRN; Protocol PRN Reason: per Hypoglycemia Standing Ord. Guaifenesin (Guaifenesin La 600 Mg Tab.Er.12h) 600 mg PO BID [facility] Last Admin: 02/21/22 08:09 Dose: 600 mg Documented By: ALBERT Cefepime HCl 1 gm/ Sodium (Chloride) 50 mls @ 100 mls/hr IV Q8H [facility] Last Admin: 02/21/22 08:08 Dose: 100 mls/hr Documented By: ALBERT Vancomycin HCl 1,500 mg/ (Sodium Chloride) 500 mls @ 333.333 mls/hr IV Q12H [facility] Last Infusion: 02/21/22 02:59 Dose: 0 mls/hr Documented By: PAVEL Insulin Glargine (Insulin Glargine,Hum.Rec.Anlog 100 Unit/Ml 10 Ml Vial) 40 unit SUBCUT BID [facility] Last Admin: 02/21/22 08:07 Dose: 40 unit Documented By: ALBERT Insulin Human Lispro (Insulin Lispro 100 Unit/Ml 3 Ml Vial) 0 unit SUBCUT QIDACHS [facility]; Protocol Last Admin: 02/21/22 08:07 Dose: 2 unit Documented By: ALBERT Methadone HCl (Methadone Hcl 20 Mg/2 Ml Oral.Conc) 60 mg PO DAILY [facility] Last Admin: 02/21/22 08:08 Dose: 60 mg Documented By: ALBERT Morphine Sulfate (Morphine Sulfate 4 Mg/Ml Cartridge) 1 mg IVPUSH Q4H PRN; Protocol PRN Reason: Pain, SOB Multi-Ingred Cream/Lotion/Oil/Oint (Mineral Oil/Petrolatum,White 106 Gm Tube) 1 appl TOPICAL BID [facility]; Protocol Last Admin: 02/21/22 08:09 Dose: 1 appl Documented By: ALBERT Pharmacy Consult (Consult Rx Vancomycin Dosing) 1 each MISCELLANE DAILY PRN PRN Reason: Consult order Prednisone (Prednisone 20 Mg Tablet) 40 mg PO DAILY [facility] Last Admin: 02/21/22 08:08 Dose: 40 mg Documented By: ALBERT Ritonavir (Ritonavir 100 Mg Tablet) 100 mg PO BID [facility] Last Admin: 02/21/22 08:08 Dose: 100 mg Documented By: ALBERT Senna (Sennosides 8.6 Mg Tablet) 17.2 mg PO BEDTIME PRN PRN Reason: Constipation Sodium Chloride (0.9 % Sodium Chloride Flush 3 Ml Syringe) 3 ml IVFLUSH QSHIFT [facility] Last Admin: 02/21/22 08:08 Dose: 3 ml Documented By: ALBERT Trazodone HCl (Trazodone Hcl 25 Mg Halftab) 25 mg PO BEDTIME PRN PRN Reason: insomnia Last Admin: 02/18/22 22:32 Dose: 25 mg Documented By: TIMOTHY-JAKEJ Labs CBC & Chem 7: 02/20/22 06:11 02/21/22 06:07 Labs: Laboratory Results - last 24 hr 02/20/22 02/20/22 02/20/22 11:10 11:19 16:17 Estim Creat Clear Calc Estimated GFR POC Glucose 195 H 294 H Vancomycin Trough 10.7 02/20/22 02/21/22 02/21/22 20:17 06:07 07:15 Estim Creat Clear Calc 112.6 Estimated GFR > 60 POC Glucose 319 H 200 H Vancomycin Trough Assessment and Plan (1) Diabetes mellitus type 1: Status: Acute Plan 56M presented with fevers, sob acute on chronic hypoxic respriatory failure due to recent covid pnuemonia in patient with severe COPD with acute decompensation and bronchiectasis will change to po prednisone ID appreciated vanc/cefepime 5-7 for any bacterial pneumonia component/overgrowth opiate dependence methadone history of DVT/PE eliquis DM basal bolus insulin HIV haart full code reason for continued hospitalization: hypoxia worse than baseline Quality Stroke Does the patient have a stroke diagnosis?: No VTE Prior VTE?: No VTE Risk Level:: Medical - moderate - high VTE Device Contraindication: Treatment Not Indicated VTE Drug Contraindication: N/A - Med Ordered
[2022-02-21 10:58] LABS: Glucose, Whole Blood 340 mg/dL (60-115)
--- NOTE | 2022-02-21 12:00 | PHA.PROG ---
Addendum entered by Demi Landers [facility] 02/21/22 12:02: level 02/21/22 @ 1057 = 10.0 Pt has not had a trough above 10.7 this admission, changing regimen to 1250 mg Q8H starting now. Insight anticipates AUC of 564 with Trough of 15.2 Original Note: Admission Date/Time: February 17, 2022 22:41 Indication: respiratory Weight in k.3 kg Adjusted body weight in Kg: Mobile body weight in Kg: Obesity Dosing Indication % IBW: Serum Creatinine - Last 168 Hours 02/17/22 02/18/22 02/19/22 17:48 04:10 05:46 Creatinine 0.75 0.73 0.76 02/20/22 02/21/22 06:11 06:07 Creatinine 0.76 0.78 Estimated CrCl and GFR - Last 168 Hours 02/17/22 02/18/22 02/19/22 17:48 04:10 05:46 Estim Creat Clear Calc 117.1 120.3 115.5 Estimated GFR > 60 > 60 > 60 02/20/22 02/21/22 06:11 06:07 Estim Creat Clear Calc 115.5 112.6 Estimated GFR > 60 > 60 Vancomycin Loading Dose: Current Vancomycin Dosing Regimen:1500 Q12H Vancomycin Monitoring using AUC goal of 400 - 600 range with trough as surrogate marker: 451 with tr of 10.1 Date and Time for next Vancomycin Level to be drawn:02/21/22 1100 Vancomycin Trough 10.0 mcg/mL (10.0-20.0) 02/21/22 10:57 Pharmacist Comments on Vancomycin Plan: dose was increased from 1250 mg q12h to 1500 mg q12h on 02/19/22, check level 02/21/22 Vancomycin dosing will take advantage of [employer] as a clinical decision support tool that uses Bayesian modeling to calculate individual patient's pharmacokinetic parameters and forecast the patient's drug concentration time course with the target goal AUC 24 range of 400 - 600 mg/L/hr.
[2022-02-21 15:51] LABS: Glucose, Whole Blood 256 mg/dL (60-115)
[2022-02-21 19:59] LABS: Glucose, Whole Blood 291 mg/dL (60-115)
[2022-02-22] VITALS (9 sets, daily range): BP systolic 107–131; BP diastolic 56–69; PULSE 81–88; RESP 16–20; TEMP 36.2–38.6; O2SAT 93–98
[2022-02-22] MEDS: cefEPime HCl 1 GM in 0.9 % Sodium Chloride 50 ML IV ×3 (01:10→16:15)
[2022-02-22 07:13] LABS: Glucose, Whole Blood 56 mg/dL (60-115)
[2022-02-22] MEDS: Albuterol/Iprat 2.5/0.5MG 3 ML AMPUL.NEB INHALE ×3 (07:34→16:06)
[2022-02-22] MEDS: Insulin Glargine,Hum.rec.anlog 100 UNIT/ML 10 ML VIAL 40 UNIT SUBCUT ×2 (07:35→21:23)
[2022-02-22] MEDS: 0.9 % Sodium Chloride Flush 3 ML SYRINGE IVFLUSH ×3 (07:35→21:23)
[2022-02-22] MEDS: methADONE HCl 20 MG/2 ML ORAL.CONC 60 MG PO (07:37)
[2022-02-22] MEDS: RITONAVIR 100 MG PO ×2 (07:38→21:22)
[2022-02-22] MEDS: predniSONE 20 MG TABLET 40 MG PO (07:38)
[2022-02-22] MEDS: Dapsone 25 MG TABLET 100 MG PO (07:38)
[2022-02-22] MEDS: DARUNAVIR ETHANOLATE 600 MG PO ×2 (07:38→21:22)
[2022-02-22] MEDS: Emtricitabine/Tenofov Alafenam TABLET 1 TAB PO (07:39)
[2022-02-22] MEDS: Mineral Oil/Petrolatum,White 106 GM Tube 1 APPL TOPICAL ×2 (07:39→21:26)
[2022-02-22] MEDS: Apixaban 2.5 MG TABLET PO ×2 (07:39→21:23)
[2022-02-22] MEDS: guaiFENesin LA 600 MG TAB.ER.12H PO ×2 (07:39→21:23)
[2022-02-22] MEDS: Azelastine HCl Nasal 137 MCG/Spray 30 ML 1 SPRAY NOSTRIL-B ×2 (07:39→21:27)
[2022-02-22] MEDS: Dolutegravir Sodium 50 MG TABLET PO ×2 (07:39→21:23)
[2022-02-22 08:03] LABS: Glucose, Whole Blood 119 mg/dL (60-115)
--- NOTE | 2022-02-22 09:43 | P.PNIM_ITS ---
Subjective Subjective Date of Service: 02/22/22 Interval History: cC: sob interval history: overall improving Respiratory Respiratory: Reports no additional respiratory complaints Gastrointestinal Gastrointestinal: Reports no additional gastrointestinal complaints Physical Exam Vital Signs: Vital Signs: Last Vital Signs Temp 98.1 F 02/22/22 07:49 Pulse 88 02/22/22 07:49 Resp 18 02/22/22 07:49 BP 131/67 02/22/22 07:49 Pulse Ox 93 02/22/22 07:49 O2 Del Method 02/22/22 07:49 O2 Flow Rate 4 02/22/22 07:49 BMI result Body Mass Index 26.2 General: AO X 3, no acute distress Resp: Crackles bilateral, no accessory muscles used CVS: S1,S2,RRR GI: soft, non tender, non distended Neuro: motor grossly intact, alert Psych: appropriate affect, appropriate insight Objective Data Active Medications Acetaminophen (Acetaminophen 325 Mg Tablet) 650 mg PO Q6H PRN PRN Reason: Pain, Mild (Pain Scale 1-3) Last Admin: 02/18/22 10:11 Dose: 650 mg Documented By: GEORGE Albuterol Sulfate (Albuterol Sulfate 90 Mcg 8 Gm Inhaler) 2 puff INHALE Q4H PRN PRN Reason: wheezing Albuterol/Ipratropium (Albuterol/Iprat 2.5/0.5mg 3 Ml Ampul.Neb) 3 ml INHALE QID [facility] Last Admin: 02/22/22 07:34 Dose: 3 ml Documented By: IQRA Apixaban (Apixaban 2.5 Mg Tablet) 2.5 mg PO BID [facility] Last Admin: 02/22/22 07:39 Dose: 2.5 mg Documented By: ALBERT Azelastine HCl (Azelastine Hcl Nasal 137 Mcg/[place] 30 Ml) 1 spray NOSTRIL-B BID [facility] Last Admin: 02/22/22 07:39 Dose: 1 spray Documented By: ALBERT Benzonatate (Benzonatate 100 Mg Capsule) 100 mg PO TID PRN PRN Reason: Cough Dapsone (Dapsone 25 Mg Tablet) 100 mg PO DAILY [facility] Last Admin: 02/22/22 07:38 Dose: 100 mg Documented By: ALBERT Darunavir (Darunavir Ethanolate 600 Mg Tablet) 600 mg PO BID [facility] Last Admin: 02/22/22 07:38 Dose: 600 mg Documented By: ALBERT Dextrose (Dextrose 50 % 25 Gm/50 Ml Syringe) 25 gm IVPUSH Q15M PRN; Protocol PRN Reason: per Hypoglycemia Standing Ord. Dolutegravir Sodium (Dolutegravir Sodium 50 Mg Tablet) 50 mg PO BID [facility] Last Admin: 02/22/22 07:39 Dose: 50 mg Documented By: ALBERT Emtricitabine/Tenofovir Alafenamide (Emtricitabine/Tenofov Alafenam Tablet) 1 tab PO DAILY [facility] Last Admin: 02/22/22 07:39 Dose: 1 tab Documented By: ALBERT Glucose (Glucose Gel 15 Gm Gel..Gram.) 15 gm PO Q15M PRN; Protocol PRN Reason: per Hypoglycemia Standing Ord. Guaifenesin (Guaifenesin La 600 Mg Tab.Er.12h) 600 mg PO BID [facility] Last Admin: 02/22/22 07:39 Dose: 600 mg Documented By: ALBRET Cefepime HCl 1 gm/ Sodium (Chloride) 50 mls @ 100 mls/hr IV Q8H [facility] Last Infusion: 02/22/22 09:31 Dose: 0 mls/hr Documented By: ALBERT Insulin Glargine (Insulin Glargine,Hum.Rec.Anlog 100 Unit/Ml 10 Ml Vial) 40 unit SUBCUT BID [facility] Last Admin: 02/22/22 07:35 Dose: 40 unit Documented By: ALBERT Insulin Human Lispro (Insulin Lispro 100 Unit/Ml 3 Ml Vial) 0 unit SUBCUT QIDACHS [facility]; Protocol Last Admin: 02/22/22 07:25 Dose: Not Given Documented By: ALBERT Non-Admin Reason: No Insulin Coverage Methadone HCl (Methadone Hcl 20 Mg/2 Ml Oral.Conc) 60 mg PO DAILY [facility] Last Admin: 02/22/22 07:37 Dose: 60 mg Documented By: ALBERT Morphine Sulfate (Morphine Sulfate 4 Mg/Ml Cartridge) 1 mg IVPUSH Q4H PRN; Protocol PRN Reason: Pain, SOB Multi-Ingred Cream/Lotion/Oil/Oint (Mineral Oil/Petrolatum,White 106 Gm Tube) 1 appl TOPICAL BID [facility]; Protocol Last Admin: 02/22/22 07:39 Dose: 1 appl Documented By: ALBERT Pharmacy Consult (Consult Rx Vancomycin Dosing) 1 each MISCELLANE DAILY PRN PRN Reason: Consult order Prednisone (Prednisone 20 Mg Tablet) 40 mg PO DAILY [facility] Last Admin: 02/22/22 07:38 Dose: 40 mg Documented By: ALBERT Ritonavir (Ritonavir 100 Mg Tablet) 100 mg PO BID [facility] Last Admin: 02/22/22 07:38 Dose: 100 mg Documented By: ALBERT Senna (Sennosides 8.6 Mg Tablet) 17.2 mg PO BEDTIME PRN PRN Reason: Constipation Sodium Chloride (0.9 % Sodium Chloride Flush 3 Ml Syringe) 3 ml IVFLUSH QSHIFT [facility] Last Admin: 02/22/22 07:35 Dose: 3 ml Documented By: ALBERT Trazodone HCl (Trazodone Hcl 25 Mg Halftab) 25 mg PO BEDTIME PRN PRN Reason: insomnia Last Admin: 02/18/22 22:32 Dose: 25 mg Documented By: JONES Labs CBC & Chem 7: 02/20/22 06:11 02/21/22 06:07 Labs: Laboratory Results - last 24 hr 02/21/22 02/21/22 02/21/22 10:53 10:57 15:22 POC Glucose 340 H 256 H Vancomycin Trough 10.0 02/21/22 02/22/22 02/22/22 19:08 07:09 07:59 POC Glucose 291 H 56 L* 119 H Vancomycin Trough Assessment and Plan (1) Diabetes mellitus type 1: Status: Acute Plan 56M presented with fevers, sob acute on chronic hypoxic respriatory failure due to recent covid pnuemonia in patient with severe COPD with acute decompensation and bronchiectasis will change to po prednisone ID appreciated cefepime day 5 of 5-7 for any bacterial pneumonia component/overgrowth vanc dced as swab negative for mrsa opiate dependence methadone history of DVT/PE eliquis DM basal bolus insulin HIV haart full code reason for continued hospitalization: ongoing iv abx for pneumonia/bacterial ov ergrowth with MDR organisms Quality Stroke Does the patient have a stroke diagnosis?: No VTE Prior VTE?: No VTE Risk Level:: Medical - moderate - high VTE Device Contraindication: Treatment Not Indicated VTE Drug Contraindication: N/A - Med Ordered
[2022-02-22 11:08] LABS: Glucose, Whole Blood 117 mg/dL (60-115)
[2022-02-22 11:17] LABS: Vancomycin Trough < 3.0 mcg/mL (10.0-20.0)
--- NOTE | 2022-02-22 12:36 | MHC.CM.PN ---
MALE 56 COVID+ DP HOME WITH RESUMPTION OF ALLIED HEALTH METHADONE MAINTENANCE HOME OXYGEN. DC TOMORROW IV ABX COMPLETE.
[2022-02-22 16:00] LABS: Glucose, Whole Blood 325 mg/dL (60-115)
[2022-02-22] MEDS: Insulin Lispro 100 UNIT/ML 3 ML VIAL SUBCUT ×2 (16:16→21:23)
[2022-02-22 19:56] LABS: Glucose, Whole Blood 205 mg/dL (60-115)
[2022-02-22] MEDS: Benzonatate 100 MG CAPSULE PO (21:22)
[2022-02-23] VITALS (10 sets, daily range): BP systolic 98–122; BP diastolic 55–62; PULSE 73–101; RESP 18–20; TEMP 35.9–38.6; O2SAT 90–98
[2022-02-23] MEDS: cefEPime HCl 1 GM in 0.9 % Sodium Chloride 50 ML IV ×2 (00:59→08:47)
[2022-02-23] MEDS: oxyCODONE HCl Immed Release 5 MG TABLET PO (02:20)
[2022-02-23] MEDS: Acetaminophen 325 MG TABLET 650 MG PO ×2 (04:21→21:55)
[2022-02-23 07:25] LABS: Hemoglobin 9.7 g/dl (14.0-18.0); Mean Corpuscular HGB Conc 30.3 g/dl (31.0-36.0); Mean Corpuscular Hemoglobin 24.5 pg (27.0-33.0); Mean Corpuscular Volume 80.8 fL (80.0-98.0); Mean Platelet Volume 8.4 fL (9.4-12.4); Platelet Count 186 X10*3/uL (160-400); Red Blood Count 3.96 X10*6/uL (4.60-5.80); Red Cell Distribution Width 15.7 % (11.0-16.0); White Blood Count 14.4 X10*3/uL (4.8-10.8)
[2022-02-23 07:33] LABS: Glucose, Whole Blood 65 mg/dL (60-115)
[2022-02-23 07:51] LABS: Anion Gap 10 (12-20); Blood Urea Nitrogen 13 mg/dL (9-16); Calcium 8.5 mg/dL (8.4-10.2); Carbon Dioxide 36 mmol/L (22-29); Chloride 91 mmol/L (96-108); Creatinine Clr Calc Pharmacy 123.7; Estimated Glomerular Filt Rate > 60; Glucose Fasting 61 mg/dL (60-99); Potassium 3.1 mmol/L (3.3-5.1); Sodium 134 mmol/L (135-145)
[2022-02-23] MEDS: Albuterol/Iprat 2.5/0.5MG 3 ML AMPUL.NEB INHALE ×4 (08:08→19:03)
[2022-02-23] MEDS: 0.9 % Sodium Chloride Flush 3 ML SYRINGE IVFLUSH ×3 (08:47→21:56)
[2022-02-23] MEDS: Insulin Glargine,Hum.rec.anlog 100 UNIT/ML 10 ML VIAL 25 UNIT SUBCUT ×2 (08:47→21:52)
[2022-02-23] MEDS: Mineral Oil/Petrolatum,White 106 GM Tube 1 APPL TOPICAL ×2 (08:48→21:59)
[2022-02-23] MEDS: Azelastine HCl Nasal 137 MCG/Spray 30 ML 1 SPRAY NOSTRIL-B ×2 (08:48→21:59)
[2022-02-23] MEDS: DARUNAVIR ETHANOLATE 600 MG PO ×2 (08:49→21:52)
[2022-02-23] MEDS: methADONE HCl 20 MG/2 ML ORAL.CONC 60 MG PO (08:49)
[2022-02-23] MEDS: Dolutegravir Sodium 50 MG TABLET PO ×2 (08:49→21:52)
[2022-02-23] MEDS: guaiFENesin LA 600 MG TAB.ER.12H PO ×2 (08:49→21:52)
[2022-02-23] MEDS: predniSONE 20 MG TABLET 40 MG PO (08:49)
[2022-02-23] MEDS: RITONAVIR 100 MG PO ×2 (08:49→21:52)
[2022-02-23] MEDS: Apixaban 2.5 MG TABLET PO ×2 (08:49→21:52)
[2022-02-23] MEDS: Dapsone 25 MG TABLET 100 MG PO (08:49)
[2022-02-23] MEDS: Emtricitabine/Tenofov Alafenam TABLET 1 TAB PO (08:50)
--- NOTE | 2022-02-23 10:55 | P.PNIM_ITS ---
Subjective Subjective Date of Service: 02/23/22 Interval History: cC: sob interval history: overall improving Respiratory Respiratory: Reports no additional respiratory complaints Gastrointestinal Gastrointestinal: Reports no additional gastrointestinal complaints Physical Exam Vital Signs: Vital Signs: Last Vital Signs Temp 97.2 F 02/23/22 08:00 Pulse 101 H 02/23/22 08:10 Resp 20 02/23/22 08:10 BP 98/58 L 02/23/22 08:00 Pulse Ox 90 L 02/23/22 08:00 O2 Del Method 02/23/22 08:00 O2 Flow Rate 4 02/23/22 08:00 BMI result Body Mass Index 26.2 General: AO X 3, no acute distress Resp: Crackles bilateral, no accessory muscles used CVS: S1,S2,RRR GI: soft, non tender, non distended Neuro: motor grossly intact, alert Psych: appropriate affect, appropriate insight Objective Data Active Medications Acetaminophen (Acetaminophen 325 Mg Tablet) 650 mg PO Q6H PRN PRN Reason: Pain, Mild (Pain Scale 1-3) Last Admin: 02/23/22 04:21 Dose: 650 mg Documented By: PETER Albuterol Sulfate (Albuterol Sulfate 90 Mcg 8 Gm Inhaler) 2 puff INHALE Q4H PRN PRN Reason: wheezing Albuterol/Ipratropium (Albuterol/Iprat 2.5/0.5mg 3 Ml Ampul.Neb) 3 ml INHALE QID [facility] Last Admin: 02/23/22 08:08 Dose: 3 ml Documented By: LISA Apixaban (Apixaban 2.5 Mg Tablet) 2.5 mg PO BID [facility] Last Admin: 02/23/22 08:49 Dose: 2.5 mg Documented By: PEGGY Azelastine HCl (Azelastine Hcl Nasal 137 Mcg/[place] 30 Ml) 1 spray NOSTRIL-B BID [facility] Last Admin: 02/23/22 08:48 Dose: 1 spray Documented By: PEGGY Benzonatate (Benzonatate 100 Mg Capsule) 100 mg PO TID PRN PRN Reason: Cough Last Admin: 02/22/22 21:22 Dose: 100 mg Documented By: PETER Dapsone (Dapsone 25 Mg Tablet) 100 mg PO DAILY [facility] Last Admin: 02/23/22 08:49 Dose: 100 mg Documented By: PEGGY Darunavir (Darunavir Ethanolate 600 Mg Tablet) 600 mg PO BID [facility] Last Admin: 02/23/22 08:49 Dose: 600 mg Documented By: PEGGY Dextrose (Dextrose 50 % 25 Gm/50 Ml Syringe) 25 gm IVPUSH Q15M PRN; Protocol PRN Reason: per Hypoglycemia Standing Ord. Dolutegravir Sodium (Dolutegravir Sodium 50 Mg Tablet) 50 mg PO BID [facility] Last Admin: 02/23/22 08:49 Dose: 50 mg Documented By: PEGGY Emtricitabine/Tenofovir Alafenamide (Emtricitabine/Tenofov Alafenam Tablet) 1 tab PO DAILY [facility] Last Admin: 02/23/22 08:50 Dose: 1 tab Documented By: PEGGY Glucose (Glucose Gel 15 Gm Gel..Gram.) 15 gm PO Q15M PRN; Protocol PRN Reason: per Hypoglycemia Standing Ord. Guaifenesin (Guaifenesin La 600 Mg Tab.Er.12h) 600 mg PO BID [facility] Last Admin: 02/23/22 08:49 Dose: 600 mg Documented By: PEGGY Insulin Glargine (Insulin Glargine,Hum.Rec.Anlog 100 Unit/Ml 10 Ml Vial) 25 unit SUBCUT BID [facility] Last Admin: 02/23/22 08:47 Dose: 25 unit Documented By: PEGGY Insulin Human Lispro (Insulin Lispro 100 Unit/Ml 3 Ml Vial) 0 unit SUBCUT QIDACHS [facility]; Protocol Last Admin: 02/23/22 08:46 Dose: Not Given Documented By: PEGGY Non-Admin Reason: No Insulin Coverage Methadone HCl (Methadone Hcl 20 Mg/2 Ml Oral.Conc) 60 mg PO DAILY [facility] Last Admin: 02/23/22 08:49 Dose: 60 mg Documented By: PEGGY Multi-Ingred Cream/Lotion/Oil/Oint (Mineral Oil/Petrolatum,White 106 Gm Tube) 1 appl TOPICAL BID [facility]; Protocol Last Admin: 02/23/22 08:48 Dose: 1 appl Documented By: PEGGY Pharmacy Consult (Consult Rx Vancomycin Dosing) 1 each MISCELLANE DAILY PRN PRN Reason: Consult order Prednisone (Prednisone 20 Mg Tablet) 40 mg PO DAILY [facility] Last Admin: 02/23/22 08:49 Dose: 40 mg Documented By: PEGGY Ritonavir (Ritonavir 100 Mg Tablet) 100 mg PO BID [facility] Last Admin: 02/23/22 08:49 Dose: 100 mg Documented By: PEGGY Senna (Sennosides 8.6 Mg Tablet) 17.2 mg PO BEDTIME PRN PRN Reason: Constipation Sodium Chloride (0.9 % Sodium Chloride Flush 3 Ml Syringe) 3 ml IVFLUSH QSHIFT [facility] Last Admin: 02/23/22 08:47 Dose: 3 ml Documented By: PEGGY Trazodone HCl (Trazodone Hcl 25 Mg Halftab) 25 mg PO BEDTIME PRN PRN Reason: insomnia Last Admin: 02/18/22 22:32 Dose: 25 mg Documented By: JONES Labs CBC & Chem 7: 02/23/22 07:02 02/23/22 07:02 Labs: Laboratory Results - last 24 hr 02/22/22 02/22/22 02/22/22 10:23 10:59 15:28 MCV MCH MCHC RDW Plt Count MPV Absolute Nucleated RBC Nucleated RBC % (auto) Anion Gap Estim Creat Clear Calc Estimated GFR POC Glucose 117 H 325 H Fasting Glucose Calcium Vancomycin Trough < 3.0 L 02/22/22 02/23/22 02/23/22 19:29 07:02 07:02 MCV 80.8 MCH 24.5 L MCHC 30.3 L RDW 15.7 Plt Count 186 D MPV 8.4 L Absolute Nucleated RBC 0.000 Nucleated RBC % (auto) 0.0 Anion Gap 10 L Estim Creat Clear Calc 123.7 Estimated GFR > 60 POC Glucose 205 H Fasting Glucose 61 D Calcium 8.5 Vancomycin Trough 02/23/22 07:29 MCV MCH MCHC RDW Plt Count MPV Absolute Nucleated RBC Nucleated RBC % (auto) Anion Gap Estim Creat Clear Calc Estimated GFR POC Glucose 65 Fasting Glucose Calcium Vancomycin Trough Microbiology Microbiology Results: Microbiology 02/17/22 17:48 Blood Culture - Final Blood - Venous No growth after 5 days. Assessment and Plan (1) Diabetes mellitus type 1: Status: Deleted Plan 56M presented with fevers, sob acute on chronic hypoxic respriatory failure due to recent covid pnuemonia in patient with severe COPD with acute decompensation and bronchiectasis changed to po prednisone ID appreciated, received 5 days cefepime for any bacterial pneumonia component/overgrowth vanc dced as swab negative for mrsa now with new fevers overnight 02/22-, tmax 101.5, possible drug fever will dc cefepime and monitor opiate dependence methadone history of DVT/PE eliquis DM2 with hypoglycemia basal bolus insulin decreased lantus from 40 untis bid to 25units bid, monitor HIV haart full code reason for continued hospitalization: monitoring for continued fevers in high risk patient (chronic hypoxic resp failure, hiv, DM) Quality Stroke Does the patient have a stroke diagnosis?: No VTE Prior VTE?: No VTE Risk Level:: Medical - moderate - high VTE Device Contraindication: Treatment Not Indicated VTE Drug Contraindication: N/A - Med Ordered
[2022-02-23 11:46] LABS: Glucose, Whole Blood 72 mg/dL (60-115)
[2022-02-23 15:55] LABS: Glucose, Whole Blood 261 mg/dL (60-115)
[2022-02-23] MEDS: Insulin Lispro 100 UNIT/ML 3 ML VIAL SUBCUT (17:09)
[2022-02-23 17:14] LABS: Glucose, Whole Blood 435 mg/dL (60-115)
[2022-02-23 19:45] LABS: Glucose, Whole Blood 350 mg/dL (60-115)
[2022-02-23] MEDS: Benzonatate 100 MG CAPSULE PO (21:52)
[2022-02-24] VITALS (10 sets, daily range): BP systolic 105–130; BP diastolic 59–70; PULSE 72–108; RESP 15–20; TEMP 35.8–37.1; O2SAT 91–98
[2022-02-24 06:02] LABS: Legionella Ag Urine Not Detected (Not Detected)
[2022-02-24 06:48] LABS: Hematocrit 31.3 % (42.0-52.0); Hemoglobin 9.5 g/dl (14.0-18.0); Mean Corpuscular HGB Conc 30.4 g/dl (31.0-36.0); Mean Corpuscular Hemoglobin 24.5 pg (27.0-33.0); Mean Corpuscular Volume 80.7 fL (80.0-98.0); Platelet Count 207 X10*3/uL (160-400); Red Blood Count 3.88 X10*6/uL (4.60-5.80); Red Cell Distribution Width 15.5 % (11.0-16.0); White Blood Count 11.2 X10*3/uL (4.8-10.8)
[2022-02-24 07:14] LABS: Anion Gap 9 (12-20); Blood Urea Nitrogen 14 mg/dL (9-16); Calcium 8.5 mg/dL (8.4-10.2); Carbon Dioxide 39 mmol/L (22-29); Chloride 91 mmol/L (96-108); Creatinine Clr Calc Pharmacy 112.6; Estimated Glomerular Filt Rate > 60; Glucose Fasting 137 mg/dL (60-99); Potassium 3.7 mmol/L (3.3-5.1); Sodium 135 mmol/L (135-145)
[2022-02-24 08:08] LABS: Glucose, Whole Blood 95 mg/dL (60-115)
[2022-02-24] MEDS: Albuterol/Iprat 2.5/0.5MG 3 ML AMPUL.NEB INHALE ×4 (08:23→20:08)
[2022-02-24] MEDS: Acetaminophen 325 MG TABLET 650 MG PO ×3 (10:08→21:12)
[2022-02-24] MEDS: Apixaban 2.5 MG TABLET PO ×2 (10:08→21:14)
[2022-02-24] MEDS: predniSONE 20 MG TABLET 40 MG PO (10:08)
[2022-02-24] MEDS: guaiFENesin LA 600 MG TAB.ER.12H PO ×2 (10:08→21:19)
[2022-02-24] MEDS: 0.9 % Sodium Chloride Flush 3 ML SYRINGE IVFLUSH ×3 (10:09→23:42)
[2022-02-24] MEDS: methADONE HCl 20 MG/2 ML ORAL.CONC 60 MG PO (10:09)
[2022-02-24] MEDS: Azelastine HCl Nasal 137 MCG/Spray 30 ML 1 SPRAY NOSTRIL-B ×2 (10:17→21:15)
[2022-02-24] MEDS: Mineral Oil/Petrolatum,White 106 GM Tube 1 APPL TOPICAL ×2 (10:18→21:16)
[2022-02-24 11:29] LABS: Glucose, Whole Blood 150 mg/dL (60-115)
--- NOTE | 2022-02-24 11:37 | MHC.CM.PN ---
Per ROUNDS discussion, Patient is not yet medically cleared for dc (Weaning O2/at 4L); home/resume services is the goal and CM will continue to follow.
[2022-02-24] MEDS: DARUNAVIR ETHANOLATE 600 MG PO ×2 (11:58→21:14)
[2022-02-24] MEDS: RITONAVIR 100 MG PO ×2 (11:58→21:14)
[2022-02-24] MEDS: Dapsone 25 MG TABLET 100 MG PO (11:58)
[2022-02-24] MEDS: Emtricitabine/Tenofov Alafenam TABLET 1 TAB PO (11:58)
[2022-02-24] MEDS: Dolutegravir Sodium 50 MG TABLET PO ×2 (11:59→21:14)
--- NOTE | 2022-02-24 13:47 | P.PNIM_ITS ---
Subjective Subjective Date of Service: 02/24/22 Interval History: the patient was seen and evaluated this morning Laying in bed, feels Feeling improvement but still wanted and having cough no fever last 24 hours No reported other overnight events. Systemic review: No fever, chills but reports generalizedweakness No chest pain, palpitation dyspnea on exertion and coughing No abdominal pain, nausea or vomiting No urinary symptoms No any rash or wounds Physical Exam Vital Signs: Vital Signs: Last Vital Signs Temp 97.5 F 02/24/22 11:11 Pulse 89 02/24/22 11:31 Resp 20 02/24/22 11:31 BP 130/60 02/24/22 11:11 Pulse Ox 95 02/24/22 11:11 O2 Del Method 02/24/22 11:11 O2 Flow Rate 4 02/24/22 11:11 BMI result Body Mass Index 26.2 Const: Other: Constitutional : Alert, not in distress Neck : Normal inspection, Supple Cardiovascular : RRR, no JVP, no lower extremity edema Respiratory : chest wall moving bilaterally, not in distress, on 4 L of oxygen Gastrointestinal: soft, lax, Normal bowel sounds, Non tender Skin : Warm, Dry Neurological : Alert & oriented x3, No focal deficit , CN 2-12 within normal Objective Data Active Medications Acetaminophen (Acetaminophen 325 Mg Tablet) 650 mg PO Q6H PRN PRN Reason: Pain, Mild (Pain Scale 1-3) Last Admin: 02/24/22 10:08 Dose: 650 mg Documented By: ALESSANDRO Albuterol Sulfate (Albuterol Sulfate 90 Mcg 8 Gm Inhaler) 2 puff INHALE Q4H PRN PRN Reason: wheezing Albuterol/Ipratropium (Albuterol/Iprat 2.5/0.5mg 3 Ml Ampul.Neb) 3 ml INHALE QID [facility] Last Admin: 02/24/22 11:31 Dose: 3 ml Documented By: LISA Apixaban (Apixaban 2.5 Mg Tablet) 2.5 mg PO BID [facility] Last Admin: 02/24/22 10:08 Dose: 2.5 mg Documented By: ALESSANDRO Azelastine HCl (Azelastine Hcl Nasal 137 Mcg/[place] 30 Ml) 1 spray NOSTRIL-B BID [facility] Last Admin: 02/24/22 10:17 Dose: 1 spray Documented By: ALESSANDRO Benzonatate (Benzonatate 100 Mg Capsule) 100 mg PO TID PRN PRN Reason: Cough Last Admin: 02/23/22 21:52 Dose: 100 mg Documented By: BRUNA Dapsone (Dapsone 25 Mg Tablet) 100 mg PO DAILY [facility] Last Admin: 02/24/22 11:58 Dose: 100 mg Documented By: ALESSANDRO Darunavir (Darunavir Ethanolate 600 Mg Tablet) 600 mg PO BID [facility] Last Admin: 02/24/22 11:58 Dose: 600 mg Documented By: ALESSANDRO Dextrose (Dextrose 50 % 25 Gm/50 Ml Syringe) 25 gm IVPUSH Q15M PRN; Protocol PRN Reason: per Hypoglycemia Standing Ord. Dolutegravir Sodium (Dolutegravir Sodium 50 Mg Tablet) 50 mg PO BID [facility] Last Admin: 02/24/22 11:59 Dose: 50 mg Documented By: ALESSANDRO Emtricitabine/Tenofovir Alafenamide (Emtricitabine/Tenofov Alafenam Tablet) 1 tab PO DAILY [facility] Last Admin: 02/24/22 11:58 Dose: 1 tab Documented By: ALESSANDRO Glucose (Glucose Gel 15 Gm Gel..Gram.) 15 gm PO Q15M PRN; Protocol PRN Reason: per Hypoglycemia Standing Ord. Guaifenesin (Guaifenesin La 600 Mg Tab.Er.12h) 600 mg PO BID [facility] Last Admin: 02/24/22 10:08 Dose: 600 mg Documented By: ALESSANDRO Insulin Glargine (Insulin Glargine,Hum.Rec.Anlog 100 Unit/Ml 10 Ml Vial) 25 unit SUBCUT BID [facility] Last Admin: 02/24/22 10:18 Dose: Not Given Documented By: ALESSANDRO Non-Admin Reason: Patient Refused Insulin Human Lispro (Insulin Lispro 100 Unit/Ml 3 Ml Vial) 0 unit SUBCUT QIDACHS [facility]; Protocol Last Admin: 02/24/22 11:32 Dose: Not Given Documented By: ALESSANDRO Non-Admin Reason: No Insulin Coverage Methadone HCl (Methadone Hcl 20 Mg/2 Ml Oral.Conc) 60 mg PO DAILY [facility] Last Admin: 02/24/22 10:09 Dose: 60 mg Documented By: ALESSANDRO Multi-Ingred Cream/Lotion/Oil/Oint (Mineral Oil/Petrolatum,White 106 Gm Tube) 1 appl TOPICAL BID [facility]; Protocol Last Admin: 02/24/22 10:18 Dose: 1 appl Documented By: ALESSANDRO Pharmacy Consult (Consult Rx Vancomycin Dosing) 1 each MISCELLANE DAILY PRN PRN Reason: Consult order Prednisone (Prednisone 20 Mg Tablet) 40 mg PO DAILY [facility] Last Admin: 02/24/22 10:08 Dose: 40 mg Documented By: ALESSANDRO Ritonavir (Ritonavir 100 Mg Tablet) 100 mg PO BID [facility] Last Admin: 02/24/22 11:58 Dose: 100 mg Documented By: ALESSANDRO Senna (Sennosides 8.6 Mg Tablet) 17.2 mg PO BEDTIME PRN PRN Reason: Constipation Sodium Chloride (0.9 % Sodium Chloride Flush 3 Ml Syringe) 3 ml IVFLUSH QSHIFT [facility] Last Admin: 02/24/22 10:09 Dose: 3 ml Documented By: ALESSANDRO Trazodone HCl (Trazodone Hcl 25 Mg Halftab) 25 mg PO BEDTIME PRN PRN Reason: insomnia Last Admin: 02/18/22 22:32 Dose: 25 mg Documented By: ARELYJ Labs CBC & Chem 7: 02/24/22 06:22 02/24/22 06:22 Labs: Laboratory Results - last 24 hr 02/19/22 02/23/22 02/23/22 17:33 15:47 17:07 MCV MCH MCHC RDW Plt Count MPV Absolute Nucleated RBC Nucleated RBC % (auto) Anion Gap Estim Creat Clear Calc Estimated GFR POC Glucose 261 H 435 H* Fasting Glucose Calcium Ur L.pneumophila Ag Not Detected 02/23/22 02/24/22 02/24/22 19:22 06:22 06:22 MCV 80.7 MCH 24.5 L MCHC 30.4 L RDW 15.5 Plt Count 207 MPV 9.0 L Absolute Nucleated RBC 0.000 Nucleated RBC % (auto) 0.0 Anion Gap 9 L Estim Creat Clear Calc 112.6 Estimated GFR > 60 POC Glucose 350 H* Fasting Glucose 137 H D Calcium 8.5 Ur L.pneumophila Ag 02/24/22 02/24/22 07:32 11:13 MCV MCH MCHC RDW Plt Count MPV Absolute Nucleated RBC Nucleated RBC % (auto) Anion Gap Estim Creat Clear Calc Estimated GFR POC Glucose 95 150 H Fasting Glucose Calcium Ur L.pneumophila Ag Assessment and Plan (1) Pneumonia due to COVID-19 virus: Status: Acute Plan 56M presented with fevers, sob acute on chronic hypoxic respriatory failure due to recent covid pnuemonia in patient with severe COPD with acute decompensation and bronchiectasis continue po prednisone ID appreciated, received 5 days cefepime for any bacterial pneumonia component/overgrowth vanc dced as swab negative for mrsa no fevers last with 4 hours Seems likely drug fever will continue to dc cefepime and monitor opiate dependence methadone history of DVT/PE eliquis DM2 with hypoglycemia basal bolus insulin decreased lantus from 40 untis bid to 25units bid, monitor HIV haart full code reason for continued hospitalization: monitoring for continued fevers in high risk patient (chronic hypoxic resp failure, hiv, DM) to prevent possible decompensation to severe sepsis. Quality Stroke Does the patient have a stroke diagnosis?: No VTE Prior VTE?: No VTE Risk Level:: Medical - moderate - high VTE Device Contraindication: Treatment Not Indicated VTE Drug Contraindication: N/A - Med Ordered
[2022-02-24 16:30] LABS: Glucose, Whole Blood 405 mg/dL (60-115)
[2022-02-24] MEDS: Insulin Lispro 100 UNIT/ML 3 ML VIAL SUBCUT ×3 (16:38→21:16)
[2022-02-24 20:02] LABS: Glucose, Whole Blood 263 mg/dL (60-115)
[2022-02-24] MEDS: traZODone HCL 25 MG HALFTAB PO (21:13)
[2022-02-24] MEDS: Insulin Glargine,Hum.rec.anlog 100 UNIT/ML 10 ML VIAL 25 UNIT SUBCUT (21:17)
[2022-02-25 04:00] VITALS: BP 110/67; PULSE 73; RESP 16; TEMP 37.5; O2SAT 97
[2022-02-25] MEDS: Acetaminophen 325 MG TABLET 650 MG PO (04:14)
[2022-02-25 07:22] VITALS: BP 124/60; PULSE 94; RESP 18; TEMP 36.4; O2SAT 92
[2022-02-25 07:43] LABS: Glucose, Whole Blood 80 mg/dL (60-115)
[2022-02-25] MEDS: Albuterol/Iprat 2.5/0.5MG 3 ML AMPUL.NEB INHALE (08:20)
[2022-02-25 08:22] VITALS: PULSE 105; RESP 20; O2SAT 93
[2022-02-25] MEDS: Dapsone 25 MG TABLET 100 MG PO (09:05)
[2022-02-25] MEDS: Apixaban 2.5 MG TABLET PO (09:05)
[2022-02-25] MEDS: 0.9 % Sodium Chloride Flush 3 ML SYRINGE IVFLUSH (09:05)
[2022-02-25] MEDS: Emtricitabine/Tenofov Alafenam TABLET 1 TAB PO (09:06)
[2022-02-25] MEDS: Dolutegravir Sodium 50 MG TABLET PO (09:06)
[2022-02-25] MEDS: DARUNAVIR ETHANOLATE 600 MG PO (09:06)
[2022-02-25] MEDS: predniSONE 20 MG TABLET 40 MG PO (09:06)
[2022-02-25] MEDS: guaiFENesin LA 600 MG TAB.ER.12H PO (09:06)
[2022-02-25] MEDS: RITONAVIR 100 MG PO (09:06)
[2022-02-25] MEDS: methADONE HCl 20 MG/2 ML ORAL.CONC 60 MG PO (09:12)
[2022-02-25 11:12] VITALS: BP 109/79; PULSE 79; RESP 18; TEMP 36.7; O2SAT 95
--- NOTE | 2022-02-25 11:14 | P.DS_ITS ---
DS: Providers Provider Date of Service: 02/25/22 Date of admission: 02/17/22 22:41 Primary care physician: Jeremy Romano MD Consults: 02/17/22 22:41 Consult to Infectious Diseases Routine Consulting Provider: Dinah Wolff Reason for consultation: COVID pneumonia; history of HIV 02/17/22 22:46 Consult to Infectious Diseases Routine Consulting Provider: Dinah Wolff Reason for consultation: COVID pneumonia, HIV DS: Diagnosis Discharge Diagnosis (1) Pneumonia due to COVID-19 virus: Status: Acute (2) Acute and chronic respiratory failure with hypoxia: Status: Acute DS: Summary Hospital Course Hospital Course: admission note HPI 56-year-old male with a past medical history of COPD/pulmonary fibrosis on 4 L of supplemental oxygen, HIV, opiate dependence on methadone, hypertension, history of Pseudomonas infection; recently discharged on 02/15/2022 after being treated for COVID-19/COPD exacerbation.? Presented back to the hospital with a chief complaint of cough and fevers.? Patient reports that since he left home for home, he initially felt okay but started developed cough and brownish sputum production.? Reports he has posttussive chest discomfort.? Mentions he also has mild shortness of breath.? Mentions he has a on cefuroxime and prednisone which has been continued to take as per the instructions.? Also mentions he has been complaint with his home medications.? Review of all other systems is negative except mentioned above Per ER team patient noted to be afebrile, oxygen requirements are at his baseline; CT chest showed new infiltrates consistent with multifocal pneumonia- new from prior imaging.? Given Levaquin.? Admitted to the hospital for further management Hospital course The patient was admitted to the hospital for evaluation of acute on chronic hypoxic respiratory failure believed to be secondary to COVID-19 infection with history of bronchiectasis and severe COPD. He was treated mainly with steroids and bronchodilators as he was evaluated by infectious disease specialist who recommended treatment with 5 days of IV antibiotics. The patient started to spike fevers on day 3 on antibiotics that was believed to be drug fever and antibiotics were discontinued. You were able to wean him down to 4 L of oxygen which is his baseline at home. He was able to ambulate with no reported dyspnea. He reports having hemorrhoids. Found to be external but not inflamed. Prescribed hemorrhoidal ointment at time of discharge and advised to follow-up with surgery. Continue prednisone for 3 more days Use hemorrhoids appointment and get surgical evaluation for definite treatment To follow-up with PCP as scheduled Time Spent with Patient Time attestation: Total time spent providing and/or coordinating discharge services: Discharge coordination time: Greater than 30 minutes Quality: Safe Use of Opioids Does Pt have an Active Cancer Diagnosis on the Problem List?: No Quality: Stroke Does the patient have a stroke diagnosis?: No Physical Exam Vital Signs: Vital Signs: Last Vital Signs Temp 97.6 F 02/25/22 07:22 Pulse 105 H 02/25/22 08:22 Resp 20 02/25/22 08:22 BP 124/60 02/25/22 07:22 Pulse Ox 92 02/25/22 07:22 O2 Del Method 02/25/22 07:22 O2 Flow Rate 4 02/25/22 07:22 BMI result Body Mass Index 26.2 Const: Other: Constitutional : Alert, not in distress Neck : Normal inspection, Supple Cardiovascular : RRR, no JVP, no lower extremity edema Respiratory : chest wall moving bilaterally, not in distress, on 4 L of oxygen Gastrointestinal: soft, lax, Normal bowel sounds, Non tender Skin : Warm, Dry Neurological : Alert & oriented x3, No focal deficit , CN 2-12 within normal DS: Data Data Completed and Pending Completed studies during hospitalization [Text1]: Procedures Excision of Left Hand Skin, External Approach, Diagnostic (10/03/21) Labs on day of discharge: Laboratory Results - last 24 hr 02/24/22 02/24/22 02/24/22 11:13 16:23 19:37 POC Glucose 150 H 405 H* 263 H 02/25/22 07:27 POC Glucose 80 Discharge Plan Discharge Patient Disposition: Home, Self-Care Discharge Diagnosis: COVID-19 infection acute on chronic hypoxic respiratory failure Referrals: Jeremy Romano MD [Primary Care Provider] - 1 Week Discharge Medications: New prednisone 20 mg Tablet 40 mg PO DAILY 3 Days Qty: 6 0RF Hemorrhoid Ointment 1 appl IA Q8H Qty: 57 0RF Continued ipratropium-albuterol 0.5 mg-3 mg(2.5 mg base)/3 mL solution for nebulization 3 ml inhalation QID dapsone 100 mg tablet 1 tab PO DAILY albuterol sulfate [Ventolin HFA] 90 mcg/actuation HFA aerosol inhaler 2 puff PO Q4H PRN (Reason: wheezing) ritonavir 100 mg tablet 1 tab PO BID methadone [Methadone Intensol] 10 mg/mL Concentrate 60 mg PO DAILY Rx Instructions: [facility] Prezista 600 mg tablet 1 tab PO BID Tivicay 50 mg tablet 1 tab PO BID Descovy 200-25 mg tablet 1 tab PO DAILY insulin glargine [Lantus U-100 Insulin] 100 unit/mL solution 40 unit subcut BID azelastine 137 mcg (0.1 %) aerosol,spray 1 spray intranasal BID Eliquis 2.5 mg tablet 1 tab PO BID Anoro Ellipta 62.5-25 mcg/actuation blister with device 1 puff inhalation DAILY Fiasp FlexTouch U-100 Insulin 100 unit/mL (3 mL) insulin pen 10 - 24 unit subcut TID guaifenesin [Mucinex] 600 mg Tablet Extended Release 12hr 600 mg PO BID Qty: 14 0RF Discontinued cefuroxime axetil 500 mg Tablet 500 mg PO Q12H Qty: 6 0RF prednisone 20 mg tablet 20 mg PO DAILY Qty: 6 0RF Discharge Orders: Discharge Order (Routine); Ordered 02/25/22 Ordered By: Kajal Cole Diet: advance to usual diet and diabetic diet Activity on Discharge: As tolerated Stand Alone Forms: Patient Portal Discharge page Care Plan Goals: Read below Health Concerns: Read below Plan of Treatment: Read below Assessment: you were admitted to the hospital for evaluation of difficulty breathing as requiring more oxygen to new baseline. Treated for COVID-19 infection with IV steroids, bronchodilators as you were evaluated by infectious disease specialist and received IV antibiotics. Your blood cultures remain negative. You did improved during her hospital stay as we wean down your oxygen supply to your baseline of 4 L. Continue prednisone for 3 more days Use hemorrhoids appointment and get surgical evaluation for definite treatment To follow-up with PCP as scheduled
[2022-02-25 11:29] LABS: Glucose, Whole Blood 182 mg/dL (60-115)
--- NOTE | 2022-02-25 12:00 | MHC.CM.PN ---
Male 56 DX Covid PNA He is discharged to home today. [facility] will resume services. All discharge info has been sent to the agency. They have been notified of dc today via [employer] and VM. The patients last dose of Methadone was printed from [employer]. The RN will deliver with discharge instructions. Patient has arranged for a ride home.
[2022-02-25] MEDS: Insulin Lispro 100 UNIT/ML 3 ML VIAL SUBCUT (13:04)
== END 2022-02-25 16:50 | disposition home health service (06) | DRG 177 ==
LOC: HO.ED 20:05 → HO.EDOVER 22:51 → HO.IMC 02-19 18:01
PROVIDERS: Internal Medicine; Nurse Practitioner Family; Admitting Provider Hospitalist; Emergency Provider Internal Medicine; PCP Internal Medicine; Visit Provider Student in an Organized Health Care Education/Training Program
DX: U07.1 COVID-19 (principal); J12.82 Pneumonia due to coronavirus disease 2019; J96.21 Acute and chronic respiratory failure with hypoxia; J47.0 Bronchiectasis with acute lower respiratory infection; F11.20 Opioid dependence, uncomplicated; E10.649 Type 1 diabetes mellitus with hypoglycemia without coma; J43.9 Emphysema, unspecified; J84.10 Pulmonary fibrosis, unspecified; Z21 Asymptomatic human immunodeficiency virus [HIV] infection status; Z86.718 Personal history of other venous thrombosis and embolism; Z88.0 Allergy status to penicillin; Z88.1 Allergy status to other antibiotic agents; Z88.2 Allergy status to sulfonamides; Z79.4 Long term (current) use of insulin; Z79.01 Long term (current) use of anticoagulants; Z79.52 Long term (current) use of systemic steroids; Z79.899 Other long term (current) drug therapy
CPT/HCPCS: 0241U; 36415; 71250; 80048; 80076; 80202; 81003; 82565; 82947; 83605; 83690; 83735; 83880; 84484; 85025; 85027; 85730; 86140; 87040; 87449; 87640; 87641; 93005; 94640; 99285; J0692; J1956; J2930; J3370

== ENCOUNTER 2022-04-02 23:18 | Inpatient (IN) | payer MEDICARE, MEDICAID, SELFPAY ==
--- NOTE | ~2022-04-02 | CT_ITS ---
EXAMINATION: CT CHEST WITHOUT CONTRAST CLINICAL INFORMATION: History of multifocal pneumonia, pain COMPARISON: 02/17/2022 TECHNIQUE: Multidetector volumetric CT imaging of the chest was done. Axial MIP volume rendering provided. Sagittal and coronal reformatted images were obtained. This CT examination was performed using dose optimization techniques as appropriate, variously including the following: *Automated exposure control *Adjustment of mA and/or kV according to patient size (this includes techniques or standardized protocols for targeted exams where dose is matched to indication/reason for exam; i.e. extremities or head) *Use of iterative reconstruction technique DLP: 276 mGy-cm FINDINGS: LUNGS: Redemonstrated moderate upper lobe predominant centrilobular and paraseptal emphysema. There is also redemonstration of extensive cylindrical and cystic bronchiectasis with areas of wall thickening and some mucoid impaction. Regions of mucoid impaction demonstrate overall mild improvement compared to prior, though there are new focal regions of opacity are present in the medial and posterior basilar right lower lobe. Scattered regions of tree in bud type nodularity consistent with bronchiolitis are redemonstrated. MEDIASTINUM: The visualized thyroid gland is unremarkable. Redemonstrated mildly prominent lymph nodes throughout the mediastinum, similar to prior. Cardiac size is within normal limits; no pericardial effusion. PLEURA: No pneumothorax or pleural effusion. AXILLA: No lymphadenopathy. UPPER ABDOMEN: Cholelithiasis noted. Spleen appears borderline enlarged. OSSEOUS STRUCTURES: Unremarkable. CT/CT chest wo con IMPRESSION: 1. Redemonstrated extensive bronchiectasis with segments of wall thickening and mucoid impaction. While some foci of mucoid impaction have improved since 02/17/2022, there are new focal regions of opacity in the basilar right lower lobe concerning for developing pneumonia. 2. Mildly prominent mediastinal lymph nodes, similar to prior and favored to be reactive. 3. Upper lobe predominant emphysema.
--- NOTE | ~2022-04-02 | CT_ITS ---
EXAMINATION: CT PELVIS WITHOUT CONTRAST CLINICAL INFORMATION: include rectum, odor from rectum, fevers COMPARISON: 01/30/2021 TECHNIQUE: Helical scanning was performed with submillimeter collimation through the pelvis. Sagittal and coronal multiplanar 2-D reconstructions were obtained. This CT examination was performed using dose optimization techniques as appropriate, variously including the following: *Automated exposure control *Adjustment of mA and/or kV according to patient size (this includes techniques or standardized protocols for targeted exams where dose is matched to indication/reason for exam; i.e. extremities or head) *Use of iterative reconstruction technique DLP: 474 mGy-cm FINDINGS: Included portions of the liver and gallbladder are unremarkable. There is a 4 mm calculus in the visualized lower left kidney. Urinary bladder is partially distended. Prostate and seminal vesicles are unremarkable. Included portions of the small and large bowel appear within normal limits, without findings to suggest obstruction or wall thickening. Moderate stool is present in the visualized colon. No significant stranding or abscess identified in the perirectal fat. No free fluid or free air is seen. No lymphadenopathy is seen, though assessment is limited in the absence of intravenous contrast. There is trace atherosclerotic calcification. Bilateral fat-containing inguinal hernias, right larger than left. No acute osseous findings are seen. CT/CT pelvis wo con IMPRESSION: No acute findings identified.
--- NOTE | 2022-04-02 23:31 | ECG_ITS ---
Test Reason : SOB Blood Pressure : / mmHG Vent. Rate : 096 BPM Atrial Rate : 096 BPM P-R Int : 162 ms QRS Dur : 092 ms QT Int : 326 ms P-R-T Axes : 059 055 046 degrees QTc Int : 411 ms Normal sinus rhythm Normal ECG When compared with ECG of 17-FEB-2022 17:19, Nonspecific T wave abnormality now evident in Lateral leads Referred By: Lynette Gusman Electronically Signed By:Mayakn Pool
[2022-04-02 23:32] VITALS: BP 102/65; PULSE 95; RESP 16; TEMP 37.9; O2SAT 98; BMI 27.9
--- NOTE | 2022-04-02 23:37 | ED_ITS ---
HPI - Fever General Chief Complaint: Fever Stated Complaint: SOB Time Seen by Provider: 04/02/22 23:22 Source: patient and old records reviewed Mode of arrival: EMS Limitations: no limitations History of Present Illness HPI Narrative: 56 yo male with hx of bronchiectasis, DVT/PE on eliquis, HIV, pseudomonas infection, COPD on home O2, HTN, prior multifocal pneumonia, vasculitis of the extremities here with c/o fevers, cough, brown sputum production starting yesterday. He is not on prednisone at this time. Took tylenol earlier yesterday. Normally on 3L NC at home has increased O2 to 4L. MD elicited complaint: fever Pertinent past history: HIV and immunosuppression Onset (ago): day(s) (yesterday ) Context: other (hx of prior pneumonia and pseudomonas colonization) Exacerbating factors: nothing Relieving factors: acetaminophen Associated symptoms: chills, cough (sputum production) and shortness of breath Treatments prior to arrival fever: none Related Data Home Medications Medication Instructions Recorded Confirmed albuterol sulfate 90 mcg/actuation 2 puff PO Q4H PRN wheezing 01/27/21 02/17/22 aerosol inhaler (Ventolin HFA) dapsone 100 mg tablet 1 tab PO DAILY 01/27/21 02/17/22 ipratropium 0.5 mg-albuterol 3 mg 3 ml inhalation QID 01/27/21 02/17/22 (2.5 mg base)/3 mL nebulization soln ritonavir 100 mg tablet 1 tab PO BID 01/27/21 02/17/22 methadone 10 mg/mL oral 60 mg PO DAILY 01/28/21 10/03/21 concentrate (Methadone Intensol) apixaban 2.5 mg tablet (Eliquis) 1 tab PO BID 02/12/22 02/17/22 azelastine 137 mcg (0.1 %) nasal 1 spray intranasal BID 02/12/22 02/17/22 spray aerosol darunavir ethanolate 600 mg tablet 1 tab PO BID 02/12/22 02/17/22 (Prezista) dolutegravir 50 mg tablet (Tivicay) 1 tab PO BID 02/12/22 02/17/22 emtricitabine 200 mg-tenofovir 1 tab PO DAILY 02/12/22 02/17/22 alafenamide fumarate 25 mg tablet (Descovy) insulin aspart 10 - 24 unit subcut TID 02/12/22 02/17/22 (niacinamide)(U-100) 100 unit/mL(3 mL) subcutaneous pen (Fiasp FlexTouch U-100 Insulin) insulin glargine 100 unit/mL 40 unit subcut BID 02/12/22 02/17/22 subcutaneous solution (Lantus U-100 Insulin) umeclidinium 62.5 mcg-vilanterol 1 puff inhalation DAILY 02/12/22 02/17/22 25 mcg/actuation powdr for inhalation (Anoro Ellipta) Previous Rx's Medication Instructions Recorded guaifenesin 600 mg tablet, 600 mg PO BID #14 tabs 02/15/22 extended release 12 hr (Mucinex) phenylephrine-shark liver 1 appl OH Q8H #57 grams 02/25/22 oil-mineral oil-petrolatum rectal ointment (Hemorrhoid ointment) prednisone 20 mg tablet 40 mg PO DAILY 3 days #6 tabs 02/25/22 Allergies Allergy/AdvReac Type Severity Reaction Status Date / Time Penicillins Allergy Severe HIves Verified 02/12/22 03:58 swelling SOB Sulfa (Sulfonamide Allergy Severe Hives Verified 02/12/22 03:58 Antibiotics) sulfamethoxazole Allergy Hives Verified 02/12/22 03:58 [From Bactrim] trimethoprim [From Bactrim] Allergy Hives Verified 02/12/22 03:58 Review of Systems Review of Systems: Constitutional : pos Fever, pos Chills ENT/Mouth : No sore throat, No Rhinorrhea, No Swallowing Difficulty Eyes: No Eye Pain, No Swelling, No Redness Cardiovascular : No Chest Pain, positive SOB, No Orthopnea, no edema Respiratory : pos Cough, pos Sputum, No Wheezing, positive dyspnea Gastrointestinal : No Nausea, No Vomiting, No Diarrhea, No abdominal Pain, No Hematochezia, No Melena Genitourinary : No Dysuria, No Urinary Frequency, No Hematuria Musculoskeletal : No joint pain, No Myalgias Skin : No Skin Lesions, No rash Neuro : pos Weakness, No Numbness, No Dizziness, No Headache Psych : No Anxiety/Panic, No Depression Heme/Lymph: No Bruising, No Lymphadenopathy Endocrine : No Polyuria, No Polydipsia All other systems reviewed and are negative [facility] Past Medical History Source: old records reviewed Medical History Bronchiectasis Chronic respiratory failure with hypoxia COPD (chronic obstructive pulmonary disease) DVT (deep venous thrombosis) HIV (human immunodeficiency virus infection) HTN (hypertension) Pseudomonas aeruginosa colonization Pulmonary embolism Pulmonary fibrosis Vasculitis Social History Social History Household Members: Family Housing: House Do you presently have visiting nurse or other home services: No Alcohol intake: never Patient Tobacco Use Status: Never used Tobacco Substance Use Type: Crack/Cocaine and Heroin Advance Directives: No Advance Directives Information Provided: No service: No Current occupational status: disabled Physical Exam Vital Signs: Vital Signs: Last Vital Signs Temp 100.3 F 04/02/22 23:44 Pulse 94 04/03/22 00:00 Resp 20 04/03/22 00:00 BP 103/68 04/03/22 00:00 Pulse Ox 98 04/03/22 00:00 O2 Del Method 04/03/22 00:00 Oxygen Flow Rate 4 04/02/22 23:32 BMI result Body Mass Index 27.9 Appearance: Alert. Oriented X3. Mild acute distress. Eyes: Pupils equal, round and reactive to light. ENT: Pharynx normal. Neck: Normal inspection. Neck supple. CVS: Normal heart rate and rhythm. Pulses normal. Respiratory: Mild respiratory distress tachypnea. Breath sounds coarse and diminished throughout Abdomen: Soft and nontender. Rectal: odorous fungating warts in rectum slight erythema noted mucous seen but no purulence - area looks like genital warts not hemorrhoids Skin: Skin warm and dry. Normal skin color. Normal skin turgor. on hands purplish petechial rash noted on fingers in both hands - states it is chronic and he has a known vasculitis rash Extremities: No lower extremity edema. No calf ttp Neuro: Oriented X 3. No motor deficit. No sensory deficit. MDM - Fever MDM Narrative Medical decision making narrative: 56 yo male with hx of bronchiectasis, DVT/PE on eliquis, HIV, pseudomonas infection, COPD on home O2, HTN, prior multifocal pneumonia, vasculitis here with c/o cough, fevers, sputum production - at this time labs, cultures, CT chest to look for pneumonia. Given prior history will start on empiric cefepime and vancomycin. Planned admit. Lab Data Result diagrams: 04/03/22 00:12 04/03/22 00:12 Labs: Lab Results 04/03/22 04/03/22 04/03/22 Range/Units 00:12 00:12 00:12 WBC 5.0 (4.8-10.8) X10*3/uL RBC 4.30 L (4.60-5.80) X10*6/uL Hgb 10.2 L (14.0-18.0) g/dl Hct 33.7 L (42.0-52.0) % MCV 78.4 L (80.0-98.0) fL MCH 23.7 L (27.0-33.0) pg MCHC 30.3 L (31.0-36.0) g/dl RDW 15.6 (11.0-16.0) % Plt Count 108 L D (160-400) X10*3/uL MPV 8.5 L (9.4-12.4) fL Immature Gran % (Auto) 0.8 H (0.0-0.4) % Neut % (Auto) 82.0 H (45-73) % Lymph % (Auto) 7.9 L (20-40) % [place] % (Auto) 9.1 (2-11) % Eos % (Auto) 0.0 (0-4) % Baso % (Auto) 0.2 (0-2) % Lymph # (Auto) 0.4 L (1.2-4.9) X10*3/uL [place] # (Auto) 0.5 (0.1-1.2) X10*3/uL Eos # (Auto) 0.0 (0.0-0.4) X10*3/uL Baso # (Auto) 0.0 (0.0-0.2) X10*3/uL Abs Immat Gran (auto) 0.04 H (0.00-0.03) X10*3/uL Absolute Neuts (auto) 4.1 (2.0-8.3) x10*3/uL Absolute Nucleated RBC 0.000 (0.0-0.012) X10*3/uL Nucleated RBC % (auto) 0.0 (0.0-0.2) /100WBC PT 13.6 H (10.0-13.1) SEC INR 1.2 H (0.9-1.1) VBG pH (7.32-7.43) VBG pCO2 mmHg VBG pO2 mmHg VBG HCO3 (22-26) mmol/L VBG O2 Saturation % VBG Base Excess mmol/L Sodium 133 L (135-145) mmol/L Potassium 3.9 (3.3-5.1) mmol/L Chloride 94 L (96-108) mmol/L Carbon Dioxide 31 H (22-29) mmol/L Anion Gap 12 (12-20) BUN 18 H (9-16) mg/dL Creatinine 0.82 (0.5-1.4) mg/dL Estim Creat Clear Calc 116.0 Estimated GFR > 60 Random Glucose 109 (60-115) mg/dL Lactic Acid (0.5-2.0) mmol/L Calcium 8.3 L (8.4-10.2) mg/dL Magnesium 1.8 (1.6-2.6) mg/dL Total Bilirubin 0.3 (0.0-1.0) mg/dL Direct Bilirubin 0.2 (0.0-0.5) mg/dL AST 50 H D (5-37) U/L ALT 27 (0-40) U/L Alkaline Phosphatase 322 H D (39-117) U/L Lactate Dehydrogenase 292 H (118-273) U/L Troponin I High Sens (<3.5-35.0) ng/L Total Protein 7.6 (6.5-8.0) g/dL Albumin 3.5 (3.5-5.0) g/dL Lipase 16 (8-78) U/L Procalcitonin ng/mL COVID-19 ([facility]) (Negative) COVID-19 Clin Com 04/03/22 04/03/22 04/03/22 Range/Units 00:12 00:12 00:12 WBC (4.8-10.8) X10*3/uL RBC (4.60-5.80) X10*6/uL Hgb (14.0-18.0) g/dl Hct (42.0-52.0) % MCV (80.0-98.0) fL MCH (27.0-33.0) pg MCHC (31.0-36.0) g/dl RDW (11.0-16.0) % Plt Count (160-400) X10*3/uL MPV (9.4-12.4) fL Immature Gran % (Auto) (0.0-0.4) % Neut % (Auto) (45-73) % Lymph % (Auto) (20-40) % [place] % (Auto) (2-11) % Eos % (Auto) (0-4) % Baso % (Auto) (0-2) % Lymph # (Auto) (1.2-4.9) X10*3/uL [place] # (Auto) (0.1-1.2) X10*3/uL Eos # (Auto) (0.0-0.4) X10*3/uL Baso # (Auto) (0.0-0.2) X10*3/uL Abs Immat Gran (auto) (0.00-0.03) X10*3/uL Absolute Neuts (auto) (2.0-8.3) x10*3/uL Absolute Nucleated RBC (0.0-0.012) X10*3/uL Nucleated RBC % (auto) (0.0-0.2) /100WBC PT (10.0-13.1) SEC INR (0.9-1.1) VBG pH (7.32-7.43) VBG pCO2 mmHg VBG pO2 mmHg VBG HCO3 (22-26) mmol/L VBG O2 Saturation % VBG Base Excess mmol/L Sodium (135-145) mmol/L Potassium (3.3-5.1) mmol/L Chloride (96-108) mmol/L Carbon Dioxide (22-29) mmol/L Anion Gap (12-20) BUN (9-16) mg/dL Creatinine (0.5-1.4) mg/dL Estim Creat Clear Calc Estimated GFR Random Glucose (60-115) mg/dL Lactic Acid 0.8 (0.5-2.0) mmol/L Calcium (8.4-10.2) mg/dL Magnesium (1.6-2.6) mg/dL Total Bilirubin (0.0-1.0) mg/dL Direct Bilirubin (0.0-0.5) mg/dL AST (5-37) U/L ALT (0-40) U/L Alkaline Phosphatase (39-117) U/L Lactate Dehydrogenase (118-273) U/L Troponin I High Sens 4.7 (<3.5-35.0) ng/L Total Protein (6.5-8.0) g/dL Albumin (3.5-5.0) g/dL Lipase (8-78) U/L Procalcitonin 0.42 ng/mL COVID-19 ([facility]) (Negative) COVID-19 Clin Com 04/03/22 04/03/22 Range/Units 00:13 00:18 WBC (4.8-10.8) X10*3/uL RBC (4.60-5.80) X10*6/uL Hgb (14.0-18.0) g/dl Hct (42.0-52.0) % MCV (80.0-98.0) fL MCH (27.0-33.0) pg MCHC (31.0-36.0) g/dl RDW (11.0-16.0) % Plt Count (160-400) X10*3/uL MPV (9.4-12.4) fL Immature Gran % (Auto) (0.0-0.4) % Neut % (Auto) (45-73) % Lymph % (Auto) (20-40) % [place] % (Auto) (2-11) % Eos % (Auto) (0-4) % Baso % (Auto) (0-2) % Lymph # (Auto) (1.2-4.9) X10*3/uL [place] # (Auto) (0.1-1.2) X10*3/uL Eos # (Auto) (0.0-0.4) X10*3/uL Baso # (Auto) (0.0-0.2) X10*3/uL Abs Immat Gran (auto) (0.00-0.03) X10*3/uL Absolute Neuts (auto) (2.0-8.3) x10*3/uL Absolute Nucleated RBC (0.0-0.012) X10*3/uL Nucleated RBC % (auto) (0.0-0.2) /100WBC PT (10.0-13.1) SEC INR (0.9-1.1) VBG pH 7.45 H (7.32-7.43) VBG pCO2 47 mmHg VBG pO2 84 mmHg VBG HCO3 33 H (22-26) mmol/L VBG O2 Saturation 95.0 % VBG Base Excess 8.0 mmol/L Sodium (135-145) mmol/L Potassium (3.3-5.1) mmol/L Chloride (96-108) mmol/L Carbon Dioxide (22-29) mmol/L Anion Gap (12-20) BUN (9-16) mg/dL Creatinine (0.5-1.4) mg/dL Estim Creat Clear Calc Estimated GFR Random Glucose (60-115) mg/dL Lactic Acid (0.5-2.0) mmol/L Calcium (8.4-10.2) mg/dL Magnesium (1.6-2.6) mg/dL Total Bilirubin (0.0-1.0) mg/dL Direct Bilirubin (0.0-0.5) mg/dL AST (5-37) U/L ALT (0-40) U/L Alkaline Phosphatase (39-117) U/L Lactate Dehydrogenase (118-273) U/L Troponin I High Sens (<3.5-35.0) ng/L Total Protein (6.5-8.0) g/dL Albumin (3.5-5.0) g/dL Lipase (8-78) U/L Procalcitonin ng/mL COVID-19 ([facility]) Negative (Negative) COVID-19 Clin Com See Note ECG Data ECG #1: Attestation: I personally reviewed and interpreted this ECG as follows: ECG interpretation date: 04/03/22 ECG interpretation time: 00:07 Interpretation: Rate: 96 Rhythm: NSR [place]: normal Normal P waves. Normal NANETTE. Normal QRS complex. ST T wave : normal no ANA qTC: normal prior studies: no acute ischemia The study has been interpreted contemporaneously by me. Discharge Plan Discharge Clinical Impression: Anal warts Fever Qualifiers: Fever type: unspecified Qualified Code(s): R50.9 - Fever, unspecified Pneumonia Qualifiers: Pneumonia type: due to unspecified organism Laterality: right Lung location: lower lobe of lung Qualified Code(s): J18.9 - Pneumonia, unspecified organism Patient Disposition: Admitted As Inpatient
[2022-04-02 23:44] VITALS: PULSE 78; RESP 16; TEMP 37.9
[2022-04-03] VITALS (10 sets, daily range): BP systolic 96–107; BP diastolic 52–72; PULSE 73–109; RESP 14–26; TEMP 36.6–37.4; O2SAT 94–98
[2022-04-03 00:20] LABS: Basophils Percent Auto 0.2 % (0-2); Hematocrit 33.7 % (42.0-52.0); Hemoglobin 10.2 g/dl (14.0-18.0); Imm Gran Abs Auto 0.04 X10*3/uL (0.00-0.03); Imm Gran Pct Auto 0.8 % (0.0-0.4); Lymphocytes Absolute Auto 0.4 X10*3/uL (1.2-4.9); Lymphocytes Percent Auto 7.9 % (20-40); MANUAL DIFF FLAG NO; Mean Corpuscular HGB Conc 30.3 g/dl (31.0-36.0); Mean Corpuscular Hemoglobin 23.7 pg (27.0-33.0); Mean Corpuscular Volume 78.4 fL (80.0-98.0); Mean Platelet Volume 8.5 fL (9.4-12.4); Monocytes Absolute Auto 0.5 X10*3/uL (0.1-1.2); Monocytes Percent Auto 9.1 % (2-11); Neutrophils Absolute Auto 4.1 x10*3/uL (2.0-8.3); Platelet Count 108 X10*3/uL (160-400); Red Cell Distribution Width 15.6 % (11.0-16.0)
[2022-04-03 00:22] LABS: Venous Blood Gas Refer to POC result
[2022-04-03 00:23] LABS: VBG HCO3 33 mmol/L (22-26); VBG pCO2 47 mmHg; VBG pH 7.45 (7.32-7.43); VBG pO2 84 mmHg
[2022-04-03 00:31] LABS: Lactic Acid 0.8 mmol/L (0.5-2.0)
[2022-04-03 00:34] LABS: INTERNATIONAL NORM RATIO 1.2 (0.9-1.1); Prothrombin Time 13.6 SEC (10.0-13.1)
[2022-04-03] MEDS: Lactated Ringers 1,000 ML 999 ML IV (00:38)
[2022-04-03] MEDS: cefEPime HCl 2 GM in 0.9 % Sodium Chloride 50 ML IV (00:38)
[2022-04-03 00:39] LABS: Alanine Aminotransferase 27 U/L (0-40); Albumin Level 3.5 g/dL (3.5-5.0); Alkaline Phosphatase 322 U/L (39-117); Anion Gap 12 (12-20); Aspartate Amino Transferase 50 U/L (5-37); Bilirubin Direct 0.2 mg/dL (0.0-0.5); Bilirubin Total 0.3 mg/dL (0.0-1.0); Blood Urea Nitrogen 18 mg/dL (9-16); Calcium 8.3 mg/dL (8.4-10.2); Carbon Dioxide 31 mmol/L (22-29); Chloride 94 mmol/L (96-108); Estimated Glomerular Filt Rate > 60; Glucose Random 109 mg/dL (60-115); Lactate Dehydrogenase 292 U/L (118-273); Lipase 16 U/L (8-78); Magnesium 1.8 mg/dL (1.6-2.6); Potassium 3.9 mmol/L (3.3-5.1); Sodium 133 mmol/L (135-145); Total Protein 7.6 g/dL (6.5-8.0); Troponin-I High Sensitivity 4.7 ng/L (<3.5-35.0)
[2022-04-03] MEDS: Acetaminophen 325 MG TABLET 650 MG PO (00:39)
[2022-04-03] MEDS: vancomycin HCL 1,500 MG in 0.9 % Sodium Chloride 500 ML 333.33 MG IV (00:39)
[2022-04-03 00:40] LABS: COVID-19 Test Negative (Negative)
[2022-04-03 01:09] LABS: Procalcitonin 0.42 ng/mL
--- NOTE | 2022-04-03 04:50 | PM.IMHP ---
History of Present Illness Date of Service: 04/03/22 Chief Complaint: Fever/cough 56-year-old male with a past medical history of hypertension, hyperlipidemia, diabetes, HIV, COPD on 3 L of home oxygen, vasculitis on prednisone, DVT on Eliquis; presented to the hospital today with a chief complaint of cough and shortness of breath. Patient reports that over the past 2 days she has been having cough and shortness of breath, also had brownish sputum production. Reported subjective fevers. And has a getting increased symptoms he decided to come to the ER for further evaluation. Patient mentioned that he has vasculitis and has been on prednisone. Mentions he has been complaint with his home medications. Denies any chest pain or palpitations. Denies any lightheadedness dizziness. Denies any numbness tingling or focal weakness. Denies any urinary symptoms. Review of all other systems is negative except mentioned above ER course: Per ER team patient noted to have right lower lobe pneumonia on the chest x-ray; given broad-spectrum antibiotics; patient oxygen records slightly increased to 4 L compared to the [place] 3 L. Coarse breath sounds. No significant wheezing noted. Patient also noted to have Mary warts; admitted for further management. [facility] Medical History (Updated 04/14/22 @ 00:03 by America Gamboa) Bronchiectasis Chronic respiratory failure with hypoxia COPD (chronic obstructive pulmonary disease) DVT (deep venous thrombosis) HIV (human immunodeficiency virus infection) HTN (hypertension) Pseudomonas aeruginosa colonization Pulmonary embolism Pulmonary fibrosis Vasculitis Pertinent family history: Reviewed Social History Household Members: Spouse and Family Housing: House Do you presently have visiting nurse or other home services: Yes (Allied Nursing) Alcohol intake: never Patient Tobacco Use Status: Never used Tobacco Substance Use Type: Crack/Cocaine and Heroin service: No Current occupational status: disabled Meds Allergies Allergy/AdvReac Type Severity Reaction Status Date / Time Penicillins Allergy Severe HIves Verified 02/12/22 03:58 swelling SOB Sulfa (Sulfonamide Allergy Severe Hives Verified 02/12/22 03:58 Antibiotics) sulfamethoxazole Allergy Hives Verified 02/12/22 03:58 [From Bactrim] trimethoprim [From Bactrim] Allergy Hives Verified 02/12/22 03:58 Active Medications: Current Medications Acetaminophen (Acetaminophen 325 Mg Tablet) 650 mg PO Q6H PRN PRN Reason: Pain, Mild (Pain Scale 1-3) Albuterol/Ipratropium (Albuterol/Iprat 2.5/0.5mg 3 Ml Ampul.Neb) 3 ml INHALE RQ4H PRN PRN Reason: Shortness of Breath/Wheezing Apixaban (Apixaban 2.5 Mg Tablet) 2.5 mg PO BID [facility] Atorvastatin Calcium (Atorvastatin Calcium 10 Mg Tablet) 10 mg PO DAILY [facility] Azelastine HCl (Azelastine Hcl Nasal 137 Mcg/Wilson 30 Ml) 1 spray NOSTRIL-B BID [facility] Dapsone (Dapsone 25 Mg Tablet) 100 mg PO DAILY [facility] Darunavir (Darunavir Ethanolate 600 Mg Tablet) 600 mg PO BID [facility] Dolutegravir Sodium (Dolutegravir Sodium 50 Mg Tablet) 50 mg PO BID [facility] Emtricitabine/Tenofovir Alafenamide (Emtricitabine/Tenofov Alafenam Tablet) 1 tab PO DAILY [facility] Vancomycin HCl 1,000 mg/ (Sodium Chloride) 270 mls @ 270 mls/hr IV Q12H [facility] Cefepime HCl 1 gm/ Sodium (Chloride) 50 mls @ 100 mls/hr IV Q8H [facility] Insulin Glargine (Insulin Glargine,Hum.Rec.Anlog 100 Unit/Ml 10 Ml Vial) 20 unit SUBCUT BID [facility] Melatonin (Melatonin 3 Mg Tablet) 6 mg PO BEDTIME PRN PRN Reason: Insomnia Non-Formulary Medication (Umeclidinium-Vilanterol [Anoro Ellipta]) 1 puff INHALE DAILY [facility] Pharmacy Consult (Consult Rx Vancomycin Dosing) 1 each MISCELLANE DAILY PRN PRN Reason: Consult order Pharmacy Consult (Consult Rx Vancomycin Dosing) 1 each MISCELLANE DAILY PRN PRN Reason: Consult order Prednisone (Prednisone 5 Mg Tablet) 10 mg PO DAILY [facility] Ritonavir (Ritonavir 100 Mg Tablet) 100 mg PO BID [facility] Senna (Sennosides 8.6 Mg Tablet) 17.2 mg PO BEDTIME PRN PRN Reason: Constipation Sodium Chloride (0.9 % Sodium Chloride Flush 3 Ml Syringe) 3 ml IVFLUSH QSHIFT [facility] Home Medications Medication Instructions Recorded Confirmed Last Taken Type dapsone 100 mg tablet 1 tab PO DAILY 01/27/21 04/03/22 10/03/21 History ipratropium 0.5 mg-albuterol 3 mg 3 ml inhalation QID 01/27/21 04/03/22 10/03/21 History (2.5 mg base)/3 mL nebulization soln ritonavir 100 mg tablet 1 tab PO BID 01/27/21 04/03/22 10/03/21 History apixaban 2.5 mg tablet (Eliquis) 1 tab PO BID 02/12/22 04/03/22 Unknown History azelastine 137 mcg (0.1 %) nasal 1 spray intranasal BID 02/12/22 04/03/22 Unknown History spray aerosol darunavir ethanolate 600 mg tablet 1 tab PO BID 02/12/22 04/03/22 Unknown History (Prezista) dolutegravir 50 mg tablet (Tivicay) 1 tab PO BID 02/12/22 04/03/22 Unknown History emtricitabine 200 mg-tenofovir 1 tab PO DAILY 02/12/22 04/03/22 Unknown History alafenamide fumarate 25 mg tablet (Descovy) insulin aspart 10 - 24 unit subcut TID 02/12/22 04/03/22 Unknown History (niacinamide)(U-100) 100 unit/mL(3 mL) subcutaneous pen (Fiasp FlexTouch U-100 Insulin) insulin glargine 100 unit/mL 40 unit subcut BID 02/12/22 04/03/22 Unknown History subcutaneous solution (Lantus U-100 Insulin) umeclidinium 62.5 mcg-vilanterol 1 puff inhalation DAILY 02/12/22 04/03/22 Unknown History 25 mcg/actuation powdr for inhalation (Anoro Ellipta) atorvastatin 10 mg tablet 1 tab PO DAILY 04/03/22 04/03/22 Unknown History methadone 10 mg/mL oral concentrate 60 mg PO DAILY 04/03/22 04/03/22 04/02/22 History Physical Exam Vital Signs and Narrative: Vital Signs: Last Vital Signs Temp 98.9 F 04/03/22 02:00 Pulse 79 04/03/22 03:59 Resp 18 04/03/22 03:59 BP 107/58 L 04/03/22 03:59 Pulse Ox 97 04/03/22 03:59 O2 Del Method 04/03/22 03:59 O2 Flow Rate 4 04/03/22 03:59 Oxygen Flow Rate 4 04/02/22 23:32 BMI result Body Mass Index 27.9 Gen: Appears be in no acute distress HEENT: NCAT, Moist mucosa. Pulmonary: Coarse breath sounds CVS: Normal S1-S2 Abdomen: BS+, Soft, Nontender Extremities: Warm well perfused Neuro: Alert and awake. Results Labs CBC and Chem 7: 04/06/22 06:10 04/06/22 06:10 Labs: Laboratory Results - last 24 hr 04/03/22 04/03/22 04/03/22 00:12 00:12 00:12 MCV 78.4 L MCH 23.7 L MCHC 30.3 L RDW 15.6 Plt Count 108 L D MPV 8.5 L Immature Gran % (Auto) 0.8 H Neut % (Auto) 82.0 H Lymph % (Auto) 7.9 L [place] % (Auto) 9.1 Eos % (Auto) 0.0 Baso % (Auto) 0.2 Lymph # (Auto) 0.4 L [place] # (Auto) 0.5 Eos # (Auto) 0.0 Baso # (Auto) 0.0 Abs Immat Gran (auto) 0.04 H Absolute Neuts (auto) 4.1 Absolute Nucleated RBC 0.000 Nucleated RBC % (auto) 0.0 PT 13.6 H INR 1.2 H VBG pH VBG pCO2 VBG pO2 VBG HCO3 VBG O2 Saturation VBG Base Excess Anion Gap 12 Estim Creat Clear Calc 116.0 Estimated GFR > 60 Random Glucose 109 Lactic Acid Calcium 8.3 L Magnesium 1.8 Total Bilirubin 0.3 Direct Bilirubin 0.2 AST 50 H D ALT 27 Alkaline Phosphatase 322 H D Lactate Dehydrogenase 292 H Troponin I High Sens Total Protein 7.6 Albumin 3.5 Lipase 16 Procalcitonin COVID-19 ([facility]) COVID-19 Clin Com 04/03/22 04/03/22 04/03/22 00:12 00:12 00:12 MCV MCH MCHC RDW Plt Count MPV Immature Gran % (Auto) Neut % (Auto) Lymph % (Auto) [place] % (Auto) Eos % (Auto) Baso % (Auto) Lymph # (Auto) [place] # (Auto) Eos # (Auto) Baso # (Auto) Abs Immat Gran (auto) Absolute Neuts (auto) Absolute Nucleated RBC Nucleated RBC % (auto) PT INR VBG pH VBG pCO2 VBG pO2 VBG HCO3 VBG O2 Saturation VBG Base Excess Anion Gap Estim Creat Clear Calc Estimated GFR Random Glucose Lactic Acid 0.8 Calcium Magnesium Total Bilirubin Direct Bilirubin AST ALT Alkaline Phosphatase Lactate Dehydrogenase Troponin I High Sens 4.7 Total Protein Albumin Lipase Procalcitonin 0.42 COVID-19 ([facility]) COVID-19 Clin Com 04/03/22 04/03/22 00:13 00:18 MCV MCH MCHC RDW Plt Count MPV Immature Gran % (Auto) Neut % (Auto) Lymph % (Auto) [place] % (Auto) Eos % (Auto) Baso % (Auto) Lymph # (Auto) [place] # (Auto) Eos # (Auto) Baso # (Auto) Abs Immat Gran (auto) Absolute Neuts (auto) Absolute Nucleated RBC Nucleated RBC % (auto) PT INR VBG pH 7.45 H VBG pCO2 47 VBG pO2 84 VBG HCO3 33 H VBG O2 Saturation 95.0 VBG Base Excess 8.0 Anion Gap Estim Creat Clear Calc Estimated GFR Random Glucose Lactic Acid Calcium Magnesium Total Bilirubin Direct Bilirubin AST ALT Alkaline Phosphatase Lactate Dehydrogenase Troponin I High Sens Total Protein Albumin Lipase Procalcitonin COVID-19 ([facility]) Negative COVID-19 Clin Com See Note Imaging Radiologist's Impressions: Impressions Chest CT 04/02/22 23:52 IMPRESSION: 1. Redemonstrated extensive bronchiectasis with segments of wall thickening and mucoid impaction. While some foci of mucoid impaction have improved since 02/17/2022, there are new focal regions of opacity in the basilar right lower lobe concerning for developing pneumonia. 2. Mildly prominent mediastinal lymph nodes, similar to prior and favored to be reactive. 3. Upper lobe predominant emphysema. Pelvis CT 04/03/22 01:09 IMPRESSION: No acute findings identified. Assessment and Plan (1) Fever: Qualifiers: Fever type: unspecified Qualified Code(s): R50.9 - Fever, unspecified Status: Acute Plan 56-year-old male with a past medical history of hypertension, hyperlipidemia, diabetes, HIV, vasculitis, DVT, COPD on 3 L of home oxygen presented to the hospital today with a chief complaint of cough, shortness of breath, fever; noted to have right lower lobe pneumonia. Admitted for further management. Right lower lobe pneumonia/Anal warts: Patient has prior history of Pseudomonas colonization. Continue IV vancomycin and cefepime Id consult for further recommendations COPD: Patient on 3 L of home oxygen. Carrol mer[place]. History of diabetes: Will keep the patient on Lantus 20 units b.i.d. plus insulin sliding scale. Hold home insulin regimen for now. History of vasculitis: Continue home prednisone History of HIV: Continue home Descovy, tivicay, ritonavir, Darunavir, prezista, dapsone. History of DVT: Continue home Eliquis DVT prophylaxis: Patient on Eliquis Code status: Full code Quality Stroke Does the patient have a stroke diagnosis?: No VTE Prior VTE?: No VTE Risk Level:: Medical - moderate - high VTE Device Contraindication: Treatment Not Indicated VTE Drug Contraindication: N/A - Med Ordered
--- NOTE | 2022-04-03 06:53 | PC.NURSE ---
called respiratory to administer albuterol and informed them of pt's productive cough
[2022-04-03 07:08] LABS: MANUAL DIFF FLAG NO
[2022-04-03 07:13] LABS: Basophils Percent Auto 0.2 % (0-2); Hemoglobin 9.1 g/dl (14.0-18.0); Imm Gran Abs Auto 0.06 X10*3/uL (0.00-0.03); Imm Gran Pct Auto 1.4 % (0.0-0.4); Lymphocytes Absolute Auto 0.2 X10*3/uL (1.2-4.9); Lymphocytes Percent Auto 5.7 % (20-40); Mean Corpuscular HGB Conc 30.3 g/dl (31.0-36.0); Mean Corpuscular Hemoglobin 24.3 pg (27.0-33.0); Mean Corpuscular Volume 80.2 fL (80.0-98.0); Mean Platelet Volume 9.6 fL (9.4-12.4); Monocytes Absolute Auto 0.3 X10*3/uL (0.1-1.2); Monocytes Percent Auto 6.2 % (2-11); Neutrophils Absolute Auto 3.6 x10*3/uL (2.0-8.3); Neutrophils Percent Auto 86.5 % (45-73); Platelet Count 103 X10*3/uL (160-400); Red Blood Count 3.74 X10*6/uL (4.60-5.80); Red Cell Distribution Width 15.7 % (11.0-16.0); White Blood Count 4.2 X10*3/uL (4.8-10.8)
[2022-04-03] MEDS: Albuterol/Iprat 2.5/0.5MG 3 ML AMPUL.NEB INHALE (07:18)
--- NOTE | 2022-04-03 07:47 | PC.NURSE ---
Pt is alert and oriented x 3. Lungs sounds are diminished on right lower lobe. Right upper lobe with fine expiratory wheezing. Fine crackles the left side. Heart sounds are regular. Active bowel sounds on all quadrants. Bruising on left abd side. Pt reports due to insulin injections. Abd is distented. Pt reports this distention for 2 years. 1+ pitting edema on left feet. None noted on the right foot. Pt aware of plan of care. MD aware. Patient is sitting with head of be up eating breakfast.
[2022-04-03 07:57] LABS: Magnesium 1.8 mg/dL (1.6-2.6)
[2022-04-03 08:11] LABS: Anion Gap 10 (12-20); Blood Urea Nitrogen 15 mg/dL (9-16); Carbon Dioxide 30 mmol/L (22-29); Chloride 97 mmol/L (96-108); Estimated Glomerular Filt Rate > 60; Glucose Random 108 mg/dL (60-115); Potassium 3.6 mmol/L (3.3-5.1); Sodium 133 mmol/L (135-145)
--- NOTE | 2022-04-03 08:15 | PHA.MEDREC ---
Pharmacy Consult ? Medication Reconciliation Pharmacy has reviewed the medication reconciliation completed by Aga. There are no remarkable issues for provider's attention. Daylin Coyle, LenoreD
[2022-04-03 08:57] LABS: Calcium 7.9 mg/dL (8.4-10.2)
--- NOTE | 2022-04-03 09:30 | P.PNIM_ITS ---
Subjective Subjective Date of Service: 04/03/22 Interval History: cc: fevers, arthralgias interval history:unchanged Cardiovascular Cardiovascular: Reports no additional cardiovascular complaints Respiratory Respiratory: Reports no additional respiratory complaints Physical Exam Vital Signs: Vital Signs: Last Vital Signs Temp 99.0 F 04/03/22 07:36 Pulse 97 04/03/22 07:36 Resp 17 04/03/22 07:36 BP 98/59 L 04/03/22 07:36 Pulse Ox 97 04/03/22 07:36 O2 Del Method 04/03/22 07:36 O2 Flow Rate 4 04/03/22 07:36 Oxygen Flow Rate 4 04/02/22 23:32 BMI result Body Mass Index 27.9 General: AO X 3, no acute distress Resp: diminished bilateral, no accessory muscles used CVS: S1,S2,RRR GI: soft, non tender, non distended Neuro: motor grossly intact, alert Psych: appropriate affect, appropriate insight skin: palpable purpura over bilateral hands, dorsal and palmar Objective Data Active Medications Acetaminophen (Acetaminophen 325 Mg Tablet) 650 mg PO Q6H PRN PRN Reason: Pain, Mild (Pain Scale 1-3) Albuterol/Ipratropium (Albuterol/Iprat 2.5/0.5mg 3 Ml Ampul.Neb) 3 ml INHALE R Q4H PRN PRN Reason: Shortness of Breath/Wheezing Last Admin: 04/03/22 07:18 Dose: 3 ml Documented By: LISA Apixaban (Apixaban 2.5 Mg Tablet) 2.5 mg PO BID [facility] Atorvastatin Calcium (Atorvastatin Calcium 10 Mg Tablet) 10 mg PO DAILY [facility] Azelastine HCl (Azelastine Hcl Nasal 137 Mcg/[place] 30 Ml) 1 spray NOSTRIL-B BID [facility] Dapsone (Dapsone 25 Mg Tablet) 100 mg PO DAILY [facility] Darunavir (Darunavir Ethanolate 600 Mg Tablet) 600 mg PO BID [facility] Dolutegravir Sodium (Dolutegravir Sodium 50 Mg Tablet) 50 mg PO BID [facility] Emtricitabine/Tenofovir Alafenamide (Emtricitabine/Tenofov Alafenam Tablet) 1 tab PO DAILY [facility] Cefepime HCl 1 gm/ Sodium (Chloride) 50 mls @ 100 mls/hr IV Q8H [facility] Insulin Glargine (Insulin Glargine,Hum.Rec.Anlog 100 Unit/Ml 10 Ml Vial) 20 unit SUBCUT BID [facility] Melatonin (Melatonin 3 Mg Tablet) 6 mg PO BEDTIME PRN PRN Reason: Insomnia Non-Formulary Medication (Umeclidinium-Vilanterol [Anoro Ellipta]) 1 puff INHALE DAILY [facility] Pharmacy Consult (Consult Rx Vancomycin Dosing) 1 each MISCELLANE DAILY PRN PRN Reason: Consult order Prednisone (Prednisone 20 Mg Tablet) 60 mg PO DAILY [facility] Ritonavir (Ritonavir 100 Mg Tablet) 100 mg PO BID [facility] Senna (Sennosides 8.6 Mg Tablet) 17.2 mg PO BEDTIME PRN PRN Reason: Constipation Sodium Chloride (0.9 % Sodium Chloride Flush 3 Ml Syringe) 3 ml IVFLUSH QSHIFT [facility] Labs CBC & Chem 7: 04/03/22 06:13 04/03/22 06:13 Labs: Laboratory Results - last 24 hr 04/03/22 04/03/22 04/03/22 00:12 00:12 00:12 MCV 78.4 L MCH 23.7 L MCHC 30.3 L RDW 15.6 Plt Count 108 L D MPV 8.5 L Immature Gran % (Auto) 0.8 H Neut % (Auto) 82.0 H Lymph % (Auto) 7.9 L [place] % (Auto) 9.1 Eos % (Auto) 0.0 Baso % (Auto) 0.2 Lymph # (Auto) 0.4 L [place] # (Auto) 0.5 Eos # (Auto) 0.0 Baso # (Auto) 0.0 Abs Immat Gran (auto) 0.04 H Absolute Neuts (auto) 4.1 Absolute Nucleated RBC 0.000 Nucleated RBC % (auto) 0.0 PT 13.6 H INR 1.2 H VBG pH VBG pCO2 VBG pO2 VBG HCO3 VBG O2 Saturation VBG Base Excess Anion Gap 12 Estim Creat Clear Calc 116.0 Estimated GFR > 60 Random Glucose 109 Lactic Acid Calcium 8.3 L Magnesium 1.8 Total Bilirubin 0.3 Direct Bilirubin 0.2 AST 50 H D ALT 27 Alkaline Phosphatase 322 H D Lactate Dehydrogenase 292 H Troponin I High Sens Total Protein 7.6 Albumin 3.5 Lipase 16 Procalcitonin COVID-19 ([facility]) COVID-19 Clin Com 04/03/22 04/03/2222 00:12 00:12 00:12 MCV MCH MCHC RDW Plt Count MPV Immature Gran % (Auto) Neut % (Auto) Lymph % (Auto) [place] % (Auto) Eos % (Auto) Baso % (Auto) Lymph # (Auto) [place] # (Auto) Eos # (Auto) Baso # (Auto) Abs Immat Gran (auto) Absolute Neuts (auto) Absolute Nucleated RBC Nucleated RBC % (auto) PT INR VBG pH VBG pCO2 VBG pO2 VBG HCO3 VBG O2 Saturation VBG Base Excess Anion Gap Estim Creat Clear Calc Estimated GFR Random Glucose Lactic Acid 0.8 Calcium Magnesium Total Bilirubin Direct Bilirubin AST ALT Alkaline Phosphatase Lactate Dehydrogenase Troponin I High Sens 4.7 Total Protein Albumin Lipase Procalcitonin 0.42 COVID-19 ([facility]) COVID-19 Clin Com 04/03/22 04/03/22 04/03/22 00:13 00:18 06:13 MCV 80.2 MCH 24.3 L MCHC 30.3 L RDW 15.7 Plt Count 103 L MPV 9.6 Immature Gran % (Auto) 1.4 H Neut % (Auto) 86.5 H Lymph % (Auto) 5.7 L [place] % (Auto) 6.2 Eos % (Auto) 0.0 Baso % (Auto) 0.2 Lymph # (Auto) 0.2 L [place] # (Auto) 0.3 Eos # (Auto) 0.0 Baso # (Auto) 0.0 Abs Immat Gran (auto) 0.06 H Absolute Neuts (auto) 3.6 Absolute Nucleated RBC 0.000 Nucleated RBC % (auto) 0.0 PT INR VBG pH 7.45 H VBG pCO2 47 VBG pO2 84 VBG HCO3 33 H VBG O2 Saturation 95.0 VBG Base Excess 8.0 Anion Gap Estim Creat Clear Calc Estimated GFR Random Glucose Lactic Acid Calcium Magnesium Total Bilirubin Direct Bilirubin AST ALT Alkaline Phosphatase Lactate Dehydrogenase Troponin I High Sens Total Protein Albumin Lipase Procalcitonin COVID-19 ([facility]) Negative COVID-19 Clin Com See Note 04/03/22 04/03/22 06:13 06:13 MCV MCH MCHC RDW Plt Count MPV Immature Gran % (Auto) Neut % (Auto) Lymph % (Auto) [place] % (Auto) Eos % (Auto) Baso % (Auto) Lymph # (Auto) [place] # (Auto) Eos # (Auto) Baso # (Auto) Abs Immat Gran (auto) Absolute Neuts (auto) Absolute Nucleated RBC Nucleated RBC % (auto) PT INR VBG pH VBG pCO2 VBG pO2 VBG HCO3 VBG O2 Saturation VBG Base Excess Anion Gap 10 L Estim Creat Clear Calc 122.0 Estimated GFR > 60 Random Glucose 108 Lactic Acid Calcium 7.9 L Magnesium 1.8 Total Bilirubin Direct Bilirubin AST ALT Alkaline Phosphatase Lactate Dehydrogenase Troponin I High Sens Total Protein Albumin Lipase Procalcitonin COVID-19 ([facility]) COVID-19 Clin Com Assessment and Plan (1) Vasculitis: Status: Acute Plan 56M presented with fevers fevers suspect due to recurrence of vasculitis check esr, crp increase prednisone from 10mg to 60mg daily will dc vancomycin - doubt MRSa follow up ID for any question of pna will continue empiric cefepime for now chronic hypoxic respriatory failure due to copd on 3-4L o2 baseline continue anoro ellipta DM basal bolus insulin HIV HAART history of DVT/PE eliquis full code reason for continued hospitalization: awaiting defervescence Quality Stroke Does the patient have a stroke diagnosis?: No VTE Prior VTE?: No VTE Risk Level:: Medical - moderate - high VTE Device Contraindication: Treatment Not Indicated VTE Drug Contraindication: N/A - Med Ordered
--- NOTE | 2022-04-03 09:52 | PC.NURSE ---
lg bm x1in commode
[2022-04-03 10:02] LABS: C Reactive Protein 6.89 mg/dL (< or = 0.50)
[2022-04-03] MEDS: Atorvastatin Calcium 10 MG TABLET PO (10:10)
[2022-04-03] MEDS: Apixaban 2.5 MG TABLET PO ×2 (10:10→22:41)
[2022-04-03] MEDS: predniSONE 20 MG TABLET 60 MG PO (10:10)
[2022-04-03] MEDS: RITONAVIR 100 MG PO ×2 (10:11→22:41)
[2022-04-03] MEDS: Insulin Glargine,Hum.rec.anlog 100 UNIT/ML 10 ML VIAL 20 UNIT SUBCUT ×2 (10:11→22:42)
[2022-04-03] MEDS: Emtricitabine/Tenofov Alafenam TABLET 1 TAB PO (10:11)
[2022-04-03] MEDS: Dolutegravir Sodium 50 MG TABLET PO ×2 (10:11→22:41)
[2022-04-03] MEDS: cefEPime HCl 1 GM in 0.9 % Sodium Chloride 50 ML IV ×2 (10:12→16:33)
[2022-04-03] MEDS: 0.9 % Sodium Chloride Flush 3 ML SYRINGE IVFLUSH ×2 (10:13→16:38)
[2022-04-03] MEDS: DARUNAVIR ETHANOLATE 600 MG PO ×2 (10:14→22:41)
[2022-04-03] MEDS: Dapsone 25 MG TABLET 100 MG PO (10:14)
--- NOTE | 2022-04-03 11:30 | PC.NURSE ---
Ashley Newsome RN, from [facility] reports patient is on 60mg of Methadone that is administered at home from [facility]. [facility] ([phone]) dispensed 60mg on 03/27/22 to [facility]. Cisco Velez RN from [facility] ([phone]) confirms pts methadone dose at 60mg with last dose given 04/02/22. Verification form faxed to pharmacy. MD martinez.
--- NOTE | 2022-04-03 11:31 | HE.PHANOTE ---
Methadone Verfication Recieved methadone verfication form from [facility]. Patient received methadone from [facility]. Last received 60 mg on 04/02/22. Confirmed with Cisco at the clinic. Daylin Coyle, LenoreD
[2022-04-03] MEDS: methADONE HCl 20 MG/2 ML ORAL.CONC 60 MG PO (11:51)
[2022-04-03 18:28] LABS: Glucose, Whole Blood 269 mg/dL (60-115)
[2022-04-03 20:11] LABS: Appearance Urine CLEAR; Color Urine YELLOW; Glucose Urine UA NEG (NEG); Leukocyte Esterase Urine NEG (NEG); Nitrite Urine NEG (NEG); PH 5.5 (5.0-8.0); Specific Gravity - Urine >= 1.030 (1.005-1.025); Urine Blood NEG (NEG); Urine Ketones 15 MG/DL (NEG); Urine Protein TRACE MG/DL (NEG-TRACE)
[2022-04-03 22:07] LABS: Glucose, Whole Blood 288 mg/dL (60-115)
[2022-04-04] MEDS: cefEPime HCl 1 GM in 0.9 % Sodium Chloride 50 ML IV (00:29)
[2022-04-04 00:32] VITALS: BP 111/75; PULSE 67; RESP 15; O2SAT 98
[2022-04-04 06:26] LABS: Hematocrit 29.3 % (42.0-52.0); Hemoglobin 9.1 g/dl (14.0-18.0); Mean Corpuscular HGB Conc 31.1 g/dl (31.0-36.0); Mean Corpuscular Hemoglobin 24.5 pg (27.0-33.0); Mean Corpuscular Volume 78.8 fL (80.0-98.0); Mean Platelet Volume 9.4 fL (9.4-12.4); Red Blood Count 3.72 X10*6/uL (4.60-5.80); Red Cell Distribution Width 15.4 % (11.0-16.0)
[2022-04-04 06:27] LABS: Platelet Count 90 X10*3/uL (160-400)
[2022-04-04 06:40] LABS: Anion Gap 11 (12-20); Blood Urea Nitrogen 12 mg/dL (9-16); Carbon Dioxide 29 mmol/L (22-29); Chloride 98 mmol/L (96-108); Creatinine Clr Calc Pharmacy 144.2; Estimated Glomerular Filt Rate > 60; Glucose Fasting 139 mg/dL (60-99); Potassium 3.7 mmol/L (3.3-5.1); Sodium 134 mmol/L (135-145)
[2022-04-04 07:04] LABS: Erythrocyte Sedimentation Rate 77 MM/HR (0-15)
[2022-04-04 07:34] LABS: Glucose, Whole Blood 110 mg/dL (60-115)
[2022-04-04] MEDS: Insulin Glargine,Hum.rec.anlog 100 UNIT/ML 10 ML VIAL 20 UNIT SUBCUT ×2 (09:39→20:26)
[2022-04-04] MEDS: Atorvastatin Calcium 10 MG TABLET PO (09:39)
[2022-04-04] MEDS: Apixaban 2.5 MG TABLET PO ×2 (09:39→20:27)
[2022-04-04] MEDS: predniSONE 20 MG TABLET 60 MG PO (09:39)
[2022-04-04] MEDS: methADONE HCl 20 MG/2 ML ORAL.CONC 60 MG PO (09:40)
--- NOTE | 2022-04-04 10:14 | HO.PM.IMPN ---
Subjective Subjective Date of Service: 04/04/22 Interval History: cc: fevers, arthralgias interval history: no more fevers, now with diarrhea Cardiovascular Cardiovascular: Reports no additional cardiovascular complaints Respiratory Respiratory: Reports no additional respiratory complaints Physical Exam Vital Signs: Vital Signs: Last Vital Signs Temp 97.9 F 04/03/22 22:44 Pulse 67 04/04/22 00:32 Resp 15 04/04/22 00:32 BP 111/75 04/04/22 00:32 Pulse Ox 98 04/04/22 00:32 O2 Del Method 04/04/22 00:32 O2 Flow Rate 4 04/04/22 00:32 Oxygen Flow Rate 4 04/02/22 23:32 BMI result Body Mass Index 27.9 General: AO X 3, no acute distress Resp: diminished bilateral, no accessory muscles used CVS: S1,S2,RRR GI: soft, non tender, non distended Neuro: motor grossly intact, alert Psych: appropriate affect, appropriate insight skin: palpable purpura over bilateral hands, dorsal and palmar Objective Data Active Medications Acetaminophen (Acetaminophen 325 Mg Tablet) 650 mg PO Q6H PRN PRN Reason: Pain, Mild (Pain Scale 1-3) Albuterol/Ipratropium (Albuterol/Iprat 2.5/0.5mg 3 Ml Ampul.Neb) 3 ml INHALE RQ4H PRN PRN Reason: Shortness of Breath/Wheezing Last Admin: 04/03/22 07:18 Dose: 3 ml Documented By: LISA Apixaban (Apixaban 2.5 Mg Tablet) 2.5 mg PO BID [facility] Last Admin: 04/04/22 09:39 Dose: 2.5 mg Documented By: RILEY Atorvastatin Calcium (Atorvastatin Calcium 10 Mg Tablet) 10 mg PO DAILY [facility] Last Admin: 04/04/22 09:39 Dose: 10 mg Documented By: RILEY Azelastine HCl (Azelastine Hcl Nasal 137 Mcg/[place] 30 Ml) 1 spray NOSTRIL-B BID [facility] Last Admin: 04/03/22 23:17 Dose: Not Given Documented By: LEEANNA Non-Admin Reason: Med Not Available Dapsone (Dapsone 25 Mg Tablet) 100 mg PO DAILY [facility] Last Admin: 04/03/22 10:14 Dose: 100 mg Documented By: CAMPBELL Darunavir (Darunavir Ethanolate 600 Mg Tablet) 600 mg PO BID [facility] Last Admin: 04/03/22 22:41 Dose: 600 mg Documented By: GREGORY Dolutegravir Sodium (Dolutegravir Sodium 50 Mg Tablet) 50 mg PO BID [facility] Last Admin: 04/03/22 22:41 Dose: 50 mg Documented By: GREGORY Emtricitabine/Tenofovir Alafenamide (Emtricitabine/Tenofov Alafenam Tablet) 1 tab PO DAILY [facility] Last Admin: 04/03/22 10:11 Dose: 1 tab Documented By: CAMPBELL Insulin Glargine (Insulin Glargine,Hum.Rec.Anlog 100 Unit/Ml 10 Ml Vial) 20 unit SUBCUT BID [facility] Last Admin: 04/04/22 09:39 Dose: 20 unit Documented By: RILEY Melatonin (Melatonin 3 Mg Tablet) 6 mg PO BEDTIME PRN PRN Reason: Insomnia Methadone HCl (Methadone Hcl 20 Mg/2 Ml Oral.Conc) 60 mg PO DAILY [facility] Last Admin: 04/04/22 09:40 Dose: 60 mg Documented By: RILEY Non-Formulary Medication (Umeclidinium-Vilanterol [Anoro Ellipta]) 1 puff INHALE DAILY [facility] Pharmacy Consult (Consult Rx Vancomycin Dosing) 1 each MISCELLANE DAILY PRN PRN Reason: Consult order Prednisone (Prednisone 20 Mg Tablet) 60 mg PO DAILY [facility] Last Admin: 04/04/22 09:39 Dose: 60 mg Documented By: RILEY Ritonavir (Ritonavir 100 Mg Tablet) 100 mg PO BID [facility] Last Admin: 04/03/22 22:41 Dose: 100 mg Documented By: GREGORY Senna (Sennosides 8.6 Mg Tablet) 17.2 mg PO BEDTIME PRN PRN Reason: Constipation Sodium Chloride (0.9 % Sodium Chloride Flush 3 Ml Syringe) 3 ml IVFLUSH QSHIFT [facility] Last Admin: 04/04/22 00:30 Dose: Not Given Documented By: TISH Non-Admin Reason: IV Running Labs CBC & Chem 7: 04/04/22 05:58 04/04/22 05:58 Labs: Laboratory Results - last 24 hr 04/03/22 04/03/22 04/03/22 18:18 19:03 21:57 MCV MCH MCHC RDW Plt Count MPV Absolute Nucleated RBC Nucleated RBC % (auto) ESR Anion Gap Estim Creat Clear Calc Estimated GFR POC Glucose 269 H 288 H Fasting Glucose Calcium Urine Color YELLOW Urine Appearance CLEAR Urine pH 5.5 Ur Specific [place] >= 1.030 H Urine Protein TRACE Urine Glucose (UA) NEG Urine Ketones 15 Urine Blood NEG Urine Nitrite NEG Ur Leukocyte Esterase NEG 04/04/22 04/04/22 04/04/22 05:58 05:58 05:58 MCV 78.8 L MCH 24.5 L MCHC 31.1 RDW 15.4 Plt Count 90 L MPV 9.4 Absolute Nucleated RBC 0.000 Nucleated RBC % (auto) 0.0 ESR 77 H Anion Gap 11 L Estim Creat Clear Calc 144.2 Estimated GFR > 60 POC Glucose Fasting Glucose 139 H Calcium 8.0 L Urine Color Urine Appearance Urine pH Ur Specific [place] Urine Protein Urine Glucose (UA) Urine Ketones Urine Blood Urine Nitrite Ur Leukocyte Esterase 04/04/22 07:31 MCV MCH MCHC RDW Plt Count MPV Absolute Nucleated RBC Nucleated RBC % (auto) ESR Anion Gap Estim Creat Clear Calc Estimated GFR POC Glucose 110 Fasting Glucose Calcium Urine Color Urine Appearance Urine pH Ur Specific [place] Urine Protein Urine Glucose (UA) Urine Ketones Urine Blood Urine Nitrite Ur Leukocyte Esterase Microbiology Microbiology Results: Microbiology 04/03/22 22:52 Gram Stain - Final Sputum - Expectorated 04/03/22 00:40 Blood Culture - Preliminary Blood - Venous No growth after 24 hours. 04/03/22 00:12 Blood Culture - Preliminary Blood - Venous No growth after 24 hours. Assessment and Plan (1) Vasculitis: Status: Acute Plan 56M presented with fevers fevers suspect due to recurrence of vasculitis elevated esr, crp continue increased prednisone from 10mg to 60mg daily will dc abx, infection unlikely diarrhea check cdif, stool pcr panel chronic hypoxic respriatory failure due to copd on 3-4L o2 baseline continue anoro ellipta DM basal bolus insulin HIV HAART history of DVT/PE eliquis full code reason for continued hospitalization: awaiting defervescence, ongoing diarrhea Quality Stroke Does the patient have a stroke diagnosis?: No VTE Prior VTE?: No VTE Risk Level:: Medical - moderate - high VTE Device Contraindication: Treatment Not Indicated VTE Drug Contraindication: N/A - Med Ordered
[2022-04-04 11:08] LABS: Vancomycin Trough < 3.0 mcg/mL (10.0-20.0)
[2022-04-04] MEDS: Dolutegravir Sodium 50 MG TABLET PO ×2 (11:47→20:27)
[2022-04-04] MEDS: RITONAVIR 100 MG PO ×2 (11:47→20:27)
[2022-04-04] MEDS: Emtricitabine/Tenofov Alafenam TABLET 1 TAB PO (11:48)
[2022-04-04] MEDS: Dapsone 25 MG TABLET 100 MG PO (11:48)
[2022-04-04] MEDS: DARUNAVIR ETHANOLATE 600 MG PO ×2 (11:48→20:27)
[2022-04-04 19:23] VITALS: BP 111/62; PULSE 85; RESP 16; TEMP 36.1; O2SAT 92
[2022-04-04 19:45] LABS: Glucose, Whole Blood 306 mg/dL (60-115)
[2022-04-04] MEDS: 0.9 % Sodium Chloride Flush 3 ML SYRINGE IVFLUSH (20:27)
[2022-04-04] MEDS: Insulin Lispro 100 UNIT/ML 3 ML VIAL SUBCUT (21:16)
[2022-04-04 22:20] VITALS: PULSE 85; RESP 20; O2SAT 95
[2022-04-04] MEDS: Albuterol/Iprat 2.5/0.5MG 3 ML AMPUL.NEB INHALE (22:20)
[2022-04-04 23:32] VITALS: BP 99/57; PULSE 68; RESP 16; TEMP 36.1; O2SAT 95
[2022-04-05] VITALS (7 sets, daily range): BP systolic 93–136; BP diastolic 55–70; PULSE 75–87; RESP 16–20; TEMP 35.7–36.9; O2SAT 93–98
--- NOTE | 2022-04-05 00:43 | PC.NURSE ---
POC at night =[id number], Dr. Sosa was notified, Lispro 8 units SC given.
[2022-04-05 06:33] LABS: Hematocrit 30.4 % (42.0-52.0); Hemoglobin 9.2 g/dl (14.0-18.0); Mean Corpuscular HGB Conc 30.3 g/dl (31.0-36.0); Mean Corpuscular Hemoglobin 23.8 pg (27.0-33.0); Mean Corpuscular Volume 78.6 fL (80.0-98.0); Platelet Count 112 X10*3/uL (160-400); Red Blood Count 3.87 X10*6/uL (4.60-5.80); Red Cell Distribution Width 15.3 % (11.0-16.0); White Blood Count 3.3 X10*3/uL (4.8-10.8)
[2022-04-05 06:48] LABS: Anion Gap 10 (12-20); Blood Urea Nitrogen 12 mg/dL (9-16); Calcium 8.4 mg/dL (8.4-10.2); Carbon Dioxide 33 mmol/L (22-29); Chloride 100 mmol/L (96-108); Creatinine Clr Calc Pharmacy 137.9; Estimated Glomerular Filt Rate > 60; Glucose Fasting 111 mg/dL (60-99); Potassium 3.8 mmol/L (3.3-5.1); Sodium 139 mmol/L (135-145)
[2022-04-05 07:32] LABS: Glucose, Whole Blood 84 mg/dL (60-115)
[2022-04-05] MEDS: Emtricitabine/Tenofov Alafenam TABLET 1 TAB PO (08:34)
[2022-04-05] MEDS: DARUNAVIR ETHANOLATE 600 MG PO ×2 (08:34→21:33)
[2022-04-05] MEDS: RITONAVIR 100 MG PO ×2 (08:34→21:34)
[2022-04-05] MEDS: 0.9 % Sodium Chloride Flush 3 ML SYRINGE IVFLUSH ×3 (08:34→21:34)
[2022-04-05] MEDS: Dolutegravir Sodium 50 MG TABLET PO ×2 (08:34→21:33)
[2022-04-05] MEDS: predniSONE 20 MG TABLET 60 MG PO (08:35)
[2022-04-05] MEDS: Dapsone 25 MG TABLET 100 MG PO (08:35)
[2022-04-05] MEDS: Apixaban 2.5 MG TABLET PO ×2 (08:35→21:34)
[2022-04-05] MEDS: Azelastine HCl Nasal 137 MCG/Spray 30 ML 1 SPRAY NOSTRIL-B ×2 (08:36→21:34)
[2022-04-05] MEDS: Insulin Glargine,Hum.rec.anlog 100 UNIT/ML 10 ML VIAL 20 UNIT SUBCUT ×2 (08:36→21:34)
[2022-04-05] MEDS: methADONE HCl 20 MG/2 ML ORAL.CONC 60 MG PO (08:37)
[2022-04-05] MEDS: Atorvastatin Calcium 10 MG TABLET PO (08:43)
--- NOTE | 2022-04-05 10:12 | P.PNIM_ITS ---
Subjective Subjective Date of Service: 04/05/22 Interval History: cc: fevers, arthralgias interval history: no more fevers, diarrhea resolved Cardiovascular Cardiovascular: Reports no additional cardiovascular complaints Respiratory Respiratory: Reports no additional respiratory complaints Physical Exam Vital Signs: Vital Signs: Last Vital Signs Temp 96.2 F L 04/05/22 07:48 Pulse 87 04/05/22 07:48 Resp 16 04/05/22 07:48 BP 95/57 L 04/05/22 07:48 Pulse Ox 93 04/05/22 07:48 O2 Del Method 04/05/22 07:48 O2 Flow Rate 4.0 04/05/22 07:48 Oxygen Flow Rate 4 04/02/22 23:32 BMI result Body Mass Index 27.9 General: AO X 3, no acute distress Resp: diminished bilateral, no accessory muscles used CVS: S1,S2,RRR GI: soft, non tender, non distended Neuro: motor grossly intact, alert Psych: appropriate affect, appropriate insight skin: palpable purpura over bilateral hands, dorsal and palmar Objective Data Active Medications Acetaminophen (Acetaminophen 325 Mg Tablet) 650 mg PO Q6H PRN PRN Reason: Pain, Mild (Pain Scale 1-3) Albuterol/Ipratropium (Albuterol/Iprat 2.5/0.5mg 3 Ml Ampul.Neb) 3 ml INHALE RQ4H PRN PRN Reason: Shortness of Breath/Wheezing Last Admin: 04/04/22 22:20 Dose: 3 ml Documented By: BRIDGET Apixaban (Apixaban 2.5 Mg Tablet) 2.5 mg PO BID [facility] Last Admin: 04/05/22 08:35 Dose: 2.5 mg Documented By: PEGGY Atorvastatin Calcium (Atorvastatin Calcium 10 Mg Tablet) 10 mg PO DAILY [facility] Last Admin: 04/05/22 08:43 Dose: 10 mg Documented By: PEGGY Azelastine HCl (Azelastine Hcl Nasal 137 Mcg/[place] 30 Ml) 1 spray NOSTRIL-B BID [facility] Last Admin: 04/05/22 08:36 Dose: 1 spray Documented By: PEGGY Dapsone (Dapsone 25 Mg Tablet) 100 mg PO DAILY [facility] Last Admin: 04/05/22 08:35 Dose: 100 mg Documented By: PEGGY Darunavir (Darunavir Ethanolate 600 Mg Tablet) 600 mg PO BID [facility] Last Admin: 04/05/22 08:34 Dose: 600 mg Documented By: PEGGY Dextrose (Dextrose 50 % 25 Gm/50 Ml Syringe) 25 gm IVPUSH Q15M PRN; Protocol PRN Reason: per Hypoglycemia Standing Ord. Dolutegravir Sodium (Dolutegravir Sodium 50 Mg Tablet) 50 mg PO BID [facility] Last Admin: 04/05/22 08:34 Dose: 50 mg Documented By: PEGGY Emtricitabine/Tenofovir Alafenamide (Emtricitabine/Tenofov Alafenam Tablet) 1 tab PO DAILY [facility] Last Admin: 04/05/22 08:34 Dose: 1 tab Documented By: PEGGY Glucose (Glucose Gel 15 Gm Gel..Gram.) 15 gm PO Q15M PRN; Protocol PRN Reason: per Hypoglycemia Standing Ord. Hydrocortisone (Hydrocortisone 2.5 % Rectal Cr 30 Gm Tube) 1 appl UT BID [facility] Insulin Glargine (Insulin Glargine,Hum.Rec.Anlog 100 Unit/Ml 10 Ml Vial) 20 unit SUBCUT BID [facility] Last Admin: 04/05/22 08:36 Dose: 20 unit Documented By: PEGGY Insulin Human Lispro (Insulin Lispro 100 Unit/Ml 3 Ml Vial) 0 unit SUBCUT QIDACHS [facility]; Protocol Last Admin: 04/05/22 07:33 Dose: Not Given Documented By: PEGGY Non-Admin Reason: No Insulin Coverage Melatonin (Melatonin 3 Mg Tablet) 6 mg PO BEDTIME PRN PRN Reason: Insomnia Methadone HCl (Methadone Hcl 20 Mg/2 Ml Oral.Conc) 60 mg PO DAILY [facility] Last Admin: 04/05/22 08:37 Dose: 60 mg Documented By: PEGGY Non-Formulary Medication (Umeclidinium-Vilanterol [Anoro Ellipta]) 1 puff INHALE DAILY [facility] Pharmacy Consult (Consult Rx Vancomycin Dosing) 1 each MISCELLANE DAILY PRN PRN Reason: Consult order Prednisone (Prednisone 20 Mg Tablet) 60 mg PO DAILY [facility] Last Admin: 04/05/22 08:35 Dose: 60 mg Documented By: PEGGY Ritonavir (Ritonavir 100 Mg Tablet) 100 mg PO BID [facility] Last Admin: 04/05/22 08:34 Dose: 100 mg Documented By: PEGGY Senna (Sennosides 8.6 Mg Tablet) 17.2 mg PO BEDTIME PRN PRN Reason: Constipation Sodium Chloride (0.9 % Sodium Chloride Flush 3 Ml Syringe) 3 ml IVFLUSH QSHIFT [facility] Last Admin: 04/05/22 08:34 Dose: 3 ml Documented By: PEGGY Labs CBC & Chem 7: 04/05/22 06:03 04/05/22 06:03 Labs: Laboratory Results - last 24 hr 04/04/22 04/04/22 04/05/22 10:26 19:35 06:03 MCV 78.6 L MCH 23.8 L MCHC 30.3 L RDW 15.3 Plt Count 112 L MPV 9.0 L Absolute Nucleated RBC 0.000 Nucleated RBC % (auto) 0.0 Anion Gap Estim Creat Clear Calc Estimated GFR POC Glucose 306 H Fasting Glucose Calcium Vancomycin Trough < 3.0 L 04/05/22 04/05/22 06:03 07:17 MCV MCH MCHC RDW Plt Count MPV Absolute Nucleated RBC Nucleated RBC % (auto) Anion Gap 10 L Estim Creat Clear Calc 137.9 Estimated GFR > 60 POC Glucose 84 Fasting Glucose 111 H Calcium 8.4 Vancomycin Trough Microbiology Microbiology Results: Microbiology 04/03/22 22:52 Gram Stain - Final Sputum - Expectorated Sputum Culture - Preliminary Culture in progress. 04/03/22 00:40 Blood Culture - Preliminary Blood - Venous No growth after 48 hours. 04/03/22 00:12 Blood Culture - Preliminary Blood - Venous No growth after 48 hours. Assessment and Plan (1) Vasculitis: Status: Acute Plan 56M presented with fevers fevers suspect due to recurrence of vasculitis elevated esr, crp continue increased prednisone from 10mg to 60mg daily, o/p derm follow up diarrhea resolved after stopping abx chronic hypoxic respriatory failure due to copd on 3-4L o2 baseline continue anoro ellipta DM basal bolus insulin HIV HAART history of DVT/PE eliquis full code reason for continued hospitalization: awaiting defervescence Quality Stroke Does the patient have a stroke diagnosis?: No VTE Prior VTE?: No VTE Risk Level:: Medical - moderate - high VTE Device Contraindication: Treatment Not Indicated VTE Drug Contraindication: N/A - Med Ordered
[2022-04-05 11:24] LABS: Glucose, Whole Blood 129 mg/dL (60-115)
[2022-04-05] MEDS: Hydrocortisone 2.5 % Rectal Cr 30 GM TUBE 1 APPL PR ×2 (11:57→22:22)
--- NOTE | 2022-04-05 15:34 | MHC.CLN ---
NUTRITION CONSULT FOR SKIN INTEGRITY AND DECREASED APPETITE. SKIN RASH/VASCULITIS-NO PRESSURE AREAS. INTAKE APPEARS TO BE VERY GOOD WITH 3 MEALS X 100%. INCREASING KCALS OF DM DIET FROM 1800 TO 2200 KCALS. PROVIDES 24.2 KCALS/KG.
[2022-04-05 16:07] LABS: Glucose, Whole Blood 183 mg/dL (60-115)
[2022-04-05] MEDS: Insulin Lispro 100 UNIT/ML 3 ML VIAL SUBCUT ×2 (16:41→21:34)
[2022-04-05] MEDS: Albuterol/Iprat 2.5/0.5MG 3 ML AMPUL.NEB INHALE ×2 (17:45→20:29)
[2022-04-05 20:29] LABS: Glucose, Whole Blood 256 mg/dL (60-115)
[2022-04-05] MEDS: Magnesium Hydrox/Alum Hydrox 30 ML ORAL.SUSP PO (22:22)
[2022-04-06] VITALS (9 sets, daily range): BP systolic 93–121; BP diastolic 53–66; PULSE 76–94; RESP 16–20; TEMP 36.1–36.7; O2SAT 93–98
[2022-04-06] MEDS: Albuterol/Iprat 2.5/0.5MG 3 ML AMPUL.NEB INHALE ×5 (00:07→15:33)
--- NOTE | 2022-04-06 04:04 | PC.NURSE ---
Earlier of the night pt c/o upset stomach after eating supper with bloated feeling, Dr. Plasencia was notified, Maalox suspension po given, pt slept after.
[2022-04-06 06:44] LABS: Hematocrit 31.3 % (42.0-52.0); Hemoglobin 9.4 g/dl (14.0-18.0); Mean Corpuscular Volume 80.1 fL (80.0-98.0); Mean Platelet Volume 9.1 fL (9.4-12.4); Platelet Count 145 X10*3/uL (160-400); Red Blood Count 3.91 X10*6/uL (4.60-5.80); Red Cell Distribution Width 15.5 % (11.0-16.0); White Blood Count 6.4 X10*3/uL (4.8-10.8)
[2022-04-06 07:17] LABS: Anion Gap 11 (12-20); Blood Urea Nitrogen 11 mg/dL (9-16); Calcium 8.7 mg/dL (8.4-10.2); Carbon Dioxide 37 mmol/L (22-29); Chloride 99 mmol/L (96-108); Creatinine Clr Calc Pharmacy 139.9; Estimated Glomerular Filt Rate > 60; Glucose Fasting 55 mg/dL (60-99); Potassium 3.5 mmol/L (3.3-5.1); Sodium 143 mmol/L (135-145)
[2022-04-06 07:46] LABS: Glucose, Whole Blood 75 mg/dL (60-115)
[2022-04-06] MEDS: methADONE HCl 20 MG/2 ML ORAL.CONC 60 MG PO (08:54)
[2022-04-06] MEDS: Dapsone 25 MG TABLET 100 MG PO (08:54)
[2022-04-06] MEDS: Insulin Glargine,Hum.rec.anlog 100 UNIT/ML 10 ML VIAL 20 UNIT SUBCUT (08:54)
[2022-04-06] MEDS: Azelastine HCl Nasal 137 MCG/Spray 30 ML 1 SPRAY NOSTRIL-B (08:55)
[2022-04-06] MEDS: Atorvastatin Calcium 10 MG TABLET PO (08:55)
[2022-04-06] MEDS: Apixaban 2.5 MG TABLET PO (08:55)
[2022-04-06] MEDS: predniSONE 20 MG TABLET 60 MG PO (08:55)
[2022-04-06] MEDS: Emtricitabine/Tenofov Alafenam TABLET 1 TAB PO (08:55)
[2022-04-06] MEDS: DARUNAVIR ETHANOLATE 600 MG PO (08:55)
[2022-04-06] MEDS: RITONAVIR 100 MG PO (08:55)
[2022-04-06] MEDS: 0.9 % Sodium Chloride Flush 3 ML SYRINGE IVFLUSH (08:55)
[2022-04-06] MEDS: Dolutegravir Sodium 50 MG TABLET PO (08:55)
[2022-04-06] MEDS: Hydrocortisone 2.5 % Rectal Cr 30 GM TUBE 1 APPL PR (08:55)
--- NOTE | 2022-04-06 09:21 | MHC.CM.PN ---
PATIENT LIVES WITH HIS /HCP HE RELIES ON A CANE FOR AMBULATION ASSIST AND HAS HOME O2 (2 CONCENTRATORS AND 2 TANKS) HE IS TYPICALLY ON 4 LITRES AT HOME. PCP IS DR CHAVEZ URIAS OF [facility]. UPDATE SENT IN QUICK TASK. HE IS COVID VAX X 4. IMM 04/06 IN CHART
--- NOTE | 2022-04-06 09:26 | P.DS_ITS ---
DS: Providers Provider Date of Service: 04/06/22 Date of admission: 04/03/22 04:43 Primary care physician: Unknown Physician Consults: 04/03/22 04:41 Consult to Infectious Diseases Routine Consulting Provider: Dinah Wolff Reason for consultation: PNA; hx HIV; aNAL WARTS 04/03/22 04:47 Consult to Infectious Diseases Routine Consulting Provider: Dinah Wolff Reason for consultation: hx hiv DS: Diagnosis Discharge Diagnosis (1) Vasculitis: Status: Acute DS: Summary Hospital Course Hospital Course: from initial hpi: Chief Complaint: Fever/cough 56-year-old male with a past medical history of hypertension, hyperlipidemia, diabetes, HIV, COPD on 3 L of home oxygen, vasculitis on prednisone, DVT on Eliquis; presented to the hospital today with a chief complaint of cough and shortness of breath.? Patient reports that over the past 2 days she has been having cough and shortness of breath, also had brownish sputum production.? Reported subjective fevers.? And has a getting increased symptoms he decided to come to the ER for further evaluation.? Patient mentioned that he has vasculitis and has been on prednisone.? Mentions he has been complaint with his home medications.? Denies any chest pain or palpitations.? Denies any lightheadedness dizziness.? Denies any numbness tingling or focal weakness.? Denies any urinary symptoms.? Review of all other systems is negative except mentioned above ER course: Per ER team patient noted to have right lower lobe pneumonia on the chest x-ray; given broad-spectrum antibiotics; patient oxygen records slightly increased to 4 L compared to the [place] 3 L.? Coarse breath sounds.? No significant wheezing noted.? Patient also noted to have Mary warts; admitted for further management. hospital course: patient was admitted for fevers, initially thought to be due to pneumonia, however, patient then noted recurrence of his known vasculitic skin lesions. his symptoms of myalgias and arthralgias were more consistent with recurrence of vasculitis than penumonia. antibiotics were discontinued, prednisone was increase dfrom 10mg daily to 60mg daily. fevers resolved as did other symptoms. 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 course was complicated by diarrhea, which resolved on stopping antibiotics. for his chronic hypoxic respiratory failure he remained at baseline and will continue anoro. for his DM he continued basal bolus insulin. for his HIV he continued HAART. for his history of dvt/pe he was conitnued on eliquis. patient is feeling better and will be discharged home. Time Spent with Patient Time attestation: Total time spent providing and/or coordinating discharge services: Discharge coordination time: Greater than 30 minutes Quality: Safe Use of Opioids Does Pt have an Active Cancer Diagnosis on the Problem List?: No Quality: Stroke Does the patient have a stroke diagnosis?: No Physical Exam Vital Signs: Vital Signs: Last Vital Signs Temp 97.3 F 04/06/22 07:31 Pulse 94 04/06/22 07:50 Resp 17 04/06/22 07:50 BP 110/56 L 04/06/22 07:31 Pulse Ox 97 04/06/22 07:31 O2 Del Method 04/06/22 07:31 O2 Flow Rate 4 04/06/22 07:31 Oxygen Flow Rate 4 04/02/22 23:32 BMI result Body Mass Index 27.9 General: AO X 3, no acute distress Resp: diminished bilateral, no accessory muscles used CVS: S1,S2,RRR GI: soft, non tender, non distended Neuro: motor grossly intact, alert Psych: appropriate affect, appropriate insight skin: palpable purpura over bilateral hands, dorsal and palmar DS: Data Data Completed and Pending Completed studies during hospitalization [Text1]: Procedures Excision of Left Hand Skin, External Approach, Diagnostic (10/03/21) Introduction of Remdesivir Anti-infective into Peripheral Vein, Percutaneous Approach, [employer] 5 (02/12/22) Isolation (02/12/22) Labs on day of discharge: Laboratory Results - last 24 hr 04/05/22 04/05/22 04/05/22 11:07 15:50 20:12 WBC RBC Hgb Hct MCV MCH MCHC RDW Plt Count MPV Absolute Nucleated RBC Nucleated RBC % (auto) Sodium Potassium Chloride Carbon Dioxide Anion Gap BUN Creatinine Estim Creat Clear Calc Estimated GFR POC Glucose 129 H 183 H 256 H Fasting Glucose Calcium 04/06/22 04/06/22 04/06/22 06:10 06:10 07:35 WBC 6.4 RBC 3.91 L Hgb 9.4 L Hct 31.3 L MCV 80.1 MCH 24.0 L MCHC 30.0 L RDW 15.5 Plt Count 145 L D MPV 9.1 L Absolute Nucleated RBC 0.000 Nucleated RBC % (auto) 0.0 Sodium 143 Potassium 3.5 Chloride 99 Carbon Dioxide 37 H Anion Gap 11 L BUN 11 Creatinine 0.68 Estim Creat Clear Calc 139.9 Estimated GFR > 60 POC Glucose 75 Fasting Glucose 55 L* Calcium 8.7 Preliminary micro results at discharge 04/03/22 22:52 Sputum Culture - Preliminary Sputum - Expectorated Gram negative tierney 04/03/22 00:40 Blood Culture - Preliminary Blood - Venous No growth after 48 hours. 04/03/22 00:12 Blood Culture - Preliminary Blood - Venous No growth after 48 hours. Discharge Plan Discharge Patient Disposition: Home, Self-Care Discharge Diagnosis: recurrent vasculitis Referrals: Jeremy Romano MD [Physician] - 1 Week Physician,David Thomas [Primary Care Provider] - 1 Week Discharge Medications: New prednisone 20 mg Tablet 60 mg PO DAILY 7 Days Qty: 21 0RF Continued ipratropium-albuterol 0.5 mg-3 mg(2.5 mg base)/3 mL solution for nebulization 3 ml inhalation QID dapsone 100 mg tablet 1 tab PO DAILY ritonavir 100 mg tablet 1 tab PO BID Prezista 600 mg tablet 1 tab PO BID Tivicay 50 mg tablet 1 tab PO BID Descovy 200-25 mg tablet 1 tab PO DAILY insulin glargine [Lantus U-100 Insulin] 100 unit/mL solution 40 unit subcut BID azelastine 137 mcg (0.1 %) aerosol,spray 1 spray intranasal BID Eliquis 2.5 mg tablet 1 tab PO BID Anoro Ellipta 62.5-25 mcg/actuation blister with device 1 puff inhalation DAILY Fiasp FlexTouch U-100 Insulin 100 unit/mL (3 mL) insulin pen 10 - 24 unit subcut TID atorvastatin 10 mg tablet 1 tab PO DAILY methadone 10 mg/mL Concentrate 60 mg PO DAILY Discontinued prednisone 5 mg tablet 2 tab PO DAILY Discharge Orders: Discharge Order (Routine); Ordered 04/06/22 Ordered By: Bob Canales Diet: Advance to usual diet Activity on Discharge: As tolerated Stand Alone Forms: Patient Portal Discharge page Care Plan Goals: reocvery Health Concerns: vasculitis Plan of Treatment: continue prednisone 60mg daily for now, follow up with derm or rheumatology for further treatment Assessment: see above
[2022-04-06 09:33] LABS: Glucose, Whole Blood 81 mg/dL (60-115)
[2022-04-06 11:31] LABS: Glucose, Whole Blood 101 mg/dL (60-115)
--- NOTE | 2022-04-06 11:47 | MHC.CM.PN ---
PLAN IS HOME - SELF CARE
[2022-04-06] MEDS: levoFLOXacin 500 MG TABLET PO (12:21)
[2022-04-06 16:16] LABS: Glucose, Whole Blood 179 mg/dL (60-115)
== END 2022-04-06 17:39 | disposition home or self-care (01) | DRG 546 ==
LOC: HO.ED 04-03 03:42 → HO.EDOVER 04-03 05:11 → HO.S3 04-04 14:10
PROVIDERS: Admitting Provider Hospitalist; Emergency Provider Emergency Medicine; PCP Internal Medicine; Visit Provider Internal Medicine
DX: I77.6 Arteritis, unspecified (principal); F11.20 Opioid dependence, uncomplicated; J96.11 Chronic respiratory failure with hypoxia; A63.0 Anogenital (venereal) warts; E11.9 Type 2 diabetes mellitus without complications; J44.9 Chronic obstructive pulmonary disease, unspecified; Z20.822 Contact with and (suspected) exposure to COVID-19; Z86.718 Personal history of other venous thrombosis and embolism; Z99.81 Dependence on supplemental oxygen; Z88.0 Allergy status to penicillin; Z88.1 Allergy status to other antibiotic agents; Z88.2 Allergy status to sulfonamides; Z79.4 Long term (current) use of insulin; Z79.01 Long term (current) use of anticoagulants; Z79.52 Long term (current) use of systemic steroids; Z79.899 Other long term (current) drug therapy
CPT/HCPCS: 36415; 71250; 72192; 80048; 80076; 80202; 81003; 82803; 82947; 83605; 83615; 83690; 83735; 84145; 84484; 85025; 85027; 85610; 85652; 86140; 87040; 87070; 87077; 87205; 87635; 93005; 94640; 99285; J0692; J3370

== ENCOUNTER 2023-08-26 21:58 | Emergency (ER) | payer OTHER, SELFPAY ==
--- NOTE | ~2023-08-26 | CT_ITS ---
EXAMINATION: CT head/brain wo IV con, CT cervical spine wo IV con INDICATION INFORMATION: Reason for Exam fall head injury on eliquis COMPARISON: None TECHNIQUE: Separate noncontrast CT examinations of the head and cervical spine were performed. Coronal and sagittal images were created for each examination at the technologist workstation. This CT examination was performed using dose optimization techniques as appropriate, variously including the following: *Automated exposure control *Adjustment of mA and/or kV according to patient size (this includes techniques or standardized protocols for targeted exams where dose is matched to indication/reason for exam; i.e. extremities or head) *Use of iterative reconstruction technique DLP: History 44 mGy-cm FINDINGS: Head: No acute osseous or soft tissue abnormality. The mastoids are clear. Paranasal sinus inflammatory disease including complete left frontal and near complete left maxillary sinus opacification with sinus wall hyperostosis as sequela of chronic sinusitis. There is no evidence of acute intracranial hemorrhage or territorial infarction. No abnormal mass effect or midline shift is seen. Burr to white matter differentiation is well preserved. No extra-axial fluid collections are identified. No hydrocephalus. No significant volume loss. There is no abnormal attenuation within the brain parenchyma. Cervical spine: There is no evidence of acute cervical spine fracture. Vertebral bodies remain normal in height. Alignment is maintained. Mild multilevel cervical spondylosis. No pre- or paravertebral soft tissue abnormality is identified. Mild biapical pulmonary scarring. The thyroid gland is unremarkable. CT/CT head/brain wo IV con IMPRESSION: 1. No acute intracranial abnormality. 2. No cervical spine fracture or traumatic malalignment.
--- NOTE | ~2023-08-26 | CT_ITS ---
EXAMINATION: CT head/brain wo IV con, CT cervical spine wo IV con INDICATION INFORMATION: Reason for Exam fall head injury on eliquis COMPARISON: None TECHNIQUE: Separate noncontrast CT examinations of the head and cervical spine were performed. Coronal and sagittal images were created for each examination at the technologist workstation. This CT examination was performed using dose optimization techniques as appropriate, variously including the following: *Automated exposure control *Adjustment of mA and/or kV according to patient size (this includes techniques or standardized protocols for targeted exams where dose is matched to indication/reason for exam; i.e. extremities or head) *Use of iterative reconstruction technique DLP: History 44 mGy-cm FINDINGS: Head: No acute osseous or soft tissue abnormality. The mastoids are clear. Paranasal sinus inflammatory disease including complete left frontal and near complete left maxillary sinus opacification with sinus wall hyperostosis as sequela of chronic sinusitis. There is no evidence of acute intracranial hemorrhage or territorial infarction. No abnormal mass effect or midline shift is seen. Burr to white matter differentiation is well preserved. No extra-axial fluid collections are identified. No hydrocephalus. No significant volume loss. There is no abnormal attenuation within the brain parenchyma. Cervical spine: There is no evidence of acute cervical spine fracture. Vertebral bodies remain normal in height. Alignment is maintained. Mild multilevel cervical spondylosis. No pre- or paravertebral soft tissue abnormality is identified. Mild biapical pulmonary scarring. The thyroid gland is unremarkable. CT/CT cervical spine wo IV con IMPRESSION: 1. No acute intracranial abnormality. 2. No cervical spine fracture or traumatic malalignment.
--- NOTE | ~2023-08-26 | CT_ITS ---
EXAMINATION: CT ABDOMEN AND PELVIS WITHOUT CONTRAST CLINICAL INFORMATION: Fall with abdominal pain COMPARISON: CT pelvis 04/03/2022, CT chest 04/02/2022, CT abdomen pelvis 01/30/2021 TECHNIQUE: Multidetector volumetric imaging was performed from the superior aspect of the liver through the pubic symphysis. Sagittal and coronal reformatted images were obtained on the technologist's workstation. This CT examination was performed using dose optimization techniques as appropriate, variously including the following: *Automated exposure control *Adjustment of mA and/or kV according to patient size (this includes techniques or standardized protocols for targeted exams where dose is matched to indication/reason for exam; i.e. extremities or head) *Use of iterative reconstruction technique DLP: 571 mGy-cm FINDINGS: LUNG BASES: Marked bibasilar bronchiectasis is seen with bronchial wall thickening and some fluid-filled bronchi, unchanged from prior LIVER, GALLBLADDER, AND BILIARY TREE: The liver is enlarged measuring 21.9 cm in cephalocaudad dimension and demonstrates decreased attenuation suggesting steatosis. No focal hepatic lesion or biliary ductal dilatation is present. The gallbladder contains layering gallstones but is otherwise unremarkable with no evidence of gallbladder wall thickening or obvious pericholecystic inflammatory changes. PANCREAS: Unremarkable. SPLEEN: Spleen is enlarged measuring 13.7 cm in greatest transverse dimension. ADRENAL GLANDS: Unremarkable. KIDNEYS AND URETERS: The kidneys are normal in size, shape, and attenuation. No hydronephrosis, hydroureter, or calculi seen. No perinephric stranding. BLADDER: Unremarkable. GASTROINTESTINAL TRACT: The small and large bowel are unremarkable. The appendix is not seen but there is no evidence of appendicitis evidence of appendicitis. ABDOMINAL WALL: No significant hernia is appreciated. Small right inguinal hernia seen containing only fat. LYMPH NODES: Normal. VASCULAR: Unremarkable. PELVIC VISCERA: The prostate and seminal vesicles are unremarkable. OSSEOUS STRUCTURES: Mild degenerative changes are seen. There is a compression fracture involving the superior endplate of T12. CT/CT abdomen pelvis wo IV con IMPRESSION: 1. No evidence of an acute traumatic injury in the abdomen or pelvis. 2. Incidental note made of hepatosplenomegaly, cholelithiasis and T12 compression fracture. 3. Other incidental findings as described above including marked bibasilar bronchiectasis with bronchial wall thickening and some fluid-filled bronchi, unchanged from prior. Fleischner guidelines were followed.
[2023-08-26 22:17] VITALS: BP 107/75; BP 110/80; PULSE 10; PULSE 120; RESP 17; TEMP 37.4; O2SAT 92; O2SAT 93; BMI 21.1
--- NOTE | 2023-08-26 22:26 | MHC.EDTECH ---
Patient arrived by ambulance,patient was placed on the gambling monitor ,vitals taken and security at bedside for change coordinator all belongings in [facility] ROOM
[2023-08-26 22:47] VITALS: BP 118/70; PULSE 98; RESP 16; O2SAT 96
--- NOTE | 2023-08-26 22:55 | ED.FALL ---
HPI - Fall General Chief Complaint: Fall Stated Complaint: fall Time Seen by Provider: 08/26/23 22:32 History of Present Illness HPI Narrative: Patient is a 57-year-old male with a history of HIV history PE on Eliquis history of COPD baseline on 4 L of oxygen patient status post accidental fall. He tripped over his own oxygen tubing after using heroin. Patient then hit the back of his head. Positive head strike no loss of consciousness sent in for further evaluation. Related Data Home Medications Medication Instructions Recorded Confirmed dapsone 100 mg tablet 1 tab PO DAILY 01/27/21 04/03/22 ipratropium 0.5 mg-albuterol 3 mg 3 ml inhalation QID 01/27/21 04/03/22 (2.5 mg base)/3 mL nebulization soln ritonavir 100 mg tablet 1 tab PO BID 01/27/21 04/03/22 apixaban 2.5 mg tablet (Eliquis) 1 tab PO BID 02/12/22 04/03/22 azelastine 137 mcg (0.1 %) nasal 1 spray intranasal BID 02/12/22 04/03/22 spray aerosol darunavir ethanolate 600 mg tablet 1 tab PO BID 02/12/22 04/03/22 (Prezista) dolutegravir 50 mg tablet (Tivicay) 1 tab PO BID 02/12/22 04/03/22 emtricitabine 200 mg-tenofovir 1 tab PO DAILY 02/12/22 04/03/22 alafenamide fumarate 25 mg tablet (Descovy) insulin aspart 10 - 24 unit subcut TID 02/12/22 04/03/22 (niacinamide)(U-100) 100 unit/mL(3 mL) subcutaneous pen (Fiasp FlexTouch U-100 Insulin) insulin glargine 100 unit/mL 40 unit subcut BID 02/12/22 04/03/22 subcutaneous solution (Lantus U-100 Insulin) umeclidinium 62.5 mcg-vilanterol 1 puff inhalation DAILY 02/12/22 04/03/22 25 mcg/actuation powdr for inhalation (Anoro Ellipta) atorvastatin 10 mg tablet 1 tab PO DAILY 04/03/22 04/03/22 methadone 10 mg/mL oral concentrate 60 mg PO DAILY 04/03/22 04/03/22 Previous Rx's Medication Instructions Recorded prednisone 20 mg tablet 60 mg (3 x 20 mg) PO DAILY 7 days 04/06/22 #21 tabs Allergies Allergy/AdvReac Type Severity Reaction Status Date / Time Penicillins Allergy Severe HIves Verified 08/26/23 22:17 swelling SOB Sulfa (Sulfonamide Allergy Severe Hives Verified 08/26/23 22:17 Antibiotics) sulfamethoxazole Allergy Hives Verified 08/26/23 22:17 [From Bactrim] trimethoprim [From Bactrim] Allergy Hives Verified 08/26/23 22:17 Review of Systems Review of Systems: Positive head injury [facility] Past Medical History Attestation statement: The following information was validated with the patient. Medical History Bronchiectasis Vasculitis Pseudomonas aeruginosa colonization HIV (human immunodeficiency virus infection) DVT (deep venous thrombosis) Pulmonary embolism Chronic respiratory failure with hypoxia HTN (hypertension) COPD (chronic obstructive pulmonary disease) Pulmonary fibrosis Social History Social History Household Members: Spouse and Family Housing: House Do you presently have visiting nurse or other home services: Yes ([facility] Nursing) Alcohol intake: never Patient Tobacco Use Status: Never used Tobacco Smoked in Last 30 Days: No Substance Use Type: Heroin Substance Use Frequency: Chronic Longstanding Last Used Substance: Hours (ago) Advance Directives: No Advance Directives Information Provided: No service: No Current occupational status: disabled Physical Exam Vital Signs: Vital Signs: Last Vital Signs Temp 98.1 F 08/26/23 23:54 Pulse 90 08/26/23 23:54 Resp 16 08/26/23 23:54 BP 104/68 08/26/23 23:54 Pulse Ox 96 08/26/23 23:54 O2 Del Method Nasal Cannula 08/26/23 23:54 O2 Flow Rate 4 08/26/23 23:54 Oxygen Flow Rate 4 08/26/23 22:17 BMI result Body Mass Index 21.1 Appearance: Alert. Oriented X3. No acute distress. Eyes: Pupils equal, round and reactive to light. ENT: Pharynx normal. Neck: Normal inspection. No lymph nodes noted. No crepitus. C spine immobilized secondary distracting injury CVS: Normal heart rate and rhythm. Pulses normal. Normal S1 and S2 Respiratory: No respiratory distress. Breath sounds normal. No Wheezing. No rales Abdomen: Soft and nontender. No rigidity. No distention. good BS x4 Skin: Skin warm and dry. Normal skin color. Normal skin turgor. Extremities: No lower extremity edema. Neurovascular intact to all extremities. No Lacerations. No Rash Neuro: Oriented X 3. No motor deficit. No sensory deficit. Moving all extermities. No slurred speech Medical Decision Making Medical Decision Making MDM Narrative: Patient well appearing no acute distress. Status post using heroin then tripped over his own oxygen. Patient claims the fall was mechanical in nature. His CT scan of the head was done because patient is on Eliquis. CT scan of the head was grossly negative for any acute evidence of bleeding. CT scan of the C-spine was negative for any acute evidence of fracture. CT scan of the abdomen pelvis was negative for any evidence of retroperitoneal bleed. Patient has a family member to take him home. Will monitor. Currently in stable condition. Explained to patient the need to stop using heroin especially when he is on Eliquis. Patient states understanding. Will give patient a Narcan take home kit. He did not wanted detox at this time. In stable condition. Differential Diagnosis Differential Diagnoses: The differential diagnosis associated with the presentation includes Polysubstance abuse, head injury, neck injury Lab Data MDM Lab Attestation statement: I reviewed the patient's lab results. Independent Interpretation I performed an independent interpretation of an: CT Scan Interpretation: I reviewed patient's CT scan of the head was grossly negative for bleeding Radiology Impression Discussion of test interpretation with radiology: I have reviewed the radiologist's reading. External Record Review External record reviewed: Inpatient record Previous inpatient record reviewed Chronic Conditions HIV, PE, baseline on Eliquis. History of COPD baseline on 4 L of oxygen Social Determinants Patient?s care significantly limited by Social Determinants of Health including: Low income and Alcoholism and drug addiction in family Discharge Plan Discharge Clinical Impression: Head injury, Substance abuse Patient Disposition: Home, Self-Care Instructions: Polysubstance Abuse (ED), Head Injury (ED) Prescriptions: No Action ipratropium-albuterol 0.5 mg-3 mg(2.5 mg base)/3 mL solution for nebulization 3 ml inhalation QID dapsone 100 mg tablet 1 tab PO DAILY ritonavir 100 mg tablet 1 tab PO BID Prezista 600 mg tablet 1 tab PO BID Tivicay 50 mg tablet 1 tab PO BID Descovy 200-25 mg tablet 1 tab PO DAILY insulin glargine [Lantus U-100 Insulin] 100 unit/mL solution 40 unit subcut BID azelastine 137 mcg (0.1 %) aerosol,spray 1 spray intranasal BID Eliquis 2.5 mg tablet 1 tab PO BID Anoro Ellipta 62.5-25 mcg/actuation blister with device 1 puff inhalation DAILY Fiasp FlexTouch U-100 Insulin 100 unit/mL (3 mL) insulin pen 10 - 24 unit subcut TID atorvastatin 10 mg tablet 1 tab PO DAILY methadone 10 mg/mL Concentrate 60 mg PO DAILY prednisone 20 mg Tablet 60 mg PO DAILY 7 Days Qty: 21 0RF Referrals: Physician,David J [Primary Care Provider] - 08/29/23 (Please stop using heroin especially when you on oxygen for your COPD. Please be careful. Here on Eliquis.)
--- NOTE | 2023-08-26 22:59 | PC.NURSE ---
PER EMS, PT TRIPPED OVER NASAL CANNULA TUBING, FELL AND HIT THE BACK OF HEAD AND BUTTOCKS. PT IS ON ELIQUIS, NO LOC, ARRIVED IN C-COLLAR, NO BLEEDING OR ABRASIONS NOTED. PT SNORTS HEROIN, LAST USE APPROXIMATELY 2029 TODAY. DENIES ANY PAIN, A&O x 4 PATIENT DOZING IN BED BUT ARROUSABLE, VSS AT THIS TIME. AT BEDSIDE TO ASSESS PATIENT AND ORDER FOR CT PLACED.
--- NOTE | 2023-08-26 23:04 | PC.NURSE ---
PT TO CT.
[2023-08-26 23:54] VITALS: BP 104/68; PULSE 90; RESP 16; TEMP 36.7; O2SAT 96
--- NOTE | 2023-08-26 23:55 | MHC.EDTECH ---
Hourly rounds and vitals completed, Rosemarie is at bedside contact number
== END 2023-08-27 01:00 | disposition home or self-care (01) ==
PROVIDERS: Emergency Provider Emergency Medicine Emergency Medical Services
DX: S09.90XA Unspecified injury of head, initial encounter (principal); J44.9 Chronic obstructive pulmonary disease, unspecified; F11.10 Opioid abuse, uncomplicated; R51.9 Headache, unspecified; M54.2 Cervicalgia; R10.2 Pelvic and perineal pain; W01.10XA Fall on same level from slipping, tripping and stumbling with subsequent striking against unspecified object, initial encounter; Y93.9 Activity, unspecified; Y92.9 Unspecified place or not applicable; Y99.9 Unspecified external cause status; Z99.81 Dependence on supplemental oxygen; Z86.711 Personal history of pulmonary embolism; Z79.01 Long term (current) use of anticoagulants; Z79.899 Other long term (current) drug therapy
CPT/HCPCS: 70450; 72125; 74176; 99284

== ENCOUNTER 2025-02-27 16:48 | Outpatient (REF) | payer OTHER, SELFPAY ==
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
[2025-02-27 17:06] LABS: Potassium 4.5 mmol/L (3.3-5.1)
== END 2025-02-27 16:49 | disposition home or self-care (01) ==
LOC: HO.HVNA 16:48
PROVIDERS: Visit Provider Internal Medicine
DX: J84.112 Idiopathic pulmonary fibrosis (principal)
CPT/HCPCS: 36415; 84132